=== PATIENT | female | born 1995 | race Hispanic/Latino ===

== ENCOUNTER 2021-05-07 09:10 | Emergency (ER) | payer SELFPAY ==
[2021-05-07 10:12] LABS: Absolute Lymphocytes (CBC) 1.8 K/uL (0.7-4.9); Hematocrit 41.1 % (36.0-45.0); Lymphocytes % 18.3 % (15.3-44.8); MPV 7.9 fL (7.6-11.3); RBC Red Blood Cell Count 4.92 M/uL (3.86-4.86)
[2021-05-07 10:46] LABS: BUN Blood Urea Nitrogen 12 mg/dL (7-18); Bicarbonate 23 mmol/L (21-32); Glucose Level 95 mg/dL (74-106); Sodium Level 136 mmol/L (136-145)
[2021-05-07 10:59] LABS: HCG, Quantitative 74224 mIU/mL (1-3)
[2021-05-07 11:25] LABS: Urine Blood 3+ (Negative); Urine Glucose Negative (Negative); Urine Protein Trace (Negative)
--- NOTE | 2021-05-07 12:42 | RAD REPORT ---
EXAM DESCRIPTION: US - Transvaginal OB - 05/07/2021 11:42 am CLINICAL HISTORY: VAGINAL BLEEDING, COMPARISON: No comparisons FINDINGS: A normal shaped intrauterine gestational sac is identifiable. Yolk sac is seen. A po le is present. Wheeler-rump length measurements correspond to a 7 week 6 day age. Cardiac activity seen at a rate of 160 BPM. No intrauterine hematoma identified. Cervical canal appears to be closed. A 3.2 centimeter right ovarian corpus luteum cyst is identified. No suspicious ovarian or adnexal fin dings. IMPRESSION: Single 7 week 6 day IUP with normal heart rate normally positioned within the endometria l cavity of the uterus. No intrauterine hematoma or mass. Internal os appears to be closed. No suspicious adnexal finding.
--- NOTE | 2021-05-07 13:06 | ER ---
Nurse's Notes [facility] Name: Siri Lyons Age: 25 yrs Sex: Female : 1995 Arrival Date: 05/07/2021 Time: 09:14 Bed 28 Private MD: Diagnosis: Threatened ;UTI/ Urinary tract infection, site not specified Presentation: 05/07 09:21 Chief complaint: Patient states: Vaginal bleeding started today (like a period). ll1 Approximately 7 weeks . G2, P1. Coronavirus screen: Vaccine status: Patient reports being unvaccinated. Client denies travel out of the [place] in the last 14 days. At this time, the client does not indicate any symptoms associated with coronavirus-19. Ebola Screen: Patient denies travel to an Ebola-affected area in the 21 days before illness onset. Initial Sepsis Screen: Does the patient meet any 2 criteria? No. Patient's initial sepsis screen is negative. Does the patient have a suspected source of infection? No. Patient's initial sepsis screen is negative. Risk Assessment: Do you want to hurt yourself or someone else? Patient reports no desire to harm self or others. Onset of symptoms was May 07, 2021. 09:21 Method Of Arrival: Ambulatory ll1 09:21 Acuity: CYNTHIA 3 ll1 Triage Assessment: 09:25 General: Appears in no apparent distress. Behavior is calm, cooperative, appropriate ll1 for age. Pain: Denies pain. Neuro: No deficits noted. Cardiovascular: No deficits noted. Respiratory: No deficits noted. : Reports vaginal bleeding that is with clots, moderate flow. 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 Flu vaccine status is unknown. - Social history:: Smoking status: Patient denies any tobacco usage or history of. Patient/guardian denies using alcohol, street drugs, The patient lives with family. - Family history:: not pertinent. Screenin:27 Abuse screen: Denies threats or abuse. Denies injuries from another. Nutritional jg9 screening: No deficits noted. Tuberculosis screening: No symptoms or risk factors identified. Fall Risk None identified. Assessment: 11:27 Obstetrical Assessment: Patient reports vaginal bleeding. jg9 Vital Signs: 09:21 BP 126 / 84; Pulse 85; Resp 16; Temp 98.6; Pulse Ox 96% ; Weight 83.91 kg (M); Height 5 ll1 ft. 2 in. (157.48 cm); Pain 0/10; 10:30 BP 120 / 64; Pulse 81; Resp 17 S; Pulse Ox 98% ; jg9 11:15 BP 114 / 68; Pulse 85; Resp 18 S; Pulse Ox 100% on R/A; jg9 12:15 BP 113 / 70; Pulse 85; Resp 18 S; Pulse Ox 98% on R/A; jg9 12:45 BP 106 / 68; Pulse 83; Resp 18; Pulse Ox 96% on R/A; jg9 09:21 Body Mass Index 33.84 (83.91 kg, 157.48 cm) ll1 ED Course: 09:14 Patient arrived in ED. kz 09:23 Triage completed. ll1 09:23 Arm band placed on Patient placed in an exam room, on a stretcher. ll1 09:26 Magaly Colby, BREANN is Primary Nurse. jg9 09:29 Steven Orr MD is Attending Physician. ma2 09:45 Inserted saline lock: 20 gauge in left antecubital area, using aseptic technique. Blood jg9 collected. 11:27 Patient has correct armband on for positive identification. Bed in low position. Call jg9 light in reach. 11:28 No apparent distress. Resting quietly. Pt visited by female friend. jg9 11:42 Transvaginal OB In Process Unspecified. EDMS 13:05 Allen Moreland MD is Referral Physician. ma2 13:13 No provider procedures requiring assistance completed. jg9 13:13 IV discontinued. jg9 Administered Medications: No medications were administered Point of Care Testing: Urine : 11:15 hCG Reading: Positive; Control Reading: Positive; jg9 Outcome: 13:06 Discharge ordered by . ma2 13:13 Discharged to home ambulatory. jg9 13:13 Condition: stable 13:13 Discharge instructions given to patient, Instructed on discharge instructions, follow up and referral plans. Demonstrated understanding of instructions, follow-up care, medications, Prescriptions given X 1. 13:14 Patient left the ED. jg9 Signatures: Dispatcher [employer] EDMS Steven Orr MD MD ma2 Jong Mccallum RN RN ll1 Magaly Colby RN RN jg9 Brissa Leblanc Corrections: (The following items were deleted from the chart) 09:25 09:21 BP 126 / 84; Pulse 85bpm; Resp 16bpm; Pulse Ox 96%; Temp 98.6F; Height 5 ft. 2 ll1 in.; Pain 0/10; ll1
--- NOTE | 2021-05-07 13:06 | EDPHYS ---
Physician Documentation [facility] Name: Siri Lyons Age: 25 yrs Sex: Female : 1995 Arrival Date: 05/07/2021 Time: 09:14 Bed 28 Private MD: ED Physician Steven Orr HPI: 05/07 13:03 This 25 yrs old Female presents to ER via Ambulatory with complaints of ma2 Vaginal Bleeding, + Preg <12wks. 13:03 25-year-old G2, P1 +0, patient is 7 weeks presents with vaginal bleeding heavy ma2 started today. She also states she is passing clots and possible tissue. Patient does not have abdominal pain or cramping. No vomiting or diarrhea.. 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 Flu vaccine status is unknown. - Social history:: Smoking status: Patient denies any tobacco usage or history of. Patient/guardian denies using alcohol, street drugs, The patient lives with family. - Family history:: not pertinent. ROS: 13:03 Constitutional: Negative for fever, chills, and weight loss. ma2 13:03 All other systems are negative. Exam: 13:03 Constitutional: This is a well developed, well nourished patient who is awake, alert, ma2 and in no acute distress. Head/Face: Normocephalic, atraumatic. Eyes: Pupils equal round and reactive to light, extra-ocular motions intact. Lids and lashes normal. Conjunctiva and sclera are non-icteric and not injected. Cornea within normal limits. Periorbital areas with no swelling, redness, or edema. ENT: Nares patent. No nasal discharge, no septal abnormalities noted. Tympanic membranes are normal and external auditory canals are clear. Oropharynx with no redness, swelling, or masses, exudates, or evidence of obstruction, uvula midline. Mucous membranes moist. Neck: Trachea midline, no thyromegaly or masses palpated, and no cervical lymphadenopathy. Supple, full range of motion without nuchal rigidity, or vertebral point tenderness. No Meningismus. Chest/axilla: Normal chest wall appearance and motion. Nontender with no deformity. No lesions are appreciated. Cardiovascular: Regular rate and rhythm with a normal S1 and S2. No gallops, murmurs, or rubs. Normal PMI, no JVD. No pulse deficits. Respiratory: Lungs have equal breath sounds bilaterally, clear to auscultation and percussion. No rales, rhonchi or wheezes noted. No increased work of breathing, no retractions or nasal flaring. Abdomen/GI: Soft, non-tender, with normal bowel sounds. No distension or tympany. No guarding or rebound. No evidence of tenderness throughout. Back: No spinal tenderness. No costovertebral tenderness. Full range of motion. Skin: Warm, dry with normal turgor. Normal color with no rashes, no lesions, and no evidence of cellulitis. MS/ Extremity: Pulses equal, no cyanosis. Neurovascular intact. Full, normal range of motion. Neuro: Awake and alert, GCS 15, oriented to person, place, time, and situation. Cranial nerves II-XII grossly intact. Motor strength 5/5 in all extremities. Sensory grossly intact. Cerebellar exam normal. Normal gait. Vital Signs: 09:21 BP 126 / 84; Pulse 85; Resp 16; Temp 98.6; Pulse Ox 96% ; Weight 83.91 kg (M); Height 5 ll1 ft. 2 in. (157.48 cm); Pain 0/10; 10:30 BP 120 / 64; Pulse 81; Resp 17 S; Pulse Ox 98% ; jg9 11:15 BP 114 / 68; Pulse 85; Resp 18 S; Pulse Ox 100% on R/A; jg9 12:15 BP 113 / 70; Pulse 85; Resp 18 S; Pulse Ox 98% on R/A; jg9 12:45 BP 106 / 68; Pulse 83; Resp 18; Pulse Ox 96% on R/A; jg9 09:21 Body Mass Index 33.84 (83.91 kg, 157.48 cm) ll1 MDM: 09:47 Patient medically screened. ma2 13:03 Differential diagnosis: STD, ectopic . Data reviewed: vital signs, nurses ma2 notes. Counseling: I had a detailed discussion with the patient and/or guardian regarding: the historical points, exam findings, and any diagnostic results supporting the discharge/admit diagnosis, the presence of at least one elevated blood pressure reading (>120/80) during this emergency department visit, the need for outpatient follow up. Response to treatment: the patient's symptoms have markedly improved after treatment. 13:03 ED course: Ultrasound shows normal IUP with normal pulse rate. No active bleeding ma2 at this time os is closed. I gave patient return precaution, and discharge instruction for threatening . 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 05/07 09:47 Order name: Abo/rh Typing; Complete Time: 10:56 [facility] 05/07 09:47 Order name: Basic Metabolic Panel; Complete Time: 11:23 [facility] 05/07 09:47 Order name: CBC with Diff; Complete Time: 10:45 [facility] 05/07 09:47 Order name: Quantitative Hcg; Complete Time: 11:23 [facility] 05/07 11:25 Order name: Urine Dipstick-Ancillary; Complete Time: 11:38 EDMS 05/07 11:33 Order name: Urine --Ancillary (enter results); Complete Time: 12:45 eb 05/07 09:47 Order name: IV Saline Lock; Complete Time: 10:06 [facility] 05/07 09:47 Order name: Labs collected and sent; Complete Time: 10:47 [facility] 05/07 09:47 Order name: Urine Dipstick-Ancillary (obtain specimen); Complete Time: 11:26 [facility] 05/07 10:29 Order name: Transvaginal OB; Complete Time: 12:45 EDMS 05/07 12:36 Order name: ABO/RH no charge; Complete Time: 12:45 EDMS Administered Medications: No medications were administered Point of Care Testing: Urine : 11:15 hCG Reading: Positive; Control Reading: Positive; jg9 Disposition Summary: 05/07/21 13:06 Discharge Ordered Location: Home ma2 Condition: Stable ma2 Diagnosis - Threatened ma2 - UTI/ Urinary tract infection, site not specified ma2 Followup: ma2 - With: Allen Moreland MD - When: Tomorrow - Reason: If symptoms return, Continuance of care Discharge Instructions: - Discharge Summary Sheet ma2 - Threatened Miscarriage ma2 - Form - Excuse from Work, School, or Physical Activity jg9 - Urinary Tract Infection, Adult ma2 Forms: - Medication Reconciliation Form ma2 - Thank You Letter ma2 - Antibiotic Education ma2 - Prescription Opioid Use ma2 Prescriptions: - Amoxicillin 875 mg Oral Tablet - take 1 tablet by ORAL route every 12 hours for 10 days; 20 tablet; Refills: 0, ma2 Product Selection Permitted Signatures: Dispatcher [employer] EDMS Steven Orr MD MD ma2 Jong Mccallum RN RN ll1 Corrections: (The following items were deleted from the chart) 10:29 10:24 OB Complete+US.RAD.BRZ ordered. EDMS EDMS
[2021-05-07 13:23] VITALS: TEMP 98.6
[2021-05-07 13:27] VITALS: BP 106/68; O2SAT 96
== END 2021-05-07 13:14 | disposition home or self-care (01) ==
LOC: ER 09:10
DX: O20.0 Threatened abortion (principal); Z3A.01 Less than 8 weeks gestation of pregnancy; O23.41 Unspecified infection of urinary tract in pregnancy, first trimester; N39.0 Urinary tract infection, site not specified
CPT/HCPCS: 36415; 76817; 80048; 81003; 81025; 84702; 85025; 86900; 86901; 99284

== ENCOUNTER 2021-05-27 15:56 | Emergency (ER) | payer OTHER, SELFPAY ==
[2021-05-27] MEDS ORDERED: NA CHLORIDE 0.9% 1,000 ML ONE (16:14)
[2021-05-27 16:28] LABS: Absolute Lymphocytes (CBC) 1.7 K/uL (0.7-4.9); Hematocrit 36.7 % (36.0-45.0); Lymphocytes % 13.7 % (15.3-44.8); MPV 7.9 fL (7.6-11.3); RBC Red Blood Cell Count 4.41 M/uL (3.86-4.86)
[2021-05-27] MEDS ORDERED: ACETAMINOPHEN 500 MG TAB ONE (16:42)
[2021-05-27 16:49] LABS: BUN Blood Urea Nitrogen 9 mg/dL (7-18); Bicarbonate 26 mmol/L (21-32); Glucose Level 96 mg/dL (74-106); Potassium 3.7 mmol/L (3.5-5.1); Sodium Level 139 mmol/L (136-145)
--- NOTE | 2021-05-27 19:12 | RAD REPORT ---
EXAM DESCRIPTION: US - Transvaginal OB - 05/27/2021 5:59 pm CLINICAL HISTORY: VAGINAL BLEEDING COMPARISON: Transvaginal OB dated 05/07/2021 FINDINGS: Internal cervical os does appear to be closed. Placenta is posterior but not low-lying or previa. No abruption or marginal hematoma. There is heterogeneous material in the cervical canal michael eved to be hemorrhagic byproducts. Normal shaped intrauterine gestational sacs identified. Single IUP is identified. Heart rate is 169 B PM. Vevay-rump length corresponds to a 10 week 2 day age. Calculated FLEX is 12/21/2021. Left ovary is not clearly defined. Heterogeneous left adnexa tissue is believed be bowel. Detail on t he left adnexae is limited. Normal right ovary is seen with internal blood flow. Approximately 19 mm right ovarian cyst is presen t. No blood or fluid in the cul de sac. IMPRESSION: Hemorrhagic material is present in the cervical canal. Internal os is closed. No abrupti on, marginal hematoma or placenta previa. Single 10 week 2 day IUP. Heart rate is 169 BPM. FLEX is 12/21/2021.
[2021-05-27 19:30] LABS: HCG, Quantitative 39729 mIU/mL (1-3)
--- NOTE | 2021-05-27 19:36 | EDPHYS ---
Physician Documentation [facility] Name: Siri Lyons Age: 25 yrs Sex: Female : 1995 Arrival Date: 05/27/2021 Time: 15:57 Bed 18 Private MD: ED Physician Garrett Yeboah HPI: 05/27 16:05 This 25 yrs old Female presents to ER via EMS with complaints of Vaginal cp Bleeding, + Preg <12wks. 16:05 The patient presents to the emergency department with vaginal bleeding, that is heavy, cp with clots. The estimated gestational age is 10 weeks. course: care: private OB physician, Dr. Moreland, the patient's last check was May 27, 2021. 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 - Social history:: Smoking status: Patient denies any tobacco usage or history of. ROS: 16:10 Constitutional: Negative for body aches, chills, fever, poor PO intake. cp 16:10 Eyes: Negative for injury, pain, redness, and discharge. cp 16:10 ENT: Negative for ear pain, sore throat, difficulty swallowing, difficulty handling secretions. 16:10 Cardiovascular: Negative for chest pain, palpitations. 16:10 Respiratory: Negative for cough, shortness of breath, wheezing. 16:10 Abdomen/GI: Negative for abdominal pain, nausea, vomiting, and diarrhea. 16:10 : Positive for vaginal bleeding, Negative for urinary symptoms. 16:10 Neuro: Negative for altered mental status, headache, weakness. 16:10 All other systems are negative. Exam: 16:15 Constitutional: The patient appears in no acute distress, alert, awake, non-toxic, well cp developed, well nourished. 16:15 Head/Face: Normocephalic, atraumatic. cp 16:15 Eyes: Periorbital structures: appear normal, Conjunctiva: normal, no exudate, no injection, Lids and lashes: appear normal, bilaterally. 16:15 ENT: External ear(s): are unremarkable, Nose: is normal, Posterior pharynx: Airway: no evidence of obstruction, patent. 16:15 Chest/axilla: Inspection: normal. 16:15 Cardiovascular: Rate: tachycardic, Rhythm: regular. 16:15 Respiratory: the patient does not display signs of respiratory distress, Respirations: normal, no use of accessory muscles, no retractions, labored breathing, is not present, Breath sounds: are clear throughout, no decreased breath sounds. 16:15 Abdomen/GI: Inspection: abdomen appears normal, Palpation: abdomen is soft and non-tender, in all quadrants. 16:15 Back: pain, is absent, ROM is normal. 16:15 : Pelvic Exam: External exam: is normal, Speculum exam: moderate bleeding, blood clots in vaginal vault, os that is closed, no tissue in cervix is seen, no tissue in vagina is seen, the nurse was present for the exam. 16:15 Neuro: Orientation: to person, place \T\ time. Mentation: is normal. Vital Signs: 15:58 BP 122 / 70; Pulse 106; Resp 16; Temp 97.6; Pulse Ox 99% ; bp 18:05 BP 123 / 71; Pulse 84; Resp 16; Pulse Ox 100% ; bp 19:31 BP 109 / 71; Pulse 78; Resp 18; Pulse Ox 100% on R/A; ke1 MDM: 16:00 Differential diagnosis: STD, threatened Ab, ectopic . cp 16:05 Patient medically screened. cp 19:30 Data reviewed: vital signs, nurses notes, lab test result(s), radiologic studies, cp ultrasound. 19:30 Physician consultation: Allen Moreland MD was called at 19:30, was contacted at 19:30, cp regarding patient's condition, recommends discharge to home with pelvic rest instructions and to call clinic in morning at 0900 to update him. 19:30 Response to treatment: the patient's symptoms have markedly improved after treatment, cp and as a result, I will discharge patient. 05/27 15:58 Order name: Abo/rh Typing; Complete Time: 18:29 kdr 05/27 15:58 Order name: Basic Metabolic Panel kdr 05/27 15:58 Order name: CBC with Diff; Complete Time: 18:29 kdr 05/27 18:29 Interpretation: Normal except: WBC 12.5; YING% 77.7; LYM% 13.7; NEUT A 9.7. cp 05/27 15:58 Order name: Quantitative Hcg kdr 05/27 16:27 Order name: US Transvaginal Ob; Complete Time: 19:21 cp 05/27 15:58 Order name: IV Saline Lock; Complete Time: 16:17 kdr 05/27 15:58 Order name: Labs collected and sent; Complete Time: 16:17 kdr 05/27 15:58 Order name: NPO; Complete Time: 16:06 kdr Administered Medications: 16:18 Drug: NS 0.9% 1000 ml Route: IV; Rate: 1 bolus; Site: right antecubital; bp 16:42 Drug: Tylenol 1000 mg Route: PO; bp 19:00 Follow up: Response: No adverse reaction bp Disposition: 19:16 Co-signature as Attending Physician, Garrett Yeboah MD I agree with the assessment and kdr plan of care. Disposition Summary: 05/27/21 19:35 Discharge Ordered Location: Home cp Problem: new cp Symptoms: have improved cp Condition: Stable cp Diagnosis - Threatened cp Followup: cp - With: Allen Moreland MD - When: 1 week - Reason: Recheck today's complaints Discharge Instructions: - Discharge Summary Sheet cp - Care cp - Threatened Miscarriage cp - Vaginal Bleeding During , First Trimester cp - Activity Restriction During cp - Form - Excuse from Work, School, or Physical Activity cp Forms: - Medication Reconciliation Form cp - Thank You Letter cp - Antibiotic Education cp - Prescription Opioid Use cp Prescriptions: - 147-iron gluc-folic 13 mg iron- 1 mg Oral tablet - take 1 tablet by ORAL route 2 times per day; 60 tablet; Refills: 0, Product cp Selection Permitted Signatures: Dispatcher [employer] Garrett Maguire MD MD kdr Eladio Stack PA PA cp Peltier, Brian, RN RN bp
--- NOTE | 2021-05-27 19:36 | ER ---
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 Coronavirus screen: bp At this time, the client does not indicate any symptoms associated with coronavirus-19. Ebola Screen: No symptoms or risks identified at this time. Initial Sepsis Screen: Does the patient meet any 2 criteria? No. Patient's initial sepsis screen is negative. Does the patient have a suspected source of infection? No. Patient's initial sepsis screen is negative. Risk Assessment: Do you want to hurt yourself or someone else? Patient reports no desire to harm self or others. Onset of symptoms was May 27, 2021 at 15:30. 15:58 Method Of Arrival: EMS: [facility] bp 15:58 Acuity: CYNTHIA 3 bp Triage Assessment: 16:01 General: Appears distressed, comfortable, Behavior is cooperative, appropriate for age, bp anxious. Pain: Denies pain. EENT: No deficits noted. Neuro: No deficits noted. Cardiovascular: Rhythm is sinus tachycardia. Respiratory: No deficits noted. GI: No signs and/or symptoms were reported involving the gastrointestinal system. : Reports vaginal bleeding that is with clots, heavy flow. Derm: No deficits noted. Musculoskeletal: No deficits noted. 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 - Social history:: Smoking status: Patient denies any tobacco usage or history of. Screenin:04 Abuse screen: Denies threats or abuse. Denies injuries from another. Nutritional bp screening: No deficits noted. Tuberculosis screening: No symptoms or risk factors identified. Fall Risk None identified. Assessment: 16:04 Obstetrical Assessment: General assessment: awake and alert, anxious, respirations even bp and unlabored. 18:05 Reassessment: U/S COMPLETE. RESULTS PENDING. bp Vital Signs: 15:58 BP 122 / 70; Pulse 106; Resp 16; Temp 97.6; Pulse Ox 99% ; bp 18:05 BP 123 / 71; Pulse 84; Resp 16; Pulse Ox 100% ; bp 19:31 BP 109 / 71; Pulse 78; Resp 18; Pulse Ox 100% on R/A; ke1 ED Course: 15:57 Patient arrived in ED. bp 15:58 Garrett Yeboah MD is Attending Physician. kdr 16:00 Eladio Stack PA is PHCP. cp 16:01 Triage completed. bp 16:01 Arm band placed on. bp 16:04 Patient has correct armband on for positive identification. Bed in low position. Call bp light in reach. Side rails up X2. Adult w/ patient. 16:06 Julio Pickett, RN is Primary Nurse. bp 16:18 Inserted saline lock: 20 gauge in right antecubital area, using aseptic technique. bp Blood collected. 16:32 vaginal exam. Pt tolerated well. Mother in law remained at bedside for duration of exam ss and after per patient request. Large blood clot removed from vaginal vault and placed in exam cup. 18:08 Transvaginal Ob In Process Unspecified. EDMS 19:35 Allen Moreland MD is Referral Physician. cp 19:45 IV discontinued. ke1 Administered Medications: 16:18 Drug: NS 0.9% 1000 ml Route: IV; Rate: 1 bolus; Site: right antecubital; bp 16:42 Drug: Tylenol 1000 mg Route: PO; bp 19:00 Follow up: Response: No adverse reaction bp Outcome: 19:35 Discharge ordered by . cp 19:45 Discharged to home ambulatory. ke1 19:45 Condition: good 19:45 Discharge instructions given to patient. 19:46 Patient left the ED. ke1 Signatures: Dispatcher [employer] EDMS Garrett Yeboah MD MD kdr Radha Cool RN RN ss Eladio Stack PA PA cp Julio Pickett, RN RN bp Oly Olivares RN RN ke1
[2021-05-27 23:20] VITALS: TEMP 97.6
[2021-05-27 23:21] VITALS: O2SAT 100
[2021-05-27 23:22] VITALS: BP 109/71
== END 2021-05-27 19:46 | disposition home or self-care (01) ==
LOC: ER 15:56
DX: O20.0 Threatened abortion (principal); Z3A.10 10 weeks gestation of pregnancy
CPT/HCPCS: 85025; 80048; 36415; 86900; 86901; 84702; 76817; 99284; J7030

== ENCOUNTER 2021-07-09 13:22 | Emergency (ER) | payer OTHER ==
--- NOTE | 2021-07-09 14:03 | RAD REPORT ---
EXAM DESCRIPTION: US - OB Limited - 07/09/2021 1:48 pm CLINICAL HISTORY: ABD CRAMPING, COMPARISON: Transvaginal OB dated 05/27/2021 FINDINGS: Limited OB sonography was performed. Cervical canal is somewhat limited in visualization measuring approximately 2.5 cm in length. The int ernal os does appear to be closed. No placental abruption or marginal hematoma. No previa is present. A single gestation is identified. There are no gross anatomic abnormality seen. Age is approximately [address] related FLEX would be 12/24/2021. Oligohydramnios is evident on visual inspection. Four-quadrant measurements were not obtained. IMPRESSION: Oligohydramnios is evident. On visual inspection fluid is low with the 2.5 cm length cer vical canal showing a closed internal os. Single 16 week gestational with no gross anatomic abnormality. Heart rate is normal. No placental abnormality.
--- NOTE | 2021-07-09 14:38 | ER ---
Nurse's Notes [facility] Name: Siri Lyons Age: 26 yrs Sex: Female : 1995 Arrival Date: 07/09/2021 Time: 13:23 Bed Waiting Private MD: Diagnosis: Threatened Presentation: 07/09 13:47 Chief complaint: Patient states: she started passing blood clots this morning, and is ap3 reported to be 16 weeks . patient states that this has happened previously in her . Patient denies any pain. Coronavirus screen: At this time, the client does not indicate any symptoms associated with coronavirus-19. Ebola Screen: No symptoms or risks identified at this time. Initial Sepsis Screen: Does the patient meet any 2 criteria? No. Patient's initial sepsis screen is negative. Does the patient have a suspected source of infection? No. Patient's initial sepsis screen is negative. Risk Assessment: Do you want to hurt yourself or someone else? Patient reports no desire to harm self or others. Onset of symptoms was July 09, 2021. 13:47 Method Of Arrival: Ambulatory ap3 13:47 Acuity: CYNTHIA 3 ap3 Triage Assessment: 13:49 General: Appears in no apparent distress. Behavior is calm, cooperative. Pain: Denies ap3 pain. Neuro: Level of Consciousness is awake, alert, obeys commands, Oriented to person, place, time, situation, Gait is steady. Cardiovascular: Patient's skin is warm and dry. Respiratory: Airway is patent Respiratory effort is even, unlabored. : Reports vaginal bleeding that is with clots, since this morning. 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 Flu vaccine is not up to date. - Social history:: Smoking status: Patient denies any tobacco usage or history of. Screenin:50 Abuse screen: Denies threats or abuse. Nutritional screening: No deficits noted. ap3 Tuberculosis screening: No symptoms or risk factors identified. Fall Risk None identified. Vital Signs: 13:47 BP 130 / 76; Pulse 107; Resp 17; Temp 97.9; Pulse Ox 100% ; Weight 82.55 kg; Height 5 ap3 ft. 2 in. (157.48 cm); Pain 0/10; 13:47 Body Mass Index 33.29 (82.55 kg, 157.48 cm) ap3 ED Course: 13:23 Patient arrived in ED. mr 13:49 Triage completed. ap3 13:50 OB Limited In Process Unspecified. EDMS 13:50 Arm band placed on right wrist. ap3 13:51 TRANSVAG OB CERVIX ASSESSMENT In Process Unspecified. EDMS 14:21 Domingo Parisi NP is PHCP. pm1 14:21 Steven Orr MD is Attending Physician. pm1 14:36 Allen Moreland MD is Referral Physician. pm1 15:04 Patient has correct armband on for positive identification. ap3 15:04 No provider procedures requiring assistance completed. Patient did not have IV access ap3 during this emergency room visit. Administered Medications: No medications were administered Medication: 13:50 VIS not applicable for this client. ap3 Outcome: 14:37 Discharge ordered by . pm1 15:04 Discharged to home ambulatory. ap3 15:04 Condition: good 15:04 Discharge instructions given to patient, Instructed on discharge instructions, follow up and referral plans. Demonstrated understanding of instructions. 15:05 Patient left the ED. ap3 Signatures: Dispatcher [employer] [facility] Mukesh Ainsley zimmerman Domingo Parisi NP LIFT TEAM TECHNICIAN pm1 Nguyen Correa RN RN ap3
--- NOTE | 2021-07-09 14:38 | EDPHYS ---
Physician Documentation [facility] Name: Siri Lyons Age: 26 yrs Sex: Female : 1995 Arrival Date: 07/09/2021 Time: 13:23 Bed Waiting Private MD: ED Physician Steven Orr HPI: 07/09 14:34 This 26 yrs old Female presents to ER via Ambulatory with complaints of 16 wks pm1 , Vaginal Bleeding. 14:34 The patient presents with vaginal bleeding that is light, with clots. Onset: The pm1 symptoms/episode began/occurred this morning. Modifying factors: The symptoms are alleviated by nothing, the symptoms are aggravated by nothing. Associated signs and symptoms: Pertinent negatives: dysuria, fever, abdominal pain. Severity of symptoms: in the emergency department the symptoms are unchanged. The patient is sexually active. The patient has experienced similar episodes in the past, a few times, for this current . The patient has not recently seen a physician. 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 Flu vaccine is not up to date. - Social history:: Smoking status: Patient denies any tobacco usage or history of. ROS: 14:34 Positive for vaginal bleeding, Negative for urinary symptoms. pm1 14:34 Constitutional: Negative for fever, chills, and weight loss, Cardiovascular: Negative for chest pain, palpitations, and edema, Respiratory: Negative for shortness of breath, cough, wheezing, and pleuritic chest pain, Abdomen/GI: Negative for abdominal pain, nausea, vomiting, diarrhea, and constipation, Back: Negative for injury and pain, MS/Extremity: Negative for injury and deformity, Skin: Negative for injury, rash, and discoloration, Neuro: Negative for headache, weakness, numbness, tingling, and seizure. 14:34 All other systems are negative. Exam: 14:34 Constitutional: This is a well developed, well nourished patient who is awake, alert, pm1 and in no acute distress. Head/Face: Normocephalic, atraumatic. 14:34 Skin: Warm, dry with normal turgor. Normal color with no rashes, no lesions, and no evidence of cellulitis. MS/ Extremity: Pulses equal, no cyanosis. Neurovascular intact. Full, normal range of motion. 14:34 Cardiovascular: Exam negative for acute changes, Rate: normal, Rhythm: regular, Pulses: no pulse deficits are appreciated. 14:34 Respiratory: Exam negative for acute changes, respiratory distress, shortness of breath. 14:34 Abdomen/GI: Inspection: gravid appearance, Palpation: abdomen is soft and non-tender, in all quadrants. 14:34 Back: Exam negative for acute changes, pain, is absent. 14:34 Neuro: Exam negative for acute changes, Orientation: is normal, Mentation: is normal, Motor: is normal, moves all fours. Vital Signs: 13:47 BP 130 / 76; Pulse 107; Resp 17; Temp 97.9; Pulse Ox 100% ; Weight 82.55 kg; Height 5 ap3 ft. 2 in. (157.48 cm); Pain 0/10; 13:47 Body Mass Index 33.29 (82.55 kg, 157.48 cm) ap3 MDM: 14:33 Patient medically screened. pm1 14:34 Data reviewed: vital signs. Data interpreted: Pulse oximetry: on room air is 100 %. pm1 Interpretation: normal. Counseling: I had a detailed discussion with the patient and/or guardian regarding: radiology results. 14:34 Refusal of service: The patient/guardian displays adequate decision making capability pm1 and despite a detailed discussion of alternatives, benefits, risks, and consequences refuses: all lab tests, Patient and would like to go home now since they have the ultrasound report. They don't to wait to get to a room and get any blood or urine tests perform due to the wait time. Will discharge the patient home to follow up with Dr. Moreland. 07/09 13:50 Order name: OB Limited; Complete Time: 14:21 EDNY 07/09 13:29 Order name: IV Saline Lock [facility] 07/09 13:29 Order name: Labs collected and sent [facility] 07/09 13:29 Order name: NPO [facility] 07/09 13:29 Order name: Urine Dipstick-Ancillary (obtain specimen) ma2 07/09 13:51 Order name: TRANSVAG OB CERVIX ASSESSMENT EDMS Administered Medications: No medications were administered Disposition Summary: 07/09/21 14:37 Discharge Ordered Location: Home pm1 Problem: new pm1 Symptoms: are unchanged pm1 Condition: Stable pm1 Diagnosis - Threatened pm1 Followup: pm1 - With: Emergency Department - When: As needed - Reason: Worsening of condition Followup: pm1 - With: Allen Moreland MD - When: 2 - 3 days - Reason: Recheck today's complaints, Continuance of care, Re-evaluation by your physician Discharge Instructions: - Discharge Summary Sheet pm1 - Threatened Miscarriage pm1 - Activity Restriction During pm1 Forms: - Medication Reconciliation Form pm1 - Thank You Letter pm1 - Antibiotic Education pm1 - Prescription Opioid Use pm1 Signatures: Dispatcher [employer] EDMS Domingo Parisi NP FINANCIAL ACCOUNTANT pm1 Steven Orr MD MD ma2 Nguyen Correa RN RN ap3 Corrections: (The following items were deleted from the chart) 13:50 13:30 OB Complete+US.RAD.BRZ ordered. EDMS EDMS
[2021-07-09 15:10] VITALS: BP 130/76; TEMP 97.9; O2SAT 100
--- NOTE | 2021-07-09 15:34 | RAD REPORT ---
EXAM DESCRIPTION: US - TRANSVAG OB CERVIX ASSESSMENT - 07/09/2021 1:50 pm CLINICAL HISTORY: CXpregnancy, bleeding COMPARISON: OB Limited dated 07/09/2021 FINDINGS: Limited sonography was performed to evaluate the cervix. Cervix is approximately 2.5 cm in maximum dimension. Internal os is closed. No hematoma or suspicious finding within the cervical canal.
== END 2021-07-09 15:05 | disposition home or self-care (01) ==
LOC: ER 13:22
DX: O20.0 Threatened abortion (principal); O41.02X0 Oligohydramnios, second trimester, not applicable or unspecified; Z3A.16 16 weeks gestation of pregnancy
CPT/HCPCS: 76815; 76817; 99283

== ENCOUNTER 2022-07-03 18:23 | Emergency (ER) | payer OTHER ==
--- OUTSIDE RECORDS SUMMARY | 2022-07-03 18:26 | XMS REPORT | Continuity of Care Document ---
:1995 Author Organization [facility] t Address [address] [facility] [address] [place] [address] Care Team Providers Name Role Phone PCP, PATIENT DOES NOT HAVE A Primary Care Physician [facility] LISA FLORES Attending Clinician Unavailable Lisa Flores DO Attending Clinician Ryan Gonzalez MD Attending Clinician RYAN GONZALEZ Attending Clinician Unavailable Ryan Gonzalez MD Admitting Clinician RYAN GONZALEZ Admitting Clinician Unavailable Payers Payer Name Policy Type Policy Number Effective Date Expiration Date S ainsley [facility] [id number] 2021 00:00:00 Problems Condition Condition Condition Status Onset Resolution Last Treating Co mments Source Name Details Category Date Date Treatment Clinician Date Miscarriag Miscarriag Disease Active U nivers e e 5-23 ity of 00:00: [address] Complete Complete Disease Active Unive rs miscarriag miscarriag 5-23 it y of e e 00:00: [address] Branch Vaginal Vaginal Disease Active Univers bleeding bleeding 5-23 ity of before 22 [place] 22 [place] 00 Medical gestation gestation Bran ch 17 weeks 17 weeks Disease Active Unive rs gestation gestation 5-23 ity of of of 00:00: [place] 00 [facility] Branch Allergies, Adverse Reactions, Alerts Allergy Allergy Status Severity Reaction(s) Onset Inactive Treating Comm ents Source Name Type Date Date Clinician NO KNOWN Drug Active Univers ALLERGIE Class ity of S [facility] Social History Social Habit Start Date Stop Date Quantity Comments Source ASSERTION 2021-03-27 [facility] 00:00:00 [facility] Exposure to 2021-09-25 2021-10-05 Not sure [facility]-CoV-2 00:00:00 14:26:00 [facility] (event) [place] Alcohol intake 2021-10-05 2021-10-05 Ex-drinker [facility] 00:00:00 00:00:00 (finding) [facility] Tobacco use and 2021-07-12 2021-07-12 Smokeless tobacco Un iversity of exposure 00:00:00 00:00:00 non-user [facility] Sex Ass[birth year] Universit y of 00:00:00 00:00:00 [facility] Smoking Status Start Date Stop Date Source Unknown if ever smoked [facility] Never smoked tobacco [facility] Medications Ordered Filled Start Stop Current Ordering Indication Dosage Frequency Signature Comments Components Source Medication Medication Date Date Medication? Clinician (SIG) Name Name ondansetron 4mg 4 mg, Univ ers (ZOFRAN-ODT 10-05 Oral, ity of ) 20:45: 19:52 ONCE, 1 [place] disintegrat 00 :00 dose, On [facility] ing tablet Tue [place] 4 mg 10/05/21 at 1545, Routine ferrous Yes [id number] 325mg Take 1 Uni vers sulfate 325 5-23 tablet by ity of mg (65 mg 00:00: mouth 2 [place] iron) 00 (two) Medical tablet times Branch daily. ibuprofen Yes [id number] 600mg Take 1 U nivers 600 mg 5-23 tablet by ity of tablet 00:00: mouth [place] 00 every 6 Medical (six) Branch hours as needed (Pain). Take with food or milk. Yes [id number] 1{tbl} Take 1 U nivers vitamin 5-23 tablet by ity of w/FA tablet 00:00: mouth [place] 00 daily. Medical Branch docusate Yes [id number] 200mg Take 2 Un christiana 100 mg 5-23 capsules ity of capsule 00:00: by mouth [place] 00 once daily Medical as needed Branch for Constipati on. ferrous Yes [id number] 325mg Take 1 Uni vers sulfate 325 5-23 tablet by ity of mg (65 mg 00:00: mouth 2 [place] iron) 00 (two) Medical tablet times Branch daily. ibuprofen Yes [id number] 600mg Take 1 U nivers 600 mg 5-23 tablet by ity of tablet 00:00: mouth [place] 00 every 6 Medical (six) Branch hours as needed (Pain). Take with food or milk. Yes [id number] 1{tbl} Take 1 U nivers vitamin 5-23 tablet by ity of w/FA tablet 00:00: mouth [place] 00 daily. Medical Branch docusate Yes [id number] 200mg Take 2 Un christiana 100 mg 5-23 capsules ity of capsule 00:00: by mouth [place] 00 once daily Medical as needed Branch for Constipati on. Vital Signs Vital Name Observation Time Observation Value Comments Source Systolic blood 2021-10-05 19:26:00 127 mm[Hg] [facility] Diastolic blood 2021-10-05 19:26:00 84 mm[Hg] [facility] Heart rate 2021-10-05 19:26:00 76 /min [facility] Body temperature 2021-10-05 19:26:00 37 Avani [facility] Respiratory rate 2021-10-05 19:26:00 14 /min [facility] Body weight 2021-10-05 19:26:00 82.555 kg [facility] Oxygen saturation in 2021-10-05 19:26:00 100 /min [facility] Arterial blood by [facility] Pulse oximetry Branch Body weight 2021-07-12 16:15:00 82.555 kg [facility] Body temperature 2021-07-12 11:15:00 36.56 Avani [facility] Respiratory rate 2021-07-12 11:15:00 20 /min [facility] Procedures Procedure Date / Time Performing Clinician Source Performed NOTICE OF PRIVACY 2021-10-05 19:08:03 Doctor Unassigned, No [facility] PRACTICES Name Medical Branch CONSENT/REFUSAL FOR 2021-10-05 19:07:36 Doctor Unassigned, No [facility] DIAGNOSIS AND TREATMENT Name Medical [place] ABORH CONFIRMATION (LAB 2021-07-12 12:00:00 Adum, [facility] ONLY) Medical Branch CBC WITH DIFF 2021-07-12 11:39:00 Adum, [facility] HB ABO GROUPING 2021-07-12 11:35:00 Adum, [facility] Encounters Start End Encounter Admission Attending Care Care Encounter Source Date/Time Date/Time Type Type Clinicians Facility Department ID 2021-10-05 2021-10-05 Emergency X [facility] ERT [id number] Univers 14:27:00 14:58:00 LISA forrester [facility] 2021-10-05 2021-10-05 Emergency [facility] [id number] Univers 14:27:00 14:58:00 Lisa TAPIA [id number] ity [facility] [id number] [facility] [id number] [address] 2021-07-12 2021-07-12 [facility] [id number] Univers 05:56:00 11:35:00 Encounter Ryan TAPIA [id number] ity [facility] [id number] [facility] [id number] [address] 2021-07-12 2021-07-12 Outpatient P [facility] ROSA [id number] Univers 05:56:00 11:35:00 [facility] Test Description Test Time Test Comments Results Result Comments Source CBC WITH DIFF 2021-07-12 14:32:29 Test Item Value Reference Range Interpretation Comme nts WBC (test code = 6690-2) See_Comment H [A utomated message] The system which ge nerated this result transmit gil reference range: 4.30 - 1 1.10 10*3/?L. The reference r adryan was not used to interpr et this result as normal/abnor mal. RBC (test code = 789-8) See_Comment L [Au tomated message] The system which [employer] nerated this result transmit gil reference range: 3.93 - 5 .25 10*6/?L. The reference r adryan was not used to interpr et this result as normal/abnor mal. HGB (test code = 718-7) 9.3 g/dL 11.6-15.0 L HCT (test code = 4544-3) 29.6 % 35.7-45.2 L MCV (test code = 787-2) 85.1 fL 80.6-95.5 MCH (test code = 785-6) 26.7 pg 25.9-32.8 MCHC (test code = 786-4) 31.4 g/dL 31.6-35.1 L RDW-SD (test code = 56715-7) 39.6 fL 39.0-49.9 RDW-CV (test code = 788-0) 13.1 % 12.0-15.5 PLT (test code = 777-3) See_Comment [Au tomated message] The system which [employer] nerated this result transmit gil reference range: 166 - 35 8 10*3/?L. The reference range was not used to interpret th is result as normal/abnormal . MPV (test code = 94100-6) 9.7 fL 9.5-12.9 NRBC/100 WBC (test code = See_Comment [ Automated message] The [id number]) system which [employer] nerated this result transmit gil reference range: 0.0 - 10 .0 /100 WBCs. The reference r adryan was not used to interpr et this result as normal/abnor mal. NRBC x10^3 (test code = <0.01 See_Comment [Au tomated message] The [id number]) system which [employer] nerated this result transmit gil reference range: 10*3/?L. The reference range was not u sed to interpret this result as normal/abnormal . GRAN MAT (NEUT) % (test code 87.7 % = 770-8) IMM GRAN % (test code = 0.50 % [id number]) LYMPH % (test code = 736-9) 8.2 % MONO % (test code = 5905-5) 3.2 % EOS % (test code = 713-8) 0.2 % BASO % (test code = 706-2) 0.2 % GRAN MAT x10^3(ANC) (test 15.24 10*3/uL 1.88-7.09 H code = 8266516386) IMM GRAN x10^3 (test code = 0.09 10*3/uL 0.00-0.06 H [id number]) LYMPH x10^3 (test code = 1.42 10*3/uL 1.32-3.29 731-0) MONO x10^3 (test code = 0.55 10*3/uL 0.33-0.92 742-7) EOS x10^3 (test code = 0.04 10*3/uL 0.03-0.39 711-2) BASO x10^3 (test code = 0.03 10*3/uL 0.01-0.07 704-7) BASO STIPPLING (test code = Present A 703-9) BANDS (test code = Increased A [id number]) LG GRAN LYMPHS (test code = Rare Rare [id number]) TOXIC CHANGES (test code = Present A 803-7) GIANT PLATELETS (test code = Present See_Comment A [Automated message] The 5908-9) system which ge nerated this result transmit gil reference range: (none). The reference range was not u sed to interpret this result as normal/abnormal . Lab Interpretation (test Abnormal code = 13380-1) [facility] Only[facility]2021-07-12 13:59:07 Test Item Value Reference Range Interpretation Comments ABO & RH (test code B Positive Performe d at [facility] = 20) Laboratory Serv [facility] [address] [place] [id number] Free: [phone] A No. [id number] [facility] and Screen - ONCE [id number] 13:50:09 Test Item Value Reference Range Interpretation Comments ABO & RH (test code B Positive Performe d at [facility] = 20) Laboratory Serv [facility] [address] [place] [phone] Free: [phone] A No. [id number] IAT (test code = Negative Performed a t [facility] 1185) Laboratory Serv [facility] [address] [place] [phone] Free: [phone] A No. [id number] [facility]
--- NOTE | 2022-07-03 19:31 | RAD REPORT ---
EXAM DESCRIPTION: US - Transvaginal OB - 07/03/2022 7:11 pm CLINICAL HISTORY: ABD CRAMPING, COMPARISON: <Comparisons> FINDINGS: A single gestational sac is seen within the uterus. The shape of the sac is within normal limits for gestational age. Within the sac is a single pole with crown-rump length of 9 mm, cor relating to estimated gestational age of 7 weeks 0 days. Estimated date of delivery is 02/01/2023. Heart rate is 142 BPM.. The placenta is not yet developed due to early gestational age. The maternal adnexa are within normal limits. Both ovaries nonvisualized due to bowel gas. IMPRESSION: Single live early intrauterine gestation with estimated gestational age of 7 weeks 0 day s, FLEX 02/01/2023. Both ovaries were nonvisualized due to bowel gas.
[2022-07-03 20:00] LABS: Absolute Lymphocytes (CBC) 2.1 K/uL (0.7-4.9); Hematocrit 37.9 % (36.0-45.0); Lymphocytes % 21.2 % (15.3-44.8); MCV 82.9 fL (80-100); MPV 7.5 fL (7.6-11.3); RBC Red Blood Cell Count 4.57 M/uL (3.86-4.86)
[2022-07-03 20:24] LABS: Potassium 3.6 mEq/L (3.5-5.1)
--- NOTE | 2022-07-03 20:35 | EDPHYS ---
Physician Documentation [facility] Name: Siri Lyons Age: 27 yrs Sex: Female : 1995 Arrival Date: 07/03/2022 Time: 18:23 Bed 5 Private MD: ED Physician Garrett Yeboah HPI: 07/03 18:49 This 27 yrs old Female presents to ER via Ambulatory with complaints of snw Vaginal Bleeding, + Preg <12wks. 18:49 The patient presents with vaginal bleeding that is moderate. Onset: The snw symptoms/episode began/occurred acutely, 1 week(s) ago, and became worse today. Associated signs and symptoms: The patient has no apparent associated signs or symptoms. Severity of symptoms: At their worst the symptoms were moderate. The patient is sexually active. The patient has not experienced similar symptoms in the past. The patient has not recently seen a physician, appt with OB on Monday. 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 - Social history:: Smoking status: Patient denies any tobacco usage or history of. ROS: 18:38 Constitutional: Negative for fever, chills, and weight loss, Eyes: Negative for injury, snw pain, redness, and discharge, ENT: Negative for injury, pain, and discharge, Neck: Negative for injury, pain, and swelling, Cardiovascular: Negative for chest pain, palpitations, and edema, Respiratory: Negative for shortness of breath, cough, wheezing, and pleuritic chest pain, Abdomen/GI: Negative for abdominal pain, nausea, vomiting, diarrhea, and constipation, Back: Negative for injury and pain, MS/Extremity: Negative for injury and deformity, Skin: Negative for injury, rash, and discoloration, Neuro: Negative for headache, weakness, numbness, tingling, and seizure, Psych: Negative for depression, anxiety, suicide ideation, homicidal ideation, and hallucinations. 18:38 : Positive for vaginal bleeding, 7 weeks per report. Pt has 1st OB appointment for this on Monday. Exam: 18:35 Constitutional: This is a well developed, well nourished patient who is awake, alert, snw and in no acute distress. Head/Face: Normocephalic, atraumatic. Eyes: Pupils equal round and reactive to light, extra-ocular motions intact. Lids and lashes normal. Conjunctiva and sclera are non-icteric and not injected. Cornea within normal limits. Periorbital areas with no swelling, redness, or edema. ENT: Nares patent. No nasal discharge, no septal abnormalities noted. Tympanic membranes are normal and external auditory canals are clear. Oropharynx with no redness, swelling, or masses, exudates, or evidence of obstruction, uvula midline. Mucous membranes moist. Neck: Trachea midline, no thyromegaly or masses palpated, and no cervical lymphadenopathy. Supple, full range of motion without nuchal rigidity, or vertebral point tenderness. No Meningismus. Chest/axilla: Normal chest wall appearance and motion. Nontender with no deformity. No lesions are appreciated. Cardiovascular: Regular rate and rhythm with a normal S1 and S2. No gallops, murmurs, or rubs. Normal PMI, no JVD. No pulse deficits. Respiratory: Lungs have equal breath sounds bilaterally, clear to auscultation and percussion. No rales, rhonchi or wheezes noted. No increased work of breathing, no retractions or nasal flaring. Abdomen/GI: Soft, non-tender, with normal bowel sounds. No distension or tympany. No guarding or rebound. No evidence of tenderness throughout. Back: No spinal tenderness. No costovertebral tenderness. Full range of motion. Skin: Warm, dry with normal turgor. Normal color with no rashes, no lesions, and no evidence of cellulitis. MS/ Extremity: Pulses equal, no cyanosis. Neurovascular intact. Full, normal range of motion. Neuro: Awake and alert, GCS 15, oriented to person, place, time, and situation. Cranial nerves II-XII grossly intact. Motor strength 5/5 in all extremities. Sensory grossly intact. Cerebellar exam normal. Normal gait. Psych: Awake, alert, with orientation to person, place and time. Behavior, mood, and affect are within normal limits. Vital Signs: 18:30 BP 121 / 80; Pulse 87; Resp 16; Temp 98; Pulse Ox 100% on R/A; Weight 90.72 kg; Height hb 5 ft. 2 in. ; Pain 0/10; 20:46 BP 115 / 69; Pulse 78; Resp 16; Pulse Ox 99% ; kl 18:30 Body Mass Index 36.58 (90.72 kg, 157.48 cm) hb 18:30 Pain Scale: Adult hb MDM: 18:50 Patient medically screened. snw 20:35 Differential diagnosis: ectopic , urinary tract infection. Data reviewed: snw vital signs, nurses notes, lab test result(s), radiologic studies. Historians other than the Patient: Parent: Mother. Counseling: I had a detailed discussion with the patient and/or guardian regarding: the historical points, exam findings, and any diagnostic results supporting the discharge/admit diagnosis, lab results, radiology results, the need for outpatient follow up, for definitive care, an OB/Gyne specialist. Special discussion: Based on the history and exam findings, there is no indication for further emergent testing or inpatient evaluation. I discussed with the patient/guardian the need to see the primary care provider for further evaluation of the symptoms. 07/03 18:34 Order name: Abo/rh Typing; Complete Time: 20:22 snw 07/03 18:34 Order name: Basic Metabolic Panel; Complete Time: 20:33 snw 07/03 18:34 Order name: CBC with Diff; Complete Time: 20:22 snw 07/03 18:34 Order name: Test, Urine; Complete Time: 20:22 snw 07/03 18:34 Order name: Quantitative Hcg; Complete Time: 20:33 snw 07/03 18:34 Order name: US Transvaginal Ob; Complete Time: 19:36 snw 07/03 18:34 Order name: IV Saline Lock; Complete Time: 19:56 snw 07/03 18:34 Order name: Labs collected and sent; Complete Time: 19:56 snw 07/03 18:34 Order name: NPO; Complete Time: 19:39 snw Administered Medications: No medications were administered Disposition Summary: 07/03/22 20:35 Discharge Ordered Location: Home snw Condition: Stable snw Diagnosis - Threatened snw Followup: snw - With: Emergency Department - When: As needed - Reason: Worsening of condition Followup: snw - With: Private Physician - When: 1 - 2 days - Reason: Recheck today's complaints, Continuance of care, Re-evaluation by your physician Discharge Instructions: - Discharge Summary Sheet snw - Care snw - Threatened Miscarriage snw - Vaginal Bleeding During , First Trimester snw - First Trimester of snw Forms: - Work release form kl - Medication Reconciliation Form snw - Thank You Letter snw - Antibiotic Education snw - Prescription Opioid Use snw Signatures: Dispatcher [employer] EDMS Marlene Busch, CARDIOTHORACIC SURGEON-C CARDIOTHORACIC SURGEON-Csnw Erinn Morales, RN RN hb
--- NOTE | 2022-07-03 20:35 | ER ---
Nurse's Notes [facility] Name: Siri Lyons Age: 27 yrs Sex: Female : 1995 Arrival Date: 07/03/2022 Time: 18:23 Bed 5 Private MD: Diagnosis: Threatened Presentation: 07/03 18:30 Chief complaint: Spotty vaginal bleeding x 1 week, became heavy with small clots just hb prior to arrival. Denies pain. Pt reports she is approx 7 weeks , has not yet seen OB, . Coronavirus screen: At this time, the client does not indicate any symptoms associated with coronavirus-19. Ebola Screen: No symptoms or risks identified at this time. Initial Sepsis Screen: Does the patient meet any 2 criteria? No. Patient's initial sepsis screen is negative. Does the patient have a suspected source of infection? No. Patient's initial sepsis screen is negative. Risk Assessment: Do you want to hurt yourself or someone else? Patient reports no desire to harm self or others. Onset of symptoms was June 27, 2022. 18:30 Method Of Arrival: Ambulatory hb 18:30 Acuity: CYNTHIA 3 hb Triage Assessment: 18:32 General: Appears in no apparent distress. Behavior is calm, cooperative. Pain: Denies hb pain. Neuro: Level of Consciousness is awake, alert, obeys commands, Oriented to person, place, time, situation. Cardiovascular: Patient's skin is warm and dry. Respiratory: Respiratory effort is even, unlabored, Respiratory pattern is regular, symmetrical. : Reports vaginal bleeding that is. 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 - Social history:: Smoking status: Patient denies any tobacco usage or history of. Screenin:[address] [facility] ED Fall Risk Assessment (Adult) History of falling in the last 3 months, pf1 including since admission No falls in past 3 months (0 pts) Confusion or Disorientation No (0 pts) Intoxicated or Sedated No (0 pts) Impaired Gait No (0 pts) Mobility Assist Device Used No (0 pt) Altered Elimination No (0 pt) Score/Fall Risk Level 0 - 2 = Low Risk Oriented to surroundings, Maintained a safe environment, Educated pt \T\ family on fall prevention, incl call for assistance when getting out of bed, Assessed \T\ reinforced patient's understanding of fall precautions, Provided non-skid footwear, Hourly rounding (assess needs \T\ fall precautionary measures) done, Used ambulatory aids as needed (educated on \T\ assisted with), Used gait belt as appropriate. Abuse screen: Denies threats or abuse. Nutritional screening: No deficits noted. Tuberculosis screening: No symptoms or risk factors identified. Assessment: 20:46 Reassessment: No changes from previously documented assessment. Patient states symptoms kl have not improved. Vital Signs: 18:30 BP 121 / 80; Pulse 87; Resp 16; Temp 98; Pulse Ox 100% on R/A; Weight 90.72 kg; Height hb 5 ft. 2 in. ; Pain 0/10; 20:46 BP 115 / 69; Pulse 78; Resp 16; Pulse Ox 99% ; kl 18:30 Body Mass Index 36.58 (90.72 kg, 157.48 cm) hb 18:30 Pain Scale: Adult hb Vitals: 20:46 Heart Tones 148 per ultrasound. ED Course: 18:26 Patient arrived in ED. am2 18:32 Triage completed. hb 18:32 Arm band placed on. hb 18:33 Marlene Busch FNP-C is PHCP. snw 18:33 Garrett Yeboah MD is Attending Physician. snw 19:12 US Transvaginal Ob In Process Unspecified. EDMS 19:45 No provider procedures requiring assistance completed. Inserted saline lock: 22 gauge pf1 in right antecubital area, using aseptic technique. Blood collected. 19:56 Abo/rh Typing Sent. pf1 19:56 Basic Metabolic Panel Sent. pf1 19:56 CBC with Diff Sent. pf1 19:56 Test, Urine Sent. pf1 19:56 Quantitative Hcg Sent. pf1 20:46 IV discontinued, intact, bleeding controlled, No redness/swelling at site. Pressure kl dressing applied. Administered Medications: No medications were administered Medication: 20:46 VIS not applicable for this client. kl Outcome: 20:35 Discharge ordered by . andrew 20:46 Discharged to home ambulatory. 20:46 Condition: stable 20:46 Discharge instructions given to patient, Instructed on discharge instructions, follow up and referral plans. Demonstrated understanding of instructions, follow-up care. 20:47 Patient left the ED. Signatures: Dispatcher [employer] EDMS Klaudia Mccallum RN RN kl Waters, Shelly, RETAIL AND RESTAURANT ASSOCIATE-C RETAIL AND RESTAURANT ASSOCIATE-Csnw Erinn Morales RN RN Nguyen Kelly [facility] Carly Joseph RN RN pf1
[2022-07-03 21:32] VITALS: TEMP 98
[2022-07-03 21:33] VITALS: BP 115/69; O2SAT 99
== END 2022-07-03 20:47 | disposition home or self-care (01) ==
LOC: ER 18:23
DX: O20.0 Threatened abortion (principal); Z3A.01 Less than 8 weeks gestation of pregnancy
CPT/HCPCS: 36415; 76817; 80048; 81025; 84702; 85025; 86900; 86901; 99284

== ENCOUNTER 2023-05-25 07:44 | Emergency (ER) | payer OTHER ==
--- OUTSIDE RECORDS SUMMARY | 2023-05-25 07:48 | XMS REPORT | Continuity of Care Document ---
Author Name Unknown Address [address] [place] [address] [facility] thconnect Address [address] [place] [address] Care Team Providers Care Script Editor Name Role Phone PCP, PATIENT DOES NOT HAVE A Primary Care Physic keli Unavailable RASHMI GONZALEZ Attending Clinician Unavailable Rashmi Gonzalez MD Attending Clinician [phone] JERRY PISANO Attending Clinician Unav ailable Ultrasound, Ang[facility] Attending Clinician UnavailJerry Garner MD Attending Clinician + NIK PIMENTEL Attending Clinician Unavailable NIK PIMENTEL Attending Clinician Unavailable Kristal Alvarado MD Attending Clinician [phone] MANUEL DIANE Attending Clinician Unavailable MANUEL DIANE Attending Clinician Unavailable Manuel Diane MD Attending Clinician [phone] ELADIO GAINES Attending Clinician Unavailable ELADIO GAINES Attending Clinician Unavailable Doctor Unassigned, [place] Attending Clinician U Marissa Woods MD Attending Clinician [phone], [facility] Attending Clinician Unavailable Fellow, Gal [facility] Attending Clinician Un available Jayesh MURPHY, Shayne Mcguire Attending Clinician [phone] Pob, [facility] Main Attending Clinician MARISSA Mendoza Attending Clinician Agusto Ga DO Attending Clinician Sabrina Kerr RN Attending Clinician UnavailLISA Anne Attending Clinician UnavailLisa Lux DO Attending Clinician [phone] NIK PIMENTEL Admitting Clinician Unavailable ADRASHMI FLORES Admitting Clinician Unavailable Rashmi Gonzalez MD Admitting Clinician [phone] Payers Payer Name Policy Type Policy Number Effective Date Expirati on Date Source [facility] [id number] 2022 00:00:00 [facility] [id number] 2023 00:00:00 2023 00:00:00 Problems Condition Name Condition Details Condition Category Status Onset Date Resolution Date Last Treatment Date Treating Clinician Comments Source Short cervical length during , second trimester Short cervical length during , second trimester Disease Active 3-04 00:00: 00 [facility] Chorioamni onitis, delivered, current hospitaliz ation Chorioamni onitis, delivered, current hospitaliz ation Disease Active 09-16 00:00: 00 [facility] Positive blood culture Positive blood culture Disease Active 09-16 00:00: 00 [facility] Septicemia due to [place] a coli (E. coli)(038. 42) Septicemia due to [place] a coli (E. coli)(038. 42) Disease Active 09-16 00:00: 00 [facility] Retained complete placenta Retained complete placenta Disease Active 09-15 00:00: 00 [facility] Vaginal bleeding before 22 weeks gestation Vaginal bleeding before 22 weeks gestation Disease Active 09-14 00:00: 00 [facility] 17 weeks gestation of 17 weeks gestation of Disease Active 09-14 00:00: 00 [facility] Chorioamni onitis in first trimester Chorioamni onitis in first trimester Disease Active 0 726 00:00: 00 [facility] premature rupture of membranes with onset of labor more than 24 hours following rupture in first trimester premature rupture of membranes with onset of labor more than 24 hours following rupture in first trimester Disease Active 726 00:00: 00 [facility] Chlamydia trachomati s infection in mother during first trimester of Chlamydia trachomati s infection in mother during first trimester of Disease Active 0 5-18 00:00: 00 [facility] Obesity (BMI 30-39.9) Obesity (BMI 30-39.9) Disease Active 5-16 00:00: 00 [facility] Miscarriag e Miscarriag e Disease Active 523 00:00: 00 [facility] Complete miscarriag e Complete miscarriag e Disease Active 0 523 00:00: 00 [facility] Vaginal bleeding before 22 weeks gestation Vaginal bleeding before 22 weeks gestation Disease Active 523 00:00: 00 [facility] 17 weeks gestation of 17 weeks gestation of Disease Active 0 5-23 00:00: 00 [facility] Allergies, Adverse Reactions, Alerts Allergy Name Allergy Type Status Severity Reaction(s) Onset Date Inactive Date Treating Clinician Comments Source NO KNOWN ALLERGIE S Drug Class Active [facility] Social History Social Habit Start Date Stop Date Quantity Comments Source ASSERTION 2023-01-01 00:00:00 [facility] Gender identity [facility] of Social function 2023-05-10 00:00:00 2023-05-10 00:00:00 [facility] Alcohol intake 2023-05-10 00:00:00 2023-05-10 00:00:00 Ex-drinker (finding) [facility] Tobacco use and exposure 2022-09-16 00:00:00 2022-09-16 00:00:00 Smokeless tobacco non-user [facility] Exposure to SARS-CoV-2 (event) 2022-07-03 00:00:00 2022-07-13 14:40:00 Not sure [facility] Sex Assigned At 1995 00:00:00 1995 00:00:00 [facility] Smoking Status Start Date Stop Date Source Unknown if ever smoked [facility] Never smoked tobacco [facility] Medications Ordered Medication Name Filled Medication Name Start Date Stop Date Current Medication? Ordering Clinician Indication Dosage Frequency Signature (SIG) Comments Components Source vitamin w/FA tablet 04-25 00:00: 00 Yes [id number] 1{tbl} Take 1 tablet by mouth in the morning. [facility] ondansetron (ZOFRAN (PF)) injection 4 mg 04-24 19:00: 00 04-24 19:35 :00 No 4mg 4 mg, Slow IV Push, ONCE, 1 dose, On Mon04/25/23 at 1300, Routine [facility] diphenhydrA MINE (BENADRYL) tablet 25 mg 04-24 18:50: 41 04-25 01:34 :42 No 25mg 25 mg, Oral, Q4HPRN, Starting on Mon04/25/23 at 1250, Until Mon04/25/23 at 1934, Routine, Itching [facility] ketorolac (TORADOL) injection 30 mg 04-24 18:50: 37 04-25 01:34 :42 No 30mg 30 mg, Slow IV Push, PRN, 1 dose, Starting on Mon04/25/23 at 1250, Until Mon04/25/23 at 1934, Routine, Pain (scale 7-10) [facility] naloxone (NARCAN) injection 0.4 mg 04-24 18:50: 30 04-25 01:34 :42 No .4mg 0.4 mg, Slow IV Push, PRN - SEE INSTRUCTIO NS, Starting on Mon04/25/23 at 1250, Until Mon04/25/23 at 1934, Routine, Sedation/R espiratory Depression , Analagesia Recovery [facility] azithromyci n (ZITHROMAX) 500 mg in NaCl 0.9% (NS) 250 mL VIAL-MATE IV piggyback 04-24 18:30: 00 04-24 18:48 :00 No 500mg 500 mg, IV Piggyback, ONCE, 1 dose, On Mon04/25/23 at 1230, Administer over 60 Minutes, 250 mL
Reas on for Anti-Infec tive: Empiric Therapy for Suspected Infection< br>Empiric Therapy Site: Pelvic
Duration of therapy: Once (ED) [facility] cefOXitin (MEFOXIN) 2 g in NaCl 0.9% (NS) 100 mL MINI-BAG 04-24 18:30: 00 04-24 22:39 :00 No 2g 2 g, IV Piggyback, ONCE, 1 dose, On Mon04/25/23 at 1230, Administer over 30 Minutes, 100 mL
Reas on for Anti-Infec tive: Surgical Prophylaxi s
Surgi shaun Prophylaxi s: TAR WORKER
Duration of therapy: within 24 hours of surgery [facility] indomethaci n (INDOCIN) capsule 25 mg 04-24 18:00: 00 04-25 01:34 :42 No 25mg 25 mg, Oral, Q6H, 4 doses, First dose on Mon04/25/23 at 1200, Last dose on Mon04/26/23 at 0600, Routine [facility] sodium citrate-cit suellen acid (BICITRA) 500-334 mg/5 mL solution 30 mL 04-24 16:08: 50 04-25 01:34 :42 No 30mL 30 mL, Oral, SEE-INSTRU CTIONS, Starting on Mon04/25/23 at 1008, Until Mon04/25/23 at 1934, Routine [facility] D5W-LR IV infusion 1,000 mL 04-24 16:00: 00 04-25 01:34 :42 No 1000mL at 125 mL/hr, IV Infusion, CONTINUOUS , Starting on Mon04/25/23 at 1000, Until Mon04/25/23 at 1933, Routine [facility] metroNIDAZO LE in NaCl (iso-os) (FLAGYL I.V.) RTU IV infusion 500 mg 04-24 14:59: 01 04-24 22:18 :00 No 500mg 500 mg, IV Piggyback, O.R. HOLDING ONCE, 1 dose, Starting on Mon04/25/23 at 0859, Until Discontinu ed, Administer over 60 Minutes, 100 mL
Reas on for Anti-Infec tive: Surgical Prophylaxi s
Dsouza rgical Prophylaxi s: TAR WORKER
Duration of therapy: within 24 hours of surgery [facility] alum-mag hydroxide-s imeth (MAG-AL PLUS) 200-200-20 mg/5 mL suspension 30 mL 04-24 02:46: 12 04-25 01:34 :42 No 30mL 30 mL, Oral, Q6HPRN, Starting on Mon04/24/23 at 2045, Until Mon04/25/23 at 1933, Routine, Indigestio n [facility] docusate (COLACE) capsule 200 mg 04-24 02:46: 12 04-25 01:34 :42 No 200mg 200 mg, Oral, QHSPRN, Starting on Mon04/24/23 at 2045, Until Mon04/25/23 at 1933, Routine, Constipati on [facility] magnesium hydroxide (MILK OF MAGNESIA) 400 mg/5 mL suspension 30 mL 04-24 02:46: 12 04-25 01:34 :42 No 30mL 30 mL, Oral, QDAILYPRN, Starting on Mon04/24/23 at 2045, Until Mon04/25/23 at 1933, Routine, Constipati on [facility] indomethaci n 25 mg capsule 04-24 00:00: 00 04-26 05:59 :00 Yes [id number] 25mg Take 1 capsule by mouth every 6 (six) hours for 4 doses. [facility] azithromyci n 500 mg tablet 04-07 00:00: 00 04-24 00:00 :00 No [id number] 1000mg Take 2 tablets by mouth in the morning. [facility] Nitrofurant oin&Nit. Macrocryst 100 mg capsule 04-05 00:00: 00 04-24 00:00 :00 No [id number] 100mg Take 1 capsule by mouth in the morning and 1 capsule in the evening. [facility] amoxicillin -pot clavulanate 500 mg (AUGMENTIN) 500-125 mg tablet 03-14 00:00: 00 03-22 05:59 :00 Yes 500mg Take 1 tablet by mouth in the morning and 1 tablet in the evening. Do all this for 7 days. [facility] azithromyci n 500 mg tablet 03-10 00:00: 00 04-05 00:00 :00 No 1000mg Take 2 tablets by mouth in the morning. [facility] azithromyci n 500 mg tablet 2022-02 00:00: 00 03-10 00:00 :00 No [id number] 1000mg Take 2 tablets by mouth in the morning. [facility] PNV 67-iron ps-folate no.1-dha (VITAFOL ULTRA) 29 mg iron- 1 mg-200 mg Cap 2022-02 00:00: 00 04-24 00:00 :00 No [id number] 1{tbl} Take 1 tablet by mouth in the morning. If insurance does not cover can substituen t with any other mediation that contains components . [facility] azithromyci n 500 mg tablet 09-20 00:00: 00 02-07 00:00 :00 No [id number] 1000mg Take 2 tablets by mouth in the morning. [facility] amoxicillin -clavulanat e (AUGMENTIN) 875-125 mg per tablet 09-20 00:00: 00 10-01 04:59 :00 No [id number] 1{tbl} Take 1 tablet by mouth in the morning and 1 tablet in the evening. Do all this for 10 days. [facility] clindamycin in 5 % dextrose (CLEOCIN) 900 mg/50 mL IV piggyback RTU 900 mg 09-15 16:00: 00 09-16 16:54 :13 No 900mg 900 mg, IV Piggyback, Q8H ABX, 6 doses, First dose (after last modificati on) on Buffy 09/15/22 at 1100, Last dose on Mon09/17/22 at 0300, Administer over 30 Minutes, 50 mL
Reas on for Anti-Infec tive: Empiric Therapy for Suspected Infection< br>Empiric Therapy Site: Pelvic
Duration of therapy: 72 hours
R estricted use approved by: [employer]
meat team member approving Restricted medication : MARISSA DALY [facility] ibuprofen (IBU) tablet 600 mg 09-15 16:00: 00 09-16 16:54 :13 No 600mg 600 mg, Oral, Q6HPRN, Starting on Mon09/15/22 at 1100, Until Mon09/16/22 at 1154, Routine, Pain (scale 1-3) [facility] lactated ringers IV infusion 1,000 mL 09-15 10:45: 00 09-16 16:54 :13 No 1000mL at 42 mL/hr, 1,000 mL, IV Infusion, CONTINUOUS , Starting on Buffy 09/15/22 at 0545, Until Mon09/16/22 at 1154, Routine [facility] ketorolac (TORADOL) injection 30 mg 09-15 10:00: 00 09-15 09:54 :00 No 30mg 30 mg, Slow IV Push, ONCE, 1 dose, On Buffy 09/15/22 at 0500, Routine [facility] HYDROcodone -acetaminop hen (NORCO 5) 5-325 mg tablet 1 tablet 09-15 09:44: 20 09-16 16:54 :13 No 1{tbl} 1 tablet, Oral, Q6HPRN, Starting on Mon09/15/22 at 0444, Until Mon09/16/22 at 1154, Routine, Pain (scale 4-6) [facility] HYDROcodone -acetaminop hen (NORCO 5) 5-325 mg tablet 2 tablet 09-15 09:41: 47 09-16 16:54 :13 No 2{tbl} 2 tablet, Oral, Q6HPRN, Starting on Mon09/15/22 at 0441, Until Mon09/16/22 at 1154, Routine, Pain (scale 7-10) [facility] miSOPROStoL (CYTOTEC) tablet 1,000 mcg 09-15 09:30: 00 09-15 09:18 :00 No 1000ug 1,000 mcg, Vaginal, ONCE, 1 dose, On Mon09/15/22 at 0430, Routine [facility] clindamycin in 5 % dextrose (CLEOCIN) 900 mg/50 mL IV piggyback RTU 900 mg 09-15 08:13: 00 09-15 09:49 :56 No 900mg 900 mg, IV Piggyback, Q8H ABX, 3 doses, First dose on Mon09/15/22 at 0315, Last dose on Mon09/15/22 at 1915, Administer over 30 Minutes, 50 mL
Reas on for Anti-Infec tive: Surgical Prophylaxi s
Dsouza rgical Prophylaxi s: TAR WORKER
Duration of therapy: within 24 hours of surgery
Restricte d use approved by: [employer]
meat team member approving Restricted medication : RASHMI GONZALEZ [facility] oxytocin (PITOCIN) 30 units in NS 500 mL IV infusion 09-15 02:58: 30 09-15 09:49 :56 No 2mU/min at 2-40 mL/hr, IV Infusion, TITRATE, Starting on Mon09/14/22 at 2158, Until Mon09/15/22 at 0449, OLIVIER [facility] proMETHazin e (PHENERGAN) 25 mg in NaCl 0.9% (NS) 50 mL IV piggyback 09-15 02:57: 39 09-15 09:49 :56 No 25mg 25 mg, IV Piggyback, Q4HPRN, Starting on Mon09/14/22 at 2156, Until Mon09/15/22 at 0449, Routine, Nausea and Vomiting (N/V) [facility] FENTanyl PF (SUBLIMAZE (PF)) injection 100 mcg 09-15 02:57: 27 09-15 09:49 :56 No 100ug 100 mcg, Slow IV Push, Q1HPRN, Starting on Mon09/14/22 at 2156, Until Mon09/15/22 at 0449, Routine, pain [facility] acetaminoph en (TYLENOL) tablet 1,000 mg 09-15 01:16: 03 09-15 09:49 :56 No 1000mg 1,000 mg, Oral, Q8HPRN, Starting on Mon09/14/22 at 2016, Until Mon09/15/22 at 044, Routine, Temp > 38 C [facility] proMETHazin e (PHENERGAN) 25 mg in NaCl 0.9% (NS) 50 mL IV piggyback 09-14 23:30: 00 09-14 23:33 :00 No 25mg 25 mg, IV Piggyback, ONCE NOW, 1 dose, On Mon09/14/22 at 1830, Routine [facility] FENTanyl PF (SUBLIMAZE (PF)) injection 100 mcg 09-14 23:30: 00 09-14 23:32 :00 No 100ug 100 mcg, Slow IV Push, ONCE, 1 dose, On Mon09/14/22 at 1830, Routine [facility] gentamicin 340 mg in NaCl 0.9% (NS) 250 mL IV infusion 09-14 20:45: 00 09-16 16:54 :13 No 5mg/kg 340 mg (rounded from 333.5 mg = 5 mg/kg ?66.7 kg Adjusted weight), IV Infusion, Q24H, First dose on Mon09/14/22 at 1545, Until Discontinu ed, Administer over 60 Minutes, 250 mL
Reas on for Anti-Infec tive: Empiric Therapy for Suspected Infection< br>Empiric Therapy Site: Other
O ther site: Utreus
Duration of therapy: 72 hours [facility] D5W-LR IV infusion 125 mL 09-14 20:30: 00 09-15 09:49 :56 No 125mL at 125 mL/hr, IV Infusion, CONTINUOUS , Starting on Mon09/14/22 at 1530, Until Mon09/15/22 at 0449, Routine [facility] ampicillin (POLYCILLIN -N) 2,000 mg in NaCl 0.9% (NS) 100 mL MINI-BAG 09-14 19:33: 00 09-16 16:54 :13 No 2g 2,000 mg (2 g), IV Piggyback, Q6H ABX, First dose (after last modificati on) on Mon09/14/22 at 1445, Until Discontinu ed, Administer over 30 Minutes, 100 mL
Reas on for Anti-Infec tive: Empiric Therapy for Suspected Infection< br>Empiric Therapy Site: Other
O ther site: Uterus
Duration of therapy: 72 hours [facility] lactated ringers IV infusion 1,000 mL 09-14 18:30: 00 09-15 09:49 :56 No 1000mL at 125 mL/hr, 1,000 mL, IV Infusion, CONTINUOUS , Starting on Mon09/14/22 at 1330, Until Mon09/15/22 at 0449, Routine [facility] azithromyci n 500 mg tablet 07-07 00:00: 00 09-14 00:00 :00 No [id number] 1000mg Take 2 tablets by mouth in the morning. [facility] proMETHazin e 25 mg tablet 07-06 00:00: 00 02-07 00:00 :00 No [id number] 25mg Take 1 tablet by mouth every 4 (four) hours as needed for Nausea and Vomiting (N/V). [facility] progesteron e 200 mg capsule 07-06 00:00: 00 08-03 00:00 :00 No [id number] 200mg Take 1 capsule by mouth in the morning. [facility] progesteron e 200 mg capsule 07-05 00:00: 00 07-06 00:00 :00 No [id number] 200mg Take 1 capsule by mouth in the morning. [facility] proMETHazin e 25 mg tablet 07-05 00:00: 00 07-06 00:00 :00 No [id number] 25mg Take 1 tablet by mouth every 4 (four) hours as needed for Nausea and Vomiting (N/V). [facility] ondansetron (ZOFRAN-ODT ) disintegrat ing tablet 4 mg 10-05 20:45: 00 10-05 19:52 :00 No 4mg 4 mg, Oral, ONCE, 1 dose, On Mon10/05/21 at 1545, Routine [facility] vitamin w/FA tablet 07-12 00:00: 00 Yes [id number] 1{tbl} Take 1 tablet by mouth daily. [facility] vitamin w/FA tablet 07-12 00:00: 00 02-07 00:00 :00 No [id number] 1{tbl} Take 1 tablet by mouth daily. [facility] ferrous sulfate 325 mg (65 mg iron) tablet 07-12 00:00: 00 07-05 00:00 :00 No [id number] 325mg Take 1 tablet by mouth 2 (two) times daily. [facility] ibuprofen 600 mg tablet 07-12 00:00: 00 07-05 00:00 :00 No [id number] 600mg Take 1 tablet by mouth every 6 (six) hours as needed (Pain). Take with food or milk. [facility] docusate 100 mg capsule 07-12 00:00: 00 07-05 00:00 :00 No [id number] 200mg Take 2 capsules by mouth once daily as needed for Constipati on. [facility] Vital Signs Vital Name Observation Time Observation Value Comments S ainsley Systolic blood pressure 2023-05-10 20:45:00 125 mm[Hg] [facility] Diastolic blood pressure 2023-05-10 20:45:00 81 mm[Hg] [facility] Heart rate 2023-05-10 20:45:00 67 /min [facility] Body temperature 2023-05-10 20:45:00 36.72 Avani [facility] Respiratory rate 2023-05-10 20:45:00 16 /min [facility] Body height 2023-05-10 20:45:00 157.5 cm [facility] Body weight 2023-05-10 20:45:00 97.07 kg [facility] BMI 2023-05-10 20:45:00 39.14 kg/m2 [facility] Systolic blood pressure 2023-04-25 20:30:00 107 mm[Hg] [facility] Diastolic blood pressure 2023-04-25 20:30:00 61 mm[Hg] [facility] Heart rate 2023-04-25 20:30:00 78 /min [facility] Respiratory rate 2023-04-25 20:30:00 19 /min [facility] Oxygen saturation in Arterial blood by Pulse oximetry 2023-04-25 20:30:00 100 /min [facility] Body temperature 2023-04-25 19:30:00 36.83 Avani [facility] Body height 2023-04-25 01:24:00 157.5 cm [facility] Body weight 2023-04-25 01:24:00 96.662 kg [facility] BMI 2023-04-25 01:24:00 38.98 kg/m2 [facility] Systolic blood pressure 2023-04-25 17:33:00 117 mm[Hg] [facility] Diastolic blood pressure 2023-04-25 17:33:00 73 mm[Hg] [facility] Heart rate 2023-04-25 17:33:00 82 /min [facility] Respiratory rate 2023-04-25 17:33:00 15 /min [facility] Oxygen saturation in Arterial blood by Pulse oximetry 2023-04-25 17:33:00 100 /min [facility] Body temperature 2023-04-25 13:35:00 37 Avani [facility] Body height 2023-04-25 01:24:00 157.5 cm [facility] Body weight 2023-04-25 01:24:00 96.662 kg [facility] BMI 2023-04-25 01:24:00 38.98 kg/m2 [facility] Systolic blood pressure 2023-04-05 19:12:00 115 mm[Hg] [facility] Diastolic blood pressure 2023-04-05 19:12:00 77 mm[Hg] [facility] Heart rate 2023-04-05 19:12:00 85 /min [facility] Respiratory rate 2023-04-05 19:12:00 18 /min [facility] Body height 2023-04-05 19:12:00 157.5 cm [facility] Body weight 2023-04-05 19:12:00 92.987 kg [facility] BMI 2023-04-05 19:12:00 37.49 kg/m2 [facility] Systolic blood pressure 2023-03-08 21:53:00 127 mm[Hg] [facility] Diastolic blood pressure 2023-03-08 21:53:00 82 mm[Hg] [facility] Heart rate 2023-03-08 21:53:00 85 /min [facility] Body temperature 2023-03-08 21:53:00 36.44 Avani [facility] Respiratory rate 2023-03-08 21:53:00 16 /min [facility] Body height 2023-03-08 21:53:00 157.5 cm [facility] Body weight 2023-03-08 21:53:00 93.895 kg [facility] BMI 2023-03-08 21:53:00 37.86 kg/m2 [facility] Oxygen saturation in Arterial blood by Pulse oximetry 2023-03-08 21:53:00 100 /min [facility] Systolic blood pressure 2023-02-07 20:13:00 120 mm[Hg] [facility] Diastolic blood pressure 2023-02-07 20:13:00 74 mm[Hg] [facility] Heart rate 2023-02-07 20:13:00 82 /min [facility] Body temperature 2023-02-07 20:13:00 36.94 Avani [facility] Respiratory rate 2023-02-07 20:13:00 18 /min [facility] Body height 2023-02-07 20:13:00 157.5 cm [facility] Body weight 2023-02-07 20:13:00 94.802 kg [facility] BMI 2023-02-07 20:13:00 38.23 kg/m2 [facility] Systolic blood pressure 2022-09-16 10:15:00 124 mm[Hg] [facility] Diastolic blood pressure 2022-09-16 10:15:00 53 mm[Hg] [facility] Heart rate 2022-09-16 10:15:00 84 /min [facility] Body temperature 2022-09-16 10:15:00 37.72 Avani [facility] Respiratory rate 2022-09-16 10:15:00 17 /min [facility] Oxygen saturation in Arterial blood by Pulse oximetry 2022-09-16 10:15:00 99 /min [facility] Body height 2022-09-14 16:00:00 157.5 cm [facility] Body weight 2022-09-14 16:00:00 91.627 kg [facility] BMI 2022-09-14 16:00:00 36.95 kg/m2 [facility] Heart rate 2022-09-15 10:30:00 106 /min [facility] Oxygen saturation in Arterial blood by Pulse oximetry 2022-09-15 10:30:00 95 /min [facility] Body temperature 2022-09-15 10:11:00 38.44 Avani [facility] Respiratory rate 2022-09-15 10:11:00 19 /min [facility] Systolic blood pressure 2022-09-15 10:00:00 118 mm[Hg] [facility] Diastolic blood pressure 2022-09-15 10:00:00 68 mm[Hg] [facility] Body height 2022-09-14 16:00:00 157.5 cm [facility] Body weight 2022-09-14 16:00:00 91.627 kg [facility] BMI 2022-09-14 16:00:00 36.95 kg/m2 [facility] Systolic blood pressure 2022-08-03 20:13:00 119 mm[Hg] [facility] Diastolic blood pressure 2022-08-03 20:13:00 78 mm[Hg] [facility] Heart rate 2022-08-03 20:13:00 106 /min [facility] Body temperature 2022-08-03 20:13:00 36.78 Avani [facility] Respiratory rate 2022-08-03 20:13:00 18 /min [facility] Body height 2022-08-03 20:13:00 157.5 cm [facility] Body weight 2022-08-03 20:13:00 93.123 kg [facility] BMI 2022-08-03 20:13:00 37.55 kg/m2 [facility] Systolic blood pressure 2022-07-05 19:22:00 120 mm[Hg] [facility] Diastolic blood pressure 2022-07-05 19:22:00 78 mm[Hg] [facility] Heart rate 2022-07-05 19:22:00 72 /min [facility] Body temperature 2022-07-05 19:22:00 36.78 Avani [facility] Respiratory rate 2022-07-05 19:22:00 18 /min [facility] Body height 2022-07-05 19:22:00 157.5 cm [facility] Body weight 2022-07-05 19:22:00 92.987 kg [facility] BMI 2022-07-05 19:22:00 37.49 kg/m2 [facility] Systolic blood pressure 2021-10-05 19:26:00 127 mm[Hg] [facility] Diastolic blood pressure 2021-10-05 19:26:00 84 mm[Hg] [facility] Heart rate 2021-10-05 19:26:00 76 /min [facility] Body temperature 2021-10-05 19:26:00 37 Avani [facility] Respiratory rate 2021-10-05 19:26:00 14 /min [facility] Body weight 2021-10-05 19:26:00 82.555 kg [facility] Oxygen saturation in Arterial blood by Pulse oximetry 2021-10-05 19:26:00 100 /min [facility] Body weight 2021-07-12 16:15:00 82.555 kg [facility] Body temperature 2021-07-12 11:15:00 36.56 Avani [facility] Respiratory rate 2021-07-12 11:15:00 20 /min [facility] Systolic blood pressure 2022-09-16 10:15:00 124 mm[Hg] [facility] Diastolic blood pressure 2022-09-16 10:15:00 53 mm[Hg] [facility] Heart rate 2022-09-16 10:15:00 84 /min [facility] Body temperature 2022-09-16 10:15:00 37.72 Avani [facility] Respiratory rate 2022-09-16 10:15:00 17 /min [facility] Oxygen saturation in Arterial blood by Pulse oximetry 2022-09-16 10:15:00 99 /min [facility] Body height 2022-09-14 16:00:00 157.5 cm [facility] Body weight 2022-09-14 16:00:00 91.627 kg [facility] BMI 2022-09-14 16:00:00 36.95 kg/m2 [facility] Procedures Procedure Date / Time Performed Performing Clinician Source POCT URINALYSIS W/O SPECIFIC GRAVITY 2023-05-10 00:00:00 Adum, Rashmi Soto [facility] SECOND AND THIRD TRIMESTER ULTRASOUND 2023-05-01 20:37:00 Adum, Rashmi Soto [facility] CERCLAGE PLACEMENT 2023-04-25 18:16:00 [facility] WITHOUT [facility]FF 2023-04-25 05:10:00 Sorathkirstie [facility] HB ABO GROUPING 2023-04-25 05:10:00 Sorathia [facility] CBC WITHOUT DIFF 2023-04-25 05:10:00 Sorathia [facility] HB ABO GROUPING 2023-04-25 05:10:00 Sorathia [facility] SECOND AND THIRD TRIMESTER ULTRASOUND 2023-04-24 21:53:00 Adum, Rashmi Soto [facility] SECOND AND THIRD TRIMESTER ULTRASOUND 2023-04-17 15:28:00 Adum, Rashmi Soto [facility] POCT URINALYSIS W/O SPECIFIC GRAVITY 2023-04-05 00:00:00 Adum, Rashmi Soto [facility] GLUCOSE 1 HOUR POST PRANDIAL 2023-03-10 15:34:00 Adum, Rashmi Soto [facility] SCANNED LAB RESULTS 2023-03-10 06:01:00 Doctor Mauricio clark, [place] [facility] POCT URINALYSIS W/O SPECIFIC GRAVITY 2023-03-08 00:00:00 Adum, Rashmi Soto [facility] US OB TRANSVAGINAL 2023-02-08 03:02:44 Adum, Rashmi Soto [facility] URINE DRUG (IMMUNOASSAY) - COMPREHENSIVE DRUG SCREEN 2023-02-07 21:14:00 Adum, Rashmi Soto [facility] GC & CHLAMYDIA AMPLIFIED ASSAY 2023-02-07 21:14:00 Adum, Rashmi Soto [facility] TRICHOMONAS AMPLIFIED ASSAY 2023-02-07 21:14:00 Adum, Rashmi Soto [facility] TAR WORKER CLINIC ULTRASOUND 2023-02-07 06:01:00 Doc tor Unassigned, [place] [facility] POCT TEST 2023-02-07 00:00:00 Adum, Rashmi Soto [facility] POCT URINALYSIS W/O SPECIFIC GRAVITY 2023-02-07 00:00:00 Adum, Rashmi Soto [facility] CBC WITH DIFF 2022-09-16 11:31:00 Irena [facility] CBC WITH DIFF 2022-09-16 11:31:00 Irena [facility] CBC WITH DIFF 2022-09-16 11:31:00 Irena [facility] CBC WITH DIFF 2022-09-15 11:11:00 Adum, Rashmi Soto [facility] CBC WITH DIFF 2022-09-15 11:11:00 Adum, Rashmi Soto [facility] CBC WITH DIFF 2022-09-15 11:11:00 Adum, Rashmi [facility] INTUBATION 2022-09-15 08:56:00 [facility]IL[facility] AND EVACUATION OF UTERINE CONTENTS 2022-09-15 08:28:00 Adum, Rashmi Soto [facility] DILATION AND EVACUATION OF UTERINE CONTENTS 2022-09-15 08:28:00 Adum, Rashmi Soto [facility] DILATION AND EVACUATION OF UTERINE CONTENTS 2022-09-15 08:28:00 Adum, Rashmi Soto [facility] BLOOD CULTURE SCREEN 2022-09-15 02:26:00 Adum, Rahsmi Soto [facility] BLOOD CULTURE WORKUP 2022-09-15 02:26:00 Adum, Rashmi Soto [facility] GRAM NEGATIVE BLOOD PATHOGENS DNA PROBE-ANAEROBIC 2022-09-15 02:26:00 Adum, Rashmi Soto [facility] BLOOD CULTURE SCREEN 2022-09-15 02:26:00 Adum, Rashmi Soto [facility] BLOOD CULTURE WORKUP 2022-09-15 02:26:00 Adum, Rashmi Soto [facility] GRAM NEGATIVE BLOOD PATHOGENS DNA PROBE-ANAEROBIC 2022-09-15 02:26:00 Adum, Rashmi Soto [facility] BLOOD CULTURE SCREEN 2022-09-15 02:26:00 Adum, Rashmi Soto [facility] BLOOD CULTURE WORKUP 2022-09-15 02:26:00 Adum, Rashmi Soto [facility] GRAM NEGATIVE BLOOD PATHOGENS DNA PROBE-ANAEROBIC 2022-09-15 02:26:00 Adum, Rashmi Soto [facility] PELVIS > 14 WEEKS WITH TRANSVAGINAL 2022-09-14 18:52:11 Adum, Rashmi [facility]oto [facility] PELVIS > 14 WEEKS WITH TRANSVAGINAL 2022-09-14 18:52:11 Adum, Rashmi Soto [facility] PELVIS > 14 WEEKS WITH TRANSVAGINAL 2022-09-14 18:52:11 Adum, Rashmi Soto [facility] CBC WITH DIFF 2022-09-14 17:37:00 Adum, Rashmi [facility] HB ABO GROUPING 2022-09-14 17:37:00 Adum, Rashmi Soto [facility] EXTRA TUBE SST 2022-09-14 17:37:00 Adum, Rashmi Soto [facility] EXTRA TUBE LT. GREEN 2022-09-14 17:37:00 Adum, Rashmi Soto [facility] EXTRA TUBE RED 2022-09-14 17:37:00 Adum, Rashmi Soto [facility] URINE DRUG (IMMUNOASSAY) - COMPREHENSIVE DRUG SCREEN W/O REFLEX 2022-09-14 17:37:00 Adum, Rashmi Charles [facility] CBC WITH DIFF 2022-09-14 17:37:00 Adum, Rashmi [facility] URINE DRUG (IMMUNOASSAY) - COMPREHENSIVE DRUG SCREEN W/O REFLEX 2022-09-14 17:37:00 Adum, Rashmi Soto [facility] HB ABO GROUPING 2022-09-14 17:37:00 Adum, [facility] EXTRA TUBE RED 2022-09-14 17:37:00 Adum, Rashmi Cuba [facility] EXTRA TUBE SST 2022-09-14 17:37:00 Adum, Rashmi Soto [facility] EXTRA TUBE LT. GREEN 2022-09-14 17:37:00 Adum, Rashmi Soto [facility] CBC WITH DIFF 2022-09-14 17:37:00 Adum, Rashmi Pearce [facility] HB ABO GROUPING 2022-09-14 17:37:00 Adum, Rashmi Bland [facility] EXTRA TUBE SST 2022-09-14 17:37:00 Adum, Rashmi Soto [facility] EXTRA TUBE LT. GREEN 2022-09-14 17:37:00 Adum, Rashmi Soto [facility] EXTRA TUBE RED 2022-09-14 17:37:00 Adum, Rashmi Soto [facility] URINE DRUG (IMMUNOASSAY) - COMPREHENSIVE DRUG SCREEN W/O REFLEX 2022-09-14 17:37:00 Adum, Rashmi Soto [facility] CLC OR LCC ONLY - WET PREP 2022-09-14 16:58:00 Adum, Rashmi Soto [facility] URINE CULTURE 2022-09-14 16:58:00 Adum, Rashmi Pearce [facility] GC & CHLAMYDIA AMPLIFIED ASSAY 2022-09-14 16:58:00 Adum, Rashmi Soto [facility] URINE CULTURE 2022-09-14 16:58:00 Adum, Rashmi Pearce [facility] CLC OR LCC ONLY - WET PREP 2022-09-14 16:58:00 Adum, Rashmi Soto [facility] GC & CHLAMYDIA AMPLIFIED ASSAY 2022-09-14 16:58:00 Adum, Rashmi Soto [facility] CLC OR LCC ONLY - WET PREP 2022-09-14 16:58:00 Adum, Rashmi Soto [facility] URINE CULTURE 2022-09-14 16:58:00 Adum, Rashmi Pearce [facility] GC & CHLAMYDIA AMPLIFIED ASSAY 2022-09-14 16:58:00 Adum, Rashmi Soto [facility] GLUCOSE 1 HOUR POST PRANDIAL 2022-08-25 17:33:00 Adum, Rashmi Soto [facility] SCANNED LAB RESULTS 2022-08-25 05:01:00 Doctor Mauricio clark, [place] [facility] POCT URINALYSIS W/O SPECIFIC GRAVITY 2022-08-03 00:00:00 Adum, Rashmi Soto [facility] POCT URINALYSIS W/O SPECIFIC GRAVITY 2022-08-03 00:00:00 Adum, Rashmi Soto [facility] URINE CULTURE 2022-07-13 19:06:00 Adum, Rashmi [facility] ADC OR WENDY ONLY - RPR 2022-07-13 18:54:00 Adum, Ana Soto [facility] CBC WITH DIFF 2022-07-13 18:54:00 Adum, Rashmi [facility] HCV ANTIBODY 2022-07-13 18:54:00 Adum, Rashmi Bailey [facility] HEPATITIS B SURFACE ANTIGEN 2022-07-13 18:54:00 Adum, Rashmi Soto [facility] HIV 1/2 AG-AB WITH REFLEX 2022-07-13 18:54:00 Adum, Ana Soto [facility] HB ABO GROUPING 2022-07-13 18:54:00 Adum, Rashmi Bland [facility] RUBELLA SCREEN IGG 2022-07-13 18:54:00 Adum, Rashmi Soto [facility] VZV ANTIBODY SCREEN 2022-07-13 18:54:00 Adum, Rashmi Soto [facility] PROGESTERONE, LEVEL 2022-07-13 18:54:00 Adum, Rashmi Soto [facility] US OB TRANSVAGINAL 2022-07-05 20:42:36 Adum, Rashmi Soto [facility] OB TRANSVAGINAL 2022-07-05 20:42:36 Adum, Rashmi Soto [facility] URINE DRUG (IMMUNOASSAY) - COMPREHENSIVE DRUG SCREEN 2022-07-05 20:22:00 Adum, Rashmi Soto [facility] GC & CHLAMYDIA AMPLIFIED ASSAY 2022-07-05 20:22:00 Adum, Rashmi Charles [facility] TRICHOMONAS AMPLIFIED ASSAY 2022-07-05 20:22:00 Adum, Rashmi Charles [facility] PAP SMEAR-LIQUID BASED-CP 2022-07-05 20:22:00 Adum, Ana whitmanvijay Soto [facility] URINE DRUG (IMMUNOASSAY) - COMPREHENSIVE DRUG SCREEN 2022-07-05 20:22:00 Adum, Rashmi L [facility] PAP SMEAR-LIQUID BASED-CP 2022-07-05 20:22:00 Adum, Ana whitmanvijay Soto [facility] TRICHOMONAS AMPLIFIED ASSAY 2022-07-05 20:22:00 Adum, Rashmi L [facility] GC & CHLAMYDIA AMPLIFIED ASSAY 2022-07-05 20:22:00 Adum, Rashmi L [facility] LAB ONLY PAP SMEAR-LIQUID BASED 2022-07-05 20:22:00 Adum, Rashmi L [facility] NO SHOW OR MISSED APPOINTMENT POLICY ACKNOWLEDGEMENT 2022-07-05 19:21:04 Doctor Unassigned, [place] [facility] PATIENT FINANCIAL POLICY 2022-07-05 19:18:12 Doctor Unassigned, [place] [facility] CONSENT TO CONTACT FOR VOLUNTARY RESEARCH 2022-07-05 19:17:38 Doctor Unassigned, [place] [facility] CONSENT/REFUSAL FOR DIAGNOSIS AND TREATMENT 2022-07-05 19:17:06 Doctor Unassigned, [place] [facility] ASSIGNMENT OF BENEFITS 2022-07-05 19:16:39 Docto r Unassigned, [place] [facility] ASSIGNMENT OF BENEFITS 2022-07-05 19:16:39 Docto r Unassigned, [place] [facility] ULTRASOUND 2022-07-05 05:01:00 Doc tor Unassigned, [place] [facility] POCT TEST 2022-07-05 00:00:00 Adum, Rashmi Soto [facility] POCT URINALYSIS W/O SPECIFIC GRAVITY 2022-07-05 00:00:00 Adum, Rashmi Soto [facility] POCT URINALYSIS W/O SPECIFIC GRAVITY 2022-07-05 00:00:00 Admark, Rashmi Soto [facility] POCT TEST 2022-07-05 00:00:00 Admark, Rashmi Soto [facility] NOTICE OF PRIVACY PRACTICES 2021-10-05 19:08:03 Doctor Unassigned, [place] [facility] CONSENT/REFUSAL FOR DIAGNOSIS AND TREATMENT 2021-10-05 19:07:36 Doctor Unassigned, [place] [facility] ABORH CONFIRMATION (LAB ONLY) 2021-07-12 12:00:00 Adum, Rashmi Soto [facility] CBC WITH DIFF 2021-07-12 11:39:00 [facility] 2021-07-12 11:35:00 AdRashmi flores [facility] Encounters Start Date/Time End Date/Time Encounter Type Admission Type Attending [facility] Care Facility Care Department Encounter ID Source 2023-04-25 17:34:51 Outpatient P [facility] [id number] [facility] 2023-06-14 15:30:00 2023-06-14 15:30:00 Outpatient R ADMARK [facility] [id number] [facility] 2023-06-07 15:00:00 2023-06-07 15:00:00 Outpatient R ADMARK [facility] [id number] [facility] 2023-05-10 15:45:00 2023-05-10 16:16:29 Outpatient R ADMARK [facility] [id number] [facility] 2023-05-10 15:45:00 2023-05-10 16:16:29 Routine Visit aRshmi Gonzalez [facility] ..840.114 350.1.13.10 4.2.7.2.686 [id number] 134 [id number] [facility] 2023-05-02 00:00:00 2023-05-02 00:00:00 Case Management AdRashmi flores [facility] 1.2.840.114 350.1.13.10 4.2.7.2.686 [id number] 134 [id number] [facility] 2023-05-01 14:00:00 2023-05-01 15:00:39 Outpatient P JERRY PISANO [facility] [id number] [facility] 2023-05-01 14:00:00 2023-05-01 15:00:[address] Visit Ultrasound, Khalida NunesJerry burns Tessa [facility] TAR WORKER [facility] MATER[facility] & [facility] 1.2.840.114 350.1.13.10 4.2.7.2.686 [id number] [facility] 2023-05-01 14:00:00 2023-05-01 14:00:00 Outpatient P JERRY PISANO [facility] [id number] [facility] 2023-05-01 00:00:00 2023-05-01 00:00:00 Telephone Rashmi Gonzalez [facility] 1.2.840.114 350.1.13.10 4.2.7.2.686 [id number] 134 [id number] [facility] 2023-04-24 19:06:00 2023-04-25 17:34:00 [facility] [id number] [facility] 2023-04-24 19:06:00 2023-04-25 17:34:00 Hospital Encounter Nik Pimentel [facility] 1.2.840.114 350.1.13.10 4.2.7.2.686 [id number] [facility] 2023-04-25 12:00:00 2023-04-25 13:27:00 Surgery Kristal Alvarado [facility] 1.2.840.114 350.1.13.10 4.2.7.2.686 [id number] [facility] 2023-04-24 15:30:00 2023-04-24 16:30:19 Outpatient P MANUEL DIANE SANGEETA [facility] [id number] [facility] 2023-04-24 15:30:00 2023-04-24 16:30:[address] Visit Ultrasound, [facility] 1.2.840.114 350.1.13.10 4.2.7.2.686 [id number] [facility] 2023-04-24 00:00:00 2023-04-24 00:00:00 Telephone AdRashmi flores [facility] 1.2.840.114 350.1.13.10 4.2.7.2.686 [id number] 134 [id number] [facility] 2023-04-23 00:00:00 2023-04-23 00:00:00 Case Management AdumRashmi [facility] 1.2.840.114 350.1.13.10 4.2.7.2.686 [id number] [facility] 2023-04-17 09:00:00 2023-04-17 09:56:07 Outpatient P ELADIO GAINES COREY [facility] [id number] [facility] 2023-04-17 09:00:00 2023-04-17 09:56:[address] Visit Ultrasound, Eladio Martinez [facility] TAR WORKER [facility] 1.2.840.114 350.1.13.10 4.2.7.2.686 [id number] [facility] 2023-04-10 15:15:00 2023-04-10 15:15:00 Outpatient P [facility] [id number] [facility] 2023-04-10 00:00:00 2023-04-10 00:00:00 Patient Secure Msg Doctor Unassigned, [place] [facility] 1.2.840.114 350.1.13.10 4.2.7.2.686 [id number] 134 [id number] [facility] 2023-04-07 13:00:00 2023-04-07 13:00:00 Outpatient R [facility] [id number] [facility] 2023-04-07 00:00:00 2023-04-07 00:00:00 Case Management Admark Rashmi [facility] 1.2.840.114 350.1.13.10 4.2.7.2.686 [id number] [facility] 2023-04-05 16:00:00 2023-04-05 16:00:00 [facility] 1.2840.114 350.1.13.10 4.2.7.2.686 [id number] 134 [id number] [facility] 2023-04-05 16:00:00 2023-04-05 13:56:28 [id number] 2023-03-16 00:00:00 2023-03-16 00:00:00 Telephone Admark Rashmi [facility] 1.2840.114 350.1.13.10 4.2.7.2.686 [id number] 134 [id number] [facility] 2023-03-16 00:00:00 2023-03-16 00:00:00 Telephone Admark Rashmi [facility] 1.2.840.114 350.1.13.10 4.2.7.2.686 [id number] 134 [id number] [facility] 2023-03-14 00:00:00 2023-03-14 00:00:00 Case Management Urszula Sungsol [facility] 1.2.840.114 350.1.13.10 4.2.7.2.686 [id number] [facility] 2023-03-10 08:45:00 2023-03-10 09:56:[address] Visit 2, Adc Lab Adum, Rashmi Soto [facility] 1.2.840.114 350.1.13.10 4.2.7.2.686 [id number] [facility] 2023-03-10 08:45:00 2023-03-10 08:45:00 Outpatient R LISA [facility] [id number] [facility] 2023-03-10 00:00:00 2023-03-10 00:00:00 Case [facility] 1.2.840.114 350.1.13.10 4.2.7.2.686 [id number] [facility] 2023-03-10 00:00:00 2023-03-10 00:00:00 Orders Only Doctor Unassigned, [place] [facility] 1.2.840.114 350.1.13.10 4.2.7.2.686 [id number] [facility] 2023-03-08 16:00:00 2023-03-08 16:28:26 Outpatient R ADRASHMI FLORES [facility] [id number] [facility] 2023-03-08 16:00:00 2023-03-08 16:28:26 Routine Visit AdRashmi flores [facility] 1.2.840.114 350.1.13.10 4.2.7.2.686 [id number] [facility] 2023-02-17 10:00:00 2023-02-17 11:33:54 Outpatient R JAYESH, MANUEL DIANE, MANUEL [facility] [id number] [facility] 2023-02-17 10:00:00 2023-02-17 10:30:00 Telemedici ne Visit [facility] Diane, Shayne Diane, Manuel [facility] 1.840.114 350.1.13.10 4.2.7.2.686 [id number] [facility] 2023-02-10 00:00:00 2023-02-10 00:00:00 Patient Secure Msg Doctor Unassigned, [place] [facility] 1..840.114 350.1.13.10 4.2.7.2.686 [id number] 134 [id number] [facility] 2023-02-09 09:15:00 2023-02-09 09:15:00 Outpatient R [facility] [id number] [facility] 2023-02-08 00:00:00 2023-02-08 00:00:00 Case Management Lisa Rashmi Soto [facility] 1..840.114 350.1.13.10 4.2.7.2.686 [id number] 134 [id number] [facility] 2023-02-07 15:45:00 2023-02-07 16:00:[address] Visit Pob, Adc Lab Main Admark Rashmi [facility] 1..840.114 350.1.13.10 4.2.7.2.686 [id number] [facility] 2023-02-07 14:30:00 2023-02-07 15:21:52 Outpatient R RASHMI GONZALEZ [facility] [id number] [facility] 2023-02-07 14:30:00 2023-02-07 15:21:52 Initial Visit AdRashmi flores [facility] 1.2.840.114 350.1.13.10 4.2.7.2.686 [id number] [facility] 2023-02-07 00:00:00 2023-02-07 00:00:00 Orders Only Doctor Unassigned, [place] [facility] 1.2.840.114 350.1.13.10 4.2.7.2.686 [id number] [facility] 2023-01-31 14:30:00 2023-01-31 14:30:00 Outpatient R LISA [facility] [id number] [facility] 2022-10-05 13:15:00 2022-10-05 13:15:00 Outpatient R ABIGAILMARK [facility] [id number] [facility] 2022-09-21 11:15:00 2022-09-21 11:15:00 Outpatient R ADMARK, [facility] [id number] [facility] 2022-09-20 00:00:00 2022-09-20 00:00:00 Case Management Admark, Rashmi Soto [facility] 1.2.840.114 350.1.13.10 4.2.7.2.686 [id number] 134 [id number] [facility] 2022-09-14 10:45:00 2022-09-16 08:40:00 Inpatient X DUMONT-TIMO S, MARISSA DUMONT-TIMO S, MARISSA [facility] [id number] [facility] 2022-09-14 10:45:00 2022-09-16 08:40:00 Hospital Encounter AdRashmi flores Dumont-Timo s, Marissa 1.2.840.1 [id number] 3.104.2.7 [id number] [facility] 2022-09-15 04:00:00 2022-09-15 05:34:00 Surgery Abigailmark Rashmi Soto [facility] 1.2.840.114 350.1.13.10 4.2.7.2.686 [id number] [facility] 2022-09-15 03:49:00 2022-09-15 04:47:00 Anesthesia Event Agusto Olsen 1.2.840.1 [id number] 3.104.2.7 [id number] [facility] 2022-09-14 00:00:00 2022-09-14 00:00:00 Travel 1.2.840.1 27767.1.1 3.104.2.7 .3.482566 .8 1.2.840.114 350.1.13.10 4.2.7.3.698 084.8 [id number] [facility] 2022-09-02 00:00:00 2022-09-02 00:00:00 Telephone Sabrina Kerr 1.2.840.1 59654.1.1 3.104.2.7 .3.480872 .8 [id number] [facility] 2022-08-31 11:00:00 2022-08-31 11:00:00 Outpatient R RASHMI GONZALEZ [facility] [id number] [facility] 2022-08-31 00:00:00 2022-08-31 00:00:00 Telephone Sabrina Kerr 1.2.840.1 64443.1.1 3.104.2.7 .3.895690 .8 [id number] [facility] 2022-08-28 00:00:00 2022-08-28 00:00:00 Case Management AbigailAshley floreskeli Soto 1.2.840.1 91964.1.1 3.104.2.7 .3.196657 .8 [id number] [facility] 2022-08-25 11:15:00 2022-08-25 13:10:[address] Visit AdRashmi flores 2, [facility] 1.2.840.1 49519.1.1 3.104.2.7 .3.914158 .8 [id number] [facility] 2022-08-25 11:15:00 2022-08-25 11:15:00 Outpatient RASHMI ESCOBAR [facility] [id number] [facility] 2022-08-25 00:00:00 2022-08-25 00:00:00 Orders Only Doctor Unassigned, [place] 1.2.840.1 77669.1.1 3.104.2.7 .3.905987 .8 [id number] [facility] 2022-08-25 00:00:00 2022-08-25 00:00:00 Travel 1.2.840.1 33268.1.1 3.104.2.7 .3.477168 .8 1.2.840.114 350.1.13.10 4.2.7.3.698 084.8 [id number] [facility] 2022-08-10 09:15:00 2022-08-10 09:15:00 Outpatient R RAHSMI GONZALEZ [facility] [id number] [facility] 2022-08-10 00:00:00 2022-08-10 00:00:00 Travel 1.2.840.1 98211.1.1 3.104.2.7 .3.898478 .8 1.2.840.114 350.1.13.10 4.2.7.3.698 084.8 [id number] [facility] 2022-08-04 00:00:00 2022-08-04 00:00:00 Telephone AdRashmi flores 1.2.840.1 27616.1.1 3.104.2.7 .3.238336 .8 [id number] [facility] 2022-08-03 14:30:00 2022-08-03 15:51:53 Outpatient R RASHMI GONZALZE [facility] [id number] [facility] 2022-08-03 14:30:00 2022-08-03 15:51:53 Routine Visit AbigailRashmi flores 1.2.840.1 86087.1.1 3.104.2.7 .3.185559 .8 [id number] [facility] 2022-08-03 13:00:00 2022-08-03 13:00:00 Outpatient R RASHMI GONZALEZ [facility] [id number] [facility] 2022-08-03 00:00:00 2022-08-03 00:00:00 Travel 1.2.840.1 35024.1.1 3.104.2.7 .3.523726 .8 1.2.840.114 350.1.13.10 4.2.7.3.698 084.8 [id number] [facility] 2022-07-13 10:00:00 2022-07-13 14:40:[address] Visit AdRashmi flores 2, [facility] 1.2.840.1 79404.1.1 3.104.2.7 .3.226154 .8 [id number] [facility] 2022-07-13 10:00:00 2022-07-13 10:00:00 Outpatient R RASHMI GONZALEZ [facility] [id number] [facility] 2022-07-13 00:00:00 2022-07-13 00:00:00 Telephone AdmarkRashmi Charles 1.2.840.1 72096.1.1 3.104.2.7 .3.148803 .8 [id number] [facility] 2022-07-13 00:00:00 2022-07-13 00:00:00 Travel 1.2.840.1 39635.1.1 3.104.2.7 .3.074829 .8 1.2.840.114 350.1.13.10 4.2.7.3.698 084.8 [id number] [facility] 2022-07-07 00:00:00 2022-07-07 00:00:00 Case Management AdumRashmi 1.2.840.1 60786.1.1 3.104.2.7 .3.299184 .8 [id number] [facility] 2022-07-06 00:00:00 2022-07-06 00:00:00 Telephone Adum, Rashmi Charles 1.2.840.1 01442.1.1 3.104.2.7 .3.817365 .8 [id number] [facility] 2022-07-06 00:00:00 2022-07-06 00:00:00 Telephone AdmarkAshleyRashmi L 1.2.840.1 44355.1.1 3.104.2.7 .3.931850 .8 [id number] [facility] 2022-07-05 15:45:00 2022-07-05 16:45:00 Ancillary Procedure Admark, Rashmi L 1.2.840.1 38901.1.1 3.104.2.7 .3.883352 .8 [id number] [facility] 2022-07-05 14:30:00 2022-07-05 15:35:33 Initial Visit Rashmi Gonzalez 1.2.840.1 90669.1.1 3.104.2.7 .3.212718 .8 [id number] [facility] 2022-07-05 14:30:00 2022-07-05 15:35:33 Outpatient R RASHMI GONZALEZ [facility] [id number] [facility] 2022-07-05 00:00:00 2022-07-05 00:00:00 Travel 1.2.840.1 58548.1.1 3.104.2.7 .3.696875 .8 1.2.840.114 350.1.13.10 4.2.7.3.698 084.8 [id number] [facility] 2022-07-05 00:00:00 2022-07-05 00:00:00 Orders Only Doctor Unassigned, [place] 1.2.840.1 78608.1.1 3.104.2.7 .3.720695 .8 [id number] [facility] 2021-10-05 14:27:00 2021-10-05 14:58:00 Emergency X LISA FLORES [facility] ERT [id number] [facility] 2021-10-05 14:27:00 2021-10-05 14:58:00 Emergency Lisa Flores [facility] 1.2.840.114 350.1.13.10 4.2.7.2.686 [id number] [facility] 2021-07-12 05:56:00 2021-07-12 11:35:00 Hospital Encounter Rashmi Gonzalez [facility] 1.2.840.114 350.1.13.10 4.2.7.2.686 [id number] [facility] 2021-07-12 05:56:00 2021-07-12 11:35:00 Outpatient P RASHMI GONZALEZ [facility] ROSA [id number] [facility] Results Test Description Test Time Test Comments Results Result Co mments Source [facility]o Specific [id number] 20:47:00* Test Item Value Reference Range Interpretation Comme nts POCT PH U (test code = 3254) n/a 5-8 POCT U LEUK EST (test code = 3263) n/a Negative - Negative POCT U NIT (test code = 3262) n/a Negative - Negati ve POCT U PROT (test code = 3259) negative Negative - Negat primitivo POCT U GLU (test code = 3256) negative Negative - Negati ve POCT U KETONE (test code = 3258) n/a Negative - Neg ative POCT U BLD (test code = 3257) n/a Negative - Negati ve [facility] Urinalysis w/o Specific [id number] 19:24:00* Test Item Value Reference Range Interpretation Comme nts POCT PH U (test code = 3254) 6 mg/dl 5-8 POCT U LEUK EST (test code = 3263) 2+ Negative - Negative POCT U NIT (test code = 3262) Positive Negative - Negati ve POCT U PROT (test code = 3259) Trace Negative - Negat primitivo POCT U GLU (test code = 3256) Negative Negative - Negati ve POCT U KETONE (test code = 3258) Large Negative - Neg ative POCT U BLD (test code = 3257) Trace Negative - Negati ve [facility] Urinalysis w/o Specific [id number] 21:58:00* Test Item Value Reference Range Interpretation Comme nts POCT PH U (test code = 3254) n/a 5-8 POCT U LEUK EST (test code = 3263) n/a Negative - Negative POCT U NIT (test code = 3262) n/a Negative - Negati ve POCT U PROT (test code = 3259) trace Negative - Negat primitivo POCT U GLU (test code = 3256) negative Negative - Negati ve POCT U KETONE (test code = 3258) n/a Negative - Neg ative POCT U BLD (test code = 3257) n/a Negative - Negati ve [facility] Urinalysis w/o Specific [id number] 20:23:00* Test Item Value Reference Range Interpretation Comme nts POCT PH U (test code = 3254) n/a 5-8 POCT U LEUK EST (test code = 3263) n/a Negative - N egative POCT U NIT (test code = 3262) n/a Negative - Negati ve POCT U PROT (test code = 3259) neg Negative - Negat primitivo POCT U GLU (test code = 3256) neg Negative - Negati ve POCT U KETONE (test code = 3258) n/a Negative - Neg ative POCT U BLD (test code = 3257) n/a Negative - Negati ve [facility] [id number] 20:23:00* Test Item Value Reference Range Interpretation Comme nts POCT PREG (test code = 1605) Positive On board controls acceptable with C Line (test code = 3574) No POCT PREG LOT # (test code = 3575) POCT PREG TEST DATE ( test code = 3576) [facility] [id number] 17:50:19* Test Item Value Reference Range Interpretation Comme nts WBC (test code = 6690-2) 17.15 See_Comment H [Automated message] The system which generated this result transmitted reference range: 4.30 - 11.10 10*3/?L. The reference range was not used to interpret this result as normal/abnormal. RBC (test code = 789-8) 3.67 See_Comment L [Automated message] The system which generated this result transmitted reference range: 3.93 - 5.25 10*6/?L. The reference range was not used to interpret this result as normal/abnormal. HGB (test code = 718-7) 10.4 g/dL 11.6-15.0 L HCT (test code = 4544-3) 31.3 % 35.7-45.2 L MCV (test code = 787-2) 85.3 fL 80.6-95.5 MCH (test code = 785-6) 28.3 pg 25.9-32.8 MCHC (test code = 786-4) 33.2 g/dL 31.6-35.1 RDW-SD (test code = 20198-0) 41.8 fL 39.0-49.9 RDW-CV (test code = 788-0) 13.4 % 12.0-15.5 PLT (test code = 777-3) 264 See_Comment [Automated message] The system which generated this result transmitted reference range: 166 - 358 10*3/?L. The reference range was not used to interpret this result as normal/abnormal. MPV (test code = 25939-2) 9.7 fL 9.5-12.9 NRBC/100 WBC (test code = 7472549409) 0.0 See_Comment [Automated message] The system which generated this result transmitted reference range: 0.0 - 10.0 /100 WBCs. The reference range was not used to interpret this result as normal/abnormal. NRBC x10^3 (test code = 4057814271) See_Comment [Automated message] The system which generated this result transmitted reference range: 10*3/?L. The reference range was not used to interpret this result as normal/abnormal. GRAN MAT (NEUT) % (test code = 770-8) 83.0 % IMM GRAN % (test code = 8135779305) 0.60 % LYMPH % (test code = 736-9) 8.5 % MONO % (test code = 5905-5) 7.5 % EOS % (test code = 713-8) 0.1 % BASO % (test code = 706-2) 0.3 % GRAN MAT x10^3(ANC) (test code = 5825791957) 14.25 10*3/uL 1.88-7.09 H IMM GRAN x10^3 (test code = 9359767724) 0.10 10*3/uL 0.00-0.06 H LYMPH x10^3 (test code = 731-0) 1.45 10*3/uL 1.32-3.29 MONO x10^3 (test code = 742-7) 1.28 10*3/uL 0.33-0.92 H EOS x10^3 (test code = 711-2) 0.03-0.39 L BASO x10^3 (test code = 704-7) 0.05 10*3/uL 0.01-0.07 Lab Interpretation (test code = 68412-1) Abnormal [facility] WITH [id number] 17:50:19* Test Item Value Reference Range Interpretation Comme nts WBC (test code = 6690-2) 17.15 See_Comment H [Automated message] The system which generated this result transmitted reference range: 4.30 - 11.10 10*3/?L. The reference range was not used to interpret this result as normal/abnormal. RBC (test code = 789-8) 3.67 See_Comment L [Automated message] The system which generated this result transmitted reference range: 3.93 - 5.25 10*6/?L. The reference range was not used to interpret this result as normal/abnormal. HGB (test code = 718-7) 10.4 g/dL 11.6-15.0 L HCT (test code = 4544-3) 31.3 % 35.7-45.2 L MCV (test code = 787-2) 85.3 fL 80.6-95.5 MCH (test code = 785-6) 28.3 pg 25.9-32.8 MCHC (test code = 786-4) 33.2 g/dL 31.6-35.1 RDW-SD (test code = 84403-5) 41.8 fL 39.0-49.9 RDW-CV (test code = 788-0) 13.4 % 12.0-15.5 PLT (test code = 777-3) 264 See_Comment [Automated message] The system which generated this result transmitted reference range: 166 - 358 10*3/?L. The reference range was not used to interpret this result as normal/abnormal. MPV (test code = 43051-2) 9.7 fL 9.5-12.9 NRBC/100 WBC (test code = 7539139484) 0.0 See_Comment [Automated message] The system which generated this result transmitted reference range: 0.0 - 10.0 /100 WBCs. The reference range was not used to interpret this result as normal/abnormal. NRBC x10^3 (test code = 4963245882) See_Comment [Automated message] The system which generated this result transmitted reference range: 10*3/?L. The reference range was not used to interpret this result as normal/abnormal. GRAN MAT (NEUT) % (test code = 770-8) 83.0 % IMM GRAN % (test code = 0539142275) 0.60 % LYMPH % (test code = 736-9) 8.5 % MONO % (test code = 5905-5) 7.5 % EOS % (test code = 713-8) 0.1 % BASO % (test code = 706-2) 0.3 % GRAN MAT x10^3(ANC) (test code = 0633331736) 14.25 10*3/uL 1.88-7.09 H IMM GRAN x10^3 (test code = 5759127385) 0.10 10*3/uL 0.00-0.06 H LYMPH x10^3 (test code = 731-0) 1.45 10*3/uL 1.32-3.29 MONO x10^3 (test code = 742-7) 1.28 10*3/uL 0.33-0.92 H EOS x10^3 (test code = 711-2) 0.03-0.39 L BASO x10^3 (test code = 704-7) 0.05 10*3/uL 0.01-0.07 Lab Interpretation (test code = 40054-9) Abnormal [facility] and Screen - STAT [id number] 17:44:00* Test Item Value Reference Range Interpretation Comme nts ABO & RH (test code = 20) B Positive IAT (test code = 1185) Negative [facility] and Screen - STAT [id number] 17:44:00* Test Item Value Reference Range Interpretation Comme nts ABO & RH (test code = 20) B Positive IAT (test code = 1185) Negative [facility] and Screen - STAT [id number] 17:44:00* Test Item Value Reference Range Interpretation Comme nts ABO & RH (test code = 20) B Positive IAT (test code = 1185) Negative [facility] URINALYSIS W/O SPECIFIC [id number] 20:19:00* Test Item Value Reference Range Interpretation Comme nts POCT PH U (test code = 3254) n/a 5-8 POCT U LEUK EST (test code = 3263) n/a Negative - Negative POCT U NIT (test code = 3262) n/a Negative - Negati ve POCT U PROT (test code = 3259) Negative Negative - Negat primitivo POCT U GLU (test code = 3256) Normal Negative - Negati ve POCT U KETONE (test code = 3258) negative Negative - Neg ative POCT U BLD (test code = 3257) Negative Negative - Negati ve [facility] URINALYSIS W/O SPECIFIC [id number] 20:19:00* Test Item Value Reference Range Interpretation Comme nts POCT PH U (test code = 3254) n/a 5-8 POCT U LEUK EST (test code = 3263) n/a Negative - Negative POCT U NIT (test code = 3262) n/a Negative - Negati ve POCT U PROT (test code = 3259) Negative Negative - Negat primitivo POCT U GLU (test code = 3256) Normal Negative - Negati ve POCT U KETONE (test code = 3258) negative Negative - Neg ative POCT U BLD (test code = 3257) Negative Negative - Negati ve [facility] URINALYSIS W/O SPECIFIC [id number] 20:22:00* Test Item Value Reference Range Interpretation Comme nts POCT PH U (test code = 3254) n/a 5-8 POCT U LEUK EST (test code = 3263) n/a Negative - N egative POCT U NIT (test code = 3262) n/a Negative - Negati ve POCT U PROT (test code = 3259) neg Negative - Negat primitivo POCT U GLU (test code = 3256) neg Negative - Negati ve POCT U KETONE (test code = 3258) n/a Negative - Neg ative POCT U BLD (test code = 3257) n/a Negative - Negati ve [facility] URINALYSIS W/O SPECIFIC [id number] 20:22:00* Test Item Value Reference Range Interpretation Comme nts POCT PH U (test code = 3254) n/a 5-8 POCT U LEUK EST (test code = 3263) n/a Negative - N egative POCT U NIT (test code = 3262) n/a Negative - Negati ve POCT U PROT (test code = 3259) neg Negative - Negat primitivo POCT U GLU (test code = 3256) neg Negative - Negati ve POCT U KETONE (test code = 3258) n/a Negative - Neg ative POCT U BLD (test code = 3257) n/a Negative - Negati ve [facility] [id number] 20:21:00* Test Item Value Reference Range Interpretation Comme nts POCT PREG (test code = 1605) Positive On board controls acceptable with C Line (test code = 3574) Yes POCT PREG LOT # (test code = 3575) POCT PREG TEST DATE ( test code = 3576) [facility] [id number] 20:21:00* Test Item Value Reference Range Interpretation Comme nts POCT PREG (test code = 1605) Positive On board controls acceptable with C Line (test code = 3574) Yes POCT PREG LOT # (test code = 3575) POCT PREG TEST DATE ( test code = 3576) [facility] [id number] 20:21:00* Test Item Value Reference Range Interpretation Comme nts POCT PREG (test code = 1605) Positive On board controls acceptable with C Line (test code = 3574) Yes POCT PREG LOT # (test code = 3575) POCT PREG TEST DATE ( test code = 3576) [facility] FOR VOLUNTARY RESEARCH 2022-07-05 19:17:38* Test Item Value Reference Range Interpretation Comme nts Consent To Contact For [employer] (test code = 4947) Yes [facility] WITH [id number] 14:32:29* Test Item Value Reference Range Interpretation Comme nts WBC (test code = 6690-2) See_Comment H [Automated message] The system which generated this result transmitted reference range: 4.30 - 11.10 10*3/?L. The reference range was not used to interpret this result as normal/abnormal. RBC (test code = 789-8) See_Comment L [Automated message] The system which generated this result transmitted reference range: 3.93 - 5.25 10*6/?L. The reference range was not used to interpret this result as normal/abnormal. HGB (test code = 718-7) 9.3 g/dL 11.6-15.0 L HCT (test code = 4544-3) 29.6 % 35.7-45.2 L MCV (test code = 787-2) 85.1 fL 80.6-95.5 MCH (test code = 785-6) 26.7 pg 25.9-32.8 MCHC (test code = 786-4) 31.4 g/dL 31.6-35.1 L RDW-SD (test code = 45500-7) 39.6 fL 39.0-49.9 RDW-CV (test code = 788-0) 13.1 % 12.0-15.5 PLT (test code = 777-3) See_Comment [Automated message] The system which generated this result transmitted reference range: 166 - 358 10*3/?L. The reference range was not used to interpret this result as normal/abnormal. MPV (test code = 01138-2) 9.7 fL 9.5-12.9 NRBC/100 WBC (test code = 9442443278) See_Comment [Automated message] The system which generated this result transmitted reference range: 0.0 - 10.0 /100 WBCs. The reference range was not used to interpret this result as normal/abnormal. NRBC x10^3 (test code = 1508672901) <0.01 See_Comment [Automated message] The system which generated this result transmitted reference range: 10*3/?L. The reference range was not used to interpret this result as normal/abnormal. GRAN MAT (NEUT) % (test code = 770-8) 87.7 % IMM GRAN % (test code = 8524888223) 0.50 % LYMPH % (test code = 736-9) 8.2 % MONO % (test code = 5905-5) 3.2 % EOS % (test code = 713-8) 0.2 % BASO % (test code = 706-2) 0.2 % GRAN MAT x10^3(ANC) (test code = 6528525267) 15.24 10*3/uL 1.88-7.09 H IMM GRAN x10^3 (test code = 3011313856) 0.09 10*3/uL 0.00-0.06 H LYMPH x10^3 (test code = 731-0) 1.42 10*3/uL 1.32-3.29 MONO x10^3 (test code = 742-7) 0.55 10*3/uL 0.33-0.92 EOS x10^3 (test code = 711-2) 0.04 10*3/uL 0.03-0.39 BASO x10^3 (test code = 704-7) 0.03 10*3/uL 0.01-0.07 BASO STIPPLING (test code = 703-9) Present A BANDS (test code = 5356879522) Increased A LG GRAN LYMPHS (test code = 5749610956) Rare Rare TOXIC CHANGES (test code = 803-7) Present A GIANT PLATELETS (test code = 5908-9) Present See_Comment A [Automated message] The system which generated this result transmitted reference range: (none). The reference range was not used to interpret this result as normal/abnormal. Lab Interpretation (test code = 46948-5) Abnormal [facility] Confirm[facility] (Lab Only)2021-07-12 13:59:07* Test Item Value Reference Range Interpretation Comme nts ABO & RH (test code = 20) B Positive Performed at [facility] Laboratory Services [facility] Blood [address] Free: [phone] No. [id number] [facility] and Screen - ONCE Hacmhpo1770-71-62 13:50:09* Test Item Value Reference Range Interpretation Comme nts ABO & RH (test code = 20) B Positive Performed at [facility] Laboratory [facility] Blood [address] Free: [phone] No. [id number] IAT (test code = 1185) Negative Performed at [facility] Laboratory [facility] Blood [address] Free: [phone] No. [id number] [facility] Consult Notes Date/Time Note Provider Source 2022-09-15 16:47:43 Nf11JDQxzGKkeAmjkZmq Z7qUIf9NNT8Fd CAvGNsWAIDqVLj94tiSiGORJESvbWoC80 11-09-26T16:47:43Associated Order(s): CONSULT PEDI CARE MANAGER CM provided with the patient with bereavement resources and counseling services. Patient grateful and stated she wants to rest. Also updated patient to reach out to CM if any other needs arise.Chidi Patiño RN, [facility] Care ManagerO [phone] [id number] kavgJZ0240-65-56L24:50:54Consult noteTXT1.2.840.068994.1.13.104.2. 7.2.709955|[id number] for patient [id number] Gomez [facility] - [address] [id number] 705XIYSGMRFDBCOYKSJNRXCOJ0402-05- 27T16:50:541.2.840.279338.1.72.3. 15|1.2.840.695881.1.13.104.2.7.2. [id number] Chidi Patiño RN [facility] - Health History and Physical Notes Date/Time Note Provider Source 2022-09-14 18:09:47 /3pv+smXlnZ+NBUqy3ZJ y3jZ1yZAtl1ZJGAM6Yn3am MLF63NsfOJ/o4iMOdAOy6R5058-76-95G48:09:47F ormatting of this note is different from the original.rexcZ\\-TRIAGE HISTORY & PHYSICALIDENTIFYING DATACarly French is 27 year old, /White, 17w4d, female with FLEX 02/18/2023, by Last Menstrual Period. : 1995MRN: [id number] Care Physician: PATIENT DOES NOT HAVE A PCPCHIEF COMPLAINTVaginal bleedingHISTORY OF PRESENT ILLNESSCarly French is a 27 year old female, at 17w4d presents with unprovoked vaginal bleeding which started today. Reports it mainly as spotting with no associated abdominal pain or cramps.She is also c/o lower back pain with increased frequency of urination which started last week. She reports that she has been unable to hold her urine since last weekDenies dysuriaDenies abnormal vaginal dischargePRENATAL CARE:OB: Dr Mo OB summary for details of PNCPAST OBSTETRIC HISTORYOB History Para Term AB Living 4 1 1 2 1 SAB IAB Ectopic Multiple Live Births 2 # Outcome Date GA Lbr Saturnino/2nd Weight Sex Delivery Anes PTL Lv 4 Current 3 SAB 11/2021 6w0d 2 SAB 06/2021 17w0d 1 Term 11/28/12 37w0d 2977 g F Vag-Spont PAST MEDICAL HISTORYProblem list: Patient Active Problem List Diagnosis Date Noted Vaginal bleeding before 22 weeks gestation 09/14/2022 17 weeks gestation of 09/14/2022 Chorioamnionitis in first trimester 09/14/2022 Chlamydia trachomatis infection in mother during first trimester of 07/07/2022 Obesity (BMI 30-39.9) 07/05/2022 Operations: No past surgical history on file.No past medical history on file. CURRENT HEALTH STATUSMedications: Current Facility-Administered Medications Medication Dose Route Frequency Last Rate Last Admin acetaminophen (TYLENOL) tablet 1,000 mg 1,000 mg Oral Q8HPRN 1,000 mg at 09/14/222019 ampicillin (POLYCILLIN-N) 2,000 mg in NaCl 0.9% (NS) 100 mL MINI-BAG 2 g IV Piggyback Q6H ABX Stopped at 09/14/22 1527 D5W-LR IV infusion 125 mL 125 mL IV Infusion CONTINUOUS 125 mL/hr at 09/14/22 1815 125 mL at 09/14/22 1815 gentamicin 340 mg in NaCl 0.9% (NS) 250 mL IV infusion 5 mg/kg (Adjusted) IV Infusion Q24H Stopped at 09/14/22 1652 lactated ringers IV infusion 1,000 mL 1,000 mL IV Infusion CONTINUOUS 125 mL/hr at 09/14/22 1235 1,000 mL at 09/14/22 1235 Allergies and drug reactions: Patient has no known allergies.HOME MEDICATIONSMedications Prior to Admission Medication Sig Dispense Refill Last Dose [DISCONTINUED] azithromycin 500 mg tablet Take 2 tablets by mouth in the morning. 2 tablet 0 proMETHazine 25 mg tablet Take 1 tablet by mouth every 4 (four) hours as needed for Nausea and Vomiting (N/V). 30 tablet 1 vitamin w/FA tablet Take 1 tablet by mouth daily. 100 tablet 3 Taking SOCIAL HISTORYTobacco History: Social History Tobacco Use Smoking Status Never Smokeless Tobacco Never Drug History: Social History Substance and Sexual Activity Drug Use Never Alcohol History: Social History Substance and Sexual Activity Alcohol Use Not Currently FAMILY HISTORYNo family history on file.REVIEW OF SYSTEMSGeneral: negativeConstitutional: negativeEyes: negativeENT/Mouth: negativeCardiovascular: negativeRespiratory: negativeGastrointestinal:negativeGenitouri nary: As aboveMusculoskeletal: negativeSkin/breast: negativeNeurological: negativePsychiatric: negativeEndocrine: negativeHemat/Lymph: negativeAllergic/Immuno:noneVITAL SIGNSBP: (105-148)/(53-80) Temp: [36.3 ?C (97.3 ?F)-39 ?C (102.2 ?F)] Temp source: Oral (09/14 2009)Pulse: [96-124] Resp: [17-20] SpO2: [97 %-99 %] Height: [157.5 cm (5' 2")] Weight: [91.6 kg (202 lb)-93 kg (205 lb)] BMI (calculated): [0-36.95] PHYSICAL EXAMINATIONSGen: alert and oriented, well appearing, no distressCV: RRRResp: normal work of breathing,Abd: gravid, soft, NTTPExt: no calf tenderness or edemaSpeculum: foot protruding in the vagina through the cervix Dark brown/creamy foul smelly discharge. Small clot removedVE: 4cm dilated/thick. parts palpable. FHR: 160's REVIEW OF LABORATORY, PATHOLOGY, AND RADIOLOGY DATALab results:Type & Screen HIV Hep B Syphilis Chlamydia ABO & RH Date Value Ref Range Status 09/14/2022 B Positive Final No results found for: "HIVMULTIPLEX" No components found for: "HBSHBSAG" No results found for: "SYPIGG" C. trachomatis Nucleic Acid Date Value Ref Range Status 07/05/2022 Positive (A) Negative Final IAT Date Value Ref Range Status 09/14/2022 Negative Final Varicella Rubella Glucose Group B Strep CBC VZV IgG antibody Date Value Ref Range Status 07/13/2022 Negative Negative Final Rubella screen IgG Date Value Ref Range Status 07/13/2022 Negative Negative Final GLUC 1 HR Date Value Ref Range Status 08/25/2022 120 120 - 170 mg/dL Final No results found for: "CGBS" HGB Date Value Ref Range Status 09/14/2022 10.4 (L) 11.6 - 15.0 g/dL Final HCT Date Value Ref Range Status 09/14/2022 31.3 (L) 35.7 - 45.2 % Final PLT Date Value Ref Range Status 09/14/2022 264 166 - 358 10*3/?L Final Placenta Accreta ScreeningPrior ? : NoPrior Uterine Surgery?: NoPlacenta low lying/previa in current ? : N/AScreening outcome:A positive screening outcome indicates a history of prior delivery or prior uterine surgery, AND the presence of either a placenta low lying/previa or ultrasound suspicion of PASD in the current . Active Hospital Problems Diagnosis Date Noted 17 weeks gestation of 09/14/2022 Vaginal bleeding before 22 weeks gestation 09/14/2022 Chorioamnionitis in first trimester 09/14/2022 Resolved Hospital Problems No resolved problems to display. Present on Admission: 17 weeks gestation of Vaginal bleeding before 22 weeks gestation Chorioamnionitis in first trimesterASSESSMENT AND PLANKassaanahyra French is a 27 year old at 17w4d who presents with inevitable in a setting of suspected chorioamnionitis- with WBC elevated at 17 and foul smelling discharge: will start antibiotics empirically for chorioamnionitis- reviewed findings with patient and family, explained unfortunately, nothing can be done at this stage as miscarriage is inevitable and fetus previable- Verbal Ultrasound repot : viable SIUP but no amniotic fluid seen.Given the patient's story, I suspect that her membrane most likely ruptured last week - Will proceed with expectant management for now given + [place] [address]-4Xmbmwqc and physical qatqDY8078-76-15E46:12:46History and physical noteTXT1.2.840.287809.1.13.104.2.7.2.84052 9|[id number] for patient [address] SomrRayyhvozzSllkeipxmNLJK5649199828GPTQAF LSXCJODUEKQTKQQB2886-82-93L52:12:461.2.840 .614768.1.72.3.15|1.2.840.979637.1.13.104. 2.7.2.727879_[id number] [facility] Procedure Notes Date/Time Note Provider Source 2022-09-15 04:50:29 nErWzpqBW5rn7w2qA8QP Dbv241jpo5grYWkF0UzWZo PIrd46reR6jXEa6U0yxPWx8296-72-39G04:50:29P rocedure(s): D&C AFTER DELIVERYPre-Procedure Diagnose(s): Retained complete placentaPost-Procedure Diagnose(s): Retained complete placenta Pre-operative Diagnosis: Retained placentaPost- operative Diagnosis: SameProcedure: Dilation and CurettageSurgeon: Rashmi Gonzalez MDAnesthesia: General, ETEstimated Blood Loss: 300 mls Specimens: PlacentaComplications: None Condition: StableIndication: Carly French is a 27 year old female, admitted at 17w4d with Previable PPROM, inevitable with chorioamnionitisDelivery complicated by retained placentaOperation in DetailThe patient was taken to the OR where induction of general anesthesia was performed without difficulty. She was placed on the operating table in the dorsal low lithotomy position. She was prepped and draped in the usual sterile fashion. Appropriate time out was held [place] in placed Small clot was removed from the vagina. Cervix 4 cm dilated. Cervix was further dilated manually and placenta was manually removed. [place] speculum placed, anterior lip of the cervix grasped and the uterus was then sharply curetted to ensure complete evacuation. IM methergine was given and 1000mcg of cytotec placed rectallyUterus was well contractedPoint of care US performed- no POC visualized Sponge, lap and needle counts correct. The patient tolerated the procedure well and went to recovery room in stable condition.Rashmi Gonzalez M.D. 03333-9Vyrfjggdu odedVQ7767-31-86F24:15:18Procedure noteTXT1.2.840.984212.1.13.104.2.7.2.05479 9|[id number] for patient [address] BpzmMnoboafjeWftteatepCURJ8009276606FVQGBH PHZZUSKDHQJLXFPN2708-69-08N15:15:181.2.840 .704069.1.72.3.15|1.2.840.051938.1.13.104. 2.7.2.727879_[id number] [facility] Progress Notes Date/Time Note Provider Source 2022-09-16 08:25:59 9yJEJ+vHK1VqXsZMBVUL CoUl4Tu9XA3aa 8X3tAnv0LDy1fL1dC2zgA17TGlUjjqx72 12-09-27T08:25:59 Antimicrobial Stewardship Program NoteBased on review of [facility] chart, the antimicrobial stewardship program recommends the following:- Recommend discontinuing current antibiotic regimen and start piperacillin/tazobactam 3.375 g IV q8h as it provides significantly better empiric coverage for E. coliPlease call with questions or concerns. Mery Ash PharmD, BCIDPClinical Coater Hand - Infectious DiseasesAntimicrobial StewardPager: [phone]: [phone] 08:26 80345-9Txihvhiv gzezBJ4543-34-92Z79:28:58Progress noteTXT1.2.840.125709.1.13.104.2. 7.2.858346|[id number] for patient [id number] S Ferren [facility] - [address] UnwrEcfqkffpbIrwuwvjnmOEIX8273876 441FRWIXYZHNHLISSZGQYLAFZ1102-77- 28T08:28:581.2.840.500251.1.72.3. 15|1.2.840.178072.1.13.104.2.7.2. 727879_[id number] Edu Ash [facility] Notes Date/Time Note Provider Source 2023-05-10 15:45:00 jFik5NuIUi2/C5q8iDUK/zRT5hg7SwLfL 9aRNm5xbdA0/HuKDQVbfNl497H5DiWd04 14-05-19T15:45:00 Age: 27 year oldGA: 20w3d1. Supervision of high-risk with history of in second trimester2. Prior poor obstetrical history, antepartum, second trimester3. 20 weeks gestation of - POCT Urinalysis w/o Specific Lima- Gc & Chlamydia Amplified Assay; Future- Trichomonas Amplified Assay; Future- Gc & Chlamydia Amplified Assay- Trichomonas Amplified Assay4. Other obesity affecting in second trimester- Advised on appropriate weight gain5. Cervical cerclage suture present in second trimester- cerclage placed on 04/24- Doing well and has no concerns today- Reviewed removal of stitch after 37wks.No indication for further CL with cerclage in place- Notify me if any concerns6. Chlamydia trachomatis infection in in second trimester- Recurrent chlamydia-LEONID swab collected today- Gc & Chlamydia Amplified Assay; Future- Trichomonas Amplified Assay; Future- Gc & Chlamydia Amplified Assay- Trichomonas Amplified AssayROB in 4 [place] [address]-6Iikshufu lydeZL2705-06-61K47:17:47Progress noteTXT1.2.840.336649.1.13.104.2. 7.2.855724|[id number] for patient uocj21518-7IbykBONTBTHBKYCMbbento ed C-CDA narrative textUT[address] HnzuLplfyepcvHjrjpbppoDRZT4263813 063WHGAXVSZASKOGLPHDGAJZU1721-05- 20T17:17:471.2.840.212109.1.72.3. 15|1.2.840.508785.1.13.104.2.7.2. 727879_[id number] [facility] 2023-05-01 11:23:59 pOYO5J52L8ivYQRdHWUyp5zDl+IIksPSJ lhEg5/GqtFMDgjVLTw26fxnzmtLDgsZ31 13-05-101:23:59 Spoke with patient, name and verified. Patient states she was informed in [place] that since she had the cerclage placed, she will no longer need the cervical length ultrasounds anymore. Patient wanted to know if she should cancel today's ultrasound appointment. Informed patient the US scheduled for today is her anatomy scan along with the cervical length. Patient should keep US appointment and I will clarify with the operations systems specialist physician about the cervical length portion. Confirmed with Dr. Osborn, the cervical length does not need to be performed anymore. Called [facility] Ul[facility]ound and a note was made. Reiterated to patient to keep ultrasound appointment for today. Patient verbalized understanding. 31669-1Aymqypils encounter QhetQH0644-26-66J73:31:27Telephon e encounter NoteTXT1.2.840.571053.1.13.104.2. 7.2.454939|[id number] for patient ynas48791-1ShnaVYSNPHFTZJURbqotey ed C-CDA narrative wquk180449805Kbmqcyd L Lara [address] 102QVNVTZQFESFAMZLBHKGNDT1073-28- 11T11:31:271.2.840.694005.1.72.3. 15|1.2.840.587470.1.13.104.2.7.2. 727879_[id number] Landy Hinds [facility] 2023-05-01 09:46:21 SlWgN6To5DAxE2k38NjBr19cldNV9Or3L 29m3IEqwkNDHMlsgkuuhHdGEq0uAhGx96 13-05-10T09:46:21 Patient has question about usg. 41911-6Jvoywqeax encounter YbzvFC7879-41-86X20:47:35Telephon e encounter NoteTXT1.2.840.284176.1.13.104.2. 7.2.603316|[id number] for patient sewe12194-9WnywPITCAJDOHAYHytmxht ed C-CDA narrative [id number] [address] 621LLHQUKLYJUVYEDOBAULGSR3996-61- 11T09:47:351.2.840.218772.1.72.3. 15|1.2.840.589646.1.13.104.2.7.2. 727879_[id number] Racquel Dougherty [facility] 2023-04-25 12:59:00 tQgBzW5xVGgOOtP9LYhjsL7ZuRmnpLmGT a3esMD8NOn9f6w3aPrsr/PfV0mfo1Ej88 13-05-04T12:59:00 CERCLAGE PLACEMENT04/25/2023 1:26 PMSurgeon: Danny Payan MDAssistant Surgeon: Helen Mensah MDFaculty: Kristal Alvarado MDIndication: Cervical dilation/short cervix on ultrasound/history of 2nd trimester lossesProcedure: Rescue Soni Cerclage placementAfter informed consent was obtained, patient was taken to the OR for cerclage placement. Patient was placed in Lithotomy position and prepped and draped in sterile fashion. Cervix was visualized with retractors and two ring forceps placed on cervical lips (anterior/posterior). Cervix was cleaned with betadine. No membranes noted but cervix was visually dilated. In a purse-string fashion, visualizing and avoiding the vesicocervical junctions, Merseline tape was run circumferentially in counter clockwise direction around the cervix starting a 12 o'clock. Knot was tied at 12 o'clock. After cinching of suture, dilation was fingertip. Hemostasis ensured. All instruments removed. Instrument counts were correct. Procedure was considered terminate at this time. FHT were confirmed at end of procedure; 167.EBL: 5ccUOP: 20cc at start of caseComplications: Bella Payan MD #[id number] Fellow41:26 PM ssociated attestation - Kristal Alvarado MD - 04/25/2023 1:44 PM CST I was present for and supervised the entire procedure(s).Uncomplicated Soni cerclage.Carly [facility] was informed that a single tape was placed, with the knot at 12:00.Counseled to avoid anything per vagina while cerclage in placePlan to discharge home this afternoon if meets day surgery criteria, with Indocin 25mg q6h x 24h.Kristal Alvarado MD [facility]25[facility]23 [facility] Pdftooh87373-1Lzaybfb Surgical operation uqixVJ1159758KtpJosein1.2.840.540397.1.13.104.2.7. 2.330176PirFeappDX6402-80-75D60:4 4:03Surgery Surgical operation noteTXT1.2.840.506613.1.13.104.2. 7.2.109970|[id number] for patient khrb95137-2QyirCAWVZHMNYLYCacuwsj ed C-CDA narrative textOG-OBSTETRICS & GYNECOLOGY STAFFOG-OBSTETRICS & GYNECOLOGY STAFF[address] StreetTXTX[address] 303GEUBRVCBTATEIRSVNPMESX4452-65- 05T13:44:031.2.840.705919.1.72.3. 15|1.2.840.531882.1.13.104.2.7.2. 727879_[id number] OG-OBSTETRICS & GYNECOLOGY STAFF [facility] 2023-04-25 04:20:21 3qkAZ/abRmYYc5eq7H3e5wM1caDh1qUk/ 0Ljb8eA2i2OyvuE8J57V6oX1jDDjcsQ63 13-05-0404:20:21 Problem: Discharge Planning - AntepartumGoal: Absence of seizure activityOutcome: Progressing as expectedGoal: Adequate for dischargeOutcome: Progressing as expectedGoal: Blood pressure within specified parametersOutcome: Progressing as expected 40604-9Ujms of care kqpfPP1246-40-19K88:20:24Plan of care noteTXT1.2.840.513015.1.13.104.2. 7.2.497427|[id number] for patient gquh99095-6YopbMNPZLHQDFFOIwbnyki ed C-CDA narrative vmoj075947865XshebpzfMaday Centeno RN[address] StreetTXTX[address] 795IMGRNGIYEYWKSFWTLRVDRA9125-34- 05T04:20:241.2.840.118962.1.72.3. 15|1.2.840.468473.1.13.104.2.7.2. 727879_[id number] Maday Centeno BREANN [facility] 2023-04-24 16:21:16 NE8hoA+/DageV96yAwLlwlSYRTq06xNvN V8xpzI6QunegxY7DdaSUwK9gDIg+0zb20 14-05-03T16:21:16 Name and verified. Pt advised to go to [facility] L&D [place] as cervix is opened to have Cerclage done. Pelvic rest. Per US report:A transvaginal (50444) ultrasound was performed. The cervical length reduced from 0.3cm to 0. The internal os opened to 0.6cm. Sludge noted at internal os.Pt verbalized understanding.KAREN VELA RN 04/24/2023 4:22 PM 86870-2Omzxwaowe encounter MabpSM3169-11-32R42:29:42Telephon e encounter NoteTXT1.2.840.393968.1.13.104.2. 7.2.783352|[id number] for patient kfrs82073-8LuppKEUXTGOVJEHVqlxsjc ed C-CDA narrative srmk746740019KgjiycfqoKaren Vela RN[address] KrzbPvpcgodpnTtarwlvlhVSZQ4951205 934YLTRJVAPGBVKAJKHPLWQFY5307-26- 04T16:29:421.2.840.430167.1.72.3. 15|1.2.840.483875.1.13.104.2.7.2. 727879_[id number] Karen Vela RN [facility] 2023-04-24 16:11:09 ueUoarJpS8Rf7Mg9XXoXpwqNWWzNT4Gwf cZ3lYXo4uiSY7FoN3IQHU2gNXXKk+xk20 14-05-03T16:11:[address] Pinzno- call pt. Cervix was opened at US appt today. Needs to go to [facility] Gal L&D to be assessed for a Cerclage. Pelvic rest and ER precaution. ATC pt. LM on for pt to return call.KAREN VELA RN 04/24/2023 4:12 PM 09942-7Yjyvvdooo encounter AweeHI4641-21-61F85:12:28Telephon e encounter NoteTXT1.2.840.312180.1.13.104.2. 7.2.893841|[id number] for patient jnfu81477-8RamaXHAMWKFABFLVmtszhg ed C-CDA narrative wqyb060895796CgllkfhxyKaren Vela RN[address] StreetTXTX[address] 392BPMAQPTHLDWXCZVCORQCRT4444-95- 04T16:12:281.2.840.861431.1.72.3. 15|1.2.840.732478.1.13.104.2.7.2. 727879_[id number] Karen Vela RN [facility] 2023-04-05 16:00:00 By46If8xzMDNj1J9Uco+PVxNixAtnnSvW NCqho39TTq3+WSjDInx3J/IrsZPlH5G70 15-04-13T16:00:00 Age: 27 year oldGA: 15w3d1. Supervision of high-risk with history of in second trimester2. 15 weeks gestation of pregnancy3. Prior poor obstetrical history, antepartum, second trimester- Has serial CL already scheduled- Urine Culture; Future- POCT Urinalysis w/o Specific Lima- Urine Culture- Alpha Fetoprotein-Maternal Ser; Future4. Chlamydia infection affecting in first trimester- LEONID today. Reports that her partner took his medications too- Gc & Chlamydia Amplified Assay- Trichomonas Amplified Assay5. Obesity affecting in first trimester, unspecified obesity type- Weight gain stable6. Urinary tract infection in mother during second trimester of - Treated for UTI in Feb but patient didn't complete the therapy( she misread the instructions)- She continues to have symptoms of urgency and pain/pelvic pain with a full bladder- UA positive for nitrites- Abx sent in. Instructions reviewed with her- Urine culture also sent- Nitrofurantoin&Nit. Macrocryst 100 mg capsule; Take 1 capsule by mouth in the morning and 1 capsule in the evening. Dispense: 14 capsule; Refill: 0ROB in 4 [place] [address]-0Hmdaqigb ymvvLO2125-61-42G98:59:47Progress noteTXT1.2.840.314523.1.13.104.2. 7.2.175205|[id number] for patient axmc09044-9SczhQDIHQKLXUHEAgzhlex ed C-CDA narrative textUT[address] UbroQnxwxvxwlVvxgjldpzEDJP5081274 766TIQJWCYUWBYBDCRXZQGIVN8285-92- 14T13:59:471.2.840.531101.1.72.3. 15|1.2.840.306092.1.13.104.2.7.2. 727879_[id number] [facility] 2023-03-17 13:31:43 +cppe9g9EfND6TFf1rbaRn/jUgATXO8fS Q2aw/Bw4/eEBmb9Z6WE/zxRmzrnBb9+20 15-03-25T13:31:43 Pt's name and both verified, pt informed of results per provider's message/orders below. Pt verbalized understanding. 93506-4Hoxompfkb encounter OrsiQT7219-30-69K83:31:50Telephon e encounter NoteTXT1.2.840.651349.1.13.104.2. 7.2.619546|[id number] for patient wgfh27264-8GqqnXVMSCEIVCPDMqcddrx ed C-CDA narrative cdhs673894531Pfbahbl E Burch [address]TXTX[address] 539BDRJCJNLWCRGCNYLGCDGFA5034-33- 26T13:31:501.2.840.449604.1.72.3. 15|1.2.840.686466.1.13.104.2.7.2. 727879_[id number] Nicolasa Degroot [facility] 2023-03-17 11:40:17 ThL7NCklrB8hcy7wHXrxcL96IAPdCKqb1 px7s5bPUzq+SPqOtt9ijpCTZROSSAC348 15-03-25T11:40:17 Pt calling nurse back about results 03587-8Reppojdgg encounter QhgmCT0898-06-16H63:40:33Telephon e encounter NoteTXT1.2.840.988364.1.13.104.2. 7.2.529507|[id number] for patient ikni54921-2AntuFXZTPXCUFUARkpgzve ed C-CDA narrative kbzo574931904Kqhov [address]TX[address] 288HKHMVDABJWIXCVRVTXEQRJ3040-79- 26T11:40:331.2.840.708072.1.72.3. 15|1.2.840.336629.1.13.104.2.7.2. 727879_[id number] Racquel Dougherty [facility] 2023-03-16 16:52:26 IRpO+jvMRbqumf7TQGiUlJVpeRgX97d9X V06zNW8L06EnHZhcLnTsRCwqIoU539239 15-03-24T16:52:26 Carly French is a 27 year old female that is returning [employer]'s call.Please advise. 87911-3Nbitzawuf encounter XyctAV1503-84-44O73:53:21Telephon e encounter NoteTXT1.2.840.550491.1.13.104.2. 7.2.269371|[id number] for patient kxjc25104-3SjygJUESKQZOKSEAtenueb ed C-CDA narrative ojqy565138238Tdwp Jrab[address] BpygIrccybbjmTuqybevskRHGK1460988 804TXAKLXPIQEYNFVJHWXTQQR8211-46- 25T16:53:211.2.840.425999.1.72.3. 15|1.2.840.204396.1.13.104.2.7.2. 727879_[id number] Adrianna Orozco [facility] 2023-03-16 16:37:22 G9tCX6RLOdxHsB5RlaWtFJK+TrMN5KTMt XmPJ5hFiZ9stDe8tXycB9ZVfRk5hcVs10 15-03-24T16:37:22 Images from the original note were not included.Shonda results received via fax.Voicemail left for patient to return call or she can view the results online.Will discuss results at next visit.Results signed, will scan and upload a copy to [facility]. 68679-5Qqtztloct encounter QkxuHV7528-18-19D19:39:24Telephon e encounter NoteTXT1.2.840.787675.1.13.104.2. 7.2.349131|[id number] for patient lqxa62308-3RsteEPTONVVCIQOLzrapeq ed C-CDA narrative gvaa972906918Sgxiwnx L Lara [address] 730MZRHZVEHVRCGLYHZTWAYNO1775-87- 25T16:39:241.2.840.396224.1.72.3. 15|1.2.840.202401.1.13.104.2.7.2. 727879_[id number] Landy Hinds [facility] 2023-03-10 08:45:00 r0cmRLHcfFzPw+lbcbzrtUA9/f1DBR/lZ TLWEXKnS4ddTDEkHzKLegX68sZhNeSx12 15-03-18T08:45:00 Images from the original note were not included.Venipuncture collection performed by clean technique on the left anticubitus. Total of 1 attempts were made. Slight pressure and a bandage/dressing were applied to the site(s). The patient experienced no complications. The following specimens were processed according to instructions and sent to [facility] laboratories per lab order on 03/10/2023:LT BLUESST 1REDLAVPPTDK GREEN (LiHep)DK GREEN (SodH)GRAYDK BLUE (K2)DK BLUE (S)ACDBlood CultureNIPT/NTDNATERA COLLECTED 65230-8Oxmsc ZvwcWI6029-05-55N31:35:02Nurse NoteTXT1.2.840.388756.1.13.104.2. 7.2.478030|[id number] for patient tsqp16993-7Ybggr NoteLNNARRATIVEFormatted C-CDA narrative text[address]TXTX[address] 373RCNPUVUNYPEVPWSGMJUPYY6109-31- 19T09:35:021.2.840.032198.1.72.3. 15|1.2.840.757646.1.13.104.2.7.2. 727879_[id number] [facility] 2023-03-10 08:45:00 Auw52DaOvAVecCoeVo5lfJKSyoaxnTnWU Bwb9DkGyYwCqHXq0pKhtNbT/wjkot+D20 15-03-18T08:45:00 Normal diabetes screen. 19024-2Svdejaib vcbyWN8336-85-29Y71:58:10Progress noteTXT1.2.840.330981.1.13.104.2. 7.2.703041|[id number] for patient zvlo11569-2GpnzYAELMSTIFUXGtqofgw ed C-CDA narrative textOG-OBSTETRICS & GYNECOLOGY STAFFOG-OBSTETRICS & GYNECOLOGY STAFF[address] ToxbLuppsodrvHmhhvfijqGIUZ9573017 258TDTMLMXSUCWFFTLUBWHPBZ9628-86- 19T12:58:101.2.840.961264.1.72.3. 15|1.2.840.652258.1.13.104.2.7.2. 727879_[id number] OG-OBSTETRICS & GYNECOLOGY STAFF [facility] 2023-03-08 16:00:00 K1utLvx1L1ywJRDINlgWW99HAWCbxt9Xq ItCk+SrrpoKkFttec+t0LWuj2scNN4311 15-03-16T16:00:00 Age: 27 year oldGA: 11w3d1. Supervision of high-risk with history of in first trimester- No concerns- CONSULT MATERNAL MEDICINE ULTRASOUND2. Chlamydia infection affecting in first trimester- Gc & Chlamydia Amplified Assay- Trichomonas Amplified Assay3. 11 weeks gestation of - POCT Urinalysis w/o Specific Lima- Urine Culture; Future- Urine Culture4. Prior poor obstetrical history, antepartum, first trimester- s/p MFM consult: no history indicated cerclage at this recommended. See consult note from 02/14 but agree with serial CL from 16 -24weeks- CONSULT MATERNAL MEDICINE ULTRASOUND5. Obesity affecting in first trimester, unspecified obesity typeWeight gain stableROB in 4 [place] [address]-9Nnizdwco usheNC0049-40-22K66:53:47Progress noteTXT1.2.840.202037.1.13.104.2. 7.2.980610|[id number] for patient afak16883-0EferRMJAKXMWJWTBehsyiq ed C-CDA narrative textUT[address] TlrrLqtpbpohcAhxuhsrajWEOV6851322 736IKDKYYYRXLNXKNQIYAZDTC4438-96- 17T16:53:471.2.840.923391.1.72.3. 15|1.2.840.074667.1.13.104.2.7.2. 727879_[id number] [facility] 2023-02-07 14:30:00 5in2Bf6oReoGjRFPLxj+Yc4342xZ4QPOY 7SQ0kVLtHpvDEDMmB0w90BcVlLL8+1W20 11-02-19T14:30:00 Age: 27 year oldGA: 2a6lMdv OB VisitCarly French is a 27 year old at 7w2d by LMP presents for Initial OB visit today.Reports regular cyclesDenies vaginal bleeding, pelvic pain or cramps. Denies nausea or vomitingShe is in as stable relationship and denies domestic violence/immediate partner violence.Sonogram confirmed an IUP at 1p7oWeqebfemma/PlanSupervision of high-risk with history of in first trimester (primary encounter diagnosis)Less than 8 weeks gestation of pregnancyMissed mensesDiscussed do's and don'ts of , safe foods, safe medications. NOB folder givenWe discussed course, labs, aneuploidy and genetic carrier screening and ultrasounds.Expectations for weight gain this include 20 pounds. Exercise in discussed and encouraged. aneuploidy options were reviewed including NIPT: cFDNA test and 2nd trimester QUAD screen. The benefits and short falls of these screening tests were reviewed. Also discussed diagnostic tests: CVS vs amniocentesis.Opted for NIPT testingReviewed Zika virus precautions .Discussed about COVID-19/flu precautions. Social distancing, frequent hand washings, signs/symptoms for testing and to follow CDC recommendations discussed.If you have not already received the COVID vaccine, it is recommended in to protect against severe disease/illness that is seen in women, including adverse outcome such as . Large scale studies in women, have not shown an increase in miscarriage rate or defects with the COVID vaccine. The vaccine also provides passive immunity for the unborn child.I discussed the call schedule and that I deliver here at [facility]. I discussed that I have two partners, Dr. Pinzon and Dr. Osborn and that they may deliver her or take care of her during her . I discussed that at [facility] we do not have a NICU, and that high risk pregnancies or deliveries less than 36 weeks will be transferred to [place].All questions were answered.NOB labs todayPregnancy precautions reviewedEncouraged to call if have any additional questions or concerns.Plan: POCT Urinalysis w/o Specific Lima, POCTPregnancy Test, Gc & Chlamydia Amplified Assay,Trichomonas Amplified Assay, [facility], Cbc with Diff, Hcv Antibody,Hepatitis B Surface Antigen, HIV 1/2 Ag-Ab withReflex, Workup, Blood Bank, RubellaScreen IgG, VZV Antibody Screen, Urine Culture,Glucose 1 Hour Post Prandial, Urine Drug(Immunoassay) - Comprehensive Drug Screen,Urine Drug (Immunoassay) - Comprehensive DrugScreen, PNV 67-iron ps-folate no.1-dha (VITAFOLULTRA) 29 mg iron- 1 mg-200 mg CapPrior poor obstetrical history, antepartum, first trimester- Hx of miscarriage at 17 wks in June 2021- fetus was delivered encaul here at [facility] reports that she bleed through out that ( she was seeing Dr Moreland)Pathology showed 40% retroplacental bleeding and grossly normal female- She had prolonged PPROM (fetus still had a FH with parts in the vagina) with chorioamnionitis/sepsis at 17 wks in September 2022 following an emergency was performed. Pathology showed a female fetus with no abnormalities of developments- She also had a miscarriage at 6 wks in Nov 2021- reports that she also started bleeding early until she miscarriage-Explained that etiology of these losses may be due to cervical insufficiency so will recommend serial CL from 16 week and also get MFM consult for possible history indicated prophylactic cerclagePlan: CONSULT/REFERRAL MATERNAL MEDICINEFACULTY/FELLOW [place] 30-39[place]Obesity affecting in first trimester, unspecified obesity typeReviewed the risks associated obesity in - GDM, GTHN, Macrosomia, IUGR, labor dsytocia which could lead to with increased risk of wound breakdown. Discussed appropriate weight gain for her BMI (15-20lbs), healthy eating with regular moderate intensity exerciseEncounter to determine viability of , single or unspecified fetusPlan: OB Ultrasound TransvaginalReturn to clinic in 4 weeks or PRNReviewed patient instructions and provided printed copy.Rashmi Gonzalez MD 02/09/2023 9:51 PM [id number] [id number] for patient [id number] ed C-CDA narrative textUTMBUTMB - [address] Fp[id number] 981FYCKKCDWQWHBYKDSEFLRQV4523-60- 21T22:37:391.2.840.230050.1.72.3. 15|1.2.840.047364.1.13.104.2.7.2. [id number] [facility] 2022-09-15 17:25:02 t27cu3crAF/RiH5kMnuFRktTaNXtUM3JS U+0SeK1Fasgw2+nyRn/v0BNFS6QWNpM85 11-09-26T17:25:02 Problem: Falls, Risk ofGoal: Absence of fallsOutcome: Progressing as expected Problem: Complications of hemorrhage (risk or actual)Goal: Absence of active bleedingOutcome: Progressing as expectedGoal: Absence of complicationsOutcome: Progressing as expected Problem: PainGoal: Control of pain at or below patient's documented comfort goalOutcome: Progressing as expectedGoal: Reduction in pain sensationOutcome: Progressing as expected Problem: Discharge Planning - PostpartumGoal: Adequate for dischargeOutcome: Progressing as expectedGoal: Mood stableOutcome: Progressing as expected Problem: GrievingGoal: Able to express feelings of griefOutcome: Progressing as expected 46600-9Uluu of care grkmVE1515-29-90H56:25:12Plan of care noteTXT1.2.840.437240.1.13.104.2. 7.2.349713|[id number] for patient [id number] L Soell RN[address] Sv[id number] 060MELMBUCDFRHHVZMQTWZFQH0758-04- 27T17:25:121.2.840.263717.1.72.3. 15|1.2.840.446752.1.13.104.2.7.2. [id number] Pratik Bradford RN [facility] 2022-09-15 06:01:02 X86Le01w1M/F3jmi9dzIA/VHMyVPu20/n DNE1Kpp7EMx1hfYeTbxJ4PkUtfEs9il57 11-09-26T06:01:02 Problem: Falls, Risk ofGoal: Absence of fallsOutcome: Progressing as expected Problem: Complications of hemorrhage (risk or actual)Goal: Absence of active bleedingOutcome: Progressing as expectedGoal: Absence of complicationsOutcome: Progressing as expected Problem: PainGoal: Control of pain at or below patient's documented comfort goalOutcome: Progressing as expected Problem: Discharge Planning - PostpartumGoal: Adequate for dischargeOutcome: Progressing as expected Problem: GrievingGoal: Able to express feelings of griefOutcome: Progressing as expected 78544-6Xtzx of care qbqeXU6646-99-01P91:01:09Plan of care noteTXT1.2.840.618214.1.13.104.2. 7.2.989120|[id number] for patient [id number] E Tyler RNUT[address] Okbo[id number] 337DADNFWCRHTIGLWPPRNGWVF4507-41- 27T06:01:091.2.840.159216.1.72.3. 15|1.2.840.707723.1.13.104.2.7.2. [id number] Paulina Chau RN [facility] 2022-09-15 00:30:00 gXJstmRQSBVx8VNW0Z4oVD5BQeYOsqzBH FVoLSrmWQu1TO5dcf+AbnYjGndi3Ojf63 11-09-26T00:30:00 DELIVERY BY SPONTANEOUS VAGINAL DELIVERYDelivery Summary The patient was admitted to the Labor & Delivery unit with previable PPROM, inevitable and chorioamnionitis at 17w4d.Delivery Physician: FAVIAN Coulter Faculty: Rashmi Gonzalez MDIntrapartum Anesthesia/Analgesia: IV Fentanyl anlagesiaVaginal delivery of a female with no signs of life at 12.12am in a hat in the toiletPatient brought back into bedCord clamped and cut by me and baby passed off the fieldPlacenta still attached. Cervix 2cm dilated .No bleedingWill continue pitocin whilst waiting for spontaneous [place] [address]-6Ozwyt and delivery summary ubiyML9893-97-06M08:42:38Labor and delivery summary noteTXT1.2.840.338658.1.13.104.2. 7.2.719864|[id number] for patient care[address][id number] 287WJQPNCCMBRYDQLZRDBXHMH2822-66- 27T03:42:381.2.840.835309.1.72.3. 15|1.2.840.666878.1.13.104.2.7.2. [id number] [facility] 2022-09-14 18:50:02 QuncEFkKAFJkM5qduyBfU8sHI3hjWtqWp cEPKfldcblAoj1z1sFTFhf5aNNb906738 11-09-25T18:50:02 Problem: Falls, Risk ofGoal: Absence of falls09/14/20221848 by Karen Esteban RNOutcome: Progressing as expected09/14/20221847 by Karen Esteban RNOutcome: Progressing as expected09/14/20221846 by Karen Esteban RNOutcome: Progressing as expected Problem: GrievingGoal: Able to express feelings of grief09/14/20221848 by Karen Esteban RNOutcome: Progressing as expected09/14/20221847 by Karen Esteban RNOutcome: Progressing as expected Problem: PainGoal: Control of pain at or below patient's documented comfort goal09/14/2022 184 by Karen Esteban RNOutcome: Progressing as expected09/14/2022 184 by Karen Esteban RNOutcome: Progressing as expected09/14/20221846 by Karen Esteban RNOutcome: Progressing as expectedGoal: Reduction in pain sensation09/14/2022 184 by Karen Esteban RNOutcome: Progressing as expected09/14/2022 184 by Karen Esteban RNOutcome: Progressing as expected09/14/2022 184 by Karen Esteban RNOutcome: Progressing as expected 11441-4Yhcu of care cfceCO3366-90-73K53:50:27Plan of care noteTXT1.2.840.798949.1.13.104.2. 7.2.873652|[id number] for patient [id number] Sylvester RN[address] HoigEefinxvpgRemdsrtsfTWGP4683401 747PVSYGTDAYVCJHITDLITJGZ5039-94- 26T18:50:271.2.840.843922.1.72.3. 15|1.2.840.001957.1.13.104.2.7.2. [id number] Karen Esteban [facility] 2022-09-14 10:45:42 sQrGBbbL1MBHXU5aTCqPlbDG2kW1a1eBS Y1IPtcDYyag2Q2t0O0LYedp5R5ByqEN62 11-09-25T10:45:42 Patient to ED for lower abdominal cramping with pink spotting. Dr. Gonzalez is her doctor OB. Patient reports she is 17 weeks . . Arrived with [place] [employer]. No apparent distress. Charge nurse called reports. saw patient on stretcher. Taken up to L&D. 79868-9Lrppludmc department Triage sohxEC2357-10-76M92:47:15Emergen y department Triage noteTXT1.2.840.603834.1.13.104.2. 7.2.882827|[id number] for patient [id number] Balderas RN[address] YasnBatrftsadWyndpzhiuDISU6684265 468DXWQJXANXURDSSEJDSQCWW7094-37- 26T10:47:151.2.840.566475.1.72.3. 15|1.2.840.858943.1.13.104.2.7.2. [id number] Colby Balderas RN [facility]
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
--- NOTE | 2023-05-25 08:06 | ER ---
Nurse's Notes [facility] Name: Siri Lyons Age: 27 yrs Sex: Female : 1995 Arrival Date: 05/25/2023 Time: 07:44 Bed 20 Private MD: Diagnosis: Burn of second degree of left forearm Presentation: 05/24 07:51 Chief complaint: Patient states: "I burned my arm with hot oil last night while aa5 cooking". Pt is 22 weeks . 07:51 Acuity: CYNTHIA 5 aa5 07:51 Method Of Arrival: Ambulatory aa5 07:51 Coronavirus screen: At this time, the client does not indicate any symptoms associated aa5 with coronavirus-19. 07:51 Ebola Screen: Patient denies travel to an Ebola-affected area in the 21 days before aa5 illness onset. 07:51 Initial Sepsis Screen: Does the patient meet any 2 criteria? HR > 90 bpm. Does the aa5 patient have a suspected source of infection? No. Patient's initial sepsis screen is negative. Risk Assessment: Do you want to hurt yourself or someone else? Patient reports no desire to harm self or others. Onset of symptoms was May 2023. Triage Assessment: 09:19 General: Behavior is calm, cooperative. mg7 09:20 Injury Description: Patient sustained first-degree burn(s) to left arm. mg7 TRANSPORTATION MODELER: 09:20 unknown mg7 Historical: - Allergies: 08:47 No Known Allergies; mg7 - Immunization history:: Adult Immunizations up to date. - Infectious Disease History:: Denies. - Social history:: Smoking status: Patient denies any tobacco usage or history of. - Family history:: not pertinent. - Hospitalizations: : No recent hospitalization is reported. Screenin:47 [facility] ED Fall Risk Assessment (Adult) History of falling in the last 3 months, mg7 including since admission No falls in past 3 months (0 pts). Abuse screen: Denies threats or abuse. Denies injuries from another. Nutritional screening: No deficits noted. Tuberculosis screening: No symptoms or risk factors identified. Assessment: 08:44 General: Appears in no apparent distress. Reports she burned her left lower arm with mg7 hot oil while cooking, the incident occurred the night prior to arrival. Pain: Complains of pain in left arm Pain currently is 2 out of 10 on a pain scale. Neuro: No deficits noted. Cardiovascular: No deficits noted. Respiratory: No deficits noted. GI: No deficits noted. : No deficits noted. EENT: No deficits noted. Derm: Wound noted Wound is Circular burn to left lower inner arm. Vital Signs: 07:51 BP 119 / 76; Pulse 96; Resp 18 S; Temp 97.7(TE); Pulse Ox 100% on R/A; Weight 96.62 kg aa5 (R); Height 5 ft. 2 in. (R); 08:47 BP 115 / 66; Pulse 72; Resp 16; Temp 98.6; Pulse Ox 100% on R/A; jl7 07:51 Body Mass Index 38.96 (96.62 kg, 157.48 cm) aa5 Milagro Coma Score: 08:47 Eye Response: spontaneous(4). Motor Response: obeys commands(6). Verbal Response: mg7 oriented(5). Total: 15. ED Course: 07:48 Patient arrived in ED. mg5 07:51 Arm band placed on. aa5 07:52 Travon Barnett MD is Attending Physician. rn 08:15 Triage completed. aa5 08:40 Josette Trujillo, BREANN is Primary Nurse. mg7 08:47 Patient has correct armband on for positive identification. mg7 09:19 No provider procedures requiring assistance completed. mg7 09:20 Provided Education on: discharge instruction . mg7 09:20 Patient did not have IV access during this emergency room visit. mg7 Administered Medications: No medications were administered Medication: 09:21 VIS not applicable for this client. mg7 Outcome: 08:06 Discharge ordered by . rn 08:47 Discharged to home ambulatory, mg7 08:47 Condition: good 08:47 Discharge instructions given to patient, Instructed on discharge instructions, follow up and referral plans. Demonstrated understanding of 08:52 Patient left the ED. mg7 Signatures: Travon Barnett MD MD rn Calderon, Audri, RN RN aa5 Renetta Stock RN RN jl7 [place], [place] mg5 Josette Trujillo, RN RN mg7 Corrections: (The following items were deleted from the chart) 04 08:40 04 08:47 BP 5 / 66; Pulse 72bpm; Resp 16bpm; Pulse Ox 100% RA; Temp 98.6F; mg7 jl7 05/25 08:40 05/24 08:50 BP 115 / 66; mg7 jl7
[2023-05-25 08:58] VITALS: O2SAT 100
[2023-05-25 08:59] VITALS: TEMP 98.6
[2023-05-25 09:34] VITALS: BP 115/66
== END 2023-05-25 08:52 | disposition home or self-care (01) ==
LOC: ER 07:44
DX: T22.212A Burn of second degree of left forearm, initial encounter (principal); T31.0 Burns involving less than 10% of body surface
CPT/HCPCS: 99283

== ENCOUNTER 2024-04-11 18:11 | Emergency (ER) | payer OTHER ==
--- OUTSIDE RECORDS SUMMARY | 2024-04-11 18:18 | XMS REPORT | Continuity of Care Document ---
Author Name Unknown Address [address] [facility] [address] [place] [address] [facility] thconnect Address [address] [facility] [address] [place] [address] Care Team Providers Care Animal Nursery Worker Name Role Phone PCP, PATIENT DOES NOT HAVE A Primary Care Physic keli Unavailable RASHMI GONZALEZ Attending Clinician Unavailable RASHMI GONZALEZ Attending Clinician Unavailable Doctor Unassigned, Yarnell Attending Clinician U Rashmi Ocasio MD Attending Clinician [phone] MANUEL MCCONNELL Attending Clinician Unavailable MANUEL MCCONNELL Attending Clinician Unavailable MANUEL MCCONNELL Attending Clinician Unavailable Manuel Mcconnell MD Attending Clinician [phone] Domingo Garcia MD Attending Clinician [phone] Meche Craft MD Attending Clinician [phone] [facility] Attending Clinician Unavailable ELADIO GAINES Attending Clinician Unavailable ELADIO GAINES Attending Clinician Unavailable 3, [facility] Attending Clinician Unavaila ble Eladio Gaines DO Attending Clinician 2, [facility] Attending Clinician Unavailable Fellow, [facility] Attending Clinician Mago Hill MD Attending Clinician [phone] MAGO CONTRERAS Attending Clinician Unavailable MAGO CONTRERAS Attending Clinician Unavailable Wendy Rangel MD Attending Clinician WENDY RANGEL Attending Clinician Un available Doctor Unassigned, Yarnell Attending Clinician U navailable SHADI JO Attending Clinician Unavailable SHADI JO Attending Clinician Unavailable Jeromy MURPHY, Mesfin Hurley Attending Clinician [phone] Tammy MURPHY, Domingo Padilla Attending Clinician [phone] Venancio MURPHY, Meche Attending Clinician [phone] Jane Ashford DNP Attending Clinician [phone] Joseph Fermin Attending Clinician [phone] 2, [facility] Attending Clinician Unavailable Ultrasound, [facility] Attending Clinician Unavaila SHARI Castrejon Attending Clinician Unavailable Shari Byrd MD Attending Clinician [phone] JERRY PISANO Attending Clinician Unav wes Pisano MD, Jerry Zarate Attending Clinician + NIK PIMENTEL Attending Clinician Unavailable NIK PIMENTEL Attending Clinician Unavailable Kristal Alvarado MD Attending Clinician [phone] Marissa Osborn MD Attending Clinician + [phone] Fellow, [facility] Attending Clinician Un available Shayne Mcconnell MD Attending Clinician [phone] Pob, [facility] Main Attending Clinician UnavailMARSISA Jean-Baptiste Attending Clinician Agusto Ga DO Attending Clinician [phone] Mago Kerr RN Attending Clinician UnavailLISA Anne Attending Clinician Unavailab Lisa Boogie DO Attending Clinician [phone] MANUEL MCCONNELL Admitting Clinician Unavailable RASHMI GONZALEZ Admitting Clinician Unavailable NIK PIMENTEL Admitting Clinician Unavailable Manuel Mcconnell MD Admitting Clinician Rashmi Gonzalez MD Admitting Clinician Payers Payer Name Policy Type Policy Number Effective Date Expirati on Date Source [facility] [id number] 2022 00:00:00 [facility] [id number] 2023 00:00:00 2023 00:00:00 Problems Condition Name Condition Details Condition Category Status Onset Date Resolution Date Last Treatment Date Treating Clinician Comments Source 13 weeks gestation of 13 weeks gestation of Disease Active -24 00:00: 00 [facility] Adnexal mass Adnexal mass Disease Active -24 00:00: 00 [facility] Abnormal Pap smear of cervix Abnormal Pap smear of cervix Disease Active -24 00:00: 00 [facility] Atypical squamous cells of undetermin ed significan ce on cytologic smear of cervix (ASC-US) Atypical squamous cells of undetermin ed significan ce on cytologic smear of cervix (ASC-US) Disease Active 0 1-24 00:00: 00 [facility] Single live Single live Disease Active 0 24 00:00: 00 [facility] Morbid obesity with body mass index of 40.0-49.9 Morbid obesity with body mass index of 40.0-49.9 Disease Active 5-30 00:00: 00 [facility] 30 weeks gestation of 30 weeks gestation of Disease Active 0 7-26 00:00: 00 [facility] 17 weeks gestation of 17 weeks gestation of Disease Active 0 7-26 00:00: 00 [facility] Miscarriag e Miscarriag e Disease Active 0 -23 00:00: 00 [facility] Vaginal bleeding before 22 weeks gestation Vaginal bleeding before 22 weeks gestation Disease Active 0 5-23 00:00: 00 [facility] 17 weeks gestation of 17 weeks gestation of Disease Active 2022-0 5-23 00:00: 00 [facility] Prior poor obstetrica l history, antepartum , first trimester Prior poor obstetrica l history, antepartum , first trimester Disease Resolve d 2023-0 4-17 00:00: 00 2024-03-15 00:00:00 2024-03-15 11:24:57 [facility] (normal spontaneou s vaginal delivery) (normal spontaneou s vaginal delivery) Disease Resolve d 2023-0 6-24 00:00: 00 2024-01-31 00:00:00 2024-01-31 18:12:50 [facility] Obstetrica l laceration Obstetrica l laceration Disease Resolve d 2023-0 6-24 00:00: 00 2024-01-31 00:00:00 2024-01-31 18:12:30 [facility] Anemia, Anemia, Disease Resolve d 2023-0 6-24 00:00: 00 2024-01-31 00:00:00 2024-01-31 18:12:38 [facility] Rubella non-immune status, delivered, current hospitaliz ation Rubella non-immune status, delivered, current hospitaliz ation Disease Resolve d 2023-0 6-24 00:00: 00 2024-01-31 00:00:00 2024-01-31 18:13:07 [facility] Maternal varicella, non-immune Maternal varicella, non-immune Disease Resolve d 2023-0 6-24 00:00: 00 2024-01-31 00:00:00 2024-01-31 18:13:01 [facility] High-risk in third trimester High-risk in third trimester Disease Resolve d 2023-0 6-20 00:00: 00 2024-01-31 00:00:00 2024-01-31 18:12:46 [facility] UTI in , antepartum , third trimester UTI in , antepartum , third trimester Disease Resolve d 2023-0 5-31 00:00: 00 2024-01-31 00:00:00 2024-01-31 18:12:35 [facility] Gestationa l diabetes mellitus (GDM) in third trimester Gestationa l diabetes mellitus (GDM) in third trimester Disease Resolve d 2023-0 5-30 00:00: 00 2024-01-31 00:00:00 2024-01-31 18:12:45 [facility] Back pain affecting in third trimester Back pain affecting in third trimester Disease Resolve d 2023-0 5-30 00:00: 00 2024-01-31 00:00:00 2024-01-31 18:12:40 [facility] Recurrent UTI (urinary tract infection) complicati ng , third trimester Recurrent UTI (urinary tract infection) complicati ng , third trimester Disease Resolve d 2023-0 5-30 00:00: 00 2024-01-31 00:00:00 2024-01-31 18:12:31 [facility] Anemia of mother in , antepartum , third trimester Anemia of mother in , antepartum , third trimester Disease Resolve d 2023-0 5-30 00:00: 00 2024-01-31 00:00:00 2024-01-31 18:12:37 [facility] Supervisio n of high-risk with history of in second trimester Supervisio n of high-risk with history of in second trimester Disease Resolve d 2023-0 4-17 00:00: 00 2024-01-31 00:00:00 2024-01-31 18:13:06 [facility] Obesity complicati ng in third trimester Obesity complicati ng in third trimester Disease Resolve d 2023-0 4-17 00:00: 00 2024-01-31 00:00:00 2024-01-31 18:12:49 [facility] Cervical cerclage suture present in third trimester Cervical cerclage suture present in third trimester Disease Resolve d 2023-0 4-17 00:00: 00 2024-01-31 00:00:00 2024-01-31 18:12:29 [facility] Chlamydia infection affecting in first trimester Chlamydia infection affecting in first trimester Disease Resolve d 2023-0 4-17 00:00: 00 2024-01-31 00:00:00 2024-01-31 18:12:42 [facility] Short cervical length during , second trimester Short cervical length during , second trimester Disease Resolve d 2023-0 3-04 00:00: 00 2024-01-31 00:00:00 2024-01-31 18:12:32 [facility] 33 weeks gestation of 33 weeks gestation of Disease Resolve d 2022-0 7-26 00:00: 00 2024-01-31 00:00:00 2024-01-31 18:12:36 [facility] Obesity (BMI 30-39.9) Obesity (BMI 30-39.9) Disease Resolve d 2022-0 5-16 00:00: 00 2024-01-31 00:00:00 2024-01-31 18:12:50 [facility] Chorioamni onitis, delivered, current hospitaliz ation Chorioamni onitis, delivered, current hospitaliz ation Disease Resolve d 2022-0 7-28 00:00: 00 2023-02-07 00:00:00 2023-02-07 21:04:04 [facility] Positive blood culture Positive blood culture Disease Resolve d 2022-0 7-28 00:00: 00 2023-02-07 00:00:00 2023-02-07 21:04:10 [facility] Septicemia due to [place] a coli (E. coli)(038. 42) Septicemia due to [place] a coli (E. coli)(038. 42) Disease Resolve d 2022-0 7-28 00:00: 00 2023-02-07 00:00:00 2023-02-07 21:04:29 [facility] Retained complete placenta Retained complete placenta Disease Resolve d 2022-0 7-27 00:00: 00 2023-02-07 00:00:00 2023-02-07 21:04:28 [facility] Vaginal bleeding before 22 weeks gestation Vaginal bleeding before 22 weeks gestation Disease Resolve d 2022-0 7-26 00:00: 00 2023-02-07 00:00:00 2023-02-07 21:04:30 [facility] Chorioamni onitis in first trimester Chorioamni onitis in first trimester Disease Resolve d 2022-0 7-26 00:00: 00 2023-02-07 00:00:00 2023-02-07 21:04:05 [facility] premature rupture of membranes with onset of labor more than 24 hours following rupture in first trimester premature rupture of membranes with onset of labor more than 24 hours following rupture in first trimester Disease Resolve d 0 7-26 00:00: 00 2023-02-07 00:00:00 2023-02-07 21:04:26 [facility] Chlamydia trachomati s infection in mother during first trimester of Chlamydia trachomati s infection in mother during first trimester of Disease Resolve d 0 5-18 00:00: 00 2023-02-07 00:00:00 2023-02-07 21:06:53 [facility] Complete miscarriag e Complete miscarriag e Disease Resolve d 0 5-23 00:00: 00 2022-07-05 00:00:00 2022-07-05 15:30:48 [facility] Allergies, Adverse Reactions, Alerts Allergy Name Allergy Type Status Severity Reaction(s) Onset Date Inactive Date Treating Clinician Comments Source NO KNOWN ALLERGIE S Drug Class Active [facility] Social History Social Habit Start Date Stop Date Quantity Comments Source ASSERTION 2023-12-23 00:00:00 [facility] Gender identity [facility] Alcoholic beverage intake 2024-03-16 00:00:00 2024-03-16 00:00:00 Ex-drinker (finding) [facility] History of Social function 2023-06-07 00:00:00 2023-06-07 00:00:00 [facility] Alcohol intake 2023-06-07 00:00:00 2023-06-07 00:00:00 Ex-drinker (finding) [facility] Tobacco use and exposure 2022-09-16 00:00:00 2022-09-16 00:00:00 Smokeless tobacco non-user [facility] Exposure to SARS-CoV-2 (event) 2022-07-03 00:00:00 2022-07-13 14:40:00 Not sure [facility] Sex assigned at 1995 00:00:00 1995 00:00:00 [facility] Smoking Status Start Date Stop Date Source Unknown if ever smoked [facility] Never smoked tobacco [facility] Medications Ordered Medication Name Filled Medication Name Start Date Stop Date Current Medication? Ordering Clinician Indication Dosage Frequency Signature (SIG) Comments Components Source ondansetron (ZOFRAN (PF)) injection 4 mg 03-15 21:41: 59 03-16 03:56 :30 No 4mg 4 mg, Slow IV Push, [id number], Starting on Mon03/15/24 at 1541, Until Mon03/15/24 at 215, Administer over 2-5 Minutes, 2 mL [facility] diphenhydrA MINE (BENADRYL) injection 25 mg 03-15 21:41: 53 03-16 03:56 :30 No 25mg 25 mg, Slow IV Push, Q4HPRN, Starting on Mon03/15/24 at 1541, Until Mon03/15/24 at 215, Routine, Itching [facility] naloxone (NARCAN) injection 0.4 mg 03-15 21:41: 10 03-16 03:56 :30 No .4mg 0.4 mg, Slow IV Push, PRN - SEE INSTRUCTIO NS, Starting on Mon03/15/24 at 1541, Until Mon03/15/24 at 215, Routine, Sedation/R espiratory Depression , Analgesia recovery [facility] phenylephri ne (VAZCULEP) injection 03-15 21:31: 00 03-15 22:16 :27 No Intravenou s, CONTINUOUS PRN, Starting on Mon03/15/24 at 1531, Until Mon03/15/24 at 1616, Routine, Intra-op [facility] bupivacaine (preserv free) (MARCAINE (PF)) 0.75 % (7.5 mg/mL) injection 03-15 21:31: 00 03-15 22:16 :27 No Intratheca l, ONCE INTRA PROCEDURE, Starting on Mon03/15/24 at 1531, Until Mon03/15/24 at 1616, Routine, Intra-op [facility] lactated ringers IV infusion 03-15 21:19: 00 03-15 22:16 :27 No Intravenou s, CONTINUOUS PRN, Starting on Mon03/15/24 at 1519, Until Mon03/15/24 at 1616, Routine, Intra-op [facility] sodium citrate-cit suellen acid (BICITRA) 500-334 mg/5 mL solution 30 mL 03-15 18:30: 00 03-15 21:06 :00 No 30mL 30 mL, Oral, Once, 1 dose, On Mon03/15/24 at 1230, Routine [facility] indomethaci n (INDOCIN) capsule 50 mg 03-15 18:00: 00 03-15 18:27 :00 No 50mg 50 mg, Oral, ONCE, 1 dose, On Mon03/15/24 at 1200, Routine [facility] ondansetron (ZOFRAN (PF)) injection 4 mg 03-15 17:30: 00 03-15 16:46 :00 No 4mg 4 mg, Slow IV Push, ONCE, On Mon03/15/24 at 1130, For 1 dose, Please give medication over 2-5 minutes. [facility] indomethaci n 25 mg capsule 03-15 00:00: 00 03-15 00:00 :00 Yes [id number] 25mg Take 1 capsule by mouth every 6 (six) hours. [facility] vit,calc76/ iron/folic (PNV 29-1 ORAL) 03-05 11:41: 27 Yes Take by mouth. [facility] proMETHazin e 25 mg tablet 03-05 00:00: 00 Yes [id number] 25mg Take 1 tablet by mouth every 4 (four) hours as needed for Nausea and Vomiting (N/V). [facility] cefTRIAXone (ROCEPHIN) 1,000 mg in NaCl 0.9% (NS) 100 mL MINI-BAG 08-21 04:00: 00 08-21 04:34 :00 No 1000mg 1,000 mg, IV Piggyback, ONCE, 1 dose, On Mon08/21/23 at 2300, Administer over 30 Minutes, 100 mL, Reason for Anti-Infec tive: Documented Infection, Documented Infection Site: Urine, Duration of Therapy: Once (ED) [facility] NaCl 0.9% (NS) bolus infusion 1,000 mL 08-21 03:30: 00 08-21 03:37 :01 No 1000mL at 999 mL/hr, 1,000 mL, IV Infusion, ONCE, 1 dose, On Mon08/21/23 at 2230, General acute hospital ondansetron (ZOFRAN (PF)) injection 4 mg 08-21 03:15: 00 08-21 03:37 :00 No 4mg 4 mg, Slow IV Push, ONCE, 1 dose, On Mon08/21/23 at 2215, [facility] acute hospital acetaminoph en (TYLENOL) tablet 1,000 mg 08-21 03:10: 00 08-21 03:37 :00 No 1000mg 1,000 mg, Oral, ONCE, 1 dose, On Mon08/21/23 at 2215, [facility] acute [facility] ibuprofen 600 mg tablet 08-20 00:00: 00 01-30 00:00 :00 No [id number] 600mg Take 1 tablet by mouth every 6 (six) hours as needed for Pain (scale 4-6) for up to 30 doses. [facility] cefdinir 300 mg capsule 08-20 00:00: 00 08-31 04:59 :00 No [id number] 300mg Take 1 capsule by mouth every 12 (twelve) hours for 10 days. [facility] cyclobenzap rine (FLEXERIL) tablet 10 mg 08-13 17:30: 00 08-13 18:42 :00 No 10mg 10 mg, Oral, ONCE, 1 dose, On 08/14/23 at 1230, Routine [facility] rho(D) immune globulin (HYPERRHO/R HOGAM) syringe 300 mcg 08-13 01:47: 30 Yes 300ug [facility] ibuprofen (IBU) tablet 600 mg 08-13 01:47: 25 Yes 600mg 600 mg, Oral, Q6HPRN, Starting on Mon08/13/23 at 2046, Until Discontinu ed, Routine, Pain (scale 4-6) [facility] acetaminoph en (TYLENOL) tablet 650 mg 08-13 01:47: 25 Yes 650mg 650 mg, Oral, Q6HPRN, Starting on Mon08/13/23 at 2046, Until Discontinu ed, Routine, Pain (scale 1-3) [facility] diphenhydrA MINE (BENADRYL) tablet 25 mg 08-13 01:47: 25 Yes 25mg [facility] ondansetron (ZOFRAN (PF)) injection 4 mg 08-13 01:47: 25 Yes 4mg [facility] simethicone (GAS RELIEF (SIMETHICON E)) chewable tablet 160 mg 08-13 01:47: 25 Yes 160mg [facility] docusate (COLACE) capsule 200 mg 08-13 01:47: 25 Yes 200mg 200 mg, Oral, QDAILYPRN, Starting on Mon08/13/23 at 2046, Until Discontinu ed, Routine, Constipati on [facility] magnesium hydroxide (MILK OF MAGNESIA) 400 mg/5 mL suspension 30 mL 08-13 01:47: 25 Yes 30mL [facility] benzocaine- menthol (DERMOPLAST ) 20-0.5 % topical spray 08-13 01:47: 25 Yes Topical, PRN, Starting on Mon08/13/23 at 2046, Until Discontinu ed, Routine, Perineum discomfort [facility] [id number] fum-folic () 27 mg iron- 1 mg folic tablet 08-13 00:00: 00 01-30 00:00 :00 No [id number] 1{tbl} Take 1 tablet by mouth in the morning. [facility] docusate 100 mg capsule 08-13 00:00: 00 01-30 00:00 :00 No [id number] 200mg Take 2 capsules by mouth once daily as needed for Constipati on. [facility] ferrous sulfate 325 mg (65 mg iron) tablet 08-13 00:00: 00 01-30 00:00 :00 No [id number] 325mg Take 1 tablet by mouth in the morning. [facility] ibuprofen 800 mg tablet 08-13 00:00: 00 08-20 00:00 :00 No [id number] 800mg Take 1 tablet by mouth every 8 (eight) hours as needed (pain). Take with food or milk. [facility] ropivacaine 0.2 % (NAROPIN (PF)) epidural infusion 08-12 21:13: 00 08-13 01:53 :03 No Epidural, CONTINUOUS PRN, Starting on 08/13/23 at 1613, Until 08/13/23 at 2052, Routine, Intra-op [facility] lidocaine-e pinephrine (XYLOCAINE W/EPINEPHRI NE) 1.5 %-1:200,000 injection 08-12 21:10: 00 08-13 01:53 :03 No Epidural, ONCE INTRA PROCEDURE, Starting on 08/13/23 at 1610, Until Mon08/13/23 at 2052, Routine, Intra-op [facility] lidocaine 1% (XYLOCAINE) 100 mg/10 mL (1 %) injection 08-12 21:01: 00 08-13 01:53 :03 No Slow IV Push, ONCE INTRA PROCEDURE, Starting on 08/13/23 at 1601, Until Mon08/13/23 at 2053, Routine, Intra-op [facility] lactated ringers IV infusion 500 mL 08-12 20:45: 00 08-12 20:34 :54 No 500mL at 999 mL/hr, 500 mL, IV Infusion, ONCE, 1 dose, On Mon08/13/23 at 1545, Routine [facility] lactated ringers IV infusion 500 mL 08-12 19:53: 13 08-13 00:11 :02 No 500mL at 999 mL/hr, 500 mL, IV Infusion, PRN - SEE INSTRUCTIO NS, 1 dose, Starting on Mon08/13/23 at 1453, Until Mon08/13/23 at 1911, Routine [facility] sodium citrate-cit suellen acid (BICITRA) 500-334 mg/5 mL solution 30 mL 08-12 19:53: 13 08-12 21:00 :00 No 30mL 30 mL, Oral, PRE-PROCED URE ONCE, 1 dose, Starting on Mon08/13/23 at 1453, Until Mon08/13/23 at 1600, Routine, Surgery/Pr ocedure [facility] [id number] IV infusion 1,000 mL 08-12 19:45: 00 08-13 01:47 :29 No 1000mL at 75 mL/hr, IV Infusion, CONTINUOUS , Starting on Mon08/13/23 at 1445, Until Mon08/13/23 at 2046, Routine [facility] oxytocin (PITOCIN) 30 units in NS 500 mL IV infusion 08-12 14:29: 09 08-13 01:47 :29 No 2mU/min at 2-40 mL/hr, IV Infusion, TITRATE, Starting on Mon08/13/23 at 0929, Until Mon08/13/23 at 2046, OLIVIER [facility] ferrous sulfate tablet 325 mg 08-11 14:00: 00 08-12 18:40 :49 No 325mg 325 mg, Oral, DAILY, First dose on 08/12/23 at 0900, Until Discontinu ed, Routine [facility] amoxicillin (AMOXIL) capsule 500 mg 08-11 13:00: 00 08-12 13:26 :49 No 500mg 500 mg, Oral, TID, 15 doses, First dose on Mon08/12/23 at 0800, Last dose on Mon08/16/23 at 2000, OLIVIER, Reason for Anti-Infec tive: Empiric Therapy for Suspected Infection, Empiric Therapy Site: Pelvic, Duration of therapy: 5 days [facility] [id number] fum-folic () tablet 1 tablet 08-10 14:00: 00 08-12 18:40 :49 No 1{tbl} 1 tablet, Oral, DAILY, First dose (after last modificati on) on Mon08/11/23 at 0900, Until Discontinu ed, Routine [facility] betamethaso ne acet,sod phos (CELESTONE SOLUSPAN) 6 mg/mL injection 12 mg 08-10 06:30: 00 08-10 07:15 :00 No 12mg 12 mg, Intramuscu lar, ONCE, 1 dose, On Mon08/11/23 at 0130, Routine [facility] ampicillin (POLYCILLIN -N) 2,000 mg in NaCl 0.9% (NS) 100 mL MINI-BAG 08-09 20:00: 00 08-11 06:16 :00 No 2000mg 2,000 mg, IV Piggyback, Q6H ABX, 6 doses, First dose (after last modificati on) on Mon08/10/23 at 1500, Last dose on Mon08/11/23 at 2100, Administer over 30 Minutes, 100 mL, Reason for Anti-Infec tive: Empiric Therapy for Suspected Infection, Empiric Therapy Site: Pelvic, Duration of therapy: 72 hours [facility] Nitrofurant oin&Nit. Macrocryst (MACROBID) 100 mg capsule 100 mg 08-09 14:00: 00 08-10 13:55 :00 No 100mg 100 mg, Oral, DAILY, 2 doses, First dose on Mon08/10/23 at 0900, Last dose on Mon08/11/23 at 0900, Routine, Reason for Anti-Infec tive: Empiric Non-Surgic al Prophylaxi s, Duration of therapy: 5 days, Specific indication : Ppx for recurrent UTI [facility] ampicillin (POLYCILLIN -N) 2,000 mg in NaCl 0.9% (NS) 100 mL VIAL-MATE 08-09 12:30: 00 08-09 13:05 :00 No 2000mg 2,000 mg, IV Piggyback, ONCE, 1 dose, On Mon08/10/23 at 0730, Administer over 30 Minutes, 100 mL, Reason for Anti-Infec tive: Empiric Non-Surgic al Prophylaxi s, Duration of therapy: Once (ED), Specific indication : [facility] acetaminoph en (TYLENOL) tablet 1,000 mg 08-09 10:45: 00 08-09 10:50 :00 No 1000mg 1,000 mg, Oral, ONCE, 1 dose, On Mon08/10/23 at 0545, Routine [facility] ampicillin (POLYCILLIN -N) 2,000 mg in NaCl 0.9% (NS) 100 mL MINI-BAG 08-09 07:30: 00 08-09 07:18 :00 No 2g 2,000 mg (2 g), IV Piggyback, ONCE, 1 dose, On Mon08/10/23 at 0230, Administer over 30 Minutes, 100 mL, Reason for Anti-Infec tive: Empiric Non-Surgic al Prophylaxi s, Duration of therapy: Once (ED), Specific indication : [facility] azithromyci n (ZITHROMAX) tablet 1,000 mg 08-09 07:30: 00 08-09 06:44 :00 No 1000mg 1,000 mg, Oral, ONCE, 1 dose, On Mon08/10/23 at 0230, OLIVIER, Reason for Anti-Infec tive: Empiric Non-Surgic al Prophylaxi s, Duration of therapy: Once (ED), Specific indication : [facility] betamethaso ne acet,sod phos (CELESTONE SOLUSPAN) 6 mg/mL injection 12 mg 08-09 07:15: 00 08-09 06:34 :00 No 12mg 12 mg, Intramuscu lar, ONCE, 1 dose, On Buffy 08/10/23 at 0215, Routine [facility] acetaminoph en (TYLENOL) tablet 1,000 mg 08-08 22:45: 00 08-08 23:01 :00 No 1000mg 1,000 mg, Oral, ONCE NOW, 1 dose, On Mon08/09/23 at 1800, Routine [facility] metroNIDAZO LE (FLAGYL) tablet 500 mg 08-08 21:45: 00 08-13 01:47 :29 No 500mg 500 mg, Oral, Q12H ABX, 14 doses, First dose on Mon08/09/23 at 1645, Last dose on Mon08/16/23 at 0445, Routine, Reason for Anti-Infec tive: Empiric Therapy for Suspected Infection, Empiric Therapy Site: Other, Other site: BV, Duration of therapy: 5 days [facility] lactated ringers IV infusion 500 mL 08-08 21:00: 00 08-09 10:50 :00 No 500mL at 999 mL/hr, 500 mL, IV Infusion, ONCE, 1 dose, On Mon08/09/23 at 1600, STAT [facility] Nitrofurant oin&Nit. Macrocryst 100 mg capsule 08-01 00:00: 00 08-13 00:00 :00 No [id number] 100mg Take 1 capsule by mouth in the morning. [facility] amoxicillin -pot clavulanate 500 mg (AUGMENTIN) 500-125 mg tablet 07-22 00:00: 00 08-13 00:00 :00 No [id number] 500mg Take 1 tablet by mouth in the morning and 1 tablet at noon and 1 tablet in the evening. [facility] cefTRIAXone (ROCEPHIN) 1,000 mg in NaCl 0.9% (NS) 100 mL MINI-BAG 07-20 20:30: 00 07-23 20:29 :00 No 1000mg 1,000 mg, IV Piggyback, Q24H ABX, 3 doses, First dose on Mon07/21/23 at 1530, Last dose on Mon07/23/23 at 1530, Administer over 30 Minutes, 100 mL, Reason for Anti-Infec tive: Empiric Therapy for Suspected Infection, Empiric Therapy Site: Urine, Duration of therapy: 72 hours [facility] lactated ringers IV infusion 1,000 mL 07-20 01:30: 00 Yes 1000mL at 125 mL/hr, 1,000 mL, IV Infusion, CONTINUOUS , Starting on Mon07/20/23 at 2030, Until Discontinu ed, Routine [facility] acetaminoph en (TYLENOL) tablet 650 mg 07-20 00:56: 56 Yes 650mg 650 mg, Oral, Q6HPRN, Starting on Mon07/20/23 at 1956, Until Discontinu ed, Routine, Pain (scale 4-6) [facility] cephALEXin 500 mg capsule 07-20 00:00: 00 07-22 00:00 :00 No [id number] 500mg Take 1 capsule by mouth 4 (four) times daily for 8 days. [facility] ferrous sulfate tablet 325 mg 07-19 22:00: 00 Yes 325mg 325 mg, Oral, TID MEALS, First dose on Mon07/20/23 at 1700, Until Discontinu ed, Routine [facility] acetaminoph en (TYLENOL) tablet 650 mg 07-19 21:15: 00 07-19 20:44 :00 No 650mg 650 mg, Oral, ONCE, 1 dose, On Mon07/20/23 at 1615, Routine [facility] lactated ringers IV infusion 125 mL 07-19 20:45: 00 07-20 01:25 :04 No 125mL at 125 mL/hr, 125 mL, IV Infusion, CONTINUOUS , Starting on Mon07/20/23 at 1545, Until Mon07/20/23 at 2025, Routine [facility] cefTRIAXone (ROCEPHIN) 2,000 mg in NaCl 0.9% (NS) 100 mL MINI-BAG 07-19 20:30: 00 07-19 21:22 :00 No 2000mg 2,000 mg, IV Piggyback, ONCE, 1 dose, On Buffy 07/20/23 at 1530, Administer over 30 Minutes, 100 mL, Reason for Anti-Infec tive: Empiric Therapy for Suspected Infection, Empiric Therapy Site: Urine, Duration of therapy: Once (ED) [facility] lactated ringers IV infusion 500 mL 07-19 20:30: 00 07-19 21:21 :00 No 500mL at 999 mL/hr, 500 mL, IV Infusion, ONCE, 1 dose, On Buffy 07/20/23 at 1530, Routine [facility] proMETHazin e (PHENERGAN) 25 mg in NS 50 mL IV piggyback (CNR) 07-19 19:42: 54 Yes 25mg 25 mg, IV Piggyback, at 200 mL/hr Administer over 15 Minutes, Q6HPRN, Starting on Buffy 07/20/23 at 1442, Until Discontinu ed, Routine, Nausea and Vomiting (N/V) [facility] Alcohol Swabs PadM 07-13 00:00: 00 08-13 00:00 :00 No Apply to area 4 times a day to check blood sugar as directed. [facility] Blood-Gluco se Meter (BLOOD GLUCOSE MONITORING) Kit 07-13 00:00: 00 08-13 00:00 :00 No Check blood sugar 4 times daily as directed. Brand per Insurance. [facility] blood sugar diagnostic strip 07-13 00:00: 00 08-13 00:00 :00 No Use as directed. BRAND PER INSURANCE. [facility] Lancets Misc 07-13 00:00: 00 08-13 00:00 :00 No Check blood sugars 4 times a day as directed. [facility] ONETOUCH DELICA PLUS LANCET 33 gauge Misc 07-13 00:00: 00 08-13 00:00 :00 No [facility] cephALEXin 250 mg capsule 07-01 00:00: 00 07-22 00:00 :00 No [id number] 250mg Take 1 capsule by mouth in the morning. Start medication once you complete the treatment of 4 times daily for 7 days [facility] cephALEXin 500 mg capsule 07-01 00:00: 00 07-19 00:00 :00 No [id number] 500mg Take 1 capsule by mouth 4 (four) times daily. [facility] ferrous sulfate 325 mg (65 mg iron) tablet 06-29 00:00: 00 08-13 00:00 :00 No [id number] 325mg Take 1 tablet by mouth in the morning and 1 tablet in the evening. [facility] proMETHazin e 25 mg tablet 06-15 00:00: 00 08-13 00:00 :00 No 25mg Take 1 tablet by mouth every 4 (four) hours as needed for Nausea and Vomiting (N/V). [facility] vitamin w/FA tablet 04-25 00:00: 00 08-13 00:00 :00 No [id number] 1{tbl} Take 1 tablet by mouth in the morning. [facility] ondansetron (ZOFRAN (PF)) injection 4 mg 04-24 19:00: 00 04-24 19:35 :00 No 4mg 4 mg, Slow IV Push, ONCE, 1 dose, On Mon04/25/23 at 1300, Routine [facility] diphenhydrA MINE (BENADRYL) tablet 25 mg 04-24 18:50: 41 04-26 00:13 :54 No 25mg 25 mg, Oral, Q4HPRN, Starting on Mon04/25/23 at 1250, Until Mon04/26/23 at 1813, Routine, Itching [facility] ketorolac (TORADOL) injection 30 mg 04-24 18:50: 37 04-27 05:59 :00 No 30mg 30 mg, Slow IV Push, PRN, 1 dose, Starting on Mon04/25/23 at 1250, Until Buffy 04/27/23 at 2359, Routine, Pain (scale 7-10) [facility] naloxone (NARCAN) injection 0.4 mg 04-24 18:50: 30 04-26 18:49 :30 No .4mg 0.4 mg, Slow IV Push, PRN - SEE INSTRUCTIO NS, Starting on Mon04/25/23 at 1250, Until Mon04/27/23 at 1249, Routine, Sedation/R espiratory Depression , Analages[facility] Recovery [facility] azithromyci n (ZITHROMAX) 500 mg in NaCl 0.9% (NS) 250 mL VIAL-MATE IV piggyback 04-24 18:30: 00 04-24 18:48 :00 No 500mg 500 mg, IV Piggyback, ONCE, 1 dose, On Mon04/25/23 at 1230, Administer over 60 Minutes, 250 mL
Reas on for Anti-Infec tive: Empiric Therapy for Suspected Infection< br>Empiric Therapy Site: Pelvic
Duration of therapy: Once (ED) [facility] cefOXitin (MEFOXIN) 2 g in NaCl 0.9% (NS) 100 mL MINI-BAG 04-24 18:30: 00 04-24 22:39 :00 No 2g 2 g, IV Piggyback, ONCE, 1 dose, On Mon04/25/23 at 1230, Administer over 30 Minutes, 100 mL
Reas on for Anti-Infec tive: Surgical Prophylaxi s
Surgi shaun Prophylaxi s: [employer]
Duration of therapy: within 24 hours of surgery [facility] indomethaci n (INDOCIN) capsule 25 mg 04-24 18:00: 00 04-25 17:59 :00 No 25mg 25 mg, Oral, Q6H, 4 doses, First dose on Mon04/25/23 at 1200, Last dose on Mon04/26/23 at 0600, Routine [facility] sodium citrate-cit suellen acid (BICITRA) 500-334 mg/5 mL solution 30 mL 04-24 16:08: 50 Yes 30mL 30 mL, Oral, SEE-INSTRU CTIONS, Starting on Mon04/25/23 at 1008, Until Discontinu ed, Routine [facility] D5W-LR IV infusion 1,000 mL 04-24 16:00: 00 Yes 1000mL at 125 mL/hr, IV Infusion, CONTINUOUS , Starting on Mon04/25/23 at 1000, Until Discontinu ed, Routine [facility] metroNIDAZO LE in NaCl (iso-os) (FLAGYL I.V.) RTU IV infusion 500 mg 04-24 14:59: 01 04-24 22:18 :00 No 500mg 500 mg, IV Piggyback, O.R. HOLDING ONCE, 1 dose, Starting on Mon04/25/23 at 0859, Until Discontinu ed, Administer over 60 Minutes, 100 mL
Reas on for Anti-Infec tive: Surgical Prophylaxi s
Dsouza rgical Prophylaxi s: [employer]
Duration of therapy: within 24 hours of surgery [facility] alum-mag hydroxide-s imeth (MAG-AL PLUS) 200-200-20 mg/5 mL suspension 30 mL 04-24 02:46: 12 Yes 30mL 30 mL, Oral, Q6HPRN, Starting on Mon04/24/23 at 2045, Until Discontinu ed, Routine, Indigestio n [facility] docusate (COLACE) capsule 200 mg 04-24 02:46: 12 Yes 200mg 200 mg, Oral, QHSPRN, Starting on Mon04/24/23 at 2045, Until Discontinu ed, Routine, Constipati on [facility] magnesium hydroxide (MILK OF MAGNESIA) 400 mg/5 mL suspension 30 mL 04-24 02:46: 12 Yes 30mL 30 mL, Oral, QDAILYPRN, Starting on Mon04/24/23 at 2046, Until Discontinu ed, Routine, Constipati on [facility] indomethaci n 25 mg capsule 3- 00:00: 00 04-26 05:59 :00 No [id number] 25mg Take 1 capsule by mouth every 6 (six) hours for 4 doses. [facility] azithromyci n 500 mg tablet -16 00:00: 04-24 00:00 :00 No [id number] 01 1000mg Take 2 tablets by mouth in the morning. [facility] Nitrofurant oin&Nit. Macrocryst 100 mg capsule 04-05 00:00: 00 04-24 00:00 :00 No [id number] 100mg Take 1 capsule by mouth in the morning and 1 capsule in the evening. [facility] amoxicillin -pot clavulanate 500 mg (AUGMENTIN) 500-125 mg tablet 03-14 00:00: 00 03-22 05:59 :00 No 500mg Take 1 tablet by mouth in the morning and 1 tablet in the evening. Do all this for 7 days. [facility] azithromyci n 500 mg tablet 03-10 00:00: 00 04-05 00:00 :00 No 1000mg Take 2 tablets by mouth in the morning. [facility] azithromyci n 500 mg tablet 2022-02 00:00: 00 03-10 00:00 :00 No [id number] 1000mg Take 2 tablets by mouth in the morning. [facility] PNV 67-iron ps-folate no.1-dha (VITAFOL ULTRA) 29 mg iron- 1 mg-200 mg Cap 2022-02 00:00: 00 04-24 00:00 :00 No [id number] 1{tbl} Take 1 tablet by mouth in the morning. If insurance does not cover can substituen t with any other mediation that contains components . [facility] azithromyci n 500 mg tablet 09-20 00:00: 00 02-07 00:00 :00 No [id number] 1000mg Take 2 tablets by mouth in the morning. [facility] amoxicillin -clavulanat e (AUGMENTIN) 875-125 mg per tablet 09-20 00:00: 00 10-01 04:59 :00 No [id number] 00734 1{tbl} Take 1 tablet by mouth in the morning and 1 tablet in the evening. Do all this for 10 days. [facility] ibuprofen (IBU) tablet 600 mg 09-15 16:00: 00 Yes 600mg 600 mg, Oral, Q6HPRN, Starting on Buffy 09/15/22 at 1100, Until Discontinu ed, Routine, Pain (scale 1-3) [facility] clindamycin in 5 % dextrose (CLEOCIN) 900 mg/50 mL IV piggyback RTU 900 mg 09-15 16:00: 00 09-17 15:59 :00 No 900mg 900 mg, IV Piggyback, Q8H ABX, 6 doses, First dose (after last modificati on) on Buffy 09/15/22 at 1100, Last dose on 09/17/22 at 0300, Administer over 30 Minutes, 50 mL
Reas on for Anti-Infec tive: Empiric Therapy for Suspected Infection< br>Empiric Therapy Site: Pelvic
Duration of therapy: 72 hours
R estricted use approved by: [employer]
swat team member approving Restricted medication : MARISSA DALY [facility] lactated ringers IV infusion 1,000 mL 09-15 10:45: 00 Yes 1000mL at 42 mL/hr, 1,000 mL, IV Infusion, CONTINUOUS , Starting on Buffy 09/15/22 at 0545, Until Discontinu ed, Routine [facility] ketorolac (TORADOL) injection 30 mg 09-15 10:00: 00 09-15 09:54 :00 No 30mg 30 mg, Slow IV Push, ONCE, 1 dose, On Buffy 09/15/22 at 0500, Routine [facility] HYDROcodone -acetaminop hen (NORCO 5) 5-325 mg tablet 1 tablet 09-15 09:44: 20 Yes 1{tbl} 1 tablet, Oral, Q6HPRN, Starting on Mon09/15/22 at 0444, Until Discontinu ed, Routine, Pain (scale 4-6) [facility] HYDROcodone -acetaminop hen (NORCO 5) 5-325 mg tablet 2 tablet 09-15 09:41: 47 Yes 2{tbl} 2 tablet, Oral, Q6HPRN, Starting on Mon09/15/22 at 0441, Until Discontinu ed, Routine, Pain (scale 7-10) [facility] miSOPROStoL (CYTOTEC) tablet 1,000 mcg 09-15 09:30: 00 09-15 09:18 :00 No 1000ug 1,000 mcg, Vaginal, ONCE, 1 dose, On Mon09/15/22 at 0430, Routine [facility] clindamycin in 5 % dextrose (CLEOCIN) 900 mg/50 mL IV piggyback RTU 900 mg 09-15 08:13: 00 09-15 09:49 :56 No 900mg 900 mg, IV Piggyback, Q8H ABX, 3 doses, First dose on Mon09/15/22 at 0315, Last dose on Mon09/15/22 at 1915, Administer over 30 Minutes, 50 mL
Reas on for Anti-Infec tive: Surgical Prophylaxi s
Dsouza rgical Prophylaxi s: [employer]
Duration of therapy: within 24 hours of surgery
Restricte d use approved by: [employer]
swat team member approving Restricted medication : RASHMI GONZALEZ [facility] oxytocin (PITOCIN) 30 units in NS 500 mL IV infusion 09-15 02:58: 30 09-15 09:49 :56 No 2mU/min at 2-40 mL/hr, IV Infusion, TITRATE, Starting on Mon09/14/22 at 2158, Until Mon09/15/22 at 0449, OLIVIER [facility] proMETHazin e (PHENERGAN) 25 mg in NaCl 0.9% (NS) 50 mL IV piggyback 09-15 02:57: 39 09-15 09:49 :56 No 25mg 25 mg, IV Piggyback, Q4HPRN, Starting on Mon09/14/22 at 2156, Until Mon09/15/22 at 0449, Routine, Nausea and Vomiting (N/V) [facility] FENTanyl PF (SUBLIMAZE (PF)) injection 100 mcg 09-15 02:57: 27 09-15 09:49 :56 No 100ug 100 mcg, Slow IV Push, Q1HPRN, Starting on Mon09/14/22 at 2156, Until Mon09/15/22 at 044, Routine, pain [facility] acetaminoph en (TYLENOL) tablet 1,000 mg 09-15 01:16: 03 09-15 09:49 :56 No 1000mg 1,000 mg, Oral, Q8HPRN, Starting on Mon09/14/22 at 2016, Until Mon09/15/22 at 044, Routine, Temp > 38 C [facility] proMETHazin e (PHENERGAN) 25 mg in NaCl 0.9% (NS) 50 mL IV piggyback 09-14 23:30: 00 09-14 23:33 :00 No 25mg 25 mg, IV Piggyback, ONCE NOW, 1 dose, On Mon09/14/22 at 1830, Routine [facility] FENTanyl PF (SUBLIMAZE (PF)) injection 100 mcg 09-14 23:30: 00 09-14 23:32 :00 No 100ug 100 mcg, Slow IV Push, ONCE, 1 dose, On Mon09/14/22 at 1830, Routine [facility] gentamicin 340 mg in NaCl 0.9% (NS) 250 mL IV infusion 09-14 20:45: 00 Yes 5mg/kg 340 mg (rounded from 333.5 mg = 5 mg/kg ?66.7 kg Adjusted weight), IV Infusion, Q24H, First dose on Mon09/14/22 at 1545, Until Discontinu ed, Administer over 60 Minutes, 250 mL
Reas on for Anti-Infec tive: Empiric Therapy for Suspected Infection< br>Empiric Therapy Site: Other
O ther site: Utreus
Duration of therapy: 72 hours [facility] D5W-LR IV infusion 125 mL 09-14 20:30: 00 09-15 09:49 :56 No 125mL at 125 mL/hr, IV Infusion, CONTINUOUS , Starting on Mon09/14/22 at 1530, Until Buffy 09/15/22 at 0449, Routine [facility] ampicillin (POLYCILLIN -N) 2,000 mg in NaCl 0.9% (NS) 100 mL MINI-BAG 09-14 19:33: 00 Yes 2g 2,000 mg (2 g), IV Piggyback, Q6H ABX, First dose (after last modificati on) on Mon09/14/22 at 1445, Until Discontinu ed, Administer over 30 Minutes, 100 mL
Reas on for Anti-Infec tive: Empiric Therapy for Suspected Infection< br>Empiric Therapy Site: Other
O ther site: Uterus
Duration of therapy: 72 hours [facility] lactated ringers IV infusion 1,000 mL 09-14 18:30: 00 09-15 09:49 :56 No 1000mL at 125 mL/hr, 1,000 mL, IV Infusion, CONTINUOUS , Starting on Mon09/14/22 at 1330, Until Mon09/15/22 at 0449, Routine [facility] azithromyci n 500 mg tablet 18 00:00: 00 09-14 00:00 :00 No [id number] 1000mg Take 2 tablets by mouth in the morning. [facility] proMETHazin e 25 mg tablet -17 00:00: 00 02-07 00:00 :00 No [id number] 25mg Take 1 tablet by mouth every 4 (four) hours as needed for Nausea and Vomiting (N/V). [facility] progesteron e 200 mg capsule 07-06 00:00: 00 08-03 00:00 :00 No [id number] 200mg Take 1 capsule by mouth in the morning. [facility] progesteron e 200 mg capsule 07-05 00:00: 00 07-06 00:00 :00 No [id number] 200mg Take 1 capsule by mouth in the morning. [facility] proMETHazin e 25 mg tablet 07-05 00:00: 00 07-06 00:00 :00 No [id number] 25mg Take 1 tablet by mouth every 4 (four) hours as needed for Nausea and Vomiting (N/V). [facility] ondansetron (ZOFRAN-ODT ) disintegrat ing tablet 4 mg 10-05 20:45: 00 10-05 19:52 :00 No 4mg 4 mg, Oral, ONCE, 1 dose, On Mon10/05/21 at 1545, Routine [facility] vitamin w/FA tablet 07-12 00:00: 00 Yes [id number] 1{tbl} Take 1 tablet by mouth daily. [facility] vitamin w/FA tablet 07-12 00:00: 00 02-07 00:00 :00 No [id number] 1{tbl} Take 1 tablet by mouth daily. [facility] ferrous sulfate 325 mg (65 mg iron) tablet 07-12 00:00: 00 07-05 00:00 :00 No [id number] 325mg Take 1 tablet by mouth 2 (two) times daily. [facility] ibuprofen 600 mg tablet 07-12 00:00: 00 07-05 00:00 :00 No [id number] 600mg Take 1 tablet by mouth every 6 (six) hours as needed (Pain). Take with food or milk. [facility] docusate 100 mg capsule 07-12 00:00: 00 07-05 00:00 :00 No [id number] 200mg Take 2 capsules by mouth once daily as needed for Constipati on. [facility] Vital Signs Vital Name Observation Time Observation Value Comments Samuel schmitz Systolic blood pressure 2024-03-16 01:00:00 115 mm[Hg] [facility] Diastolic blood pressure 2024-03-16 01:00:00 85 mm[Hg] [facility] Heart rate 2024-03-16 01:00:00 89 /min [facility] Body temperature 2024-03-16 01:00:00 36.67 Avani [facility] Respiratory rate 2024-03-16 01:00:00 18 /min [facility] Oxygen saturation in Arterial blood by Pulse oximetry 2024-03-16 01:00:00 94 /min [facility] Body height 2024-03-15 15:32:00 157.5 cm [facility] Body weight 2024-03-15 15:32:00 100.381 kg [facility] BMI 2024-03-15 15:32:00 40.48 kg/m2 [facility] Heart rate 2024-03-15 17:45:00 89 /min [facility] Oxygen saturation in Arterial blood by Pulse oximetry 2024-03-15 17:45:00 98 /min [facility] Systolic blood pressure 2024-03-15 16:15:00 111 mm[Hg] [facility] Diastolic blood pressure 2024-03-15 16:15:00 64 mm[Hg] [facility] Body temperature 2024-03-15 15:32:00 36.89 Avani [facility] Respiratory rate 2024-03-15 15:32:00 19 /min [facility] Body height 2024-03-15 15:32:00 157.5 cm [facility] Body weight 2024-03-15 15:32:00 100.381 kg [facility] BMI 2024-03-15 15:32:00 40.48 kg/m2 [facility] Systolic blood pressure 2024-03-05 17:17:00 126 mm[Hg] [facility] Diastolic blood pressure 2024-03-05 17:17:00 81 mm[Hg] [facility] Heart rate 2024-03-05 17:17:00 78 /min [facility] Body temperature 2024-03-05 17:17:00 36.94 Avani [facility] Respiratory rate 2024-03-05 17:17:00 18 /min [facility] Body height 2024-03-05 17:17:00 157.5 cm [facility] Body weight 2024-03-05 17:17:00 97.977 kg [facility] BMI 2024-03-05 17:17:00 39.51 kg/m2 [facility] Systolic blood pressure 2024-01-31 20:47:00 134 mm[Hg] [facility] Diastolic blood pressure 2024-01-31 20:47:00 79 mm[Hg] [facility] Heart rate 2024-01-31 20:47:00 91 /min [facility] Body temperature 2024-01-31 20:47:00 36.67 Avani [facility] Respiratory rate 2024-01-31 20:47:00 18 /min [facility] Body height 2024-01-31 20:47:00 157.5 cm [facility] Body weight 2024-01-31 20:47:00 99.202 kg [facility] BMI 2024-01-31 20:47:00 40.00 kg/m2 [facility] Systolic blood pressure 2023-08-22 04:00:00 119 mm[Hg] [facility] Diastolic blood pressure 2023-08-22 04:00:00 66 mm[Hg] [facility] Heart rate 2023-08-22 04:00:00 115 /min [facility] Body temperature 2023-08-22 04:00:00 37.17 Avani [facility] Respiratory rate 2023-08-22 04:00:00 36 /min [facility] Oxygen saturation in Arterial blood by Pulse oximetry 2023-08-22 04:00:00 97 /min [facility] Body height 2023-08-22 02:31:00 157.5 cm [facility] Body weight 2023-08-22 02:31:00 93.94 kg [facility] BMI 2023-08-22 02:31:00 37.88 kg/m2 [facility] Systolic blood pressure 2023-08-14 20:42:00 137 mm[Hg] [facility] Diastolic blood pressure 2023-08-14 20:42:00 68 mm[Hg] [facility] Heart rate 2023-08-14 20:42:00 80 /min [facility] Body temperature 2023-08-14 20:42:00 36.56 Avani [facility] Respiratory rate 2023-08-14 20:42:00 18 /min [facility] Oxygen saturation in Arterial blood by Pulse oximetry 2023-08-14 20:42:00 99 /min [facility] Body height 2023-08-10 10:55:00 157.5 cm [facility] Body weight 2023-08-10 10:55:00 99.338 kg [facility] BMI 2023-08-10 10:55:00 40.05 kg/m2 [facility] Systolic blood pressure 2023-08-02 17:51:00 116 mm[Hg] [facility] Diastolic blood pressure 2023-08-02 17:51:00 64 mm[Hg] [facility] Heart rate 2023-08-02 17:51:00 107 /min [facility] Body temperature 2023-08-02 17:51:00 36.89 Avani [facility] Respiratory rate 2023-08-02 17:51:00 16 /min [facility] Body height 2023-08-02 17:51:00 157.5 cm [facility] Body weight 2023-08-02 17:51:00 99.292 kg [facility] BMI 2023-08-02 17:51:00 40.04 kg/m2 [facility] Oxygen saturation in Arterial blood by Pulse oximetry 2023-08-02 17:51:00 98 /min [facility] Systolic blood pressure 2023-07-24 20:04:00 124 mm[Hg] [facility] Diastolic blood pressure 2023-07-24 20:04:00 75 mm[Hg] [facility] Heart rate 2023-07-24 20:04:00 90 /min [facility] Body temperature 2023-07-24 20:04:00 36.72 Avani [facility] Respiratory rate 2023-07-24 20:04:00 16 /min [facility] Body height 2023-07-24 20:04:00 157.5 cm [facility] Body weight 2023-07-24 20:04:00 100.925 kg [facility] BMI 2023-07-24 20:04:00 40.70 kg/m2 [facility] Oxygen saturation in Arterial blood by Pulse oximetry 2023-07-24 20:04:00 98 /min [facility] Heart rate 2023-07-21 20:15:00 84 /min [facility] Oxygen saturation in Arterial blood by Pulse oximetry 2023-07-21 20:15:00 100 /min [facility] Systolic blood pressure 2023-07-21 20:00:00 115 mm[Hg] [facility] Diastolic blood pressure 2023-07-21 20:00:00 62 mm[Hg] [facility] Body temperature 2023-07-21 20:00:00 36.83 Avani [facility] Respiratory rate 2023-07-21 20:00:00 18 /min [facility] Body height 2023-07-20 18:40:00 157.5 cm [facility] Body weight 2023-07-20 18:40:00 103.42 kg [facility] BMI 2023-07-20 18:40:00 41.70 kg/m2 [facility] Systolic blood pressure 2023-07-05 19:01:00 124 mm[Hg] [facility] Diastolic blood pressure 2023-07-05 19:01:00 77 mm[Hg] [facility] Heart rate 2023-07-05 19:01:00 109 /min [facility] Respiratory rate 2023-07-05 19:01:00 18 /min [facility] Body height 2023-07-05 19:01:00 157.5 cm [facility] Body weight 2023-07-05 19:01:00 100.699 kg [facility] BMI 2023-07-05 19:01:00 40.60 kg/m2 [facility] Systolic blood pressure 2023-06-07 19:54:00 127 mm[Hg] [facility] Diastolic blood pressure 2023-06-07 19:54:00 75 mm[Hg] [facility] Heart rate 2023-06-07 19:54:00 94 /min [facility] Body temperature 2023-06-07 19:54:00 36.5 Avani [facility] Respiratory rate 2023-06-07 19:54:00 16 /min [facility] Body height 2023-06-07 19:54:00 157.5 cm [facility] Body weight 2023-06-07 19:54:00 99.338 kg [facility] BMI 2023-06-07 19:54:00 40.06 kg/m2 [facility] Oxygen saturation in Arterial blood by Pulse oximetry 2023-06-07 19:54:00 98 /min [facility] Systolic blood pressure 2023-05-10 20:45:00 125 mm[Hg] [facility] Diastolic blood pressure 2023-05-10 20:45:00 81 mm[Hg] [facility] Heart rate 2023-05-10 20:45:00 67 /min [facility] Body temperature 2023-05-10 20:45:00 36.72 Avani [facility] Respiratory rate 2023-05-10 20:45:00 16 /min [facility] Body height 2023-05-10 20:45:00 157.5 cm [facility] Body weight 2023-05-10 20:45:00 97.07 kg [facility] BMI 2023-05-10 20:45:00 39.14 kg/m2 [facility] Systolic blood pressure 2023-04-25 20:30:00 107 mm[Hg] [facility] Diastolic blood pressure 2023-04-25 20:30:00 61 mm[Hg] [facility] Heart rate 2023-04-25 20:30:00 78 /min [facility] Respiratory rate 2023-04-25 20:30:00 19 /min [facility] Oxygen saturation in Arterial blood by Pulse oximetry 2023-04-25 20:30:00 100 /min [facility] Body temperature 2023-04-25 19:30:00 36.83 Avani [facility] Body height 2023-04-25 01:24:00 157.5 cm [facility] Body weight 2023-04-25 01:24:00 96.662 kg [facility] BMI 2023-04-25 01:24:00 38.98 kg/m2 [facility] Systolic blood pressure 2023-04-25 17:33:00 117 mm[Hg] [facility] Diastolic blood pressure 2023-04-25 17:33:00 73 mm[Hg] [facility] Heart rate 2023-04-25 17:33:00 82 /min [facility] Respiratory rate 2023-04-25 17:33:00 15 /min [facility] Oxygen saturation in Arterial blood by Pulse oximetry 2023-04-25 17:33:00 100 /min [facility] Body temperature 2023-04-25 13:35:00 37 Avani [facility] Body height 2023-04-25 01:24:00 157.5 cm [facility] Body weight 2023-04-25 01:24:00 96.662 [facility] BMI 2023-04-25 01:24:00 38.98 kg/m2 [facility] Systolic blood pressure 2023-04-05 19:12:00 115 mm[Hg] [facility] Diastolic blood pressure 2023-04-05 19:12:00 77 mm[Hg] [facility] Heart rate 2023-04-05 19:12:00 85 /min [facility] Respiratory rate 2023-04-05 19:12:00 18 /min [facility] Body height 2023-04-05 19:12:00 157.5 cm [facility] Body weight 2023-04-05 19:12:00 92.987 kg [facility] BMI 2023-04-05 19:12:00 37.49 kg/m2 [facility] Systolic blood pressure 2023-03-08 21:53:00 127 mm[Hg] [facility] Diastolic blood pressure 2023-03-08 21:53:00 82 mm[Hg] [facility] Heart rate 2023-03-08 21:53:00 85 /min [facility] Body temperature 2023-03-08 21:53:00 36.44 Avani [facility] Respiratory rate 2023-03-08 21:53:00 16 /min [facility] Body height 2023-03-08 21:53:00 157.5 cm [facility] Body weight 2023-03-08 21:53:00 93.895 kg [facility] BMI 2023-03-08 21:53:00 37.86 kg/m2 [facility] Oxygen saturation in Arterial blood by Pulse oximetry 2023-03-08 21:53:00 100 /min [facility] Systolic blood pressure 2023-02-07 20:13:00 120 mm[Hg] [facility] Diastolic blood pressure 2023-02-07 20:13:00 74 mm[Hg] [facility] Heart rate 2023-02-07 20:13:00 82 /min [facility] Body temperature 2023-02-07 20:13:00 36.94 Avani [facility] Respiratory rate 2023-02-07 20:13:00 18 /min [facility] Body height 2023-02-07 20:13:00 157.5 cm [facility] Body weight 2023-02-07 20:13:00 94.802 kg [facility] BMI 2023-02-07 20:13:00 38.23 kg/m2 [facility] Systolic blood pressure 2022-09-16 10:15:00 124 mm[Hg] [facility] Diastolic blood pressure 2022-09-16 10:15:00 53 mm[Hg] [facility] Heart rate 2022-09-16 10:15:00 84 /min [facility] Body temperature 2022-09-16 10:15:00 37.72 Avani [facility] Respiratory rate 2022-09-16 10:15:00 17 /min [facility] Oxygen saturation in Arterial blood by Pulse oximetry 2022-09-16 10:15:00 99 /min [facility] Body height 2022-09-14 16:00:00 157.5 cm [facility] Body weight 2022-09-14 16:00:00 91.627 kg [facility] BMI 2022-09-14 16:00:00 36.95 kg/m2 [facility] Heart rate 2022-09-15 10:30:00 106 /min [facility] Oxygen saturation in Arterial blood by Pulse oximetry 2022-09-15 10:30:00 95 /min [facility] Body temperature 2022-09-15 10:11:00 38.44 Avani [facility] Respiratory rate 2022-09-15 10:11:00 19 /min [facility] Systolic blood pressure 2022-09-15 10:00:00 118 mm[Hg] [facility] Diastolic blood pressure 2022-09-15 10:00:00 68 mm[Hg] [facility] Body height 2022-09-14 16:00:00 157.5 cm [facility] Body weight 2022-09-14 16:00:00 91.627 kg [facility] BMI 2022-09-14 16:00:00 36.95 kg/m2 [facility] Systolic blood pressure 2022-08-03 20:13:00 119 mm[Hg] [facility] Diastolic blood pressure 2022-08-03 20:13:00 78 mm[Hg] [facility] Heart rate 2022-08-03 20:13:00 106 /min [facility] Body temperature 2022-08-03 20:13:00 36.78 Avani [facility] Respiratory rate 2022-08-03 20:13:00 18 /min [facility] Body height 2022-08-03 20:13:00 157.5 cm [facility] Body weight 2022-08-03 20:13:00 93.123 kg [facility] BMI 2022-08-03 20:13:00 37.55 kg/m2 [facility] Systolic blood pressure 2022-07-05 19:22:00 120 mm[Hg] [facility] Diastolic blood pressure 2022-07-05 19:22:00 78 mm[Hg] [facility] Heart rate 2022-07-05 19:22:00 72 /min [facility] Body temperature 2022-07-05 19:22:00 36.78 Avani [facility] Respiratory rate 2022-07-05 19:22:00 18 /min [facility] Body height 2022-07-05 19:22:00 157.5 cm [facility] Body weight 2022-07-05 19:22:00 92.987 kg [facility] BMI 2022-07-05 19:22:00 37.49 kg/m2 [facility] Systolic blood pressure 2021-10-05 19:26:00 127 mm[Hg] [facility] Diastolic blood pressure 2021-10-05 19:26:00 84 mm[Hg] [facility] Heart rate 2021-10-05 19:26:00 76 /min [facility] Body temperature 2021-10-05 19:26:00 37 Avani [facility] Respiratory rate 2021-10-05 19:26:00 14 /min [facility] Body weight 2021-10-05 19:26:00 82.555 kg [facility] Oxygen saturation in Arterial blood by Pulse oximetry 2021-10-05 19:26:00 100 /min [facility] Body weight 2021-07-12 16:15:00 82.555 kg [facility] Body temperature 2021-07-12 11:15:00 36.56 Avani [facility] Respiratory rate 2021-07-12 11:15:00 20 /min [facility] Systolic blood pressure 2022-09-16 10:15:00 124 mm[Hg] [facility] Diastolic blood pressure 2022-09-16 10:15:00 53 mm[Hg] [facility] Heart rate 2022-09-16 10:15:00 84 /min [facility] Body temperature 2022-09-16 10:15:00 37.72 Avani [facility] Respiratory rate 2022-09-16 10:15:00 17 /min [facility] Oxygen saturation in Arterial blood by Pulse oximetry 2022-09-16 10:15:00 99 /min [facility] Body height 2022-09-14 16:00:00 157.5 cm [facility] Body weight 2022-09-14 16:00:00 91.627 kg [facility] BMI 2022-09-14 16:00:00 36.95 kg/m2 [facility] Procedures Procedure Date / Time Performed Performing Clinician Source SCANNED LAB RESULTS 2024-04-08 16:55:31 Doctor Mauricio clrak, Yarnell [facility] SCANNED LAB RESULTS 2024-04-02 15:03:31 Doctor Mauricio clark, Yarnell [facility] CENTRAL NEURAXIAL BLOCK 2024-03-15 21:33:00 Isaiah Garcia [facility] [id number] - [place] CERCLAGE CERVIX VAGINAL 2024-03-15 20:59:00 Manuel Mcconnell [facility] GROUP B STREPTOCOCCUS BY PCR 2024-03-15 16:49:00 Lisbet Smith [facility] CBC WITH DIFF 2024-03-15 16:38:00 Seehar, [facility] HB ABO GROUPING 2024-03-15 16:[facility]24-03-15 [facility] 2024-03-15 16:38[facility] SECOND AND THIRD TRIMESTER ULTRASOUND 2024-03-15 14:28:00 Adum, Rashmi Soto [facility] POCT URINALYSIS W/O SPECIFIC GRAVITY 2024-03-05 00:00:00 Adum, Rashmi Soto [facility] US OB TRANSVAGINAL 2024-02-01 00:04:13 Adum, Rashmi Soto [facility] PAP SMEAR-LIQUID BASED-CP 2024-01-31 21:18:00 Adum, Ana Soto [facility] POCT TEST 2024-01-31 00:00:00 Adum, Rashmi Soto [facility] POCT URINALYSIS W/O SPECIFIC GRAVITY 2024-01-31 00:00:00 Adum, Rashmi Soto [facility] COMP. METABOLIC PANEL (41901) 2023-08-22 02:54:00 Shadi Jo [facility] CBC WITH DIFF 2023-08-22 02:54:00 Shadi Jo [facility] URINALYSIS 2023-08-22 02:54:00 Shadi Jo [facility] INFLUENZA A/B RSV COVID NAAT 2023-08-22 02:54:00 Shadi Jo [facility] LACTIC ACID WHOLE BLOOD 2023-08-22 02:54:00 Vinayak Jo [facility] CBC WITH DIFF 2023-08-14 10:45:00 Colin Oneil [facility] VENOUS CORD GAS 2023-08-14 00:30:00 Dennis Henderson [facility] POCT GLUCOSE (AUTOMATED) 2023-08-13 21:58:00 Rod Mcconnell [facility] CENTRAL NEURAXIAL BLOCK 2023-08-13 21:28:00 Domingo Montiel [facility] POCT GLUCOSE (AUTOMATED) 2023-08-13 17:12:00 [facility] POCT GLUCOSE (AUTOMATED) 2023-08-13 13:43:00 Jayesh [facility] POCT GLUCOSE (AUTOMATED) 2023-08-13 00:42:00 Jayesh [facility] POCT GLUCOSE (AUTOMATED) 2023-08-12 20:19:00 Jayesh [facility] POCT GLUCOSE (AUTOMATED) 2023-08-12 17:24:00 Jayesh [facility] POCT GLUCOSE (AUTOMATED) 2023-08-12 12:58:00 Jayesh [facility] POCT GLUCOSE (AUTOMATED) 2023-08-10 13:31:00 Jayesh [facility] HB ABO GROUPING 2023-08-10 09:56:00 Fariha, Chr [facility]uris [facility] RHO (D) IMMUNE GLOBULIN 2023-08-10 09:56:00 Bruna Perez [facility] POCT GLUCOSE (AUTOMATED) 2023-08-10 09:52:00 Jay[facility] ADC ONLY - FERN TEST 2023-08-10 05:37:00 [facility] POCT GLUCOSE (AUTOMATED) 2023-08-10 01:02:00 Jeromy [facility] GROUP B STREPTOCOCCUS BY PCR 2023-08-09 22:06:00 Jeromy [facility] US PELVIS > 14 WEEKS 2023-08-09 21:56:55 Jeromy [facility] ADC ONLY - FERN TEST 2023-08-09 20:45:00 Jeromy [facility] FERRITIN SERUM 2023-08-09 20:19:00 Katy López Mai [facility] IRON PANEL 2023-08-09 20:19:00 Katy López Mai [facility] CBC WITH DIFF 2023-08-09 20:19:00 Mesfin Elizalde [facility] URINALYSIS 2023-08-09 20:19:00 Mesfin Elizalde [facility] RUBELLA SCREEN IGG 2023-08-09 20:19:00 Mesfin Elizaled U [facility] HEPATITIS B SURFACE ANTIGEN 2023-08-09 20:19:00 Mesfin Elizalde [facility] HB ABO GROUPING 2023-08-09 20:19:00 Mesfin Elizalde [facility] URINE CULTURE 2023-08-09 20:19:00 Mesfin Elizalde [facility] GC & CHLAMYDIA AMPLIFIED ASSAY 2023-08-09 20:19:00 Mesfin Elizalde [facility] ADC OR MARGARITA ONLY - RPR 2023-08-09 20:19:00 Martín Elizalde [facility] ADC CLC OR LCC ONLY - WET PREP 2023-08-09 19:49:00 Mesfin Elizalde [facility] POCT GLUCOSE (AUTOMATED) 2023-08-09 18:41:00 Mesfin Elizalde [facility] POCT URINALYSIS W/O SPECIFIC GRAVITY 2023-08-02 00:00:00 Adum, Rashmi Soto [facility] POCT URINALYSIS W/O SPECIFIC GRAVITY 2023-07-24 00:00:00 Jane Ashford [facility] POCT GLUCOSE (AUTOMATED) 2023-07-21 20:00:00 Adum, Kamilla Soto [facility] POCT GLUCOSE (AUTOMATED) 2023-07-21 16:32:00 Adum, Kamilla Soto [facility] POCT GLUCOSE (AUTOMATED) 2023-07-21 10:53:00 Adum, Kamilla Soto [facility] POCT GLUCOSE (AUTOMATED) 2023-07-21 03:29:00 Adum, Kamilla Soto [facility] POCT GLUCOSE (AUTOMATED) 2023-07-21 00:28:00 Adum, Kamilla Soto [facility] US RETROPERITONEAL COMPLETE 2023-07-20 23:35:54 Adum, Rashmi Soto [facility] BASIC METABOLIC PANEL (NA, K, CL, CO2, GLUCOSE, BUN, CREATININE, CA) 2023-07-20 20:08:00 Adum, Rashmi Soto [facility] CBC WITH DIFF 2023-07-20 20:08:00 Adum, Rashmi Pearce [facility] URINALYSIS 2023-07-20 20:08:00 [facility] - WET PREP 2023-07-20 20:08:00 Adum, Rashmi Soto [facility] GC & CHLAMYDIA AMPLIFIED ASSAY 2023-07-20 20:08:00 Adum, Rashmi Soto [facility] POCT GLUCOSE (AUTOMATED) 2023-07-20 19:54:00 Adum, Kamilla Soto [facility] 3 HR GLUCOSE TOLERANCE TEST 2023-07-13 16:39:00 Adum, Rashmi Soto [facility] 2 HR GLUCOSE TOLERANCE TEST 2023-07-13 15:41:00 Adum, Rashmi Soto [facility] 1 HR GLUCOSE TOLERANCE TEST 2023-07-13 14:41:00 Adum, Rashmi Soto [facility] 3 HR GLUCOSE TOLERANCE PANEL 2023-07-13 13:41:00 Adum, Rashmi Soto [facility] GLUCOSE FASTING 2023-07-13 13:41:00 Adum, Rashmi Soto [facility] GLUCOSE 1 HOUR POST PRANDIAL 2023-06-29 14:39:00 Adum, Rashmi Soto [facility] CBC WITH DIFF 2023-06-29 14:39:00 Adum, Rashmi Pearce [facility] GLYCOSYLATED HEMOGLOBIN (A1C) 2023-06-29 14:39:00 Adum, Rashmi Soto [facility] HB ABO GROUPING 2023-06-29 14:39:00 Adum, Rashmi Bland [facility] ADC OR MARGARITA ONLY - RPR 2023-06-29 14:39:00 Adum, Ana Soto [facility] HIV 1/2 AG-AB WITH REFLEX 2023-06-29 14:39:00 Adum, Ana Soto [facility] URINE CULTURE 2023-06-29 13:54:00 Adum, Rashmi Charles [facility] SECOND AND THIRD TRIMESTER ULTRASOUND 2023-06-23 13:56:24 Adum, Rashmi Charles [facility] POCT URINALYSIS W/O SPECIFIC GRAVITY 2023-06-07 00:00:00 Adum, Rashmi Charles [facility] SECOND AND THIRD TRIMESTER ULTRASOUND 2023-05-29 18:56:47 Adum, Rashmi Soto [facility] POCT URINALYSIS W/O SPECIFIC GRAVITY 2023-05-10 00:00:00 Adum, Rashmi Charles [facility] SECOND AND THIRD TRIMESTER ULTRASOUND 2023-05-01 20:37:00 Adum, Rashmi Soto [facility] CERCLAGE PLACEMENT 2023-04-25 18:16:00 Kristal Alvarado [facility] CBC WITHOUT DIFF 2023-04-25 05:10:00 Sorathia, [facility] HB ABO GROUPING 2023-04-25 05:10:00 Sorathia, [facility] CBC WITHOUT DIFF 2023-04-25 05:10:00 Sorathia, [facility] HB ABO GROUPING 2023-04-25 05:10:00 Sorathia, [facility] SECOND AND THIRD TRIMESTER ULTRASOUND 2023-04-24 21:53:00 Adum, Rashmi Charles [facility] SECOND AND THIRD TRIMESTER ULTRASOUND 2023-04-17 15:28:00 Adum, Rashmi Soto [facility] POCT URINALYSIS W/O SPECIFIC GRAVITY 2023-04-05 00:00:00 Adum, Rashmi Soto [facility] GLUCOSE 1 HOUR POST PRANDIAL 2023-03-10 15:34:00 Adum, Rashmi Soto [facility] SCANNED LAB RESULTS 2023-03-10 06:01:00 Doctor Mauricio clark, Yarnell [facility] POCT URINALYSIS W/O SPECIFIC GRAVITY 2023-03-08 00:00:00 Adum, Rashmi Soto [facility] US OB TRANSVAGINAL 2023-02-08 03:02:44 Adum, Rashmi Soto [facility] URINE DRUG (IMMUNOASSAY) - COMPREHENSIVE DRUG SCREEN 2023-02-07 21:14:00 Adum, Rashmi Soto [facility] GC & CHLAMYDIA AMPLIFIED ASSAY 2023-02-07 21:14:00 Adum, Rashmi Soto [facility] TRICHOMONAS AMPLIFIED ASSAY 2023-02-07 21:14:00 Adum, Rashmi Soto [facility] ULTRASOUND 2023-02-07 06:01:00 Doc tor Unassigned, Yarnell [facility] POCT TEST 2023-02-07 00:00:00 Adum, Rashmi Soto [facility] POCT URINALYSIS W/O SPECIFIC GRAVITY 2023-02-07 00:00:00 Adum, Rashmi Soto [facility] CBC WITH DIFF 2022-09-16 11:31:00 Irena [facility] CBC WITH DIFF 2022-09-16 11:31:00 Irena [facility] CBC WITH DIFF 2022-09-16 11:31:00 Irena [facility] CBC WITH DIFF 2022-09-15 11:11:00 Adum, Rashmi Soto [facility] CBC WITH DIFF 2022-09-15 11:11:00 Adum, [facility] CBC WITH DIFF 2022-09-15 11:11:00 Adum, [facility] INTUBATION 2022-09-15 08:56:00 [facility]ILATION AND EVACUATION OF UTERINE CONTENTS 2022-09-15 08:28:00 Adum, Rashmi Soto [facility] DILATION AND EVACUATION OF UTERINE CONTENTS 2022-09-15 08:28:00 Adum, Rashmi Soto [facility] DILATION AND EVACUATION OF UTERINE CONTENTS 2022-09-15 08:28:00 Adum, Rashmi Soto [facility] BLOOD CULTURE SCREEN 2022-09-15 02:26:00 Adum, Rashmi Soto [facility] BLOOD CULTURE WORKUP 2022-09-15 02:26:00 Adum, Rashmi Soto [facility] GRAM NEGATIVE BLOOD PATHOGENS DNA PROBE-ANAEROBIC 2022-09-15 02:26:00 Adum, Rashmi Soto [facility] BLOOD CULTURE SCREEN 2022-09-15 02:26:00 Adum, Rashmi Soto [facility] BLOOD CULTURE WORKUP 2022-09-15 02:26:00 Adum, Rashmi Soto [facility] GRAM NEGATIVE BLOOD PATHOGENS DNA PROBE-ANAEROBIC 2022-09-15 02:26:00 Adum, Rashmi Soto [facility] BLOOD CULTURE SCREEN 2022-09-15 02:26:00 Adum, Rashmi Soto [facility] BLOOD CULTURE WORKUP 2022-09-15 02:26:00 Adum, Rashmi Soto [facility] GRAM NEGATIVE BLOOD PATHOGENS DNA PROBE-ANAEROBIC 2022-09-15 02:26:00 Adum, Rashmi Soto [facility] US PELVIS > 14 WEEKS WITH TRANSVAGINAL 2022-09-14 18:52:11 Adum, Rashmi Soto [facility] PELVIS > 14 WEEKS WITH TRANSVAGINAL 2022-09-14 18:52:11 Adum, Rashmi Charles [facility] PELVIS > 14 WEEKS WITH TRANSVAGINAL 2022-09-14 18:52:11 Adum, Rashmi Soto [facility] CBC WITH DIFF 2022-09-14 17:37:00 Adum, Rashmi Soto [facility] HB ABO GROUPING 2022-09-14 17:37:00 Adum, Rashmi Soto [facility] EXTRA TUBE SST 2022-09-14 17:37:00 Adum, Rashmi Soto [facility] EXTRA TUBE LT. GREEN 2022-09-14 17:37:00 Adum, Rashmi Soto [facility] EXTRA TUBE RED 2022-09-14 17:37:00 Adum, Rashmi Soto [facility] URINE DRUG (IMMUNOASSAY) - COMPREHENSIVE DRUG SCREEN W/O REFLEX 2022-09-14 17:37:00 Adum, Rashmi Soto [facility] CBC WITH DIFF 2022-09-14 17:37:00 Adum, Rashmi Soto [facility] URINE DRUG (IMMUNOASSAY) - COMPREHENSIVE DRUG SCREEN W/O REFLEX 2022-09-14 17:37:00 Adum, Rashmi Soto [facility] HB ABO GROUPING 2022-09-14 17:37:00 Adum, [facility] EXTRA TUBE RED 2022-09-14 17:37:00 Adum, Rashmi Cuba [facility] EXTRA TUBE SST 2022-09-14 17:37:00 Adum, Rashmi Soto [facility] EXTRA TUBE LT. GREEN 2022-09-14 17:37:00 Adum, Rashmi Soto [facility] CBC WITH DIFF 2022-09-14 17:37:00 Adum, Rashmi Pearce [facility] HB ABO GROUPING 2022-09-14 17:37:00 Adum, Rashmi Soto [facility] EXTRA TUBE SST 2022-09-14 17:37:00 Adum, Rashmi Soto [facility] EXTRA TUBE LT. GREEN 2022-09-14 17:37:00 Adum, Rashmi Soto [facility] EXTRA TUBE RED 2022-09-14 17:37:00 Adum, Rashmi Soto [facility] URINE DRUG (IMMUNOASSAY) - COMPREHENSIVE DRUG SCREEN W/O REFLEX 2022-09-14 17:37:00 Adum, Rashmi Soto [facility] CLC OR LCC ONLY - WET PREP 2022-09-14 16:58:00 Adum, Rashmi Soto [facility] URINE CULTURE 2022-09-14 16:58:00 Adum, Rashmi Pearce [facility] GC & CHLAMYDIA AMPLIFIED ASSAY 2022-09-14 16:58:00 Adum, Rashmi Soto [facility] URINE CULTURE 2022-09-14 16:58:00 Adum, Rashmi Pearce [facility] CLC OR LCC ONLY - WET PREP 2022-09-14 16:58:00 Adum, Rashmi Soto [facility] GC & CHLAMYDIA AMPLIFIED ASSAY 2022-09-14 16:58:00 Adum, Rashmi Soto [facility] ADC CLC OR LCC ONLY - WET PREP 2022-09-14 16:58:00 Adum, Rashmi Soto [facility] URINE CULTURE 2022-09-14 16:58:00 Adum, Rashmi Pearce [facility] GC & CHLAMYDIA AMPLIFIED ASSAY 2022-09-14 16:58:00 Adum, Rashmi Soto [facility] GLUCOSE 1 HOUR POST PRANDIAL 2022-08-25 17:33:00 Adum, Rashmi Soto [facility] SCANNED LAB RESULTS 2022-08-25 05:01:00 Doctor Mauricio clark, Yarnell [facility] POCT URINALYSIS W/O SPECIFIC GRAVITY 2022-08-03 00:00:00 Adum, Rashmi Soto [facility] POCT URINALYSIS W/O SPECIFIC GRAVITY 2022-08-03 00:00:00 Adum, Rashmi Soto [facility] URINE CULTURE 2022-07-13 19:06:00 Adum, Rashmi Pearce [facility] ADC OR MARGARITA ONLY - RPR 2022-07-13 18:54:00 Adum, Ana Soto [facility] CBC WITH DIFF 2022-07-13 18:54:00 Adum, Rashmi Pearce [facility] HCV ANTIBODY 2022-07-13 18:54:00 [facility]um, [facility] ANTIGEN 2022-07-13 18:54:00 Adum, Rashmi Stoo [facility] HIV 1/2 AG-AB WITH REFLEX 2022-07-13 18:54:00 Adum, Ana Soto [facility] HB ABO GROUPING 2022-07-13 18:54:00 Adum, Rashmi Bland [facility] RUBELLA SCREEN IGG 2022-07-13 18:54:00 Adum, Rashmi Soto [facility] VZV ANTIBODY SCREEN 2022-07-13 18:54:00 Adum, Rashmi Soto [facility] PROGESTERONE, LEVEL 2022-07-13 18:54:00 Adum, Rashmi Soto [facility] US OB TRANSVAGINAL 2022-07-05 20:42:36 Adum, Rashmi Soto [facility] OB TRANSVAGINAL 2022-07-05 20:42:36 Adum, Rashmi Soto [facility] URINE DRUG (IMMUNOASSAY) - COMPREHENSIVE DRUG SCREEN 2022-07-05 20:22:00 Adum, Rashmi Soto [facility] GC & CHLAMYDIA AMPLIFIED ASSAY 2022-07-05 20:22:00 Adum, Rashmi Soto [facility] TRICHOMONAS AMPLIFIED ASSAY 2022-07-05 20:22:00 Adum, Rashmi Soto [facility] PAP SMEAR-LIQUID BASED-CP 2022-07-05 20:22:00 Adum, Ana Soto [facility] URINE DRUG (IMMUNOASSAY) - COMPREHENSIVE DRUG SCREEN 2022-07-05 20:22:00 Adum, Rashmi Soto [facility] PAP SMEAR-LIQUID BASED-CP 2022-07-05 20:22:00 Adum, Ana Soto [facility] TRICHOMONAS AMPLIFIED ASSAY 2022-07-05 20:22:00 Adum, Rashmi Soto [facility] GC & CHLAMYDIA AMPLIFIED ASSAY 2022-07-05 20:22:00 Adum, Rashmi Soto [facility] LAB ONLY PAP SMEAR-LIQUID BASED 2022-07-05 20:22:00 Adum, Rashmi Soto [facility] NO SHOW OR MISSED APPOINTMENT POLICY ACKNOWLEDGEMENT 2022-07-05 19:21:04 Doctor Unassigned, Yarnell [facility] PATIENT FINANCIAL POLICY 2022-07-05 19:18:12 Doctor Unassigned, Yarnell [facility] CONSENT TO CONTACT FOR VOLUNTARY RESEARCH 2022-07-05 19:17:38 Doctor Unassigned, Yarnell [facility] CONSENT/REFUSAL FOR DIAGNOSIS AND TREATMENT 2022-07-05 19:17:06 Doctor Unassigned, Yarnell [facility] ASSIGNMENT OF BENEFITS 2022-07-05 19:16:39 Docto r Unassigned, Yarnell [facility] ASSIGNMENT OF BENEFITS 2022-07-05 19:16:39 Docto r Unassigned, Yarnell [facility] ULTRASOUND 2022-07-05 05:01:00 Doc tor Unassigned, Yarnell [facility] POCT TEST 2022-07-05 00:00:00 Adum, Rashmi Soto [facility] POCT URINALYSIS W/O SPECIFIC GRAVITY 2022-07-05 00:00:00 Adum, Rashmi Soto [facility] POCT URINALYSIS W/O SPECIFIC GRAVITY 2022-07-05 00:00:00 Adum, Rashmi Soto [facility] POCT TEST 2022-07-05 00:00:00 Adum, Rashmi Soto [facility] NOTICE OF PRIVACY PRACTICES 2021-10-05 19:08:03 Doctor Unassigned, Yarnell [facility] CONSENT/REFUSAL FOR DIAGNOSIS AND TREATMENT 2021-10-05 19:07:36 Doctor Unassigned, Yarnell [facility] ABORH CONFIRMATION (LAB ONLY) 2021-07-12 12:00:00 Adum, Rashmi Soto [facility] CBC WITH DIFF 2021-07-12 11:39:00 Adum, Rashmi Cubae [facility] HB ABO GROUPING 2021-07-12 11:35:00 Adum, Rashmi Bland [facility] Encounters Start Date/Time End Date/Time Encounter Type Admission Type Attending [facility] Facility Care Department Encounter ID Source 2024-03-15 19:56:32 Outpatient P [facility] [id number] [facility] 2023-07-21 17:29:56 Outpatient P [facility] [id number] [facility] 2023-04-25 17:34:51 Outpatient P [facility] [id number] [facility] 2024-04-19 08:00:00 2024-04-19 08:00:00 Outpatient R RASHMI GONZALEZ [facility] [id number] [facility] 2024-04-12 13:45:00 2024-04-12 13:45:00 Outpatient R RASHMI GONZALEZ [facility] [id number] [facility] 2024-04-12 08:15:00 2024-04-12 08:15:00 Outpatient R RASHMI GONZALEZ [facility] [id number] [facility] 2024-04-08 00:00:2024-04-10 02:04:30 Orders Only Doctor Unassigned, Yarnell Doctor Unassigned, Yarnell [facility] 1.2840.114 350.1.13.10 4.2.7.2.686 [id number] [facility] 2024-04-09 16:00:00 2024-04-09 16:00:00 Outpatient R RASHMI GONZALEZ [facility] [id number] [facility] 2024-04-02 00:00:00 2024-04-06 06:07:24 Orders Only Doctor Unassigned, Yarnell Doctor Unassigned, Yarnell [facility] ([facility]) 1.2.840.114 350.1.13.10 4.2.7.2.686 [id number] [facility] 2024-04-02 11:00:00 2024-04-02 11:00:00 Outpatient R RASHMI GONZALEZ [facility] [id number] [facility] 2024-03-27 00:00:00 2024-03-27 10:53:02 Telephone Admark [facility] 1.2.840.114 350.1.13.10 4.2.7.2.686 [id number] 134 [id number] [facility] 2024-03-25 00:00:00 2024-03-25 11:01:31 Telephone Admark [facility] 1.2.840.114 350.1.13.10 4.2.7.2.686 [id number] 134 [id number] [facility] 2024-03-15 07:30:00 2024-03-15 19:56:00 Outpatient MANUEL EUGENE, MANUEL PROCTOR [facility] [id number] [facility] 2024-03-15 07:30:00 2024-03-15 19:56:00 Hospital Encounter Manuel Mcconnell [facility] ([facility]) 1.2.840.114 350.1.13.10 4.2.7.2.686 [id number] [facility] 2024-03-15 15:19:00 2024-03-15 16:12:00 Anesthesia Event Domingo Garcia Sarah [facility] ([facility]) 1.2.840.114 350.1.13.10 4.2.7.2.686 [id number] [facility] 2024-03-15 10:35:00 2024-03-15 11:59:00 Surgery Manuel Mcconnell [facility] ([facility]) 1.2.840.114 350.1.13.10 4.2.7.2.686 [id number] [facility] 2024-03-15 09:15:00 2024-03-15 09:30:00 Finance Executive [facility] ([facility]) 1.2.840.114 350.1.13.10 4.2.7.2.686 [id number] [facility] 2024-03-15 08:00:00 2024-03-15 09:18:11 Outpatient P ELADIO GAINES [facility] [id number] [facility] 2024-03-15 08:00:00 2024-03-15 09:18:11 Finance Executive Visit 3, [facility] Us Room Eladio Gaines 3, [facility] Room [facility] ([facility]) 1.2.840.114 350.1.13.10 4.2.7.2.686 [id number] [facility] 2024-03-14 00:00:00 2024-03-14 16:14:20 Patient Secure Msg Adum, Rashmi L [facility] 1.2.840.114 350.1.13.10 4.2.7.2.686 [id number] 134 [id number] [facility] 2024-03-14 00:00:00 2024-03-14 15:47:15 Telephone Rashmi Gonzalez [facility] PRIMARY [facility] SPECIALTY CARE 1.2.840.114 350.1.13.10 4.2.7.2.686 [id number] 134 [id number] [facility] 2024-02-05 00:00:00 2024-03-09 18:20:12 Patient Secure Msg Lisa [facility] 1.2.840.114 350.1.13.10 4.2.7.2.686 [id number] 134 [id number] [facility] 2024-03-05 11:15:00 2024-03-05 11:48:10 Outpatient R RASHMI GONZALEZ [facility] [id number] [facility] 2024-03-05 11:15:00 2024-03-05 11:48:10 Routine Visit Lisa [facility] 1.2.840.114 350.1.13.10 4.2.7.2.686 [id number] 134 [id number] [facility] 2024-03-01 08:15:00 2024-03-01 08:15:00 Outpatient P [facility] [id number] [facility] 2024-02-29 11:15:00 2024-02-29 11:15:00 Outpatient R RASHMI GONZALEZ [facility] [id number] [facility] 2024-02-28 15:30:00 2024-02-28 15:30:00 Outpatient R RASHMI GONZALEZ [facility] [id number] [facility] 2024-02-22 00:00:00 2024-02-27 08:46:46 Patient Secure Msg Doctor Unassigned, Yarnell Doctor Unassigned, Yarnell [facility] ([facility]) 1..114 350.1.13.10 4.2.7.2.686 [id number] [facility] 2024-02-26 08:45:00 2024-02-26 09:00:00 Finance Executive Visit 2, [facility] Lab Rashmi Gonzalez 2, Adc Lab [facility] 1..114 350.1.13.10 4.2.7.2.686 [id number] [facility] 2024-02-26 08:45:00 2024-02-26 08:45:00 Outpatient RASHMI ESCOBAR [facility] [id number] [facility] 2024-02-22 00:00:00 2024-02-22 11:08:15 Patient Secure Msg Doctor Unassigned, Yarnell Doctor Unassigned, Yarnell [facility] ([facility]) 1..114 350.1.13.10 4.2.7.2.686 [id number] [facility] 2024-02-22 09:30:00 2024-02-22 10:00:00 Telemedici ne Visit Fellow, Mago Lyles [facility], [facility] MATERNAL & CHILD [facility] 1..114 350.1.13.10 4.2.7.2.686 [id number] [facility] 2024-02-22 09:30:00 2024-02-22 09:30:00 Outpatient MAGO CHUN SHANNON [facility] [id number] [facility] 2024-02-12 00:00:00 2024-02-15 12:11:10 Patient Secure g Rashmi Gonzalez [facility] PRIMARY [facility] SPECIALTY CARE 1.840.114 350.1.13.10 4.2.7.2.686 [id number] 134 [id number] [facility] 2024-02-10 08:30:00 2024-02-10 08:30:00 Outpatient R RASHMI GONZALEZ [facility] [id number] [facility] 2024-02-08 14:00:00 2024-02-08 14:30:00 Telemedici ne Visit Fellow, [facility] Wendy Dai Fellow, [facility] MATERNAL & [facility] 1.840.114 350.1.13.10 4.2.7.2.686 [id number] [facility] 2024-02-08 14:00:00 2024-02-08 14:00:00 Outpatient P WENDY DAI [facility] [id number] [facility] 2024-01-31 14:30:00 2024-01-31 15:17:44 Outpatient R RASHMI GONZALEZ [facility] [id number] [facility] 2024-01-31 14:30:00 2024-01-31 15:17:44 Initial Visit Rashmi Gonzalez [facility] PR[facility] SPECIALTY [facility]ARE 1.840.114 350.1.13.10 4.2.7.2.686 [id number] 134 [id number] [facility] 2024-01-24 14:30:00 2024-01-24 14:30:00 Outpatient R RASHMI GONZALEZ [facility] [id number] [facility] 2023-11-10 13:30:00 2023-11-10 13:30:00 Outpatient R RASHMI GONZAELZ RASHMI [facility] [id number] [facility] 2023-10-31 08:30:00 2023-10-31 08:30:00 Outpatient R ADUM, RASHMI ADUM, [facility] [id number] [facility] 2023-10-11 10:45:00 2023-10-11 10:45:00 Outpatient R RASHMI GONZALEZ [facility] [id number] [facility] 2023-10-04 11:00:00 2023-10-04 11:00:00 Outpatient R RASHMI GONZALEZ [facility] [id number] [facility] 2023-08-22 00:00:00 2023-09-23 18:21:35 Patient Secure Msg Doctor Unassigned, Yarnell [facility] 1.2.840.114 350.1.13.10 4.2.7.2.686 [id number] 134 [id number] [facility] 2023-08-08 00:00:00 2023-09-09 18:18:03 Patient Secure Msg Doctor Unassigned, Yarnell [facility] 1.2.840.114 350.1.13.10 4.2.7.2.686 [id number] [facility] 2023-08-21 21:33:00 2023-08-21 23:49:00 Emergency SHADI FAITH TIMOTHY [facility] ERT [id number] [facility] 2023-08-21 21:33:00 2023-08-21 23:49:00 Emergency Shadi Jo [facility] 1.2.840.114 350.1.13.10 4.2.7.2.686 [id number] [facility] 2023-08-16 15:30:00 2023-08-16 15:30:00 Outpatient R RASHMI GONZALEZ [facility] [id number] [facility] 2023-08-09 13:07:00 2023-08-14 19:30:00 Inpatient Gisela MCCONNELL, MANUEL MCCONNELL, MANUEL MCCONNELL, [facility] [id number] [facility] 2023-08-09 13:07:00 2023-08-14 19:30:00 Hospital Encounter Mesfin Elizalde Xavi Mcconnell, [facility] 1.2.840.114 350.1.13.10 4.2.7.2.686 [id number] [facility] 2023-08-13 16:00:00 2023-08-13 19:15:00 Anesthesia Event Domingo Munoz, [facility] 1.2.840.114 350.1.13.10 4.2.7.2.686 [id number] [facility] 2023-08-08 00:00:00 2023-08-09 09:22:17 [facility] 1.2840.114 350.1.13.10 4.2.7.2.686 [id number] 134 [id number] [facility] 2023-08-02 13:00:00 2023-08-02 13:27:18 Outpatient R RASHMI GONZALEZ [facility] [id number] [facility] 2023-08-02 13:00:00 2023-08-02 13:27:18 Routine Visit Rashmi Gonzalez [facility] PRIMARY [facility] SPECIALTY CARE 1.2.840.114 350.1.13.10 4.2.7.2.686 [id number] 134 [id number] [facility] 2023-07-24 15:00:00 2023-07-24 15:15:00 Routine Visit Jane Ashford [facility] 1.2.840.114 350.1.13.10 4.2.7.2.686 [id number] 134 [id number] [facility] 2023-07-24 15:00:00 2023-07-24 15:00:00 Outpatient R JANE ASHFORD [facility] [id number] [facility] 2023-07-23 00:00:00 2023-07-23 13:23:38 Case Management Adum, Rashmi Soto [facility] BUILDING 1.2.840.114 350.1.13.10 4.2.7.2.686 [id number] 134 [id number] [facility] 2023-07-20 13:45:00 2023-07-21 17:29:00 Outpatient P ADMARK RASHMI [facility] [id number] [facility] 2023-07-20 13:45:00 2023-07-21 17:29:00 Hospital Encounter Joseph Valentino [employer], Rashmi [facility] 1.2.840.114 350.1.13.10 4.2.7.2.686 [id number] [facility] 2023-07-20 00:00:00 2023-07-20 13:46:53 Telephone Adum Rashmi Soto [facility] 1.2.840.114 350.1.13.10 4.2.7.2.686 [id number] 134 [id number] [facility] 2023-07-14 00:00:00 2023-07-14 16:49:36 Telephone Admark Rashmi Soto [facility] 1.2.840.114 350.1.13.10 4.2.7.2.686 [id number] 134 [id number] [facility] 2023-07-14 00:00:00 2023-07-14 09:44:13 Telephone Admark Rashmi Charles [facility] SPECIALTY C[facility] 1.2.840.114 350.1.13.10 4.2.7.2.686 [id number] 134 [id number] [facility] 2023-07-13 00:00:00 2023-07-13 15:46:45 Telephone Adum, Rashmi Soto [facility] BUILDING 1.2.840.114 350.1.13.10 4.2.7.2.686 [id number] 134 [id number] [facility] 2023-07-13 08:30:00 2023-07-13 11:55:57 Finance Executive Visit 2, Adc Lab [facility] 1.2.840.114 350.1.13.10 4.2.7.2.686 [id number] [facility] 2023-07-13 08:30:00 2023-07-13 08:30:00 [facility] [id number] [facility] 2023-07-07 08:15:00 2023-07-07 08:15:00 Outpatient R [facility] [id number] [facility] 2023-07-05 14:00:00 2023-07-05 14:17:57 Outpatient R ADMARK [facility] [id number] [facility] 2023-07-05 14:00:00 2023-07-05 14:17:57 Routine Visit Admark, [facility] SPECIAL[facility] CARE 1.2.840.114 350.1.13.10 4.2.7.2.686 [id number] 134 [id number] [facility] 2023-07-02 00:00:00 2023-07-02 01:21:07 Case Management Ad, [facility] 1.2.840.114 350.1.13.10 4.2.7.2.686 [id number] 134 [id number] [facility] 2023-06-30 00:00:00 2023-06-30 14:30:15 Case Management Adum, [facility] BUILDING 1.2.840.114 350.1.13.10 4.2.7.2.686 [id number] 134 [id number] [facility] 2023-06-30 00:00:00 2023-06-30 08:13:05 Case Management Adum, Rashmi [facility] BUILDING 1.2.840.114 350.1.13.10 4.2.7.2.686 [id number] 134 [id number] [facility] 2023-06-29 08:30:00 2023-06-29 11:37:11 Finance Executive Visit 2, Adc Lab Adum, [facility] BUILDING 1.2840.114 350.1.13.10 4.2.7.2.686 [id number] [facility] 2023-06-29 08:30:00 2023-06-29 08:30:00 Outpatient R LISA [facility] [id number] [facility] 2023-06-23 08:15:00 2023-06-23 08:39:50 Outpatient P ELADIO GAINES [facility] [id number] [facility] 2023-06-23 08:15:00 2023-06-23 08:39:50 Finance Executive Visit Ultrasound, [facility]Eladio Shipley [facility]3] 1..840.114 350.1.13.10 4.2.7.2.686 [id number] [facility] 2023-06-15 00:00:00 2023-06-15 00:00:00 Telephone Adum Rashmi [facility] PRIMARY AND SPECIALTY CARE 1.2.840.114 350.1.13.10 4.2.7.2.686 [id number] 134 [id number] [facility] 2023-06-14 15:30:00 2023-06-14 15:30:00 Outpatient R LISA [facility] [id number] [facility] 2023-06-07 15:00:00 2023-06-07 15:08:11 Outpatient R ADMARK [facility] [id number] [facility] 2023-06-07 15:00:00 2023-06-07 15:08:11 Routine Visit Ad [facility] PRIMARY [facility] CARE 1.0.114 350.1.13.10 4.2.7.2.686 [id number] 134 [id number] [facility] 2023-05-30 00:00:00 2023-05-30 00:00:00 Case Management Admark [facility] 1.2.114 350.1.13.10 4.2.7.2.686 [id number] 134 [id number] [facility] 2023-05-29 13:00:00 2023-05-29 13:36:20 [facility] [id number] [facility] 2023-05-29 13:00:00 2023-05-29 13:36:20 Finance Executive Visit Ultrasound, Khalida [facility]NAL [facility]3] 1..114 350.1.13.10 4.2.7.2.686 [id number] [facility] 2023-05-10 15:45:00 2023-05-10 16:16:29 Outpatient R ADUM [facility] [id number] [facility] 2023-05-10 15:45:00 2023-05-10 16:16:29 Routine Visit Admark [facility] 1..114 350.1.13.10 4.2.7.2.686 [id number] 134 [id number] [facility] 2023-05-02 00:00:00 2023-05-02 00:00:00 Case Management Adum Rashmi Soto [facility] 1..114 350.1.13.10 4.2.7.2.686 [id number] 134 [id number] [facility] 2023-05-01 14:00:00 2023-05-01 15:00:39 Outpatient P JERRY PISANO [facility] [id number] [facility] 2023-05-01 14:00:00 2023-05-01 15:00:39 Finance Executive Visit Ultrasound, Jerry Duncan [facility]ERNAL [facility]3] 1..114 350.1.13.10 4.2.7.2.686 [id number] [facility] 2023-05-01 14:00:00 2023-05-01 14:00:00 Outpatient P ALIYA JYOTIMitchell [facility] [id number] [facility] 2023-05-01 00:00:00 2023-05-01 00:00:00 Telephone Adum, Rashmi Soto [facility] PRIMARY AND SPECIALTY CARE 1..114 350.1.13.10 4.2.7.2.686 [id number] 134 [id number] [facility] 2023-04-24 19:06:00 2023-04-25 17:34:00 [facility] [id number] [facility] 2023-04-24 19:06:00 2023-04-25 17:34:[address] [facility] 1..114 350.1.13.10 4.2.7.2.686 [id number] 140 [id number] [facility] 2023-04-25 12:00:00 2023-04-25 13:27:[address] [facility] 1.0.114 350.1.13.10 4.2.7.2.686 [id number] [facility] 2023-04-24 15:30:00 2023-04-24 16:30:19 Outpatient P [facility] [id number] [facility] 2023-04-24 15:30:00 2023-04-24 16:30:19 Finance Executive [facility] MATERNAL & CHILD [facility] 1.2.840.114 350.1.13.10 4.2.7.2.686 [id number] [facility] 2023-04-24 00:00:00 2023-04-24 00:00:00 [facility] 1..840.114 350.1.13.10 4.2.7.2.686 [id number] 134 [id number] [facility] 2023-04-23 00:00:00 2023-04-23 00:00:00 Case Management Adum, Rashmi [facility] 1.2.840.114 350.1.13.10 4.2.7.2.686 [id number] 134 [id number] [facility] 2023-04-17 09:00:00 2023-04-17 09:56:07 Outpatient P ELADIO GAINES [facility] [id number] [facility] 2023-04-17 09:00:00 2023-04-17 09:56:07 Finance Executive Visit Ultrasound, Eladio Martinez [facility] & CHILD [facility] 1.2.840.114 350.1.13.10 4.2.7.2.686 [id number] [facility] 2023-04-10 15:15:00 2023-04-10 15:15:00 Outpatient P [facility] [id number] [facility] 2023-04-10 00:00:00 2023-04-10 00:00:00 Patient Secure Msg Doctor Unassigned, Yarnell [facility] BUILD[facility] 1.2840.114 350.1.13.10 4.2.7.2.686 [id number] 134 [id number] [facility] 2023-04-07 13:00:00 2023-04-07 13:00:00 Outpatient R [facility] [id number] [facility] 2023-04-07 00:00:00 2023-04-07 00:00:00 Case Management Adum, Rashmi [facility] 1.2840.114 350.1.13.10 4.2.7.2.686 [id number] 134 [id number] [facility] 2023-04-05 16:00:00 2023-04-05 16:00:00 [facility] 1.20.114 350.1.13.10 4.2.7.2.686 [id number] 134 [id number] [facility] 2023-04-05 16:00:00 2023-04-05 13:56:28 [id number] 2023-03-16 00:00:00 2023-03-16 00:00:00 Telephone [facility] 1.20.114 350.1.13.10 4.2.7.2.686 [id number] 134 [id number] [facility] 2023-03-16 00:00:00 2023-03-16 00:00:00 Telephone [facility] 1.2840.114 350.1.13.10 4.2.7.2.686 [id number] 134 [id number] [facility] 2023-03-14 00:00:00 2023-03-14 00:00:00 Case Management Marissa Sung [facility] 1.2.840.114 350.1.13.10 4.2.7.2.686 [id number] 134 [id number] [facility] 2023-03-10 08:45:00 2023-03-10 09:56:21 Finance Executive Visit 2, Adc Lab Adum, Rashmi Soto [facility] 1.2.840.114 350.1.13.10 4.2.7.2.686 [id number] 353 [id number] [facility] 2023-03-10 08:45:00 2023-03-10 08:45:00 Outpatient R LISA [facility] [id number] [facility] 2023-03-10 00:00:00 2023-03-10 00:00:00 Case Management Marissa Sung [facility] 1.2840.114 350.1.13.10 4.2.7.2.686 [id number] 134 [id number] [facility] 2023-03-10 00:00:00 2023-03-10 00:00:00 Orders Only Doctor Unassigned, Yarnell [facility] 1.2840.114 350.1.13.10 4.2.7.2.686 [id number] [facility] 2023-03-08 16:00:00 2023-03-08 16:28:26 Outpatient R LISA RASHMI [facility] [id number] [facility] 2023-03-08 16:00:00 2023-03-08 16:28:26 Routine Visit Rashmi Gonzalez [facility] 1.2.840.114 350.1.13.10 4.2.7.2.686 [id number] 134 [id number] [facility] 2023-02-17 10:00:00 2023-02-17 11:33:54 Outpatient R [facility] [id number] [facility] 2023-02-17 10:00:00 2023-02-17 10:30:00 Telemedici ne Visit Fellow, [facility] & [facility] .84.114 350.1.13.10 4.2.7.2.686 [id number] [facility] 2023-02-10 00:00:00 2023-02-10 00:00:00 Patient Secure Msg Doctor Unassigned, Yarnell [facility] 1.840.114 350.1.13.10 4.2.7.2.686 [id number] [facility] 2023-02-09 09:15:00 2023-02-09 09:15:00 Outpatient R [facility] [id number] [facility] 2023-02-08 00:00:00 2023-02-08 00:00:00 Case Management Admark Rashmi [facility] 1..840.114 350.1.13.10 4.2.7.2.686 [id number] 134 [id number] [facility] 2023-02-07 15:45:00 2023-02-07 16:00:00 Finance Executive Visit Pob, Adc Lab Main Lisa Rashmi Soto [facility] .840.114 350.1.13.10 4.2.7.2.686 [id number] [facility] 2023-02-07 14:30:00 2023-02-07 15:21:52 Outpatient R RASHMI GONZALEZ [facility] [id number] [facility] 2023-02-07 14:30:00 2023-02-07 15:21:52 Initial Visit AdumRashmi [facility] 1.840.114 350.1.13.10 4.2.7.2.686 [id number] 134 [id number] [facility] 2023-02-07 00:00:00 2023-02-07 00:00:00 Orders Only Doctor Unassigned, Yarnell [facility] 1.84.114 350.1.13.10 4.2.7.2.686 [id number] [facility] 2023-01-31 14:30:00 2023-01-31 14:30:00 Outpatient R ADMARK [facility] [id number] [facility] 2022-10-05 13:15:00 2022-10-05 13:15:00 Outpatient R ADUM [facility] [id number] [facility] 2022-09-21 11:15:00 2022-09-21 11:15:00 Outpatient R ADMARK [facility] [id number] [facility] 2022-09-20 00:00:00 2022-09-20 00:00:00 Case Management Adum, Rashmi Soto [facility] 1..840.114 350.1.13.10 4.2.7.2.686 [id number] 134 [id number] [facility] 2022-09-14 10:45:00 2022-09-16 08:40:00 Inpatient X HUITRON-TIMO S, MARISSA HUITRON-TIMO S MARISSA [facility] [id number] [facility] 2022-09-14 10:45:00 2022-09-16 08:40:00 Hospital Encounter Adum, Rashmi Soto Tim-Timo sUrszulaMarissa 1..840.1 53887.1.1 3.104.2.7 .3.223452 .8 [id number] [facility] 2022-09-15 04:00:00 2022-09-15 05:34:00 Surgery Rashmi Gonzalez [facility] 1.2.840.114 350.1.13.10 4.2.7.2.686 [id number] [id number] [facility] 2022-09-15 03:49:00 2022-09-15 04:47:00 Anesthesia Event Agusto Olsen 1.2.840.1 84763.1.1 3.104.2.7 .3.697919 .8 [id number] [facility] 2022-09-14 00:00:00 2022-09-14 00:00:00 Travel 1.2.840.1 70918.1.1 3.104.2.7 .3.478657 .8 1.2.840.114 350.1.13.10 4.2.7.3.698 084.8 [id number] [facility] 2022-09-02 00:00:00 2022-09-02 00:00:00 Telephone Mago Kerr 1.2.840.1 18088.1.1 3.104.2.7 .3.973526 .8 [id number] [facility] 2022-08-31 11:00:00 2022-08-31 11:00:00 Outpatient R RASHMI GONZALEZ [facility] [id number] [facility] 2022-08-31 00:00:00 2022-08-31 00:00:00 Telephone Mago Kerr 1.2.840.1 79531.1.1 3.104.2.7 .3.783749 .8 [id number] [facility] 2022-08-28 00:00:00 2022-08-28 00:00:00 Case Management Rashmi Gonzalez 1.2.840.1 06101.1.1 3.104.2.7 .3.079447 .8 [id number] [facility] 2022-08-25 11:15:00 2022-08-25 13:10:54 Finance Executive Visit Rashmi Gonzalez 2, Adc Lab 1.2.840.1 77220.1.1 3.104.2.7 .3.721032 .8 [id number] [facility] 2022-08-25 11:15:00 2022-08-25 11:15:00 Outpatient R RASHMI GONZALEZ [facility] [id number] [facility] 2022-08-25 00:00:00 2022-08-25 00:00:00 Orders Only Doctor Unassigned, Yarnell 1.2.840.1 19342.1.1 3.104.2.7 .3.951216 .8 [id number] [facility] 2022-08-25 00:00:00 2022-08-25 00:00:00 Travel 1.2.840.1 42803.1.1 3.104.2.7 .3.214961 .8 1.2.840.114 350.1.13.10 4.2.7.3.698 084.8 [id number] [facility] 2022-08-10 09:15:00 2022-08-10 09:15:00 Outpatient RASHMI ESCOBAR [facility] [id number] [facility] 2022-08-10 00:00:00 2022-08-10 00:00:00 Travel 1.2.840.1 33491.1.1 3.104.2.7 .3.910495 .8 1.2.840.114 350.1.13.10 4.2.7.3.698 084.8 [id number] [facility] 2022-08-04 00:00:00 2022-08-04 00:00:00 Telephone Rashmi Gonzalez 1.2.840.1 55936.1.1 3.104.2.7 .3.342424 .8 [id number] [facility] 2022-08-03 14:30:00 2022-08-03 15:51:53 Outpatient R RASHMI GONZALEZ [facility] [id number] [facility] 2022-08-03 14:30:00 2022-08-03 15:51:53 Routine Visit PhilipRashmi flores 1.2.840.1 25552.1.1 3.104.2.7 .3.820961 .8 [id number] [facility] 2022-08-03 13:00:00 2022-08-03 13:00:00 Outpatient R RASHMI GONZALEZ [facility] [id number] [facility] 2022-08-03 00:00:00 2022-08-03 00:00:00 Travel 1.2.840.1 68793.1.1 3.104.2.7 .3.325637 .8 1.2.840.114 350.1.13.10 4.2.7.3.698 084.8 [id number] [facility] 2022-07-13 10:00:00 2022-07-13 14:40:37 Finance Executive Visit PhilipRashmi flores 2, Adc Lab 1.2.840.1 01834.1.1 3.104.2.7 .3.660866 .8 [id number] [facility] 2022-07-13 10:00:00 2022-07-13 10:00:00 Outpatient R RASHMI GONZALEZ [facility] [id number] [facility] 2022-07-13 00:00:00 2022-07-13 00:00:00 Telephone AdRashmi flores 1.2.840.1 91192.1.1 3.104.2.7 .3.864057 .8 [id number] [facility] 2022-07-13 00:00:00 2022-07-13 00:00:00 Travel 1.2.840.1 77265.1.1 3.104.2.7 .3.945416 .8 1.2.840.114 350.1.13.10 4.2.7.3.698 084.8 [id number] [facility] 2022-07-07 00:00:00 2022-07-07 00:00:00 Case Management AdumRashmi Charles 1.2.840.1 82312.1.1 3.104.2.7 .3.420598 .8 [id number] [facility] 2022-07-06 00:00:00 2022-07-06 00:00:00 Telephone AdmarkRashmi Charles 1.2.840.1 41762.1.1 3.104.2.7 .3.979999 .8 [id number] [facility] 2022-07-06 00:00:00 2022-07-06 00:00:00 Telephone AdmarkRashmi Charles 1.2.840.1 63453.1.1 3.104.2.7 .3.695734 .8 [id number] [facility] 2022-07-05 15:45:00 2022-07-05 16:45:00 Ancillary Procedure AdmarkRashmi Charles 1.2.840.1 73469.1.1 3.104.2.7 .3.654178 .8 [id number] [facility] 2022-07-05 14:30:00 2022-07-05 15:35:33 Initial Visit Rashmi Gonzalez 1.2.840.1 44677.1.1 3.104.2.7 .3.051379 .8 [id number] [facility] 2022-07-05 14:30:00 2022-07-05 15:35:33 Outpatient R RASHMI GONZALEZ [facility] [id number] [facility] 2022-07-05 00:00:00 2022-07-05 00:00:00 Travel 1.2.840.1 82650.1.1 3.104.2.7 .3.926147 .8 1.2.840.114 350.1.13.10 4.2.7.3.698 084.8 [id number] [facility] 2022-07-05 00:00:00 2022-07-05 00:00:00 Orders Only Doctor Unassigned, Yarnell 1.2.840.1 34346.1.1 3.104.2.7 .3.440874 .8 [id number] [facility] 2021-10-05 14:27:00 2021-10-05 14:58:00 Emergency X LISA FLORES [facility] ERT [id number] [facility] 2021-10-05 14:27:00 2021-10-05 14:58:00 Emergency Lisa Flores [facility] 1.2.840.114 350.1.13.10 4.2.7.2.686 [id number] [id number] [facility] 2021-07-12 05:56:00 2021-07-12 11:35:00 Hospital Encounter Rashmi Gonzalez [facility] 1.2.840.114 350.1.13.10 4.2.7.2.686 [id number] [facility] 2021-07-12 05:56:00 2021-07-12 11:35:00 Outpatient P RASHMI GONZALEZ [facility] [id number] [facility] Results Test Description Test Time Test Comments Results Resul t Comments Source SCANNED LAB RESULTS 2024-03-23 7 16:55:31 Ordered by an unspecified provider. [facility] SCANNED LAB RESULTS 2024-03-23 1 15:03:31 Ordered by an unspecified provider. [facility] Central Neuraxial Block 2024-02-22 4 21:33:00 Domingo Garcia MD ? ? 03/15/2024 ?3:34 PM Central Neuraxial Block Date/Time: 03/15/2024 3:33 PM Performed by: Domingo Garcia MDAuthorized by: Meche Craft MD ?Patient Location: OREnd Time: 03/15/2024 3:33 PMReason for Block: OB request, Patient request and Surgical anesthesiaStaff: ?Anesthesiologist: Meche Craft MD ?Resident/BAG GRADER: Domingo Garcia MD ?Performed by: resident/CRNAPrean esthetic Checklist: patient identified, risks and benefits explained, monitors and equipment checked, timeout performed, pre-op evaluation, anesthesia consent, IV checked, surgical consent and site markedProcedure: ?Type of Neuraxial: Single Shot and Spinal ? Sterility Prep cap, gloves, gown, hand hygiene and mask ?Patient Position: sitting ?Prep: Betadine and patient draped ? ?Monitoring: heart rate, cardiac exercise physiologist / EKG, continuous pulse ox, heart rate / toco and NIBP ?Location: lumbar (1-5) ?Lumbar: L4-L5 ?Approach: midline ? ?Technique: single shot ?Guidance with: landmark technique}Epidural /Spinal Goshen and/or Catheter: ?Epidural/Spinal Kit: BBraun ?Needle Type: Karen ?Needle Gauge: 25 G ?Number of Attempts: 1Assessment: ?Sensory Level: above T10 ?Thoracic: T4 ?Block Outcome: patient comfortable, patient satisfied, patient tolerated procedure well and successful block ? ?Events: cerebrospinal fluid ?Procedure Assessment: patient tolerated procedure well with no complications [facility] with [id number] 16:55:18* Test Item Value Reference Range Interpretation Comme nts WBC (test code = 6690-2) 11.36 4.30-11.10 H RBC (test code = 789-8) 4.59 3.93-5.25 HGB (test code = 718-7) 12.5 g/dL 11.6-15.0 HCT (test code = 4544-3) 37.8 % 35.7-45.2 MCV (test code = 787-2) 82.4 fL 80.6-95.5 MCH (test code = 785-6) 27.2 pg 25.9-32.8 MCHC (test code = 786-4) 33.1 g/dL 31.6-35.1 RDW-SD (test code = 80805-3) 41.9 fL 39.0-49.9 RDW-CV (test code = 788-0) 14.1 % 12.0-15.5 PLT (test code = 777-3) 308 166-358 MPV (test code = 52876-5) 9.5 fL 9.5-12.9 NRBC/100 WBC (test code = 0062177884) 0.0 0.0-10.0 NRBC x10^3 (test code = 1704279398) See_Comment [Automated messa ge] The system which generated this result transmitted reference range: 10*3/?L. The reference range was not used to interpret this result as normal/abnormal. GRAN MAT (NEUT) % (test code = 770-8) 74.1 % IMM GRAN % (test code = 3514717491) 0.40 % LYMPH % (test code = 736-9) 17.8 % MONO % (test code = 5905-5) 5.4 % EOS % (test code = 713-8) 1.9 % BASO % (test code = 706-2) 0.4 % GRAN MAT x10^3(ANC) (test code = 1116893496) 8.42 10*3/uL 1.88-7.09 H IMM GRAN x10^3 (test code = 0697427225) 0.04 10*3/uL 0.00-0.06 LYMPH x10^3 (test code = 731-0) 2.02 10*3/uL 1.32-3.29 MONO x10^3 (test code = 742-7) 0.61 10*3/uL 0.33-0.92 EOS x10^3 (test code = 711-2) 0.22 10*3/uL 0.03-0.39 BASO x10^3 (test code = 704-7) 0.05 10*3/uL 0.01-0.07 Lab Interpretation (test code = 79947-7) [facility] [id number] 16:45:00* Test Item Value Reference Range Interpretation Comme nts ABO & RH (test code = 20) B POSITIVE IAT (test code = 1185) Negative [facility] STAT [id number] 16:45:00* Test Item Value Reference Range Interpretation Comme nts ABO & RH (test code = 20) B POSITIVE IAT (test code = 1185) Negative [facility] Urinalysis w/o Specific [id number] 17:26:00* Test Item Value Reference Range Interpretation Comme [...] = 3257) n/a Negative - Negati ve [facility] CenterPOFL [id number] 21:14:00* Test Item Value Reference Range Interpretation Comme nts POCT PREG (test code = 1605) Positive On board controls acceptable with C Line (test code = 3574) Yes POCT PREG LOT # (test code = 3575) POCT PREG TEST DATE ( test code = 3576) [facility] Urinalysis w/o Specific [id number] 21:13:00* Test Item Value Reference Range Interpretation Comme nts POCT PH U (test code = 3254) n/a 5-8 POCT U LEUK EST (test code = 3263) n/a Negative - N egative POCT U NIT (test code = 3262) n/a Negative - Negati ve POCT U PROT (test code = 3259) trace Negative - Negat primitivo POCT U GLU (test code = 3256) normal Negative - Negati ve POCT U KETONE (test code = 3258) n/a Negative - Neg ative POCT U BLD (test code = 3257) n/a Negative - Negati ve [facility] WITH [id number] 04:01:05* Test Item Value Reference Range Interpretation Comme nts WBC (test code = 6690-2) 25.45 4.30-11.10 H RBC (test code = 789-8) 4.62 3.93-5.25 HGB (test code = 718-7) 11.4 g/dL 11.6-15.0 L HCT (test code = 4544-3) 36.4 % 35.7-45.2 MCV (test code = 787-2) 78.8 fL 80.6-95.5 L MCH (test code = 785-6) 24.7 pg 25.9-32.8 L MCHC (test code = 786-4) 31.3 g/dL 31.6-35.1 L RDW-SD (test code = 30615-6) 63.9 fL 39.0-49.9 H RDW-CV (test code = 788-0) 23.4 % 12.0-15.5 H PLT (test code = 777-3) 381 166-358 H MPV (test code = 22226-7) 9.4 fL 9.5-12.9 L NRBC/100 WBC (test code = 2181621739) 0.0 0.0-10.0 NRBC x10^3 (test code = 7830093446) See_Comment [Automated message] The system which generated this result transmitted reference range: 10*3/?L. The reference range was not used to interpret this result as normal/abnormal. GRAN MAT (NEUT) % (test code = 770-8) 88.0 % IMM GRAN % (test code = 7678441257) 1.20 % LYMPH % (test code = 736-9) 3.1 % MONO % (test code = 5905-5) 7.5 % EOS % (test code = 713-8) 0.0 % BASO % (test code = 706-2) 0.2 % GRAN MAT x10^3(ANC) (test code = 0998035284) 22.39 10*3/uL 1.88-7.09 H IMM GRAN x10^3 (test code = 2020276752) 0.31 10*3/uL 0.00-0.06 H LYMPH x10^3 (test code = 731-0) 0.79 10*3/uL 1.32-3.29 L MONO x10^3 (test code = 742-7) 1.90 10*3/uL 0.33-0.92 H EOS x10^3 (test code = 711-2) 0.03-0.39 L BASO x10^3 (test code = 704-7) 0.05 10*3/uL 0.01-0.07 Lab Interpretation (test code = 42524-7) Abnormal [facility] CenterCOMP[facility]ABOLIC PANEL (20741)2023-08-22 03:34:21* Test Item Value Reference Range Interpretation Comme nts NA (test code = 4846545027) 135 mmol/L 135-145 K (test code = 7477985115) 3.4 mmol/L 3.5-5.0 L CL (test code = 8658993506) 102 mmol/L 98-108 CO2 TOTAL (test code = 9916382207) 20 mmol/L 23-31 L AGAP (test code = 1895364175) 13 2-16 BUN (test code = 4529984973) 18 mg/dL 7-23 GLUCOSE (test code = 2813997203) 134 mg/dL 70-110 H CREATININE (test code = 2160-0) 0.80 mg/dL 0.50-1.04 TOTAL BILI (test code = 8001814266) 0.7 mg/dL 0.1-1.1 CALCIUM (test code = 6452618984) 9.0 mg/dL 8.6-10.6 T PROTEIN (test code = 1039207031) 7.7 g/dL 6.3-8.2 ALBUMIN (test code = 8643874476) 4.0 g/dL 3.5-5.0 ALK PHOS (test code = 4803749059) 113 U/L 34-122 ALTv (test code = 1742-6) 48 U/L 5-35 H AST(SGOT) (test code = 7766737265) 26 U/L 13-40 eGFR (test code = 86508-5) 103.1 mL/min/1.73m2 CKD-EPI eGFR (2020). Assuming creatinine has been stable day-to-day for at least three months, the eGFR indicates Category G1 (>= 90 mL/min/1.73 m2) Lab Interpretation (test code = 22676-3) Abnormal [facility] CenterRHO (D) IMMUNE [id number] 01:58:12* Test Item Value Reference Range Interpretation Comme nts RHIG CANDIDATE? (test code = 5188) No- see comment Patient is not a candidate for RhIg- Patient is Rh Positive.Performed at [facility] Laboratory Services - [facility] Blood [address] [place] [address] 23504Xkvp Free: [phone] No. [id number] [facility] CenterArterial Cord Eaf7137-76-97 00:49:43* Test Item Value Reference Range Interpretation Comme [facility] BASE EXCESS, CORD (test code = 5390168822) -0.2 mEq/L QUES AC PH, CORD (BEAKER) (test c ode = 6110328612) 7.27 7.18-7.38 PC02, CORD (test code = 0913439414) 63 32-66 PO2, CORD (test code = 5556350984) 12 10-30 BICARBONATE, CORD (test code = 7990574761) 28 17-27 H Lab Interpretation (test cod e = 81078-7) Abnormal [facility] CenterVenous Cord [id number] 00:47:07* Test Item Value Reference Range Interpretation Comme [facility] VENOUS BASE EXCESS, CORD (te st code = 2655610344) 1.3 mEq/L VENOUS PH, CORD (test code = 4986612753) 7.43 7.25-7.45 VENOUS PC02, CORD (test code = 4954021742) 40 27-49 VENOUS PO2, CORD (test code = 8297725593) 44 17-41 H VENOUS BICARBONATE, CORD (te st code = 6844423376) 26 12-29 Lab Interpretation (test cod e = 84917-4) Abnormal [facility] CenterPO[facility] GLU[facility]SE (AUTOMATED)2023-08-13 21:59:06* Test Item Value Reference Range Interpretation Comme [facility] POCT GLU (test code = 2381991679) 81 mg/dL 70-110 Lab Interpretation (test cod e = 82933-7) Normal [facility] [id number] 21:28:00 Domingo Munoz MD ? ? 08/13/2023 ?4:30 PM Central Neuraxial Block Date/Time: 08/13/2023 4:28PM Performed by: Domingo Munoz [facility] SYSTEMuthorized by: Meche Craft MD ?Patient Location: OBReason for Block: OB request, Patient request, Labor analgesia, Surgical anesthesia and Post-op pain managementStaff: ?Anesthesiologist: Meche Craft MD ?Resident/BAG GRADER: Domingo Munoz MD ?Performed by: resident/CRNAPreanesthetic Checklist: patient identified, IV checked, risks and benefits explained, monitors and equipment checked, timeout performed, pre-op evaluation, site marked and anesthesia consentProcedure: ?Type of Neuraxial: Epidural ?Epidural Description: 1st attempt ? Sterility Prep cap, drape, gloves, hand hygiene and mask ? ?Sedation Level no sedation ?Patient Position: sitting ?Prep: Betadine and patient draped ? ?Monitoring: heart rate, continuous pulse ox, heartrate / toco and NIBP ?Location: lumbar (1-5) ?Lumbar: L3-L4 ?Approach: midline ? ?Technique: catheter and SHI saline ?Guidance with: landmark technique}Epidural/Spinal Gos[place] and/or Catheter: ?Needle Type: Tuohy ?Needle Gauge: 17 G ?Needle Length: 3.5 in (8.89 cm) ?Needle Insertion Depth: 6 ?Catheter Type: multiport ? ?Catheter Size: 19 G ? ?Catheter at Skin Depth: 12 ?Number of Attempts: 1 ?Test Dose: lidocaine 1.5% with epinephrine 1-to-200,000 ? ?Dose: 3 cc ? ?Catheter Securement Method: surgical tape, Tegaderm and liquid medical adhesiveAssessment: ?Block Outcome: a full evaluation is pending and patient tolerated procedure well ? ?Procedure Assessment: patient tolerated procedure wellwith no complicationsNotes: ? Smooth and atraumatic, (+) Local, (+) [facility]2023-08-13 17:13:55* Test Item Value Reference Range Interpretation Comme nts POCT GLU (test code = 8175102633) 91 mg/dL 70-110 Lab Interpretation (test cod e = 55281-9) Normal [facility] GLUCOSE (AUTOMATED)2023-08-13 13:44:37* Test Item Value Reference Range Interpretation Comme nts POCT GLU (test code = 3617907238) 99 mg/dL 70-110 Lab Interpretation (test cod e = 71829-3) Normal [facility] GLUCOSE (AUTOMATED)2023-08-13 00:47:54* Test Item Value Reference Range Interpretation Comme nts POCT GLU (test code = 6138568839) 164 mg/dL 70-110 H Lab Interpretation (test cod e = 26387-9) Abnormal [facility] GLUCOSE (AUTOMATED)2023-08-12 20:19:50* Test Item Value Reference Range Interpretation Comme nts POCT GLU (test code = 5294180818) 96 mg/dL 70-110 Lab Interpretation (test cod e = 37850-7) Normal [facility] GLUCOSE (AUTOMATED)2023-08-12 17:25:57* Test Item Value Reference Range Interpretation Comme nts POCT GLU (test code = 1252417693) 111 mg/dL 70-110 H Lab Interpretation (test cod e = 71690-5) Abnormal [facility] GLUCOSE (AUTOMATED)2023-08-12 12:59:51* Test Item Value Reference Range Interpretation Comme nts POCT GLU (test code = 9565200951) 125 mg/dL 70-110 H Lab Interpretation (test cod e = 51869-0) Abnormal [facility] CenterIron [id number] 01:54:45* Test Item Value Reference Range Interpretation Comme nts IRON (test code = 5151813358) 37 ug/dL 50-160 L TIBC (test code = 6767939375) 546 ug/dL 250-410 H % FE SAT (test code = 0428829461) 7 % 20-50 L Lab Interpretation (test cod e = 59132-0) Abnormal [facility] CenterFerritin [id number] 23:24:30* Test Item Value Reference Range Interpretation Comme nts FERRITIN (test code = 9208338536) 13.9 ng/mL 6.0-137.0 KANE (test code = KANE) Biotin has been reported to cause a negative bias, interpret results relative to patient's use of biotin. Lab Interpretation (test code = 46340-7) Normal [facility] CenterRubella Screen (ALEC) [id number] 15:00:41 * Test Item Value Reference Range Interpretation Comme nts Rubella screen IgG (test code = 4130120643) Negative Negative KANE (test code = KANE) Positive - Indicat es the patient was exposed to Rubella through infection or vaccination.Negative - Indicates the patient could be susceptible to Rubella infection.Equivocal - A second specimen should be sent. [facility] GLUCOSE (AUTOMATED)2023-08-10 13:31:59* Test Item Value Reference Range Interpretation Comme nts POCT GLU (test code = 2044870878) 112 mg/dL 70-110 H Lab Interpretation (test cod e = 37456-2) Abnormal [facility] CenterType and Screen - ONCE [id number] 10:03:00* Test Item Value Reference Range Interpretation Comme nts ABO & RH (test code = 20) B POSITIVE IAT (test code = 1185) Negative [facility] GLUCOSE (AUTOMATED)2023-08-10 09:53:36* Test Item Value Reference Range Interpretation Comme nts POCT GLU (test code = 0478330976) 102 mg/dL 70-110 Lab Interpretation (test cod e = 95515-4) [facility] - [id number] 06:13:08* Test Item Value Reference Range Interpretation Comme nts RPR (Qualitative) (test code = 16185-3) Nonreactive Nonreactive Lab Interpretation (test cod e = 38752-7) [facility] [id number] 02:29:40 * Test Item Value Reference Range Interpretation Comme nts HBsAg Semi-Quantitative (chinedu t code = 5195-3) 0.07 Negative [facility] GLUCOSE (AUTOMATED)2023-08-10 01:03:21* Test Item Value Reference Range Interpretation Comme nts POCT GLU (test code = 0789128315) 107 mg/dL 70-110 Lab Interpretation (test cod e = 71410-8) [facility] 14 [id number] 22:13:01History: MICHELLE and growth and presentation . Exam: US PELVIS > 14 WEEKS Date: 08/09/2023 3:45 PM Ordering provider: MESFIN ELIZALDE Technique: OB ultrasound is performed via the transabdominalapproach.Images are permanently saved in the patient's medical records. Technical quality: Evaluation is limited by body habitus. Comparison: Pelvic ultrasound from 09/14/2022. Findings: There is a single viable IUP in cephalic position. Heart rate isshown at 140 and 144 bpm. The placenta is fundal.The MICHELLE measures 12.1 cm.The area of the cervix is not well visualized. The following measurements are made: BPD: 8.6 cm, 34 weeks 6 daysHC: 29.0 cm, 32 weeks 0 daysAC: 30.5 cm, 34 weeks 3 daysFL: 6.2 cm, 32 weeks 1 day EGA: 33 weeks 3 daysEFW: 2217 g (4 lbs. 14 oz.)FLEX: [facility] [id number] 21:21:10* Test Item Value Reference Range Interpretation Comme nts WBC (test code = 6690-2) 9.15 4.30-11.10 RBC (test code = 789-8) 3.29 3.93-5.25 L HGB (test code = 718-7) 8.2 g/dL 11.6-15.0 L HCT (test code = 4544-3) 26.3 % 35.7-45.2 L MCV (test code = 787-2) 79.9 fL 80.6-95.5 L MCH (test code = 785-6) 24.9 pg 25.9-32.8 L MCHC (test code = 786-4) 31.2 g/dL 31.6-35.1 L RDW-SD (test code = 54706-5) 66.1 fL 39.0-49.9 H RDW-CV (test code = 788-0) 23.6 % 12.0-15.5 H PLT (test code = 777-3) 238 166-358 MPV (test code = 69278-7) 10.2 fL 9.5-12.9 NRBC/100 WBC (test code = 9044511707) 0.0 0.0-10.0 NRBC x10^3 (test code = 1732223507) See_Comment [Automated messa ge] The system which generated this result transmitted reference range: 10*3/?L. The reference range was not used to interpret this result as normal/abnormal. GRAN MAT (NEUT) % (test code = 770-8) 75.1 % IMM GRAN % (test code = 9249241373) 0.90 % LYMPH % (test code = 736-9) 12.6 % MONO % (test code = 5905-5) 10.2 % EOS % (test code = 713-8) 1.0 % BASO % (test code = 706-2) 0.2 % GRAN MAT x10^3(ANC) (test code = 4802665127) 6.88 10*3/uL 1.88-7.09 IMM GRAN x10^3 (test code = 5514455994) 0.08 10*3/uL 0.00-0.06 H LYMPH x10^3 (test code = 731-0) 1.15 10*3/uL 1.32-3.29 L MONO x10^3 (test code = 742-7) 0.93 10*3/uL 0.33-0.92 H EOS x10^3 (test code = 711-2) 0.09 10*3/uL 0.03-0.39 BASO x10^3 (test code = 704-7) 0.01-0.07 Lab Interpretation (test code = 72490-5) [facility] [id number] 21:13:00 * Test Item Value Reference Range Interpretation Comme nts ABO & RH (test code = 20) B POSITIVE IAT (test code = 1185) Negative [facility] GLUCOSE (AUTOMATED)2023-08-09 18:42:09* Test Item Value Reference Range Interpretation Comme nts POCT GLU (test code = 9797852614) 105 mg/dL 70-110 Lab Interpretation (test cod e = 16567-7) Normal [facility] Urinalysis w/o Specific [id number] 18:04:00* Test Item Value Reference Range Interpretation Comme nts POCT PH U (test code = 3254) N/A 5-8 POCT U LEUK EST (test code = 3263) N/A Negative - Negative POCT U NIT (test code = 3262) N/A Negative - Negati ve POCT U PROT (test code = 3259) TRACE Negative - Negat primitivo POCT U GLU (test code = 3256) POSITIVE Negative - Negati ve POCT U KETONE (test code = 3258) N/A Negative - Neg ative POCT U BLD (test code = 3257) N/A Negative - Negati ve [facility] Urinalysis w/o Specific [id number] 20:07:00* Test Item Value Reference Range Interpretation Comme nts POCT PH U (test code = 3254) n/a 5-8 POCT U LEUK EST (test code = 3263) n/a Negative - Negative POCT U NIT (test code = 3262) n/a Negative - Negati ve POCT U PROT (test code = 3259) positive Negative - Negat primitivo POCT U GLU (test code = 3256) positive Negative - Negati ve POCT U KETONE (test code = 3258) n/a Negative - Neg ative POCT U BLD (test code = 3257) n/a Negative - Negati ve [facility] GLUCOSE (AUTOMATED)2023-07-21 20:02:01* Test Item Value Reference Range Interpretation Comme nts POCT GLU (test code = 7909450449) 115 mg/dL 70-110 H Lab Interpretation (test cod e = 03857-5) Abnormal [facility] RETROPERITONEAL [id number] 17:10:22 EXAM: US RETROPERITONEAL COMPLETE HISTORY: Right side CVA pain r/o renal stone. Hx of recurrent UT,Patient iscurrently being treated for suspected pyelonephritis COMPARISON: None FINDINGS: The rightkidney measures 12.6 x 7.4 x 6.8 cm. The left kidney fwvsrobr57.9 x 6.6 x 5.7 cm. There is mild right hydronephrosis. No mass or calculus is seen. The renalparenchymal echogenicity is normal. Partially visualized intrauterine gestation. The bladder is grosslyunremarkable.[facility] GLUCOSE (AUTOMATED) 2023-07-21 16:33:24* Test Item Value Reference Range Interpretation Comme nts POCT GLU (test code = 7506603416) 142 mg/dL 70-110 H Lab Interpretation (test cod e = 29244-9) Abnormal [facility] GLUCOSE (AUTOMATED)2023-07-21 10:54:43* Test Item Value Reference Range Interpretation Comme nts POCT GLU (test code = 7171404738) 92 mg/dL 70-110 Lab Interpretation (test cod e = 15456-6) Normal [facility] GLUCOSE (AUTOMATED)2023-07-21 03:30:06* Test Item Value Reference Range Interpretation Comme nts POCT GLU (test code = 9006876292) 96 mg/dL 70-110 Lab Interpretation (test cod e = 33041-6) Normal [facility] GLUCOSE (AUTOMATED)2023-07-21 00:30:26* Test Item Value Reference Range Interpretation Comme nts POCT GLU (test code = 4587700931) 107 mg/dL 70-110 Lab Interpretation (test cod e = 95545-6) Normal [facility] METABOLIC PANEL (NA, K, CL, CO2, GLUCOSE, BUN, CREATININE, CA)2023-07-20 21:31:40* Test Item Value Reference Range Interpretation Comme nts NA (test code = 3904461420) 136 mmol/L 135-145 K (test code = 1892101801) 3.8 mmol/L 3.5-5.0 CL (test code = 1516692759) 108 mmol/L 98-108 CO2 TOTAL (test code = 5838280281) 24 mmol/L 23-31 AGAP (test code = 4032127263) 4 2-16 BUN (test code = 6225100336) 7 mg/dL 7-23 GLUCOSE (test code = 9617647900) 77 mg/dL 70-110 CREATININE (test code = 2160-0) 0.43 mg/dL 0.50-1.04 L CALCIUM (test code = 4245573921) 9.5 mg/dL 8.6-10.6 eGFR (test code = 47341-2) 136.1 mL/min/1.73m2 CKD-EPI eGFR (2020). Assuming creatinine has been stable day-to-day for at least three months, the eGFR indicates Category G1 (>= 90 mL/min/1.73 m2) Lab Interpretation (test code = 48103-2) Abnormal [facility] WITH [id number] 20:48:15* Test Item Value Reference Range Interpretation Comme nts WBC (test code = 6690-2) 10.69 4.30-11.10 RBC (test code = 789-8) 4.23 3.93-5.25 HGB (test code = 718-7) 9.9 g/dL 11.6-15.0 L HCT (test code = 4544-3) 32.4 % 35.7-45.2 L MCV (test code = 787-2) 76.6 fL 80.6-95.5 L MCH (test code = 785-6) 23.4 pg 25.9-32.8 L MCHC (test code = 786-4) 30.6 g/dL 31.6-35.1 L RDW-SD (test code = 13873-6) 61.5 fL 39.0-49.9 H RDW-CV (test code = 788-0) 23.5 % 12.0-15.5 H PLT (test code = 777-3) 358 166-358 MPV (test code = 74807-2) 9.4 fL 9.5-12.9 L NRBC/100 WBC (test code = 4637518220) 0.0 0.0-10.0 NRBC x10^3 (test code = 8583624824) See_Comment [Automated messa ge] The system which generated this result transmitted reference range: 10*3/?L. The reference range was not used to interpret this result as normal/abnormal. GRAN MAT (NEUT) % (test code = 770-8) 78.3 % IMM GRAN % (test code = 6497300293) 1.10 % LYMPH % (test code = 736-9) 11.4 % MONO % (test code = 5905-5) 7.3 % EOS % (test code = 713-8) 1.5 % BASO % (test code = 706-2) 0.4 % GRAN MAT x10^3(ANC) (test code = 5114158077) 8.37 10*3/uL 1.88-7.09 H IMM GRAN x10^3 (test code = 2457201584) 0.12 10*3/uL 0.00-0.06 H LYMPH x10^3 (test code = 731-0) 1.22 10*3/uL 1.32-3.29 L MONO x10^3 (test code = 742-7) 0.78 10*3/uL 0.33-0.92 EOS x10^3 (test code = 711-2) 0.16 10*3/uL 0.03-0.39 BASO x10^3 (test code = 704-7) 0.04 10*3/uL 0.01-0.07 Lab Interpretation (test code = 71308-9) [facility]-20 19:58:57* Test Item Value Reference Range Interpretation Comme [facility] POCT GLU (test code = 7896443964) 88 mg/dL 70-110 Lab Interpretation (test cod e = 56746-4) Normal [facility] CenterGlycosylated Hemoglobin (A1C)2023-06-30 16:07:41* Test Item Value Reference Range Interpretation Comme nts HGB A1C (test code = 4548-4) 5.8 % 4.0-5.7 H KANE (test code = KANE) Reference RangesNormal: <5.7%Prediabetes: 5.7 - 6.4%Diabetes: > 6.5% Lab Interpretation (test code = 07173-2) Abnormal [facility] CenterAD or Margarita Only - [id number] 06:33:39* Test Item Value Reference Range Interpretation Comme nts RPR (Qualitative) (test code = 21169-6) Nonreactive Nonreactive Lab Interpretation (test cod e = 78431-7) Normal [facility] CenterHIV 1/2 Ag-Ab with [id number] 18:08:40* Test Item Value Reference Range Interpretation Comme nts HIV Semi-quantitative (test code = 00084-8) 0.10 Negative KANE (test code = KANE) Non-reactive for HIV-1 antigen and HIV-1/HIV-2 antibodies. ?No laboratory evidence of HIV infection. ?Repeat in 2-4 weeks if acute HIV infection is suspected. [facility] CenterGlucose 1 Hour Post [id number] 17:02:48* Test Item Value Reference Range Interpretation Comme nts GLUC 1 HR (test code = 5738408642) 141 mg/dL 120-170 Lab Interpretation (test cod e = 64294-1) Normal [facility] with Evcn4283-04-12 16:47:29* Test Item Value Reference Range Interpretation Comme nts WBC (test code = 6690-2) 9.74 4.30-11.10 RBC (test code = 789-8) 4.14 3.93-5.25 HGB (test code = 718-7) 9.1 g/dL 11.6-15.0 L HCT (test code = 4544-3) 30.6 % 35.7-45.2 L MCV (test code = 787-2) 73.9 fL 80.6-95.5 L MCH (test code = 785-6) 22.0 pg 25.9-32.8 L MCHC (test code = 786-4) 29.7 g/dL 31.6-35.1 L RDW-SD (test code = 57286-3) 43.0 fL 39.0-49.9 RDW-CV (test code = 788-0) 16.4 % 12.0-15.5 H PLT (test code = 777-3) 383 166-358 H MPV (test code = 24289-1) 9.5 fL 9.5-12.9 NRBC/100 WBC (test code = 7338629147) 0.0 0.0-10.0 NRBC x10^3 (test code = 0135281933) See_Comment [Automated messa ge] The system which generated this result transmitted reference range: 10*3/?L. The reference range was not used to interpret this result as normal/abnormal. GRAN MAT (NEUT) % (test code = 770-8) 79.1 % IMM GRAN % (test code = 2885507420) 1.30 % LYMPH % (test code = 736-9) 13.8 % MONO % (test code = 5905-5) 3.8 % EOS % (test code = 713-8) 1.6 % BASO % (test code = 706-2) 0.4 % GRAN MAT x10^3(ANC) (test code = 5843974658) 7.70 10*3/uL 1.88-7.09 H IMM GRAN x10^3 (test code = 9243189925) 0.13 10*3/uL 0.00-0.06 H LYMPH x10^3 (test code = 731-0) 1.34 10*3/uL 1.32-3.29 MONO x10^3 (test code = 742-7) 0.37 10*3/uL 0.33-0.92 EOS x10^3 (test code = 711-2) 0.16 10*3/uL 0.03-0.39 BASO x10^3 (test code = 704-7) 0.04 10*3/uL 0.01-0.07 Lab Interpretation (test code = 06266-1) Abnormal [facility] CenterP[facility] Workup, Blood Yqbt6316-46-41 16:05:00 * Test Item Value Reference Range Interpretation Comme nts ABO & RH (test code = 20) B POSITIVE IAT (test code = 1185) Negative [facility] CenterPO[facility] Urinalysis w/o Specific Zbafmwf3924-62-37 19:56:00* Test Item Value Reference Range Interpretation Comme nts POCT PH U (test code = 3254) n/a 5-8 POCT U LEUK EST (test code = 3263) n/a Negative - Negative POCT U NIT (test code = 3262) n/a Negative - Negati ve POCT U PROT (test code = 3259) negative Negative - Negat primitivo POCT U GLU (test code = 3256) positive Negative - Negati ve POCT U KETONE (test code = 3258) n/a Negative - Neg ative POCT U BLD (test code = 3257) n/a Negative - Negati ve [facility] Urinalysis w/o Specific Eangtfe0791-68-45 20:47:00* Test Item Value Reference Range Interpretation [...] = 3257) n/a Negative - Negati ve [facility] Urinalysis w/o Specific Wgsjxre7373-26-25 20:47:00* Test Item Value Reference Range Interpretation [...] = 3257) n/a Negative - Negati ve [facility] Urinalysis w/o Specific Fgofhzl9239-03-24 19:24:00* Test Item Value Reference Range Interpretation [...] = 3257) Trace Negative - Negati ve [facility] Urinalysis w/o Specific Aydprum9234-66-30 21:58:00* Test Item Value Reference Range Interpretation [...] = 3257) n/a Negative - Negati ve [facility] Urinalysis w/o Specific [id number] 20:23:00* Test Item Value Reference Range Interpretation [...] = 3257) n/a Negative - Negati ve [facility] Pbra7521-10-80 20:23:00* Test Item Value Reference Range Interpretation Comme nts POCT PREG (test code = 1605) Positive On board controls acceptable with C Line (test code = 3574) No POCT PREG LOT # (test code = 3575) POCT PREG TEST DATE ( test code = 3576) [facility] WITH [id number] 17:50:19* Test Item Value Reference Range Interpretation [...] 33.2 g/dL 31.6-35.1 RDW-SD (test code = 68412-6) 41.8 fL 39.0-49.9 RDW-CV (test code = 788-0) 13.4 % 12.0-15.5 PLT (test code = 777-3) 264 See_Comment [Automated message] The system which generated this result transmitted reference range: 166 - 358 10*3/?L. The reference range was not used to interpret this result as normal/abnormal. MPV (test code = 21583-8) 9.7 fL 9.5-12.9 NRBC/100 WBC (test code = 9030966263) 0.0 See_Comment [Automated message] The system which generated this result transmitted reference range: 0.0 - 10.0 /100 WBCs. The reference range was not used to interpret this result as normal/abnormal. NRBC x10^3 (test code = 6924464055) See_Comment [Automated message] The system which generated this result transmitted reference range: 10*3/?L. The reference range was not used to interpret this result as normal/abnormal. GRAN MAT (NEUT) % (test code = 770-8) 83.0 % IMM GRAN % (test code = 5850264962) 0.60 % LYMPH % (test code = 736-9) 8.5 % MONO % (test code = 5905-5) 7.5 % EOS % (test code = 713-8) 0.1 % BASO % (test code = 706-2) 0.3 % GRAN MAT x10^3(ANC) (test code = 7517277010) 14.25 10*3/uL 1.88-7.09 H IMM GRAN x10^3 (test code = 2258616831) 0.10 10*3/uL 0.00-0.06 H LYMPH x10^3 (test code = 731-0) 1.45 10*3/uL 1.32-3.29 MONO x10^3 (test code = 742-7) 1.28 10*3/uL 0.33-0.92 H EOS x10^3 (test code = 711-2) 0.03-0.39 L BASO x10^3 (test code = 704-7) 0.05 10*3/uL 0.01-0.07 Lab Interpretation (test code = 94088-7) Abnormal [facility] WITH [id number] 17:50:19* Test Item Value Reference Range Interpretation [...] 33.2 g/dL 31.6-35.1 RDW-SD (test code = 28016-0) 41.8 fL 39.0-49.9 RDW-CV (test code = 788-0) 13.4 % 12.0-15.5 PLT (test code = 777-3) 264 See_Comment [Automated message] The system which generated this result transmitted reference range: 166 - 358 10*3/?L. The reference range was not used to interpret this result as normal/abnormal. MPV (test code = 80841-6) 9.7 fL 9.5-12.9 NRBC/100 WBC (test code = 4934845165) 0.0 See_Comment [Automated message] The system which generated this result transmitted reference range: 0.0 - 10.0 /100 WBCs. The reference range was not used to interpret this result as normal/abnormal. NRBC x10^3 (test code = 0100029188) See_Comment [Automated message] The system which generated this result transmitted reference range: 10*3/?L. The reference range was not used to interpret this result as normal/abnormal. GRAN MAT (NEUT) % (test code = 770-8) 83.0 % IMM GRAN % (test code = 4245377064) 0.60 % LYMPH % (test code = 736-9) 8.5 % MONO % (test code = 5905-5) 7.5 % EOS % (test code = 713-8) 0.1 % BASO % (test code = 706-2) 0.3 % GRAN MAT x10^3(ANC) (test code = 9051040749) 14.25 10*3/uL 1.88-7.09 H IMM GRAN x10^3 (test code = 6084941050) 0.10 10*3/uL 0.00-0.06 H LYMPH x10^3 (test code = 731-0) 1.45 10*3/uL 1.32-3.29 MONO x10^3 (test code = 742-7) 1.28 10*3/uL 0.33-0.92 H EOS x10^3 (test code = 711-2) 0.03-0.39 L BASO x10^3 (test code = 704-7) 0.05 10*3/uL 0.01-0.07 Lab Interpretation (test code = 32176-6) [facility]normal [facility] STAT [id number] 17:44:00* Test Item Value Reference Range Interpretation Comme nts ABO & RH (test code = 20) B Positive IAT (test code = 1185) Negative [facility] and Screen - STAT [id number] 17:44:00* Test Item Value Reference Range Interpretation Comme nts ABO & RH (test code = 20) B Positive IAT (test code = 1185) Negative [facility] and Screen - STAT [id number] 17:44:00* Test Item Value Reference Range Interpretation Comme nts ABO & RH (test code = 20) B Positive IAT (test code = 1185) Negative [facility] URINALYSIS W/O SPECIFIC [id number] 20:19:00* Test Item Value Reference Range Interpretation [...] = 3257) Negative Negative - Negati ve [facility] URINALYSIS W/O SPECIFIC [id number] 20:19:00* Test Item Value Reference Range Interpretation [...] = 3257) Negative Negative - Negati ve [facility] URINALYSIS W/O SPECIFIC [id number] 20:22:00* Test Item Value Reference Range Interpretation [...] = 3257) n/a Negative - Negati ve [facility]IN[facility] W/O SPECIFIC [id number] 20:22:00* Test Item Value Reference Range Interpretation [...] = 3257) n/a Negative - Negati ve [facility] CenterPOFL [id number] 20:21:00* Test Item Value Reference Range Interpretation Comme nts POCT PREG (test code = 1605) Positive On board controls acceptable with C Line (test code = 3574) Yes POCT PREG LOT # (test code = 3575) POCT PREG TEST DATE ( test code = 3576) [facility] [id number] 20:21:00* Test Item Value Reference Range Interpretation Comme nts POCT PREG (test code = 1605) Positive On board controls acceptable with C Line (test code = 3574) Yes POCT PREG LOT # (test code = 3575) POCT PREG TEST DATE ( test code = 3576) [facility] CenterPO[facility] [id number] 20:21:00* Test Item Value Reference Range Interpretation Comme nts POCT PREG (test code = 1605) Positive On board controls acceptable with C Line (test code = 3574) Yes POCT PREG LOT # (test code = 3575) POCT PREG TEST DATE ( test code = 3576) [facility] Center[facility] FOR VOLUNTARY RESEARCH 2022-07-05 19:17:38* Test Item Value Reference Range Interpretation Comme nts Consent To Contact For [employer] (test code = 4947) Yes [facility] WITH [id number] 14:32:29* Test Item Value Reference Range Interpretation [...] g/dL 31.6-35.1 L RDW-SD (test code = 53865-7) 39.6 fL 39.0-49.9 RDW-CV (test code = 788-0) 13.1 % 12.0-15.5 PLT (test code = 777-3) See_Comment [Automated message] The system which generated this result transmitted reference range: 166 - 358 10*3/?L. The reference range was not used to interpret this result as normal/abnormal. MPV (test code = 33901-0) 9.7 fL 9.5-12.9 NRBC/100 WBC (test code = 2770053006) See_Comment [Automated message] The system which generated this result transmitted reference range: 0.0 - 10.0 /100 WBCs. The reference range was not used to interpret this result as normal/abnormal. NRBC x10^3 (test code = 1284342048) <0.01 See_Comment [Automated message] The system which generated this result transmitted reference range: 10*3/?L. The reference range was not used to interpret this result as normal/abnormal. GRAN MAT (NEUT) % (test code = 770-8) 87.7 % IMM GRAN % (test code = 5715510272) 0.50 % LYMPH % (test code = 736-9) 8.2 % MONO % (test code = 5905-5) 3.2 % EOS % (test code = 713-8) 0.2 % BASO % (test code = 706-2) 0.2 % GRAN MAT x10^3(ANC) (test code = 7782172033) 15.24 10*3/uL 1.88-7.09 H IMM GRAN x10^3 (test code = 0420446169) 0.09 10*3/uL 0.00-0.06 H LYMPH x10^3 (test code = 731-0) 1.42 10*3/uL 1.32-3.29 MONO x10^3 (test code = 742-7) 0.55 10*3/uL 0.33-0.92 EOS x10^3 (test code = 711-2) 0.04 10*3/uL 0.03-0.39 BASO x10^3 (test code = 704-7) 0.03 10*3/uL 0.01-0.07 BASO STIPPLING (test code = 703-9) Present A BANDS (test code = 4912191423) Increased A LG GRAN LYMPHS (test code = 4260737577) Rare Rare TOXIC CHANGES (test code = 803-7) Present A GIANT PLATELETS (test code = 5908-9) Present See_Comment A [Automated message] The system which generated this result transmitted reference range: (none). The reference range was not used to interpret this result as normal/abnormal. Lab Interpretation (test code = 29990-1) Abnormal [facility] CenterABORH Confirmation (Lab Only)2021-07-12 13:59:07* Test Item Value Reference Range Interpretation Comme nts ABO & RH (test code = 20) B Positive Performed at [facility] Laboratory Services - [facility] Blood [address] [place] [address]Cnys Free: [phone] No. [id number] [facility] CenterType and Screen - ONCE [id number] 13:50:09* Test Item Value Reference Range Interpretation Comme nts ABO & RH (test code = 20) B Positive Performed at [facility] Laboratory Services - [facility] Blood [address] [place] [address]Dpxy Free: [phone] No. [id number] IAT (test code = 1185) Negative Performed at [facility] B Laboratory Services - [facility] Blood [address] [place] [address]Dfmc Free: [phone] No. [id number] [facility] Consult Notes Date/Time Note Provider Source 2023-08-11 16:51:32 Associated Order(s): CONSULT PEDI NEONATOLOGY NEONATOLOGY CONSULT NOTE Date of Service: 08/11/2023 Present: Mother and father [employer]: no Indication for Consult: PPROM Maternal Information: Carly Lyons is a 28 year old Gestational Age: 33 weeks EFW: 2708g Maternal Serologies: negative Maternal GBS: Positive Complications: cerclage, now PPROM 2 days, recurrent MDRO E. Coli UTI, chlamydia s/p negative LEONID Steroids Received: yes - benefit 08/11 199 Discussed with the mother the risks associated with delivery at 33-34 weeks: IVH/ PVL Vision and hearing deficits Respiratory distress and the use of surfactant, oxygen, CMV/HFOV, NCPAP BPD Apnea of prematurity Need for IV nutrition/tube feedings/NEC PDA Anemia of prematurity with possible need for blood transfusion Sepsis and IV antibiotics Hyperbilirubinemia Provided a copy if the "risks of prematurity" handout. Discussed that infants born extremely premature can be expected to be in the NICU until their expected due date, however this is affected by the baby's clinical course and is only a rough estimate. After reviewing risks and outcomes, mother requests: full intervention after delivery including intubation, mechanical ventilation, CPR, medications, prolonged stay in the NICU All questions were answered and parent(s) state understanding. Thank you for the consult. We will follow until delivery. Ricardo Delgado DO - Medicine Fellow PGY-5 Associated attestation - Gregory Caldwell MD - 08/12/2023 2:33 PM CDT I discussed consult with Dr Delgado and agree with his note. David Caldwell MD - Medicine PED-PEDIATRICS STAFF [facility] 2022-09-15 16:47:43 Associated Order(s): CONSULT PEDI CASE MANAGEMENT MANAGER CM provided with the patient with bereavement resources and counseling services. Patient grateful and stated she wants to rest. Also updated patient to reach out to CM if any other needs arise. Chidi Patiño RN, BSN [facility] [employer] Architect Developer O [phone] Chidi Patiño RN [facility] History and Physical Notes Date/Time Note Provider Source 2024-03-15 10:11:15 TRIAGE/L&D HISTORY & PHYSICAL IDENTIFYING DATA Carly Lyons is 28 year old, /White, 13w6d, female with FLEX 09/14/2024, by Last Menstrual Period. : 1995 Primary Care Physician: PATIENT DOES NOT HAVE A PCP CHIEF COMPLAINT Cerclage placement HISTORY OF PRESENT ILLNESS Carly Lyons is a 28 year old at 13w6d who presents for cerclage placement. Patient has no complaints on admission. Patient denies vaginal bleeding, denies leakage of fluid, denies contractions. Patient denies headache, denies nausea/vomiting, denies RUQ pain, denies visual abnormalities. Endorses normal movement. PAST OBSTETRIC HISTORY OB History Para Term AB Living 6 2 1 1 3 2 SAB IAB Ectopic Multiple Live Births 2 0 2 # Outcome Date GA Lbr Saturnino/2nd Weight Sex Type Anes PTL Lv 6 Current 5 08/13/23 34w0d 2620 g M NORMAL SPONT EPI WILDER 4 AB 09/14/22 17w4d F FD Complications: Intraamniotic Infection, Retained placenta 3 SAB 11/2021 6w0d 2 SAB 06/2021 17w0d FD 1 Term 11/28/12 37w0d 2977 g F Vag-Spont WILDER PAST MEDICAL HISTORY Problem list: Patient Active Problem List Diagnosis Date Noted 13 weeks gestation of 03/15/2024 Adnexal mass 03/15/2024 Abnormal Pap smear of cervix 03/15/2024 Atypical squamous cells of undetermined significance on cytologic smear of cervix (ASC-US) 03/15/2024 Single live 08/14/2023 Morbid obesity with body mass index of 40.0-49.9 07/20/2023 Prior loss in second trimester, antepartum 06/07/2023 Operations: Past Surgical History: Procedure Laterality Date CERCLAGE PLACEMENT N/A 04/25/2023 Surgeon: Kristal Alvarado MD; Location: LABOR AND DELIVERY OR LOCATION-[facility] DILATION AND EVACUATION OF UTERINE CONTENTS N/A 09/15/2022 Surgeon: Rashmi Gonzalez MD; Location: [facility] LABOR AND DELIVERY OR LOCATION Past Medical History: Diagnosis Date Chlamydia STD (sexually transmitted disease) CURRENT HEALTH STATUS Medications: Current Facility-Administered Medications Medication Dose Route Frequency Last Rate Last Admin indomethacin (INDOCIN) capsule 50 mg 50 mg Oral ONCE Allergies and drug reactions: Patient has no known allergies. HOME MEDICATIONS Medications Prior to Admission Medication Sig Dispense Refill Last Dose BABY ASPIRIN ORAL Take by mouth. vit,calc76/iron/folic (PNV 29-1 ORAL) Take by mouth. Taking proMETHazine 25 mg tablet Take 1 tablet by mouth every 4 (four) hours as needed for Nausea and Vomiting (N/V). 30 tablet 1 SOCIAL HISTORY Tobacco History: Social History Tobacco Use Smoking Status Never Passive exposure: Never Smokeless Tobacco Never Drug History: Social History Substance and Sexual Activity Drug Use Never Alcohol History: Social History Substance and Sexual Activity Alcohol Use Not Currently FAMILY HISTORY No family history on file. REVIEW OF SYSTEMS General: negative Skin: negative HEENT: negative Neck: negative HEME: negative Resp: negative Cardio: negative GI: negative : negative Endo: negative Neuro: negative Back: negative DONNELL: negative Psych: negative VITAL SIGNS BP: (111-126)/(61-74) Temp: [36.9 ?C (98.4 ?F)] Temp source: Oral (03/15 0932) Pulse: [78-87] Resp: [19] SpO2: [97 %-99 %] Height: [157.5 cm (5' 2")] Weight: [100.4 kg (221 lb 4.8 oz)] BMI (calculated): [40.48] PHYSICAL EXAMINATIONS General: patient alert and in no acute distress HEENT: symmetric, negative for masses Lungs: unlabored breathing Breast: deferred Cardiology: peripheral pulses intact and regular Abdomen: soft, non-tender, non-distended, no liver, spleen or abnormal masses palpated and Gravid Extremities: no clubbing, cyanosis, or edema Neuro: patient moving all extremities, no facial droop : speculum exam revealed normal cervix, visually closed, normal physiologic discharge. REVIEW OF LABORATORY, PATHOLOGY, AND RADIOLOGY DATA Lab results: Type & Screen Lab Results Component Value Date/Time IABORH B POSITIVE 03/15/2024 10:38 AM IAT Negative 03/15/2024 10:38 AM Serologies Lab Results Component Value Date/Time VZVIGG Negative 02/26/2024 09:24 AM RUBG Negative 02/26/2024 09:24 AM HBSAG Negative 02/26/2024 09:24 AM HBSAG 0.08 02/26/2024 09:24 AM Chlamydia Lab Results Component Value Date/Time VCAA Negative 01/31/2024 03:18 PM Group B Strep Lab Results Component Value Date/Time CGB Positive (A) 08/09/2023 05:06 PM GTT Lab Results Component Value Date/Time GLUF 93 07/13/2023 08:41 AM [id number] 127 02/26/2024 09:24 AM GLU3H 125 (H) 07/13/2023 11:39 AM CBC Lab Results Component Value Date/Time HGB 12.5 03/15/2024 10:38 AM HCT 37.8 03/15/2024 10:38 AM PLT 308 03/15/2024 10:38 AM Active Hospital Problems Diagnosis Date Noted 13 weeks gestation of 03/15/2024 Adnexal mass 03/15/2024 Abnormal Pap smear of cervix 03/15/2024 Atypical squamous cells of undetermined significance on cytologic smear of cervix (ASC-US) 03/15/2024 Single live 08/14/2023 Morbid obesity with body mass index of 40.0-49.9 07/20/2023 Prior loss in second trimester, antepartum 06/07/2023 History: - two prior 17w losses - ultrasound-indicated cerclage placed at 18w in G5 - patient qualifies for history-indicated cerclage in this Counseling: - Discussed with patient that one of the strongest risk factors for is a prior . Maternal history of is associated with a 1.5-2 fold increased risk in subsequent . - The Prediction Study, a large prospective study conducted by the [employer] [place] [employer] ([employer]) Maternal- Medicine Units (MFMU) Network, observed that women with a history of PPROM leading to had a threefold higher frequency of PPROM in a subsequent compared with women with no such history (13.5 versus 4.1 percent, relative risk [RR] 3.3, 95% CI 2.1-5.2) - Discussed with patient recommendation to start 17-OHP starting at 16-24 weeks gestation to reduce the risk of recurrent spontaneous by approximately 34% - Also reviewed with the patient that short cervical length measured by transvaginal ultrasonography has also been associated with an increased risk of , especially in the setting of a prior delivery. Discussed with the patient that with a history of and short cervical length, cervical cerclage placement was associated with significant reductions in deliveries. Therefore, cervical length screening can be offered and if a short cervix is identified cerclage placement will be recommended. Recommendation - history-indicated cerclage to be placed after ultrasound - Will try to coordinate ultrasound next week with cerclage on monday per patient preference Resolved Hospital Problems No resolved problems to display. Present on Admission: Single live Prior loss in second trimester, antepartum Morbid obesity with body mass index of 40.0-49.9 13 weeks gestation of Adnexal mass Abnormal Pap smear of cervix Atypical squamous cells of undetermined significance on cytologic smear of cervix (ASC-US) Placenta Accreta Screening Not yet completed ASSESSMENT AND PLAN Carly Lyons is a 28 year old at 13w6d by d/u(7) who presents for cerclage placement. History indicated cerclage - History of 2x 17 wk losses in 2021 and 2022 due to PPROM vs painless cervical dilation - delivery in 2023 at 34 wks due to PPROM, rescue Soni cerclage placed at 18 wks - Denies vaginal bleeding, leakage of fluid, abdominal pain/contractions - Vitals WNL - Wet mount: negative Plan: Proceed to OR for cerclage placement. Will given 50 mg Indomethacin loading dose followed by 25 mg q6h x 24 hours Complex Left Adnexal Mass - 8.2 x 4.9 x 7.5 cm left mass Abnormal Pap Smear - ASCUS/HRHPV (-) on 01/31/2024 MPDPS - Needs consents signed at next clinic visit Antepartum course reviewed - Early 1 hr 127, sero negative, Rnot immune, VZVnot immune, HPV not immune, B positive/IAT negative, GBS unknown, Pap ASCUS/HRHPV (-) on 01/31/2024 - H/H, plt: 13.5 / 41.4, 312 on 02/26/2024 - PP control plan: BTL - [facility] Clinic: [place] Fetus - Presentation on admission: variable - Placenta anterior fundal right - EFW: 98 g, 75%tile by MFM US 03/15/24 - DVP: 4.17 cm - FHT 154 bpm - Anatomy scan not yet performed D/w Dr. Jayesh Smith MD CISE SCIENCE INSTRUCTOR Associated attestation - Manuel Mcconnell MD - 03/15/2024 3:19 PM EXERCISE SCIENCE INSTRUCTOR I personally examined the patient on 03/15/[address] Smith's resident note as written. I actively participated in the decision-making process. Please see the resident's note for additional details. [facility] 2023-08-10 04:16:37 TRIAGE/L&D HISTORY & PHYSICAL IDENTIFYING DATA Carly Lyons is 28 year old, /White, 33w4d, female with FLEX 09/24/2023, by Last Menstrual Period. : 1995 Primary Care Physician: PATIENT DOES NOT HAVE A PCP CHIEF COMPLAINT PPROM HISTORY OF PRESENT ILLNESS Carly Lyons is a 28 year old at 33w4d who presents PPROM. Pt presented to [facility] for LOF onset Monday described as steady gush that steadily worsened until yesterday. . Pt reportely had intercourse last and denies any intercourse on Monday. Initially was neg ROMx4 w normal MICHELLE and found to be BV+. She was started on flagyl and kept for overnight obvs. Today at ~1AM pt reports intermittent LOF. Pt was re-examined and found to be pos ROMx4. [place] w irritability and rare contractions. Pt was started on BMZ#1 @130AM and latency abx and transferred to [facility] for higher level of care. Upon eval pt reports 10/10 pain due to contractions and is unable to speak through contractions. Patient denies vaginal bleeding, admits leakage of fluid, admits contractions. Patient denies headache, denies nausea/vomiting, denies RUQ pain, denies visual abnormalities. Endorses normal movement. PAST OBSTETRIC HISTORY OB History Para Term AB Living 5 1 1 3 1 SAB IAB Ectopic Multiple Live Births 2 1 # Outcome Date GA Lbr Saturnino/2nd Weight Sex Delivery Anes PTL Lv 5 Current 4 AB 09/14/22 17w4d F FD Complications: Intraamniotic Infection, Retained placenta 3 SAB 11/2021 6w0d 2 SAB 06/2021 17w0d FD 1 Term 11/28/12 37w0d 2977 g F Vag-Spont WILDER PAST MEDICAL HISTORY Problem list: Patient Active Problem List Diagnosis Date Noted High-risk in third trimester 08/10/2023 UTI in , antepartum, third trimester 07/21/2023 Morbid obesity with body mass index of 40.0-49.9 07/20/2023 Gestational diabetes mellitus (GDM) in third trimester 07/20/2023 Back pain affecting in third trimester 07/20/2023 Recurrent UTI (urinary tract infection) complicating , third trimester 07/20/2023 Anemia of mother in , antepartum, third trimester 07/20/2023 Supervision of high-risk with history of in second trimester 06/07/2023 Prior poor obstetrical history, antepartum, second trimester 06/07/2023 Obesity complicating in third trimester 06/07/2023 Cervical cerclage suture present in third trimester 06/07/2023 Chlamydia infection affecting in first trimester 06/07/2023 Short cervical length during , second trimester 04/24/2023 33 weeks gestation of 09/14/2022 Obesity (BMI 30-39.9) 07/05/2022 Operations: Past Surgical History: Procedure Laterality Date CERCLAGE PLACEMENT N/A 04/25/2023 Surgeon: Kristal Alvarado MD; Location: LABOR AND DELIVERY OR LOCATION-[facility] DILATION AND EVACUATION OF UTERINE CONTENTS N/A 09/15/2022 Surgeon: Rashmi Gonzalez MD; Location: [facility] DELIVERY OR LOCATION Past Medical History: Diagnosis Date Chlamydia STD (sexually transmitted disease) CURRENT HEALTH STATUS Medications: Current Facility-Administered Medications Medication Dose Route Frequency Last Rate Last Admin alum-mag hydroxide-simeth (MAG-AL PLUS) 200-200-20 mg/5 mL suspension 30 mL 30 mL Oral Q6HPRN ampicillin (POLYCILLIN-N) 2,000 mg in NaCl 0.9% (NS) 100 mL VIAL-MATE 2,000 mg IV Piggyback ONCE [START ON 08/11/2023] betamethasone acet,sod phos (CELESTONE SOLUSPAN) 6 mg/mL injection 12 mg 12 mg Intramuscular ONCE docusate (COLACE) capsule 200 mg 200 mg Oral QHSPRN magnesium hydroxide (MILK OF MAGNESIA) 400 mg/5 mL suspension 30 mL 30 mL Oral QDAILYPRN Nitrofurantoin&Nit. Macrocryst (MACROBID) 100 mg capsule 100 mg 100 mg Oral DAILY vitamin w/FA tablet 1 tablet 1 tablet Oral DAILY lactated ringers IV infusion 1,000 mL 1,000 mL IV Infusion CONTINUOUS 125 mL/hr at 08/10/23 0622 1,000 mL at 08/10/23 0622 lactated ringers IV infusion 500 mL 500 mL IV Infusion PRN - SEE INSTRUCTIONS lidocaine 1% (PF) (XYLOCAINE) injection 0.3 mL 0.3 mL Infiltration PRN - SEE INSTRUCTIONS metroNIDAZOLE (FLAGYL) tablet 500 mg 500 mg Oral Q12H ABX 500 mg at 08/10/23 0550 oxytocin (PITOCIN) 30 units in NS 500 mL IV infusion 600 mL/hr IV Infusion PRN sodium citrate-citric acid (BICITRA) 500-334 mg/5 mL solution 30 mL 30 mL Oral PRE-PROCEDURE ONCE tranexamic acid (CYKLOKAPRON) 1,000 mg in NaCl 0.9% (NS) 250 mL piggyback 1,000 mg IV Piggyback PRN Allergies and drug reactions: Patient has no known allergies. HOME MEDICATIONS Medications Prior to Admission Medication Sig Dispense Refill Last Dose Nitrofurantoin&Nit. Macrocryst 100 mg capsule Take 1 capsule by mouth in the morning. 30 capsule 1 ONETOUCH DELICA PLUS LANCET 33 gauge Misc Taking amoxicillin-pot clavulanate 500 mg (AUGMENTIN) 500-125 mg tablet Take 1 tablet by mouth in the morning and 1 tablet at noon and 1 tablet in the evening. 21 tablet 0 Not Taking Alcohol Swabs PadM Apply to area 4 times a day to check blood sugar as directed. 1 Kit 5 Taking blood sugar diagnostic strip Use as directed. BRAND PER INSURANCE. 100 Strip 5 Taking Blood-Glucose Meter (BLOOD GLUCOSE MONITORING) Kit Check blood sugar 4 times daily as directed. Brand per Insurance. 1 Kit 0 Taking Lancets Misc Check blood sugars 4 times a day as directed. 100 Each 5 Taking ferrous sulfate 325 mg (65 mg iron) tablet Take 1 tablet by mouth in the morning and 1 tablet in the evening. 60 tablet 3 Taking proMETHazine 25 mg tablet Take 1 tablet by mouth every 4 (four) hours as needed for Nausea and Vomiting (N/V). 30 tablet 0 Not Taking vitamin w/FA tablet Take 1 tablet by mouth in the morning. 90 tablet 3 Taking SOCIAL HISTORY Tobacco History: Social History Tobacco Use Smoking Status Never Passive exposure: Never Smokeless Tobacco Never Drug History: Social History Substance and Sexual Activity Drug Use Never Alcohol History: Social History Substance and Sexual Activity Alcohol Use Not Currently FAMILY HISTORY No family history on file. REVIEW OF SYSTEMS General: negative Skin: negative HEENT: negative Neck: negative HEME: negative Resp: negative Cardio: negative GI: negative : negative Endo: negative Neuro: negative Back: negative DONNELL: negative Psych: negative VITAL SIGNS BP: (106-142)/(49-79) Temp: [36 ?C (96.8 ?F)-36.9 ?C (98.4 ?F)] Temp source: Axillary (08/09 0600) Pulse: [78-118] Resp: [16-18] SpO2: [99 %-100 %] Height: [157.5 cm (5' 2")-157.5 cm (5' 2.01")] Weight: [99.3 kg (219 lb)-99.6 kg (219 lb 8 oz)] BMI (calculated): [40.05-40.15] PHYSICAL EXAMINATIONS General: patient alert and in no acute distress HEENT: symmetric, negative for masses Lungs: unlabored breathing Cardiology: peripheral pulses intact and regular Abdomen: soft, non-tender, non-distended, no liver, spleen or abnormal masses palpated and Gravid Extremities: no clubbing, cyanosis, or edema Neuro: patient moving all extremities, no facial droop : SVE: Closed / 0 % / REVIEW OF LABORATORY, PATHOLOGY, AND RADIOLOGY DATA Lab results: Type & Screen Lab Results Component Value Date/Time IABORH B POSITIVE 08/10/2023 04:56 AM IAT Negative 08/10/2023 04:56 AM Serologies Lab Results Component Value Date/Time VZVIGG Negative 02/07/2023 04:03 PM RUBG Negative 02/07/2023 04:03 PM HBSAG Negative 08/09/2023 03:19 PM HBSAG 0.07 08/09/2023 03:19 PM Chlamydia Lab Results Component Value Date/Time VCAA Negative 07/20/2023 03:08 PM Group B Strep No results found for: "CGB" GTT Lab Results Component Value Date/Time GLUF 93 07/13/2023 08:41 AM [id number] 186 (H) 07/13/2023 09:41 AM GLU3H 125 (H) 07/13/2023 11:39 AM CBC Lab Results Component Value Date/Time HGB 8.2 (L) 08/09/2023 03:19 PM HCT 26.3 (L) 08/09/2023 03:19 PM PLT 238 08/09/2023 03:19 PM Active Hospital Problems Diagnosis Date Noted High-risk in third trimester 08/10/2023 Gestational diabetes mellitus (GDM) in third trimester 07/20/2023 Morbid obesity with body mass index of 40.0-49.9 07/20/2023 Cervical cerclage suture present in third trimester 06/07/2023 33 weeks gestation of 09/14/2022 Resolved Hospital Problems No resolved problems to display. Present on Admission: 33 weeks gestation of Cervical cerclage suture present in third trimester Gestational diabetes mellitus (GDM) in third trimester Morbid obesity with body mass index of 40.0-49.9 High-risk in third trimester Placenta Accreta Screening Prior ? : No Prior Uterine Surgery?: No Placenta low lying/previa in current ? : No Screening outcome: A positive screening outcome indicates a history of prior delivery or prior uterine surgery, AND the presence of either a placenta low lying/previa or ultrasound suspicion of PASD in the current . Negative screening. ASSESSMENT AND PLAN Carly Lyons is a 28 year old at 33w4d by LMP d/u (7) who presntents for eval of PPROM, transferred from [facility]. PPROM - Onset Saturday 08/05 - Describe as a steady flow of clear fluid that progressed until presentation to [facility] on 08/08 @1415 - As per documentation pt was examined and found to be Neg ROMx4 and kept for overnight obs. - Today at ~115AM pt c/o increasing LOF and re-examined and found to have +ROMx4 - Pt was transferred to [facility] for higher level of care. - On exam, pt c/o increasing pain w contractions rated 10/10 in severity - Spec exam showed external cervical os visually 1cm dilated, gross ROM, + pooling, + Valsalva, + Nitrazine, - ferning - MICHELLE 8.28cm, prev 12.1cm on 08/09/23 - Cerclage removed in triage due to increased contraction pain rated 10/10 w confirmed PPROM - BMZ #1 given at 0115 - Ampicillin 2g given at 0148 - Azithromycin 1g given at 0144 - Tylenol 1g given on admission, reports improved pain - Plan: Will admit for expectant mgmt in setting of PPROM w painful contractions, BMZ#2 due at 0115 on 08/10, Amp due at 0730. SVE to be done if pain is persistent or worsening. S/p Cerclage removal - Cercalge placed on 04/24 at 18w2d - Pt has hx of 2 prior 17w miscarriages - Found to have 0.3cm cervix on MFM US on 04/23 - Cerclage removed on admission 08/09 due to increased contractions pain rated 10/10 w confirmed PPROM - Plan: Expectant mgmt, SVE to be done if pain is persistent or worsening Bacterial vaginosis - Pos on 08/09/23 - Started on Flagyl 500mg BID for 5 days, last dose 1600 on 08/08 - Plan: cont Flagyl A1DM - 1 h 141, 3 h 93, 186, 165, 125 - A1C 5.8 on 06/29/23 - Diet controlled - FSBG on admission 102 - Plan: Cont diabetic diet Hx of recurrent UTI - On Macrobid 100mg daily suppression, last dose 08/08 - Plan: Cont Macrobid Antepartum course reviewed - 1 h 141, 3 h 93, 186, 165, 125, , sero negative, Rnot immune, VZVnot immune, B positive/IAT negative, GBS unkn, Pap unknown - H/H, plt: 8.2 / 26.3, 238 on 08/09/23 - PP BCM: undecided on admission [facility] - Presentation on admission: cephalic - Fundal placenta - EFW: 2708g by BSUS 92%tile - MICHELLE 8.28cm - FHT reactive and reassuring - Normal anatomy scan D/w Dr. Niurka Fried MD Obstetrics and Gynecology PGY-1 Associated attestation - Manuel Mcconnell MD - 08/11/2023 2:49 PM CDT I personally examined the patient on 08/10/[address] Fried's resident note as written. I actively participated in the decision-making process. Please see the resident's note for additional details. OG-OBSTETRICS & GYNECOLOGY [facility] 2023-08-09 14:15:30 TRIAGE HISTORY & PHYSICAL IDENTIFYING DATA Carly Lyons is 28 year old, /White, 33w3d, female with FLEX 09/24/2023, by Last Menstrual Period. : 1995 Primary Care Physician: PATIENT DOES NOT HAVE A PCP CHIEF COMPLAINT Leakage of fluid HISTORY OF PRESENT ILLNESS Carly Lyons is a 28 year old female @ 33w3d presented for leakage of fluid that started on Monday with varying amount, clear. Had intercourse on Monday. Changing her underwear at least twice a day. +FM. No VB or CTX. No pre-eclampsia sx or other complaints. PAST OBSTETRIC HISTORY OB History Para Term AB Living 5 1 1 3 1 SAB IAB Ectopic Multiple Live Births 2 1 # Outcome Date GA Lbr Saturnino/2nd Weight Sex Delivery Anes PTL Lv 5 Current 4 AB 09/14/22 17w4d F FD Complications: Intraamniotic Infection, Retained placenta 3 SAB 11/2021 6w0d 2 SAB 06/2021 17w0d FD 1 Term 11/28/12 37w0d 2977 g F Vag-Spont WILDER PAST MEDICAL HISTORY Problem list: Patient Active Problem List Diagnosis Date Noted UTI in , antepartum, third trimester 07/21/2023 Morbid obesity with body mass index of 40.0-49.9 07/20/2023 Gestational diabetes mellitus (GDM) in third trimester 07/20/2023 Back pain affecting in third trimester 07/20/2023 Recurrent UTI (urinary tract infection) complicating , third trimester 07/20/2023 Anemia of mother in , antepartum, third trimester 07/20/2023 Supervision of high-risk with history of in second trimester 06/07/2023 Prior poor obstetrical history, antepartum, second trimester 06/07/2023 Obesity complicating in third trimester 06/07/2023 Cervical cerclage suture present in third trimester 06/07/2023 Chlamydia infection affecting in first trimester 06/07/2023 Short cervical length during , second trimester 04/24/2023 33 weeks gestation of 09/14/2022 Obesity (BMI 30-39.9) 07/05/2022 Operations: Past Surgical History: Procedure Laterality Date CERCLAGE PLACEMENT N/A 04/25/2023 Surgeon: Kristal Alvarado MD; Location: LABOR AND DELIVERY OR LOCATION-[facility] DILATION AND EVACUATION OF UTERINE CONTENTS N/A 09/15/2022 Surgeon: Rashmi Gonzalez MD; Location: [facility] DELIVERY OR LOCATION Past Medical History: Diagnosis Date Chlamydia STD (sexually transmitted disease) CURRENT HEALTH STATUS Medications: Current Facility-Administered Medications Medication Dose Route Frequency Last Rate Last Admin lactated ringers IV infusion 1,000 mL 1,000 mL IV Infusion CONTINUOUS 125 mL/hr at 08/09/23 1940 1,000 mL at 08/09/23 1940 lactated ringers IV infusion 500 mL 500 mL IV Infusion PRN - SEE INSTRUCTIONS lidocaine 1% (PF) (XYLOCAINE) injection 0.3 mL 0.3 mL Infiltration PRN - SEE INSTRUCTIONS metroNIDAZOLE (FLAGYL) tablet 500 mg 500 mg Oral Q12H ABX 500 mg at 08/09/23 1656 oxytocin (PITOCIN) 30 units in NS 500 mL IV infusion 600 mL/hr IV Infusion PRN sodium citrate-citric acid (BICITRA) 500-334 mg/5 mL solution 30 mL 30 mL Oral PRE-PROCEDURE ONCE tranexamic acid (CYKLOKAPRON) 1,000 mg in NaCl 0.9% (NS) 250 mL piggyback 1,000 mg IV Piggyback PRN Allergies and drug reactions: Patient has no known allergies. HOME MEDICATIONS Medications Prior to Admission Medication Sig Dispense Refill Last Dose Nitrofurantoin&Nit. Macrocryst 100 mg capsule Take 1 capsule by mouth in the morning. 30 capsule 1 ONETOUCH DELICA PLUS LANCET 33 gauge Misc Taking amoxicillin-pot clavulanate 500 mg (AUGMENTIN) 500-125 mg tablet Take 1 tablet by mouth in the morning and 1 tablet at noon and 1 tablet in the evening. 21 tablet 0 Not Taking Alcohol Swabs PadM Apply to area 4 times a day to check blood sugar as directed. 1 Kit 5 Taking blood sugar diagnostic strip Use as directed. BRAND PER INSURANCE. 100 Strip 5 Taking Blood-Glucose Meter (BLOOD GLUCOSE MONITORING) Kit Check blood sugar 4 times daily as directed. Brand per Insurance. 1 Kit 0 Taking Lancets Misc Check blood sugars 4 times a day as directed. 100 Each 5 Taking ferrous sulfate 325 mg (65 mg iron) tablet Take 1 tablet by mouth in the morning and 1 tablet in the evening. 60 tablet 3 Taking proMETHazine 25 mg tablet Take 1 tablet by mouth every 4 (four) hours as needed for Nausea and Vomiting (N/V). 30 tablet 0 Not Taking vitamin w/FA tablet Take 1 tablet by mouth in the morning. 90 tablet 3 Taking SOCIAL HISTORY Tobacco History: Social History Tobacco Use Smoking Status Never Passive exposure: Never Smokeless Tobacco Never Drug History: Social History Substance and Sexual Activity Drug Use Never Alcohol History: Social History Substance and Sexual Activity Alcohol Use Not Currently FAMILY HISTORY No family history on file. REVIEW OF SYSTEMS General: negative Constitutional: negative Eyes: negative ENT/Mouth: negative Cardiovascular: negative Respiratory: negative Gastrointestinal:negative Genitourinary: see HPI Musculoskeletal: negative Skin/breast: negative Neurological: negative Psychiatric: negative Endocrine: negative Hemat/Lymph: negative Allergic/Immuno:none VITAL SIGNS BP: (106-142)/(56-79) Temp: [36.6 ?C (97.9 ?F)-36.9 ?C (98.4 ?F)] Temp source: Oral (08/08 1330) Pulse: [108-118] Resp: [18] SpO2: [100 %] Height: [157.5 cm (5' 2")] Weight: [99.6 kg (219 lb 8 oz)] BMI (calculated): [40.15] PHYSICAL EXAMINATIONS Gen: alert and oriented, well appearing, no distress CV: RRR, normal S1/S2, no m/r/g Resp: normal work of breathing, lungs CTAB Abd: gravid, soft, NTTP Ext: no calf tenderness or edema : small amount of pooling noted (clear fluid mixed with whitish discharge). + valsalva (very small amount of clear fluid noted). + nitrazine. Cerclage in placed. Cervix visually closed REVIEW OF LABORATORY, PATHOLOGY, AND RADIOLOGY DATA Lab results: Type & Screen HIV Hep B Syphilis Chlamydia ABO & RH Date Value Ref Range Status 08/09/2023 B POSITIVE Final No results found for: "HIVMULTIPLEX" No components found for: "HBSHBSAG" No results found for: "SYPIGG" C. trachomatis Nucleic Acid Date Value Ref Range Status 07/20/2023 Negative Negative Final IAT Date Value Ref Range Status 08/09/2023 Negative Final Varicella Rubella Glucose Group B Strep CBC VZV IgG antibody Date Value Ref Range Status 02/07/2023 Negative Negative Final Rubella screen IgG Date Value Ref Range Status 02/07/2023 Negative Negative Final GLUC 1 HR Date Value Ref Range Status 07/13/2023 186 (H) 120 - 170 mg/dL Final No results found for: "CGBS" HGB Date Value Ref Range Status 08/09/2023 8.2 (L) 11.6 - 15.0 g/dL Final HCT Date Value Ref Range Status 08/09/2023 26.3 (L) 35.7 - 45.2 % Final PLT Date Value Ref Range Status 08/09/2023 238 166 - 358 10*3/?L Final Active Hospital Problems Diagnosis Date Noted Gestational diabetes mellitus (GDM) in third trimester 07/20/2023 Morbid obesity with body mass index of 40.0-49.9 07/20/2023 Cervical cerclage suture present in third trimester 06/07/2023 33 weeks gestation of 09/14/2022 Resolved Hospital Problems No resolved problems to display. Present on Admission: 33 weeks gestation of Cervical cerclage suture present in third trimester Gestational diabetes mellitus (GDM) in third trimester Morbid obesity with body mass index of 40.0-49.9 Placenta Accreta Screening Screening outcome: A positive screening outcome indicates a history of prior delivery or prior uterine surgery, AND the presence of either a placenta low lying/previa or ultrasound suspicion of PASD in the current . Negative screening. History: MICHELLE and growth and presentation . Exam: US PELVIS > 14 WEEKS Date: 08/09/2023 3:45 PM Ordering provider: MESFIN ELIZALDE Technique: OB ultrasound is performed via the transabdominal approach. Images are permanently saved in the patient's medical records. Technical quality: Evaluation is limited by body habitus. Comparison: Pelvic ultrasound from 09/14/2022. Findings: There is a single viable IUP in cephalic position. Heart rate is shown at 140 and 144 bpm. The placenta is fundal. The MICHELLE measures 12.1 cm. The area of the cervix is not well visualized. The following measurements are made: BPD: 8.6 cm, 34 weeks 6 days HC: 29.0 cm, 32 weeks 0 days AC: 30.5 cm, 34 weeks 3 days FL: 6.2 cm, 32 weeks 1 day EGA: 33 weeks 3 days EFW: 2217 g (4 lbs. 14 oz.) FLEX: 09/24/2023 IMPRESSION Impression: Single viable IUP with an estimated age of 33 weeks 3 days. The MICHELLE measures 12.1 cm. The presentation is cephalic. RL: 781 HS: Y SSMENT AND PLAN Carly Lyons is a 28 year old at 33w3d who presents with LOF. LOF - pelvic exam as above. Specimen collected and sent. Lab states that specimen was poor quality and a recollection was requested. Patient was given a 500 cc fluid bolus and placed in T-lana. Repeat speculum showed small amount of mucousy clear discharge, negative pooling, negative Valsalva. Repeat fern was negative. Ultrasound obtained to assess MICHELLE. MICHELLE wnl + BV: Flagyl prescribed - PPROM ruled out at this time. Will keep patient for IV hydration/PO hydration and observation overnight as patient continues to report small fluid leakage Cerclage in placed with irregular contractions - cervix visually closed - will continue to monitor A1DM - FSBG 108 - may have a diabetic diet and will check FSBG 2 hrs postprandial and fasting Hx of recurrent UTI - on Macrobid suppression, last dose today PVT of Dr. Gonzalez, please see OB Summary for more details Mesfin Elizalde MD [facility] 2023-07-20 16:16:55 TRIAGE HISTORY & PHYSICAL IDENTIFYING DATA Carly Lyons is 28 year old, /White, 30w4d, female with FLEX 09/24/2023, by Last Menstrual Period. : 1995 Primary Care Physician: PATIENT DOES NOT HAVE A PCP CHIEF COMPLAINT Backpain HISTORY OF PRESENT ILLNESS Carly Lyons is a 28 year old female at 30w4d presents with worsening backpain, right sided on going for 6 days. Denies increased urinary frequency, dysuria but has a hx of recurrent UTI with Ecoli and is not very compliant with her Abx. We don't have any negative LEONID in the file yet. Last Ucx positive on 06/28,she was treated and started prophylactic Keflex- she reports taking it daily +FM. No VB, LOF, or CTX. No pre-eclampsia sx or other complaints. CARE: OB: Dr Gonzalez Cerclage in placed for shortened cervix Recently diagnosed with gestational diabetes( prediabetes with A1C of 5.8) See OB summary for details PAST OBSTETRIC HISTORY OB History Para Term AB Living 5 1 1 3 1 SAB IAB Ectopic Multiple Live Births 2 1 # Outcome Date GA Lbr Saturnino/2nd Weight Sex Delivery Anes PTL Lv 5 Current 4 AB 09/14/22 17w4d F FD Complications: Intraamniotic Infection, Retained placenta 3 SAB 11/2021 6w0d 2 SAB 06/2021 17w0d FD 1 Term 11/28/12 37w0d 2977 g F Vag-Spont WILDER PAST MEDICAL HISTORY Problem list: Patient Active Problem List Diagnosis Date Noted Morbid obesity with body mass index of 40.0-49.9 07/20/2023 Gestational diabetes mellitus (GDM) in third trimester 07/20/2023 Back pain affecting in third trimester 07/20/2023 Recurrent UTI (urinary tract infection) complicating , third trimester 07/20/2023 Anemia of mother in , antepartum, third trimester 07/20/2023 Supervision of high-risk with history of in second trimester 06/07/2023 Prior poor obstetrical history, antepartum, second trimester 06/07/2023 Other obesity affecting in second trimester 06/07/2023 Cervical cerclage suture present in third trimester 06/07/2023 Chlamydia infection affecting in first trimester 06/07/2023 Short cervical length during , second trimester 04/24/2023 30 weeks gestation of 09/14/2022 Obesity (BMI 30-39.9) 07/05/2022 Operations: Past Surgical History: Procedure Laterality Date CERCLAGE PLACEMENT N/A 04/25/2023 Surgeon: Kristal Alvarado MD; Location: LABOR AND DELIVERY OR LOCATION-[facility] DILATION AND EVACUATION OF UTERINE CONTENTS N/A 09/15/2022 Surgeon: Rashmi Gonzalez MD; Location: [facility] LABOR AND DELIVERY OR LOCATION Past Medical History: Diagnosis Date Chlamydia STD (sexually transmitted disease) CURRENT HEALTH STATUS Medications: Current Facility-Administered Medications Medication Dose Route Frequency Last Rate Last Admin [START ON 07/21/2023] cefTRIAXone (ROCEPHIN) 1,000 mg in NaCl 0.9% (NS) 100 mL MINI-BAG 1,000 mg IV Piggyback Q24H ABX ferrous sulfate tablet 325 mg 325 mg Oral TID MEALS lactated ringers IV infusion 125 mL 125 mL IV Infusion CONTINUOUS 125 mL/hr at 07/20/23 1631 125 mL at 07/20/23 1631 proMETHazine (PHENERGAN) 25 mg in NS 50 mL IV piggyback (CNR) 25 mg IV Piggyback Q6HPRN Allergies and drug reactions: Patient has no known allergies. HOME MEDICATIONS Medications Prior to Admission Medication Sig Dispense Refill Last Dose Alcohol Swabs PadM Apply to area 4 times a day to check blood sugar as directed. 1 Kit 5 not using blood sugar diagnostic strip Use as directed. BRAND PER INSURANCE. 100 Strip 5 not using Blood-Glucose Meter (BLOOD GLUCOSE MONITORING) Kit Check blood sugar 4 times daily as directed. Brand per Insurance. 1 Kit 0 not using Lancets Mis Check blood sugars 4 times a day as directed. 100 Each 5 not using cephALEXin 250 mg capsule Take 1 capsule by mouth in the morning. Start medication once you complete the treatment of 4 times daily for 7 days 30 capsule 1 07/20/2023 cephALEXin 500 mg capsule Take 1 capsule by mouth 4 (four) times daily. 28 capsule 0 Past Week ferrous sulfate 325 mg (65 mg iron) tablet Take 1 tablet by mouth in the morning and 1 tablet in the evening. 60 tablet 3 07/20/2023 proMETHazine 25 mg tablet Take 1 tablet by mouth every 4 (four) hours as needed for Nausea and Vomiting (N/V). 30 tablet 0 07/20/2023 vitamin w/FA tablet Take 1 tablet by mouth in the morning. 90 tablet 3 07/20/2023 SOCIAL HISTORY Tobacco History: Social History Tobacco Use Smoking Status Never Passive exposure: Never Smokeless Tobacco Never Drug History: Social History Substance and Sexual Activity Drug Use Never Alcohol History: Social History Substance and Sexual Activity Alcohol Use Not Currently FAMILY HISTORY No family history on file. REVIEW OF SYSTEMS General: negative Constitutional: negative Eyes: negative ENT/Mouth: negative Cardiovascular: negative Respiratory: negative Gastrointestinal:negative Genitourinary: As above/HPI Musculoskeletal: negative Skin/breast: negative Neurological: negative Psychiatric: negative Endocrine: negative Hemat/Lymph: negative Allergic/Immuno:none VITAL SIGNS BP: (115-150)/(54-81) Temp: [36.8 ?C (98.2 ?F)-36.8 ?C (98.3 ?F)] Temp source: Oral (07/19 1352) Pulse: [86-104] Resp: [18-20] SpO2: [99 %-100 %] Height: [157.5 cm (5' 2")] Weight: [103.4 kg (228 lb)] BMI (calculated): [41.7] PHYSICAL EXAMINATIONS Gen: alert and oriented, well appearing, no distress CV: RRR Resp: normal work of breathing Abd: gravid, soft, NTTP CVA: Right tenderness+ Ext: no calf tenderness or edema : Deferred - Closed, stitch in place by RN examination FHR: 140's reactive [place]: None REVIEW OF LABORATORY, PATHOLOGY, AND RADIOLOGY DATA Lab results: Type & Screen HIV Hep B Syphilis Chlamydia ABO & RH Date Value Ref Range Status 06/29/2023 B POSITIVE Final No results found for: "HIVMULTIPLEX" No components found for: "HBSHBSAG" No results found for: "SYPIGG" C. trachomatis Nucleic Acid Date Value Ref Range Status 06/07/2023 Negative Negative Final IAT Date Value Ref Range Status 06/29/2023 Negative Final Varicella Rubella Glucose Group B Strep CBC VZV IgG antibody Date Value Ref Range Status 02/07/2023 Negative Negative Final Rubella screen IgG Date Value Ref Range Status 02/07/2023 Negative Negative Final GLUC 1 HR Date Value Ref Range Status 07/13/2023 186 (H) 120 - 170 mg/dL Final No results found for: "CGBS" HGB Date Value Ref Range Status 07/20/2023 9.9 (L) 11.6 - 15.0 g/dL Final HCT Date Value Ref Range Status 07/20/2023 32.4 (L) 35.7 - 45.2 % Final PLT Date Value Ref Range Status 07/20/2023 358 166 - 358 10*3/?L Final Placenta Accreta Screening Prior ? : No Prior Uterine Surgery?: Yes Placenta low lying/previa in current ? : No Screening outcome: A positive screening outcome indicates a history of prior delivery or prior uterine surgery, AND the presence of either a placenta low lying/previa or ultrasound suspicion of PASD in the current . Negative screening. Active Hospital Problems Diagnosis Date Noted Morbid obesity with body mass index of 40.0-49.9 07/20/2023 Gestational diabetes mellitus (GDM) in third trimester 07/20/2023 Back pain affecting in third trimester 07/20/2023 Recurrent UTI (urinary tract infection) complicating , third trimester 07/20/2023 Anemia of mother in , antepartum, third trimester 07/20/2023 Cervical cerclage suture present in third trimester 06/07/2023 30 weeks gestation of 09/14/2022 Resolved Hospital Problems No resolved problems to display. Present on Admission: Morbid obesity with body mass index of 40.0-49.9 30 weeks gestation of Gestational diabetes mellitus (GDM) in third trimester Back pain affecting in third trimester Recurrent UTI (urinary tract infection) complicating , third trimester Anemia of mother in , antepartum, third trimester Cervical cerclage suture present in third trimester ASSESSMENT AND PLAN Carly Lyons is a 28 year old at 30w4d who presents with back pain. Complicated/ascending UTI - Given hx and clinical finding will start IV Abx - Get renal scan tomorrow - given recurrent UTI/ASB to r/o other renal pathology Patient is afebrile - but has been taking Tylenol for pain at home. Given a dose on the floor and with improvement of her pain - No Leukocytosis GDM ( Pre-diabetes) - Start diabetic diet( 2000kcals) - BS - fasting and 2 hours post meals BS on admission was 88 Anemia - Continue Iron supplements Cerclage in place - No concerns - No ctxs on the monitor Fetus - Reactive NST - NST TID whilst on the floor Rashmi Gonzalez MD [facility] 2022-09-14 18:09:47 Formatting of this n ote is different from the original. rexcZ\\-TRIAGE HISTORY & PHYSICAL IDENTIFYING DATA Carly Lyons is 27 year old, /White, 17w4d, female with FLEX 02/18/2023, by Last Menstrual Period. : 1995 Primary Care Physician: PATIENT DOES NOT HAVE A PCP CHIEF COMPLAINT Vaginal bleeding HISTORY OF PRESENT ILLNESS Carly Lyons is a 27 year old female, at 17w4d presents with unprovoked vaginal bleeding which started today. Reports it mainly as spotting with no associated abdominal pain or cramps. She is also c/o lower back pain with increased frequency of urination which started last week. She reports that she has been unable to hold her urine since last week Denies dysuria Denies abnormal vaginal discharge CARE: OB: Dr Gonzalez See OB summary for details of PNC PAST OBSTETRIC HISTORY OB History Para Term AB Living 4 1 1 2 1 SAB IAB Ectopic Multiple Live Births 2 # Outcome Date GA Lbr Saturnino/2nd Weight Sex Delivery Anes PTL Lv 4 Current 3 SAB 11/2021 6w0d 2 SAB 06/2021 17w0d 1 Term 11/28/12 37w0d 2977 g F Vag-Spont PAST MEDICAL HISTORY Problem list: Patient Active Problem List Diagnosis Date Noted Vaginal bleeding before 22 weeks gestation 09/14/2022 17 weeks gestation of 09/14/2022 Chorioamnionitis in first trimester 09/14/2022 Chlamydia trachomatis infection in mother during first trimester of 07/07/2022 Obesity (BMI 30-39.9) 07/05/2022 Operations: No past surgical history on file. No past medical history on file. CURRENT HEALTH STATUS Medications: Current Facility-Administered Medications Medication Dose Route Frequency [...] and drug reactions: Patient has no known allergies. HOME MEDICATIONS Medications Prior to Admission Medication Sig Dispense Refill Last Dose [DISCONTINUED] azithromycin 500 mg tablet Take 2 tablets by mouth in the morning. 2 tablet 0 proMETHazine 25 mg tablet Take 1 tablet by mouth every 4 (four) hours as needed for Nausea and Vomiting (N/V). 30 tablet 1 vitamin w/FA tablet Take 1 tablet by mouth daily. 100 tablet 3 Taking SOCIAL HISTORY Tobacco History: Social History Tobacco Use Smoking Status Never Smokeless Tobacco Never Drug History: Social History Substance and Sexual Activity Drug Use Never Alcohol History: Social History Substance and Sexual Activity Alcohol Use Not Currently FAMILY HISTORY No family history on file. REVIEW OF SYSTEMS General: negative Constitutional: negative Eyes: negative ENT/Mouth: negative Cardiovascular: negative Respiratory: negative Gastrointestinal:negative Genitourinary: As above Musculoskeletal: negative Skin/breast: negative Neurological: negative Psychiatric: negative Endocrine: negative Hemat/Lymph: negative Allergic/Immuno:none VITAL SIGNS BP: (105-148)/(53-80) Temp: [36.3 ?C (97.3 ?F)-39 ?C (102.2 ?F)] Temp source: Oral (09/14 2009) Pulse: [96-124] Resp: [17-20] SpO2: [97 %-99 %] Height: [157.5 cm (5' 2")] Weight: [91.6 kg (202 lb)-93 kg (205 lb)] BMI (calculated): [0-36.95] PHYSICAL EXAMINATIONS Gen: alert and oriented, well appearing, no distress CV: RRR Resp: normal work of breathing, Abd: gravid, soft, NTTP Ext: no calf tenderness or edema Speculum: foot protruding in the vagina through the cervix Dark brown/creamy foul smelly discharge. Small clot removed VE: 4cm dilated/thick. parts palpable. FHR: 160's REVIEW OF LABORATORY, PATHOLOGY, AND RADIOLOGY DATA Lab results: Type & Screen HIV Hep B Syphilis Chlamydia [...] 166 - 358 10*3/?L Final Placenta Accreta Screening Prior ? : No Prior Uterine Surgery?: No Placenta low lying/previa in current ? : N/A Screening outcome: A positive screening outcome indicates a history of [...] before 22 weeks gestation Chorioamnionitis in first trimester ASSESSMENT AND PLAN Carly Lyons is a 27 year old at 17w4d who presents with inevitable in a setting of suspected chorioamnionitis - with WBC elevated at 17 and foul smelling discharge: will start antibiotics empirically for chorioamnionitis - reviewed findings with patient and family, explained unfortunately, nothing can be done at this stage as miscarriage is inevitable and fetus previable - Verbal Ultrasound repot : viable SIUP but no amniotic fluid seen. Given the patient's story, I suspect that her membrane most likely ruptured last week - Will proceed with expectant management for now given + cardiac activity Rashmi Gonzalez MD [facility] Procedure Notes Date/Time Note Provider Source 2024-03-15 16:29:13 Procedure(s): REVISION CERVIX W PREG,VAG APPRCH Date of procedure: 03/15/2024 Pre-operative diagnosis: History of 2 second trimester losses and 1 rescue cerclage placement at 18 wks Post-operative diagnosis: Same Procedure: Prophylactic Soni cervical cerclage Primary Surgeon: Clotilde Villegas MD [employer] Grade Social Studies Teacher surgeon: Dr. Nik Ge (M Fellow) Faculty: Dr. Manuel Mcconnell MD Anesthesia: Spinal Estimated blood loss: 5 cc IV fluids: 1,000 cc Drains: None Specimens: None Implants: None Complications: None Findings: FHR prior to procedure 154 BPM. Cervix appears short and is ~ 1 cm dilated. After cerclage placement, SVE revealed closed cervix. FHR at the conclusion of the procedure 162 BPM. Indication: History indicated Details of procedure: The patient was taken to the operating room where spinal anesthesia was administered. heart rate was measured with the ultrasound and found to be 130 bpm. She was prepped and draped in the normal fashion in the dorsal lithotomy position using candy-cane stirrups. A time-out was performed confirming correct patient and procedure. Anesthesia was found to be adequate. A straight catheter was used to drain the patient's bladder. A weighted speculum was placed in the vagina. Two right angle retractors and Trendelenburg position were utilized for good visualization of the cervix. The anterior and posterior lips of the cervix were grasped with ring forcepts. Merseline tape was placed in usual fashion, superior to previous scars running under 12, 9, 6, and 3 o'clock in purse-string fashion. Merseline was secured with 6 knots at the 12 o'clock position. SVE revealed a closed cervix. The cervix was noted to be hemostatic. Digital rectal exam revealed no defects or sutures palpated. Sponge, lap, and needle count were correct x2 at the conclusion of the procedure. The patient was transported to the PACU in stable condition. Disposition: Transported to recovery in stable condition Clotilde Villegsa MD [employer] INSTALLER PGY-3 03/15/24 CISE SCIENCE INSTRUCTOR Associated attestation - Manuel Mcconnell MD - 03/15/2024 4:54 PM EXERCISE SCIENCE INSTRUCTOR I was present for and supervised the entire procedure. [facility] 2024-03-15 15:33:39 Associated Order(s): Central Neuraxial Block Central Neuraxial Block Date/Time: 03/15/2024 3:33 PM Performed by: Domingo Garcia MD Authorized by: Meche Craft MD Patient Location: OR End Time: 03/15/2024 3:33 PM Reason for Block: OB request, Patient request and Surgical anesthesia Staff: Anesthesiologist: Meche Craft MD Resident/BAG GRADER: Domingo Garcia MD Performed by: resident/BAG GRADER Preanesthetic Checklist: patient identified, risks and benefits explained, monitors and equipment checked, timeout performed, pre-op evaluation, anesthesia consent, IV checked, surgical consent and site marked Procedure: Type of Neuraxial: Single Shot and Spinal Sterility Prep cap, gloves, gown, hand hygiene and mask Patient Position: sitting Prep: Betadine and patient draped Monitoring: heart rate, cardiac exercise physiologist / EKG, continuous pulse ox, heart rate / toco and NIBP Location: lumbar (1-5) Lumbar: L4-L5 Approach: midline Technique: single shot Guidance with: landmark technique} Epidural/Spinal [place] and/or Catheter: Epidural/Spinal Kit: BBraun Needle Type: Karen Needle Gauge: 25 G Number of Attempts: 1 Assessment: Sensory Level: above T10 Thoracic: T4 Block Outcome: patient comfortable, patient satisfied, patient tolerated procedure well and successful block Events: cerebrospinal fluid Procedure Assessment: patient tolerated procedure well with no complications [facility] ANESTHESIOLOGY [facility] 2023-08-13 16:28:55 Associated Order(s): Central Neuraxial Block Central Neuraxial Block Date/Time: 08/13/2023 4:28 PM Performed by: Domingo Munoz MD Authorized by: Meche Craft MD Patient Location: OB Reason for Block: OB request, Patient request, Labor analgesia, Surgical anesthesia and Post-op pain management Staff: Anesthesiologist: Meche Craft MD Resident/BAG GRADER: Domingo Munoz MD Performed by: resident/BAG GRADER Preanesthetic Checklist: patient identified, IV checked, risks and benefits explained, monitors and equipment checked, timeout performed, pre-op evaluation, site marked and anesthesia consent Procedure: Type of Neuraxial: Epidural Epidural Description: 1st attempt Sterility Prep cap, drape, gloves, hand hygiene and mask Sedation Level no sedation Patient Position: sitting Prep: Betadine and patient draped Monitoring: heart rate, continuous pulse ox, heart rate / toco and NIBP Location: lumbar (1-5) Lumbar: L3-L4 Approach: midline Technique: catheter and SHI saline Guidance with: landmark technique} Epidural/Spinal Gos[place] and/or Catheter: Needle Type: Tuohy Needle Gauge: 17 G Needle Length: 3.5 in (8.89 cm) Needle Insertion Depth: 6 Catheter Type: multiport Catheter Size: 19 G Catheter at Skin Depth: 12 Number of Attempts: 1 Test Dose: lidocaine 1.5% with epinephrine 1-to-200,000 Dose: 3 cc Catheter Securement Method: surgical tape, Tegaderm and liquid medical adhesive Assessment: Block Outcome: a full evaluation is pending and patient tolerated procedure well Procedure Assessment: patient tolerated procedure well with no complications Notes: Smooth and atraumatic, (+) Local, (+) STF AN-ANESTHESIOLOGY [facility] 2023-08-10 05:25:25 Cerclage removal procedure: Informed consent discussed with patient and partner, all questions were answered. Patient in lithotomy position, speculum exam performed with fluid pooling in posterior fornix. Cerclage knot visualized at 12 O'clock, held with ring forceps and cut above the knot at the right side of the loop. Mersilene tape was pulled from the cervical tissue. No bleeding noted. Cervix visually 1 cm dilated. No SVE performed. Plan: - Admit for expectant management of PPROM, BMZ#2 ordered, latency antibiotics ordered. - Tylenol 1 g ordered for pain. Will reassess pain, if persistent, will need to check cervix for dilation. - NICU informed of admission. Laura Bah MD 5:45 AM OG-OBSTETRICS & GYNECOLOGY [facility] 2022-09-15 04:50:29 Procedure(s): D&C AF TER DELIVERY Pre-Procedure Diagnose(s): Retained complete placenta Post-Procedure Diagnose(s): Retained complete placenta Pre-operative Diagnosis: Retained placenta Post- operative Diagnosis: Same Procedure: Dilation and Curettage Surgeon: Rashmi Gonzalez MD Anesthesia: General, ET Estimated Blood Loss: 300 mls Specimens: Placenta Complications: None Condition: Stable Indication: Carly Lyons is a 27 year old female, admitted at 17w4d with Previable PPROM, inevitable with chorioamnionitis Delivery complicated by retained placenta Operation in Detail The patient was taken to the OR where [...] dilated manually and placenta was manually removed. Gackle speculum placed, anterior lip of the cervix grasped and the uterus was then sharply curetted to ensure complete evacuation. IM methergine was given and 1000mcg of cytotec placed rectally Uterus was well contracted Point of care US performed- no POC visualized Sponge, lap and needle counts correct. The patient tolerated the procedure well and went to recovery room in stable condition. Rashmi Gonzalez M.D. [facility] Progress Notes Date/Time Note Provider Source 2022-09-16 08:25:59 Formatting of this n ote might be different from the original. Antimicrobial Stewardship Program Note Based on review of Carly Lyons chart, the antimicrobial stewardship program recommends the following: - Recommend discontinuing current antibiotic regimen and start piperacillin/tazobactam 3.375 g IV q8h as it provides significantly better empiric coverage for E. coli Please call with questions or concerns. RBrad Ash PharmD, BCIDP Clinical Geology Teacher - Infectious Diseases Antimicrobial [place] Pager: [phone] Extension: [phone] 09/16/2022 08:26 Edu Ash [facility] Notes Date/Time Note Provider Source 2024-03-27 10:51:59 Received Panorama results via fax. Stamped and will be scanned/uploaded into pt's chart. [employer] message sent. Brissa Hunt RN 03/27/2024 10:52 AM CISE SCIENCE INSTRUCTOR Brissa Hunt RN [facility] 2024-03-25 10:59:04 Shonda results received via fax. Results accessed by patient on [employer] on 03/22/2024. Spoke with patient, name and verified. sex not reported with Panorama results. Patient states she did want to know the gender. Informed patient I will fill out a change authorization form and should have the results in 24 hours. Patient states her friend has access to the results and will find out through her. Results signed, will scan and upload a copy to [employer]. CISE SCIENCE INSTRUCTOR Landy Hinds MA [facility] 2024-03-15 18:54:14 Patient: Carly Lyons Procedure Summary Date: 03/15/24 Room / Location: [place] [id number] / [facility] Anest[facility] Start: 1519 Anesthesia Stop: 1612 Procedure: CERCLAGE PLACEMENT (Vagina) Diagnosis: (s/p cerclage placement) Surgeons: Manuel Mcconnell MD Responsible Provider: Meche Craft MD Anesthesia Type: Spinal ASA Status: 3 Anesthesia Type: Spinal Last vitals BP 117/59 (03/15/24 1800) Temp Pulse 76 (03/15/24 1800) Resp 22 (03/15/24 1800) SpO2 95 % (03/15/24 1800) There were no known notable events for this encounter. Anesthesia Post Evaluation Patient location during evaluation: PACU Patient participation: complete - patient participated Level of consciousness: awake and alert Pain score: 1 Pain management: satisfactory to patient Airway patency: patent Cardiovascular status: acceptable and blood pressure returned to baseline Respiratory status: acceptable Hydration status: acceptable CISE SCIENCE INSTRUCTOR AN-ANESTHESIOLOGY ANESTHESIOLOGIST [facility] 2024-03-15 11:12:24 Name/ MRN / Age / Gender: Carly Lyons, [id number] 28 year old female BMI: Estimated body mass index is 40.48 kg/m? as calculated from the following: Height as of this encounter: 1.575 m (5' 2"). Weight as of this encounter: 100.4 kg (221 lb 4.8 oz). Allergies: Patient has no known allergies. Last Vitals: BP Readings from Last 1 Encounters: 03/15/24 117/74 Pulse Readings from Last 1 Encounters: 03/15/24 78 SpO2 Readings from Last 1 Encounters: 03/15/24 98% Date of Surgery: 03/15/2024 Surgeon: Faculty, Ob Procedure: CERCLAGE PLACEMENT (Vagina) OR Location: LABOR AND DELIVERY OR [facility] Anesthesia Preop Eval (physical exam) Anesthesia Preop: Chart Review and [id number] [facility] Communication: 28 year old female at 13w6d requesting central neuraxial anesthesia PONV Risk Factors: female Anesthesia History Anesthesia History Negative (-) Hx of anesthetic complications Previous Anesthetics/Airways Cardiovascular Negative Cardiac ROS Comments: BP Readings from Last 3 Encounters: 03/15/24 : 117/74 03/05/24 : 126/81 01/31/24 : 134/79 Pulmonary Negative Pulmonary ROS Neuro/Musculoskeletal Negative Neuro/Musculosketal ROS (-) Spinal Cord injury (-) Positioning limitations GI/Hepatic Negative GI/Hepatic ROS Hematology Negative Hematology ROS Comments: HGB (g/dL) Date Value 03/15/2024 12.5 PLT (10*3/?L) Date Value 03/15/2024 308 Type and Screen Ordered: Yes Patient Accepts Blood Transfusion: Yes Renal Negative Renal ROS Skin Negative Skin ROS Endo/Other Negative Endo/Other ROS Comments: No results found for: "[id number]" HGB A1C Date Value Ref Range Status 02/26/2024 5.2 4.0 - 5.7 % Final Other [employer] INST[employer]ER Comments: Carly Lyons is a 28 year old at 13w6d by d/u(7) who presents for cerclage placement. History indicated cerclage - History of 2x 17 wk losses in 2021 and 2022 due to PPROM vs painless cervical dilation - delivery in 2023 at 34 wks due to PPROM, rescue Soni cerclage placed at 18 wks Plan: Proceed to OR for cerclage placement. Will given 50 mg Indomethacin loading dose followed by 25 mg q8h x 3 doses. Complex Left Adnexal Mass - 8.2 x 4.9 x 7.5 cm left mass Abnormal Pap Smear - ASCUS/HRHPV (-) on 01/31/2024 Antepartum course reviewed - Early 1 hr 127, sero negative, Rnot immune, VZVnot immune, HPV not immune, B positive/IAT negative, GBS unknown, Pap ASCUS/HRHPV (-) on 01/31/2024 - H/H, plt: 13.5 / 41.4, 312 on 02/26/2024 Fetus - Presentation on admission: variable - Placenta anterior fundal right - EFW: 98 g, 75%tile by [facility] 03/15/24 Pediatric Pediatric N/A N/A Preoperative Medication Instructions Continue taking all prescribed medications except: ASHANTI inhibitors, ARBs, diuretics, all oral diabetes medications Anticoagulant Therapy: Defer to surgeons Insulin: Take 1/2 dose the night prior to surgery. Hold on DOS. Phentermine: Alert [facility] anesthesiologist SGLT2 Inhibitors: "gliflozins" to be held for 3 days prior to elective surgeries GLP1 Agonosit: stop 7 days prior to surgery MAC Cases: Continue taking ASHANTI inhibitors and ARBs ASA Classification ASA: 3 Labs: Chemistry 08/21/2023 CBC 03/15/2024 135 102 18 134 (H) 11.36 (H) 12.5 308 3.4 (L) 20 (L) 0.80 37.8 eGFR: 103.1 Date: 08/21/2023 ANC: 8.42 (H) Date: 03/15/2024 LFTs 08/21/2023 Coags AST: 26 AP: 113 Prot: 7.7 Ca: 9.0 PT: - Date: - ALT: 48 (H) T [place]: 0.7 Alb: 4.0 PTT: - Date: - PO4: - Date: - INR: - Date: - Cardiac Endocrine & other pBNP: - Date: - A1C: 5.2 Date: 02/26/2024 Trop I: - Date: - POCT A1C: - Date: - CK: - Date: - TSH: - Date: - CKMB: - Date: - FT4: - Date: - LDL: - Date: - Lact: 03.18 Date: 08/21/2023 Procal: - Date: - Respiratory -|-|-|-|- D-dimer: - ABG Date: - Date: - Miscellaneous Type and Screen: B POSITIVE Antibody: Negative Date: 03/15/2024 POCT : Positive Date: 01/31/2024 Current Medications: Outpatient Medications Marked as Taking for the 03/15/24 encounter (Hospital Encounter) Medication Sig Dispense Refill indomethacin 25 mg capsule Take 1 capsule by mouth every 8 (eight) hours for 3 doses. 3 capsule 0 Previous Surgeries: Past Surgical History: Procedure Laterality Date CERCLAGE PLACEMENT N/A 04/25/2023 Surgeon: Kristal Alvarado MD; [facility] DILATION AND EVACUATION OF UTERINE CONTENTS N/A 09/15/2022 Surgeon: Rashmi Gonzalez MD; Location: [facility] LABOR AND DELIVERY OR LOCATION Anesthesia Physical Exam General no apparent distress and alert and oriented x 3 Neuro/Psych neurological Nonfocal Dental no notable dental hx Abdominal GI exam normal (+) abdomen soft, benign and gravid Airway Mallampati score:III TM distance:> 5 cm Neck ROM: full Mouth opening:normal (+) Normal facies Extremity Normal extremity Pulmonary pulmonary exam normal Other Cardiovascular cardiovascular exam normalRhythm:Regular Rate: Normal Anesthesia Plan ASA Status: 3 Plan discussed during pre-op evaluation: General, Epidural, Spinal and CSE Anesthetic plan on DOS: Spinal Anesthesia plan discussed with: patient or motor vehicle field representative Post-Operative Analgesia: routine analgesia & antiemetics Recovery Plan: PACU and LDR Additional comments: [facility] 2024-03-15 09:15:00 Venipuncture collection performed by clean technique on the left anticubitus. Total of 1 attempts were made. Slight pressure and a bandage/dressing were applied to the site(s). The patient experienced no complications. The following specimens were processed according to instructions and sent to [facility] [employer] (NIPT or ALLOSURE or [employer]) Tracking Number [id number] Test NIPT CISE SCIENCE INSTRUCTOR [facility] 2024-03-14 15:47:04 See mycMethodt message. Adriano Barba RN 03/14/2024 3:47 PM CISE SCIENCE INSTRUCTOR Adriano Barba RN [facility] 2024-03-14 14:33:20 The patient expressed a desire to speak with a nurse but declined to provide any details regarding the reason for the request and subsequently ended the call. CISE SCIENCE INSTRUCTOR Shama Bedolla [facility] 2024-03-05 11:15:00 Age: [age] year old GA: 12w3d 1. Supervision of high-risk with history of , first trimester 2. 12 weeks gestation of - No concerns today NIPT kit given - POCT Urinalysis w/o Specific [place] 3. History of delivery, currently in first trimester 4. Prior poor obstetrical history, antepartum, first trimester - Scheduled for history indicated cerclage on 03/15 at [place] 5. History of gestational diabetes in prior , currently - Early 1hr normal, A1C normal - Start LDA 6. Short interval between pregnancies affecting in first trimester, antepartum 7. Other obesity affecting in first trimester Weight gain stable 8. Nausea and vomiting during - proMETHazine 25 mg tablet; Take 1 tablet by mouth every 4 (four) hours as needed for Nausea and Vomiting (N/V). Dispense: 30 tablet; Refill: 1 KATHY in 4 weeks or PRN Future Appointments In 1 week 3, [facility] Room [facility] Obstetric Ultrasound, [facility], [facility] In 4 weeks Rashmi Gonzalez MD [facility] Rashmi Gonzalez MD [facility] 2024-02-26 08:45:00 Images from the original note were not included. Loaded pt w 50gm lemon [place] glucola, no issues. Draw time: 928 Patient has been identified by and was provided with cup, antiseptic towelette, and clean catch instructions. 2 urine specimen(s) sent. Unpreserved 1 Urine Culture 1 Aptima tube Other urine [facility] 2024-02-26 08:45:00 Images from the original note were not included. Venipuncture collection performed by clean technique on the left anticubitus. Total of 1 attempts were made. Slight pressure and a bandage/dressing were applied to the site(s). The patient experienced no complications. The following specimens were processed according to instructions and sent to [facility] laboratories per lab order on 02/26/2024 : LT BLUE SST 4 RED 1 LAV 3 PPT DK GREEN (LiHep) DK GREEN (SodH) BROWN DK BLUE (K2) DK BLUE (S) ACD Blood Culture NIPT/NTD [facility] 2024-02-22 09:30:00 Addended by: NIK PIMENTEL MD on: 02/22/2024 10:20 AM Modules accepted: Orders [facility] 2024-01-31 14:30:00 Age: [age] year old GA: 7w4d Initial PNC Carly Lyons is a 28 year old at 7w4d by LMP presents for Initial OB visit today. Reports regular cycles Denies vaginal bleeding, pelvic pain or cramps. Denies nausea or vomiting She is in as stable relationship and denies domestic violence/immediate partner violence. Sonogram confirmed an SIUP at 7w4d Assessment/Plan Supervision of high-risk with history of , first trimester (primary encounter diagnosis) Less than 8 weeks gestation of Missed menses Discussed do's and don'ts of , safe foods, safe medications. We discussed course, labs, aneuploidy and genetic carrier screening and ultrasounds. Expectations for weight gain this include 20 pounds. Exercise in discussed and encouraged. aneuploidy options were reviewed including NIPT: cFDNA test and 2nd trimester QUAD screen. The benefits and short falls of these screening tests were reviewed. Also discussed diagnostic tests: CVS vs amniocentesis. Opted for NIPT testing Vaccinations in reviewed: Flu, COVID, RSV and Tdap I discussed the call schedule and that I deliver here at [facility]. I discussed that I have two partners, Dr. Elizalde and Dr. Osborn and that they may deliver her or take care of her during her . I discussed that at [facility] we do not have a NICU, and that high risk pregnancies or deliveries less than 36 weeks will be transferred to [place]. All questions were answered. NOB labs today precautions reviewed Plan: POCT Test, POCT Urinalysis w/o Specific [place], VZV Antibody Screen, Urine Drug (Immunoassay) - Comprehensive Drug Screen, Urine Culture, Rubella Screen IgG, Workup, Blood Bank, [facility] or [place] Only - Rpr, Cbc with Diff, Glucose 1 Hour Post Prandial, Hcv Antibody, Hepatitis B Surface Antigen, HIV 1/2 Ag-Ab with Reflex, PAP Smear-Liquid Based, GC & CHLAMYDIA AMPLIFIED ASSAY, TRICHOMONAS AMPLIFIED ASSAY, Glycosylated Hemoglobin (A1C), PAP Smear-Liquid Based, GC & CHLAMYDIA AMPLIFIED ASSAY, TRICHOMONAS AMPLIFIED ASSAY, CONSULT/REFERRAL MATERNAL MEDICINE FACULTY/FELLOW Prior poor obstetrical history, antepartum, first trimester - Hx of miscarriage at 17 wks in June 2021- fetus was delivered encaul here at [facility] She reports that she bleed through out that ( she was seeing Dr Moreland) Pathology showed 40% retroplacental bleeding and grossly normal female - She had prolonged PPROM (fetus still had a FH with parts in the vagina) with chorioamnionitis/sepsis at 17 wks in September 2022 following an emergency was performed. Pathology showed a female fetus with no abnormalities of developments - She also had a miscarriage at 6 wks in Nov 2021- reports that she also started bleeding early until she miscarriage Plan: CONSULT/REFERRAL MATERNAL MEDICINE FACULTY/FELLOW History of delivery, currently in first trimester -cerclage placed last for shortened cervix on scan - Augmentation for PPROM and PTL at 33w3d - Consult to [facility] for possible history indicated prophylactic cerclage Plan: CONSULT/REFERRAL MATERNAL MEDICINE FACULTY/FELLOW Short interval between pregnancies affecting in first trimester, antepartum - Last child , vaginal 5 months ago Morbid obesity with body mass index of 40.0-49.9 Other obesity affecting in first trimester Reviewed the risks associated obesity in - GDM, GTHN, Macrosomia, IUGR, labor dsytocia which could lead to with increased risk of wound breakdown. Discussed appropriate weight gain for her BMI (11-15lbs), healthy eating with regular moderate intensity exercise History of gestational diabetes in prior , currently - Start LDA at 12 weeks Plan: Glucose 1 Hour Post Prandial, Glycosylated Hemoglobin (A1C) Encounter to determine viability of , single or unspecified fetus Plan: OB Ultrasound Transvaginal Return to clinic in 4 weeks. Reviewed patient instructions and provided printed copy. Greater than 30 minutes was spent face to face with the patient during this visit. At least greater than 50% spent face to face with patient on education of diagnoses, counseling, and discussion of test results with the patient. Details of the performed examinations were reviewed in detail with the patient. In addition, the reasons for possible further testing and evaluation and possible diagnoses were explained to the patient Future Appointments In 4 weeks Rashmi Gonzalez MD [facility] [place], [facility] Specialt [facility] 2023-08-21 23:48:33 Pt given printed and verbal discharge instructions regarding acute UTI Prescriptions provided Discussed ibuprofen and to take with food to avoid GI distress. Discussed antibiotic therapy and to take until all completed unless adverse reaction occurs - if occurs, discontinue medication and follow up with pcp/seek medical attention Pt verbalized understanding of instructions, pt awake alert oriented, resp reg unlabored, skin w/d, color appropriate for race, moves all ext well,pt encouraged to follow up with PCP No adverse reaction to meds given in ER noted upon discharge PIV d'cd, dressing to site, catheter in tact. Awake, alert oriented, resp reg unlabored, skin w/d, pt leaving amb with steady gait, in no apparent distress Paulina Chau RN [facility] 2023-08-21 21:28:27 Pt arrived ambulatory with spouse with complaints of chills, nausea and vomiting that started yesterday. Pt had a vaginal delivery on 08/12 without complications. Not breast feeding. No sick contacts. On Keflex for UTI, last took Phenergan and Ibuprofen this morning. Rina Cool RN [facility] 2023-08-14 17:59:49 Problem: Pain Goal: Control of pain at or below patient's documented comfort goal Outcome: Adequate for discharge Goal: Reduction in pain sensation Outcome: Adequate for discharge Problem: Infection Risk Goal: Absence of infection Outcome: Adequate for discharge Problem: Discharge Planning - Goal: Adequate for discharge Outcome: Adequate for discharge Goal: Mood stable Outcome: Adequate for discharge Problem: Complications of hemorrhage (risk or actual) Goal: Absence of active bleeding Outcome: Adequate for discharge Goal: Absence of complications Outcome: Adequate for discharge [facility] 2023-08-14 08:00:00 Images from the original note were not included. This note was copied from a baby's chart. Assessment (most recent) Assessment - 08/14/23 0800 General Information Visit Consult Mom's age (years) 28 years Gestational age 34 weeks 5 Parity 2 Living Children 2 Feeding plan Breast and Formula Breastfeed previously No states she 10 y.o did not latch so she just formula fed Planned maternity leave Stay at home mom Breast Pump Needs mom applied for pump with [employer] WIC;Medicaid Delivery method Breast changes during Darkening of areola;Enlarged Periods Regular Risk factors GDM DM controlled by Diet Infant Oral Assessment Oral assessment Deferred CPAP Date of 08/13/23 Time of 191 Infant location NICU Breast Assessment Breast Assessment Initial Symmetry Symmetrical Size L (D-DD) Shape Rounded Other Soft Nipple & Areola Assessment Left Areola Pliable Right Areola Pliable Left Nipple Colostrum visible;Everted Right Nipple Colostrum visible;Everted Literature Resources Resources Understanding Mother and Baby Care expressing milk for your NICU baby Education Benefits of breastmilk;Hand expression;Benefits of skin to skin contact;Maternal nutrition/hydration;Use/se ttings of pump;Pump frequency;Storage of expressed breastmilk;Labeling of expressed breastmilk;Cleaning of pump parts;Transportation of expressed breastmilk;Lactogenesis;Ho w to obtain pump for after discharge Unit Assistant Observation Pumping Yes no drops with pump, mom admits she has not pump since yesterday night around 9pm. drops obtained with hand expression with LC now Interventions Taught hand expression Follow up Mom will call staff Recommended Feeding Plan Recommended feeding plan Pump/hand express minimum 8 times in 24 hours including nights. Pump for 15-25 min.;Frequent [id number] time with parents OTHER $ SERVICES Consult Giovanni KANG-MN, IBCLC Pager - [phone] Quyen Henderson RN [facility] 2023-08-13 22:17:41 Problem: Pain Goal: Control of pain at or below patient's documented comfort goal Outcome: Progressing as expected Goal: Reduction in pain sensation Outcome: Progressing as expected Problem: Infection Risk Goal: Absence of infection Outcome: Progressing as expected Problem: Discharge Planning - Goal: Adequate for discharge Outcome: Progressing as expected Goal: Mood stable Outcome: Progressing as expected Davian Kunz RN [facility] 2023-08-13 21:05:16 Problem: Pain Goal: Control of pain at or below patient's documented comfort goal Outcome: Progressing as expected Goal: Reduction in pain sensation Outcome: Progressing as expected Problem: Infection Risk Goal: Absence of infection Outcome: Progressing as expected Problem: Intrapartum process (including labor pain) Goal: Absence of or reduction of complications of labor Outcome: Resolved Goal: Able to cope with pain Outcome: Resolved Goal: Adequate to move to next level of care Outcome: Resolved Goal: Reduction in pain sensation Outcome: Resolved Problem: Glucose control Goal: Glucose level within specified parameters Outcome: Progressing as expected July Caban RN [facility] 2023-08-13 20:53:25 Patient: Carly Lyons Procedure Summary Date: 08/13/23 Room / Location: Anesthesia Start: 1599 Anesthesia Stop: 1914 Procedure: CENTRAL NEURAXIAL BLOCK Diagnosis: Scheduled Providers: Responsible Provider: Meche Craft MD Anesthesia Type: Epidural ASA Status: 2 Anesthesia Type: Epidural Last vitals BP 125/68 (08/13/232012) Temp 36.9 ?C (98.4 ?F) (08/13/232012) Pulse 75 (08/13/232012) Resp 18 (08/13/232012) SpO2 100 % (08/13/232012) There were no known notable events for this encounter. Anesthesia Post Evaluation Patient participation: complete - patient participated Level of consciousness: awake and alert Pain score: 1 Pain management: satisfactory to patient Airway patency: patent Cardiovascular status: acceptable and blood pressure returned to baseline Respiratory status: acceptable Hydration status: acceptable AN-ANESTHESIOLOGY ANESTHESIOLOGIST [facility] 2023-08-13 17:10:28 Problem: Pain Goal: Control of pain at or below patient's documented comfort goal Outcome: Progressing as expected Goal: Reduction in pain sensation Outcome: Progressing as expected Problem: Infection Risk Goal: Absence of infection Outcome: Progressing as expected Problem: Intrapartum process (including labor pain) Goal: Absence of or reduction of complications of labor Outcome: Progressing as expected Goal: Able to cope with pain Outcome: Progressing as expected Goal: Adequate to move to next level of care Outcome: Progressing as expected Goal: Reduction in pain sensation Outcome: Progressing as expected Problem: Glucose control Goal: Glucose level within specified parameters Outcome: Progressing as expected Audrey Moore RN [facility] 2023-08-13 15:41:32 Name/ MRN / Age / Gender: Carly Lyons, [id number] 28 year old female BMI: Estimated body mass index is 40.05 kg/m? as calculated from the following: Height as of this encounter: 1.575 m (5' 2.01"). Weight as of this encounter: 99.3 kg (219 lb). Allergies: Patient has no known allergies. Last Vitals: BP Readings from Last 1 Encounters: 08/13/23 127/74 Pulse Readings from Last 1 Encounters: 08/13/23 91 SpO2 Readings from Last 1 Encounters: 08/13/23 99% Date of Surgery: 08/13/2023 Surgeon: * No surgeons listed * Procedure: CENTRAL NEURAXIAL BLOCK OR Location: [facility] OUT OF OR - OR LOCATION Anesthesia Preop Eval (physical exam) Anesthesia Preop: Chart Review and [id number] Anesthesia History (-) Hx of anesthetic complications Previous Anesthetics/Airways Cardiovascular Negative Cardiac ROS Pulmonary Negative Pulmonary ROS Neuro/Musculoskeletal (+) Obesity and morbid obesity GI/Hepatic Negative GI/Hepatic ROS Hematology Negative Hematology ROS Renal Negative Renal ROS Skin (+) Current IV access Endo/Other (+) Diabetes Mellitus 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 PPROM - Onset Saturday 08/05 - Describe as a steady flow of clear fluid that progressed until presentation to [facility] on 08/08 @1415 - As per documentation pt was examined and found to be Neg ROMx4 and kept for overnight obs. - Today at ~115AM pt c/o increasing LOF and re-examined and found to have +ROMx4 - Pt was transferred to [facility] for higher level of care. - On exam, pt c/o increasing pain w contractions rated 10/10 in severity - Spec exam showed external cervical os visually 1cm dilated, gross ROM, + pooling, + Valsalva, + Nitrazine, - ferning - MICHELLE 8.28cm, prev 12.1cm on 08/09/23 - Cerclage removed in triage due to increased contraction pain rated 10/10 w confirmed PPROM - BMZ #1 given at 0115 - Ampicillin 2g given at 0148 - Azithromycin 1g given at 0144 - Tylenol 1g given on admission, reports improved pain - Plan: Will admit for expectant mgmt in setting of PPROM w painful contractions, BMZ#2 due at 0115 on 08/10, Amp due at 0730. SVE to be done if pain is persistent or worsening. S/p Cerclage removal - Cercalge placed on 04/24 at 18w2d - Pt has hx of 2 prior 17w miscarriages - Found to have 0.3cm cervix on MFM US on 04/23 - Cerclage removed on admission 08/09 due to increased contractions pain rated 10/10 w confirmed PPROM - Plan: Expectant mgmt, SVE to be done if pain is persistent or worsening Bacterial vaginosis - Pos on 08/09/23 - Started on Flagyl 500mg BID for 5 days, last dose 1600 on 08/08 - Plan: cont Flagyl A1DM - 1 h 141, 3 h 93, 186, 165, 125 - A1C 5.8 on 06/29/23 - Diet controlled - FSBG on admission 102 - Plan: Cont diabetic diet Hx of recurrent UTI - On Macrobid 100mg daily suppression, last dose 08/08 - Plan: Cont Macrobid Antepartum course reviewed - 1 h 141, 3 h 93, 186, 165, 125, , sero negative, Rnot immune, VZVnot immune, B positive/IAT negative, GBS unkn, Pap unknown - H/H, plt: 8.2 / 26.3, 238 on 08/09/23 - PP BCM: undecided on admission - [facility] Fetus - Presentation on admission: cephalic - Fundal placenta - EFW: 2708g by BSUS 92%tile - MICHELLE 8.28cm - FHT reactive and reassuring - Normal anatomy scan P: 1 Pediatric Preoperative Medication Instructions Continue taking all prescribed medications except: ASHANTI inhibitors, ARBs, diuretics, all oral diabetes medications Anticoagulant Therapy: Defer to surgeons Insulin: Take 1/2 dose the night prior to surgery. Hold on DOS. Phentermine: Alert [facility] anesthesiologist SGLT2 Inhibitors: "gliflozins" to be held for 3 days prior to elective surgeries GLP1 Agonosit: stop 7 days prior to surgery MAC Cases: Continue taking ASHANTI inhibitors and ARBs ASA Classification ASA: 2 Labs: Chemistry 07/20/2023 CBC 08/09/2023 136 108 7 77 9.15 8.2 (L) 238 3.8 24 0.43 (L) 26.3 (L) eGFR: 136.1 Date: 07/20/2023 ANC: 6.88 Date: 08/09/2023 LFTs - Coags AST: - AP: - Prot: - Ca: 9.5 PT: - Date: - ALT: - T [place]: - Alb: - PTT: - Date: - PO4: - Date: - INR: - Date: - Cardiac Endocrine & other pBNP: - Date: - A1C: 5.8 (H) Date: 06/29/2023 Trop I: - Date: - POCT A1C: - Date: - CK: - Date: - TSH: - Date: - CKMB: - Date: - FT4: - Date: - LDL: - Date: - Lact: - Date: - Procal: - Date: - Respiratory -|-|-|-|- D-dimer: - ABG Date: - Date: - Miscellaneous Type and Screen: B POSITIVE Antibody: Negative Date: 08/10/2023 POCT : Positive Date: 02/07/2023 Current Medications: No outpatient medications have been marked as taking for the 08/09/23 encounter (Hospital Encounter). Previous Surgeries: Past Surgical History: Procedure Laterality Date CERCLAGE PLACEMENT N/A 04/25/2023 Surgeon: Kristal Alvarado MD; Location: LABOR AND DELIVERY OR LOCATION-[facility] DILATION AND EVACUATION OF UTERINE CONTENTS N/A 09/15/2022 Surgeon: Rashmi Gonzalez MD; Location: [facility] LABOR AND DELIVERY OR LOCATION Anesthesia Physical Exam General no apparent distress and alert and oriented x 3 Neuro/Psych neurological Dental no notable dental hx Abdominal GI exam normal (+) obesity and gravid Airway Mallampati score:II TM distance:> 5 cm Neck ROM: full Mouth opening:normal (+) Normal facies Extremity Normal extremity Pulmonary pulmonary exam normal Other Cardiovascular cardiovascular exam normalRhythm:regular Rate: normal Anesthesia Plan ASA Status: 2 Plan discussed during pre-op evaluation: General, Epidural, Spinal and CSE Anesthetic plan on DOS: Epidural Anesthesia plan discussed with: patient or motor vehicle field representative Post-Operative Analgesia: routine analgesia & antiemetics Recovery Plan: LDR Additional comments: [facility] 2023-08-12 23:00:04 Problem: Pain Goal: Control of pain at or below patient's documented comfort goal Outcome: Progressing as expected Goal: Reduction in pain sensation Outcome: Progressing as expected Problem: Infection Risk Goal: Absence of infection Outcome: Progressing as expected Problem: Intrapartum process (including labor pain) Goal: Absence of or reduction of complications of labor Outcome: Progressing as expected Goal: Able to cope with pain Outcome: Progressing as expected Goal: Adequate to move to next level of care Outcome: Progressing as expected Goal: Reduction in pain sensation Outcome: Progressing as expected Problem: Glucose control Goal: Glucose level within specified parameters Outcome: Progressing as expected Maday Centeno RN [facility] 2023-08-12 16:48:14 Problem: Pain Goal: Control of pain at or below patient's documented comfort goal Outcome: Progressing as expected Problem: Infection Risk Goal: Absence of infection Outcome: Progressing as expected Problem: Intrapartum process (including labor pain) Goal: Adequate to move to next level of care Outcome: Progressing as expected Problem: Glucose control Goal: Glucose level within specified parameters Outcome: Progressing as expected Shauna Taylor RN [facility] 2023-08-11 20:23:44 Problem: Pain Goal: Control of pain at or below patient's documented comfort goal Outcome: Progressing as expected Goal: Reduction in pain sensation Outcome: Progressing as expected Problem: Infection Risk Goal: Absence of infection Outcome: Progressing as expected Problem: Intrapartum process (including labor pain) Goal: Absence of or reduction of complications of labor Outcome: Progressing as expected Goal: Able to cope with pain Outcome: Progressing as expected Goal: Adequate to move to next level of care Outcome: Progressing as expected Goal: Reduction in pain sensation Outcome: Progressing as expected T Karlene Lacy RN [facility] 2023-08-11 16:51:02 Problem: Pain Goal: Control of pain at or below patient's documented comfort goal Outcome: Progressing as expected Goal: Reduction in pain sensation Outcome: Progressing as expected Problem: Infection Risk Goal: Absence of infection Outcome: Progressing as expected Problem: Intrapartum process (including labor pain) Goal: Absence of or reduction of complications of labor Outcome: Progressing as expected Goal: Able to cope with pain Outcome: Progressing as expected Goal: Adequate to move to next level of care Outcome: Progressing as expected Goal: Reduction in pain sensation Outcome: Progressing as expected [facility] Mattie Escobar RN [facility] 2023-08-10 23:19:56 Problem: Pain Goal: Control of pain at or below patient's documented comfort goal Outcome: Progressing as expected Goal: Reduction in pain sensation Outcome: Progressing as expected Problem: Infection Risk Goal: Absence of infection Outcome: Progressing as expected Problem: Intrapartum process (including labor pain) Goal: Absence of or reduction of complications of labor Outcome: Progressing as expected Goal: Able to cope with pain Outcome: Progressing as expected Goal: Adequate to move to next level of care Outcome: Progressing as expected Goal: Reduction in pain sensation Outcome: Progressing as expected [facility] 2023-08-10 18:22:59 Problem: Pain Goal: Control of pain at or below patient's documented comfort goal Outcome: Progressing as expected Goal: Reduction in pain sensation Outcome: Progressing as expected Problem: Infection Risk Goal: Absence of infection Outcome: Progressing as expected Problem: Intrapartum process (including labor pain) Goal: Absence of or reduction of complications of labor Outcome: Progressing as expected Goal: Able to cope with pain Outcome: Progressing as expected Goal: Adequate to move to next level of care Outcome: Progressing as expected Goal: Reduction in pain sensation Outcome: Progressing as expected Magaly Durham RN [facility] 2023-08-10 07:45:55 Problem: Pain Goal: Control of pain at or below patient's documented comfort goal Outcome: Progressing as expected Goal: Reduction in pain sensation Outcome: Progressing as expected Problem: Infection Risk Goal: Absence of infection Outcome: Progressing as expected Problem: Intrapartum process (including labor pain) Goal: Absence of or reduction of complications of labor Outcome: Progressing as expected Goal: Able to cope with pain Outcome: Progressing as expected Goal: Adequate to move to next level of care Outcome: Progressing as expected Goal: Reduction in pain sensation Outcome: Progressing as expected Ann Santamaria RN [facility] 2023-08-10 05:59:07 Problem: Pain Goal: Control of pain at or below patient's documented comfort goal Outcome: Progressing as expected Goal: Reduction in pain sensation Outcome: Progressing as expected Problem: Infection Risk Goal: Absence of infection Outcome: Progressing as expected Problem: Intrapartum process (including labor pain) Goal: Absence of or reduction of complications of labor Outcome: Progressing as expected Goal: Able to cope with pain Outcome: Progressing as expected Goal: Adequate to move to next level of care Outcome: Progressing as expected Goal: Reduction in pain sensation Outcome: Progressing as expected Ericka Mackenzie RN [facility] 2023-08-09 20:10:07 Problem: Pain Goal: Control of pain at or below patient's documented comfort goal Outcome: Progressing as expected Goal: Reduction in pain sensation Outcome: Progressing as expected Problem: Infection Risk Goal: Absence of infection Outcome: Progressing as expected Pratik Bradford RN [facility] 2023-08-09 13:04:00 Patient arrived ambulatory with c/o of leaking clear fluid for the past 3-4 days. Lower back pain. 33 weeks 3 days . G5A3P1. Cheryl Gonzalez Gave report to BREANN Blanco L&D nurse Klaudia Padilla RN [facility] 2023-08-09 09:21:58 Please see Individual Digitalt message. KAREN VELA RN 08/09/2023 9:22 AM Karen Vela RN [facility] 2023-08-08 12:03:47 Pt is experiencing nausea with her iron medication and would like to see if she can be given something else. Please assist Saniya Stein [facility] 2023-08-02 13:00:00 Age: [age] year old GA: 32w3d 1. High-risk in third trimester 2. 32 weeks gestation of - No concerns today - POCT Urinalysis w/o Specific [place] 3. Diet controlled gestational diabetes mellitus (GDM) in third trimester Reviewed diabetes in . The need for adequate glycemic control to prevent macrosomia, polyhydramnios, hypoglycemia, trauma and other possible complications including GHTN, preeclampsia were discussed. A referral has been generated for diabetic teaching/ dietitian. Briefly discussed the recommended diet should be about 40% carbohydrates (more complex than simple carbohydrates), 40% fat, and 20% protein. You should eat 3 meals with 2-3 snacks per day. A moderate exercise is recommended. She understands that she might require medication- oral hypoglycemics or insulin to achieve adequate glycemic control if indicated as BS log reviewed: FS 04/30 2hrBF: 0 2hrLunnch:03/01 2hrdinner: 0 4. Cervical cerclage suture present in third trimester - No cocnerns - will remove at 37wks 5. Urinary tract infection in mother during third trimester of - she has completed her abx. Took last dose today Denies symptoms - Daily Macrobid for prophylaxis sent in based on sensitivities from recent Ucx. - Will send for LEONID 6. Recurrent UTI (urinary tract infection) complicating , third trimester - As above - Nitrofurantoin&Nit. Macrocryst 100 mg capsule; Take 1 capsule by mouth in the morning. Dispense: 30 capsule; Refill: 1 7. Prior poor obstetrical history, antepartum, third trimester PTL precautions and FKC's reviewed with patient Monitor for vaginal bleeding, loss of fluid, and/or contractions - Monitor for symptoms of preeclampsia (headache, visual disturbances, epigastric (under right ribs) pain, and increased blood pressure - If there is a perceived decrease in movement, monitor kick counts. Drink glass of water or juice and rest on left side for approximately two hours. If you feel 10 kicks (movements) over a period of two hours, this is normal. If you do not feel the fetus moving, present to OB clinic or antepartum unit at the [facility] KATHY in 2 weeks or PRN Future Appointments In 2 weeks Rashmi Gonzalez MD [facility] Specialt Rashmi Gonzalez MD [facility] 2023-07-24 15:00:00 Age: [age] year old GA: 31w1d ASSESSMENT: Carly Lyons is a 28 year old at 31w1d who presents for routine visit. Patient Active Problem List Diagnosis 30 weeks gestation of Obesity (BMI 30-39.9) Short cervical length during , second trimester Supervision of high-risk with history of in second trimester Prior poor obstetrical history, antepartum, second trimester Other obesity affecting in second trimester Cervical cerclage suture present in third trimester Chlamydia infection affecting in first trimester Morbid obesity with body mass index of 40.0-49.9 Gestational diabetes mellitus (GDM) in third trimester Back pain affecting in third trimester Recurrent UTI (urinary tract infection) complicating , third trimester Anemia of mother in , antepartum, third trimester UTI in , antepartum, third trimester PLAN 1. High-risk in third trimester 2. Diet controlled gestational diabetes mellitus (GDM) in third trimester 1 hr and 3 hrs GTT- abnormal Had diabetes teaching with RN today. Pt states she understood all information provided, She reports checking her sugars and forgot to bring to log for visit today. Will send log via [employer] later today. Stressed importance of managing blood sugars with diet, if not we will start oral treatment. Possible risks and complications with reviewed. 3. 31 weeks gestation of - POCT Urinalysis w/o Specific [place]- Positive for protein and glucose 4. Cervical cerclage suture present in third trimester Denies vaginal bleeding or pressure She verbalized understanding --All questions answered RTC in [address] Lisa Ashford DNP, TRANSPORTATION SECURITY OFFICER- 43:51 PM [facility] 2023-07-20 13:39:33 Patient to ED for low back pain that started at 9 am today. Pain is constant and won't go away. . Dr. Gonzalez is her OBGYN. 30 weeks and 4 days. No bleeding or discharge. T Colby Balderas RN [facility] 2023-07-20 13:31:04 Spoke with patient, state ria she has been having back pain since Monday, cramping also. Denies vaginal bleeding or LOF. Reports good movement. Pain 8-9 currently. Patient states that she is peeing normal, light yellow colored urine. Drinking approx 4-6 bottles of water daily. Denies urinary symptoms. Patient states that she is already at ER, advised patient to go ahead and get evaluated and they will send her upstairs to L&D if necessary and that her provider will be notified. Mago Kerr RN 07/20/2023 1:35 PM T [facility] 2023-07-20 12:53:32 Call was transferred to back line to take assessment call. Pt began talking and I informed pt that call was breaking up and I couldn't make out what she was saying. Pt began speaking again, but call kept breaking up. Informed pt again that call was breaking up and I couldn't make out what she was saying. Pt become upset and started cursing. Pt then hung up the call. Attempted to call pt x 2 and left voicemail for pt to return call to clinic. Nicolasa Degroot MA [facility] 2023-07-20 12:48:49 Pt calling want to speak to nurse about severe back pain she been having. Racquel Dougherty [facility] 2023-07-14 16:48:16 Spoke with [facility]'s pharmacy and gave verbal directions for patient to check blood sugar four times a day. [facility] 2023-07-14 10:23:38 Please disregard prior note. Routed in error. Mago Kerr RN 07/14/2023 10:23 AM [facility] 2023-07-14 09:54:13 Swapna Mcrae is calling need directions on test strips. T Racquel Dougherty [facility] 2023-07-14 09:41:53 Sent in GDM testing supplies to pharmacy on file. See telephone encounter regarding 3hr GTT results. Mago Kerr RN 07/14/2023 9:43 AM [facility] 2023-07-13 15:50:38 Patient reiterated with recommendations of monitoring bleeding, staying hydrated, doing FKCs and nothing vaginally till cleared by provider. Given strong ER and L&D precautions. Patient verbalized understanding. Mago Kerr RN 07/13/2023 3:51 PM [facility] 2023-07-13 15:44:59 Agree with assessment and recommendations Give strong ER/L&D precautions Rashmi Gonzalez MD [facility] 2023-07-13 14:35:37 Patient states that she noticed some brownish dry blood in underwear and with wiping today. Denies cramping or pain. Had intercourse 2 days ago. Good movement. Denies loss of fluids. Advised patient to monitor bleeding and FKC, stay hydrated drinking plenty of fluids, nothing vaginally until cleared by provider. Informed patient I would notify provider of concerns. Given ER/L&D precautions. Mago Kerr RN 07/13/2023 2:41 PM [facility] 2023-07-13 13:39:20 Pt calling says she noticed some dry blood on underwear want to discuss. No pain or discomfort. Racquel Farhat [facility] 2023-07-13 08:30:00 Images from the original note were not included. Loaded pt w 100gm orange glucola, no issues. Draw time: 0941, 1041, 1141 Venipuncture collection performed by clean technique on the left anticubitus. Total of 1 attempts were made. Slight pressure and a bandage/dressing were applied to the site(s). The patient experienced no complications. The following specimens were processed according to instructions and sent to [facility] laboratories per lab order on 07/13/2023 : LT BLUE SST 1 RED LAV PPT DK GREEN (LiHep) DK GREEN (SodH) BROWN DK BLUE (K2) DK BLUE (S) ACD Blood Culture NIPT/NTD [facility] 2023-07-13 08:30:00 Images from the original note were not included. Venipuncture collection performed by clean technique on the left anticubitus. Total of 1 attempts were made. Slight pressure and a bandage/dressing were applied to the site(s). The patient experienced no complications. The following specimens were processed according to instructions and sent to [facility] laboratories per lab order on 07/13/2023 : LT BLUE SST 1 RED LAV PPT DK GREEN (LiHep) DK GREEN (SodH) BROWN DK BLUE (K2) DK BLUE (S) ACD Blood Culture NIPT/NTD T [facility] 2023-07-13 08:30:00 Images from the original note were not included. Venipuncture collection performed by clean technique on the left anticubitus. Total of 1 attempts were made. Slight pressure and a bandage/dressing were applied to the site(s). The patient experienced no complications. The following specimens were processed according to instructions and sent to [facility] laboratories per lab order on 07/13/2023 : LT BLUE SST 1 RED LAV PPT DK GREEN (LiHep) DK GREEN (SodH) BROWN DK BLUE (K2) DK BLUE (S) ACD Blood Culture NIPT/NTD T [facility] 2023-07-13 08:30:00 Images from the original note were not included. Venipuncture collection performed by clean technique on the left anticubitus. Total of 1 attempts were made. Slight pressure and a bandage/dressing were applied to the site(s). The patient experienced no complications. The following specimens were processed according to instructions and sent to [facility] laboratories per lab order on 07/13/2023 : LT BLUE SST 1 RED LAV PPT DK GREEN (LiHep) DK GREEN (SodH) BROWN DK BLUE (K2) DK BLUE (S) ACD Blood Culture NIPT/NTD T [facility] 2023-07-13 08:30:00 Addended by: MAGO KERR on: 07/14/2023 08:45 AM Modules accepted: Orders T [facility] 2023-07-13 08:30:00 Addended by: MAGO KERR on: 07/14/2023 09:08 AM Modules accepted: Orders T [facility] 2023-07-13 08:30:00 Addended by: MAGO KERR on: 07/14/2023 09:41 AM Modules accepted: Orders T [facility] 2023-07-05 14:00:00 Age: [age] year old GA: 28w3d 1. Supervision of high-risk with history of in third trimester 2. Prior poor obstetrical history, antepartum, third trimester 3. Cervical cerclage suture present in third trimester - Doing well and has no concerns - 3rd trimester teaching done- reviewed S/S of PTL (contractions, leakage of fluid and Vaginal bleeding) and also FKC. Also dicussed B-H, pelvic and lower back pains- expectations and differences with S/S of PTL She plans to breast feed BC options reviewed- she is currently unsure of her choice. Written information provided Ped: [facility] 4. Urinary tract infection in mother during third trimester of Continue with treatment dose course of Abx (Keflex) and start prophylactic dose thereafter 5. Recurrent UTI (urinary tract infection) complicating , third trimester - See above 6. Anemia of mother in , antepartum - Continue Iron supplements as prescribed 7. Abnormal maternal glucose tolerance, antepartum - Has 3hr GTT scheduled on 07/06 8. Other obesity affecting in second trimester Weight gain stable KATHY in 2 weeks with Naseem Ashford and [address] Gonzalez Future Appointments Provider Department Dept Phone 07/07/2023 8:15 AM 2, [phone] 07/24/2023 3:00 PM Jane Ashford DNP [place] [phone] 08/02/2023 1:00 PM Rashmi Gonzalez MD [place] [phone] Rashmi Gonzalez MD [facility] 2023-06-29 08:30:00 Name and verified. Patient is here for 1hr GTT and other labs. 50g of FP Glucola given at 0847, finished 0849. [facility] 2023-06-29 08:30:00 Images from the original note were not included. Patient has been identified by and name and was provided with cup, antiseptic towelette, and clean catch instructions. 2 urine specimen(s) sent. Unpreserved 1 Urine Culture 1 Aptima tube Other urine T [facility] 2023-06-29 08:30:00 Images from the original note were not included. Venipuncture collection performed by clean technique on the right anticubitus. Total of 1 attempts were made. Slight pressure and a bandage/dressing were applied to the site(s). The patient experienced no complications. The following specimens were processed according to instructions and sent to [facility] laboratories per lab order on 06/29/2023: LT BLUE SST 2 RED 1 LAV 2 PPT DK GREEN (LiHep) DK GREEN (SodH) BROWN DK BLUE (K2) DK BLUE (S) ACD Blood Culture NIPT/NTD Pt verified she was 27 weeks. Pt was to far along to have Alpha Fetoprotein completed. Savannah Duval 06/29/2023 9:41 AM T [facility] 2023-06-16 10:13:18 Addended by: MAGO KERR on: 06/16/2023 10:13 AM Modules accepted: Orders T [facility] 2023-06-16 10:12:25 Promethazine 25 mg refilled #30 no refills to pharmacy on file. Patient notified. Advised patient to avoid eating large meals. Patient verbalize understanding. No questions or concerns expressed. Mago Kerr RN 06/16/2023 10:13 AM [facility] 2023-06-16 09:53:52 May refill And advise no large meals - ,may eat small regular portions Rashmi Gonzalez MD T [facility] 2023-06-16 09:02:48 Patient states that she is starting to feel nauseous again more so after eating. Ongoing past 1-2 weeks. Patient states that she is limiting herself from eating large meals to see if that will help. She started taking a antinausea medication that she had left over from last , promethazine 25mg, is helping, but needing refill. Please advise. Mago Kerr RN 06/16/2023 9:04 AM [facility] 2023-06-15 15:00:44 Pt returned nurse call. Racquel Dougherty [facility] 2023-06-15 14:53:35 Attempted to contact patient by phone, no answer, message left on voicemail to call back. Mago Kerr RN 06/15/2023 2:53 PM [facility] 2023-06-15 13:48:25 Patient is wanting a refill on Nausea medication she stated it was prescribed previously with another . Chriss Dougherty [facility] 2023-06-07 15:00:00 Age: [age] year old GA: 24w3d 1. Supervision of high-risk with history of in second trimester 2. Prior poor obstetrical history, antepartum, second trimester 3. 24 weeks gestation of - No concerns -LEONID for chlamydia was not resulted, will resend sample today - LEONID fo UTI ordered - 28 weeks labs next visit - Glucose 1 Hour Post Prandial; Future - HIV 1/2 Ag-Ab with Reflex; Future - ADC or [place] Only - Rpr; Future - Workup, Blood Bank; Future - Cbc with Diff; Future - POCT Urinalysis w/o Specific [place] - Gc & Chlamydia Amplified Assay - Trichomonas Amplified Assay 4. Other obesity affecting in second trimester Weigh gain stable 5. Cervical cerclage suture present in second trimester - Doing well and she has no concerns - Will review at 37wks KATHY in 4 weeks or PRN Rashmi Gonzalez MD [facility] 2023-05-10 15:45:00 Age: [age] year old GA: 20w3d 1. Supervision of high-risk with history of in second trimester 2. Prior poor obstetrical history, antepartum, second trimester 3. 20 weeks gestation of - POCT Urinalysis w/o Specific [place] - Gc & Chlamydia Amplified Assay; Future - Trichomonas Amplified Assay; Future - Gc & Chlamydia Amplified Assay - Trichomonas Amplified Assay 4. Other obesity affecting in second trimester - Advised on appropriate weight gain 5. Cervical cerclage suture present in second trimester - cerclage placed on 04/24 - Doing well and has no concerns today - Reviewed removal of stitch after 37wks. No indication for further CL with cerclage in place - Notify me if any concerns 6. Chlamydia trachomatis infection in in second trimester - Recurrent chlamydia -LEONID swab collected today - Gc & Chlamydia Amplified Assay; Future - Trichomonas Amplified Assay; Future - Gc & Chlamydia Amplified Assay - Trichomonas Amplified Assay KATHY in 4 weeks or PRN Rashmi Gonzalez MD [facility] 2023-05-01 11:23:59 Spoke with patient, name and verified. Patient states she was informed in [place] that since she had the cerclage placed, she will no longer need the cervical length ultrasounds anymore. Patient wanted to know if she should cancel today's ultrasound appointment. Informed patient the US scheduled for today is her anatomy scan along with the cervical length. Patient should keep US appointment and I will clarify with the inventory control supervisor physician about the cervical length portion. Confirmed with Dr. Osborn, the cervical length does not need to be performed anymore. Called [facility] Ultrasound and a note was made. Reiterated to patient to keep ultrasound appointment for today. Patient verbalized understanding. Landy Hinds MA [facility] 2023-05-01 09:46:21 Patient has question about usg. Racquel Dougherty [facility] 2023-04-25 12:59:00 CERCLAGE PLACEMENT 04/25/2023 1:26 PM Surgeon: Danny Payan MD [employer] Teacher Surgeon: Helen Mensah MD Faculty: Kristal Alvarado MD Indication: Cervical dilation/short cervix on ultrasound/history of 2nd trimester losses Procedure: Rescue Soni Cerclage placement After informed consent was obtained, patient was taken [...] FHT were confirmed at end of procedure; 167. EBL: 5cc UOP: 20cc at start of case Complications: None Danny Payan MD #[id number] [facility] Fellow 04/25/2023 1:26 PM CISE SCIENCE INSTRUCTOR Associated attestation - Kristal Alvarado MD - 04/25/2023 1:44 PM EXERCISE SCIENCE INSTRUCTOR I was present for and supervised the entire procedure(s). Uncomplicated Soni cerclage. Carly Lyons was informed that a single tape was placed, with the knot at 12:00. Counseled to avoid anything per vagina while cerclage in place Plan to discharge home this afternoon if meets day surgery criteria, with Indocin 25mg q6h x 24h. Kristal Alvarado MD 04/25/2023 1:43 PM [facility] Faculty OG-OBSTETRICS & GYNECOLOGY STAFF [facility] 2023-04-25 04:20:21 Problem: Discharge Planning - Antepartum Goal: Absence of seizure activity Outcome: Progressing as expected Goal: Adequate for discharge Outcome: Progressing as expected Goal: Blood pressure within specified parameters Outcome: Progressing as expected CISE SCIENCE INSTRUCTOR Maday Centeno RN [facility] 2023-04-24 16:21:16 Name and verified. Pt advised to go to [facility] L&D humble as cervix is opened to have Cerclage done. Pelvic rest. Per US report: A transvaginal (80237) ultrasound was performed. The cervical length reduced from 0.3cm to 0. The internal os opened to 0.6cm. Sludge noted at internal os. Pt verbalized understanding. KAREN VELA RN 04/24/2023 4:22 PM CISE SCIENCE INSTRUCTOR Kraen Vela RN [facility] 2023-04-24 16:11:[address] Elizalde- lisette pt. Cervix was opened at US appt today. Needs to go to [facility] L&D to be assessed for a Cerclage. Pelvic rest and ER precaution. ATC pt. LM on for pt to return call. KAREN VELA RN 04/24/2023 4:12 PM CISE SCIENCE INSTRUCTOR Karen Vela RN [facility] 2023-04-05 16:00:00 Age: [age] year old GA: 15w3d 1. Supervision of high-risk with history of in second trimester 2. 15 weeks gestation of 3. Prior poor obstetrical history, antepartum, second trimester - Has serial CL already scheduled - Urine Culture; Future - POCT Urinalysis w/o Specific [place] - Urine Culture - Alpha Fetoprotein-Maternal Ser; Future 4. Chlamydia infection affecting in first trimester - LEONID today. Reports that her partner took his medications too - Gc & Chlamydia Amplified Assay - Trichomonas Amplified Assay 5. Obesity affecting in first trimester, unspecified obesity type - Weight gain stable 6. Urinary tract infection in mother during second trimester of - Treated for UTI in Feb but patient didn't complete the therapy( she misread the instructions) - She continues to have symptoms of urgency and pain/pelvic pain with a full bladder - UA positive for nitrites - Abx sent in. Instructions reviewed with her - Urine culture also sent - Nitrofurantoin&Nit. Macrocryst 100 mg capsule; Take 1 capsule by mouth in the morning and 1 capsule in the evening. Dispense: 14 capsule; Refill: 0 KATHY in 4 weeks or PRN Rashmi Gonzalez MD [facility] 2023-03-17 13:31:43 Pt's name and both verified, pt informed of results per provider's message/orders below. Pt verbalized understanding. Degroot MA [facility] 2023-03-17 11:40:17 Pt calling nurse back about results Dougherty [facility] 2023-03-16 16:52:26 Carly Lyons is a 27 year old female that is returning [employer] call. Please advise. Orozco [facility] 2023-03-16 16:37:22 Images from the original note were not included. Shonda results received via fax. Voicemail left for patient to return call or she can view the results online. Will discuss results at next visit. Results signed, will scan and upload a copy to [facility]. CISE SCIENCE INSTRUCTOR Landy Hinds MA [facility] 2023-03-10 08:45:00 Images from the original note were not included. Venipuncture collection performed by clean technique on the left anticubitus. Total of 1 attempts were made. Slight pressure and a bandage/dressing were applied to the site(s). The patient experienced no complications. The following specimens were processed according to instructions and sent to [facility] laboratories per lab order on 03/10/2023 : LT BLUE SST 1 RED LAV PPT DK GREEN (LiHep) DK GREEN (SodH) BROWN DK BLUE (K2) DK BLUE (S) ACD Blood Culture NIPT/NTD SHONDA COLLECTED CISE SCIENCE INSTRUCTOR [facility] 2023-03-10 08:45:00 Normal diabetes screen. CISE SCIENCE INSTRUCTOR OG-OBSTETRICS & GYNECOLOGY STAFF [facility] 2023-03-08 16:00:00 Age: [age] year old GA: 11w3d 1. Supervision of high-risk with history of in first trimester - No concerns - CONSULT MATERNAL MEDICINE ULTRASOUND 2. Chlamydia infection affecting in first trimester - Gc & Chlamydia Amplified Assay - Trichomonas Amplified Assay 3. 11 weeks gestation of - POCT Urinalysis w/o Specific [place] - Urine Culture; Future - Urine Culture 4. Prior poor obstetrical history, antepartum, first trimester - s/p MFM consult: no history indicated cerclage at this recommended. See consult note from 02/14 but agree with serial CL from 16 -24weeks - CONSULT MATERNAL MEDICINE ULTRASOUND 5. Obesity affecting in first trimester, unspecified obesity type Weight gain stable KATHY in 4 weeks or PRN Rashmi Gonzalez MD [facility] 2023-02-07 14:30:00 Age: [age] year old GA: 7w2d New OB Visit Carly Lyons is a 27 year old at 7w2d by LMP presents for Initial OB visit today.Reports regular cycles Denies vaginal bleeding, pelvic pain or cramps. Denies nausea or vomiting She is in as stable relationship and denies domestic violence/immediate partner violence. Sonogram confirmed an IUP at 7w4d Assessment/Plan Supervision of high-risk with history of in first trimester (primary encounter diagnosis) Less than 8 weeks gestation of Missed menses Discussed do's and don'ts of , safe foods, safe medications. NOB folder given We discussed course, labs, aneuploidy and genetic carrier screening and ultrasounds. Expectations for weight gain this include 20 pounds. Exercise in discussed and encouraged. aneuploidy options were reviewed including NIPT: cFDNA test and 2nd trimester QUAD screen. The benefits and short falls of these screening tests were reviewed. Also discussed diagnostic tests: CVS vs amniocentesis. Opted for NIPT testing Reviewed Zika virus precautions .Discussed about COVID-19/flu precautions. Social distancing, frequent hand washings, signs/symptoms for testing and to follow CDC recommendations discussed. If you have not already received the COVID vaccine, it is recommended in to protect against severe disease/illness that is seen in women, including adverse outcome such as . Large scale studies in women, have not shown an increase in miscarriage rate or defects with the COVID vaccine. The vaccine also provides passive immunity for the unborn child. I discussed the call schedule and that I deliver here at [facility]. I discussed that I have two partners, Dr. Elizalde and Dr. Osborn and that they may deliver her or take care of her during her . I discussed that at [facility] we do not have a NICU, and that high risk pregnancies or deliveries less than 36 weeks will be transferred to [place]. All questions were answered. NOB labs today precautions reviewed Encouraged to call if have any additional questions or concerns. Plan: POCT Urinalysis w/o Specific [place], POCT Test, Gc & Chlamydia Amplified Assay, Trichomonas Amplified Assay, [facility] or [place] Only - Rpr, Cbc with Diff, Hcv Antibody, Hepatitis B Surface Antigen, HIV 1/2 Ag-Ab with Reflex, Workup, Blood Bank, Rubella Screen IgG, VZV Antibody Screen, Urine Culture, Glucose 1 Hour Post Prandial, Urine Drug (Immunoassay) - Comprehensive Drug Screen, Urine Drug (Immunoassay) - Comprehensive Drug Screen, PNV 67-iron ps-folate no.1-dha (VITAFOL ULTRA) 29 mg iron- 1 mg-200 mg Cap Prior poor obstetrical history, antepartum, first trimester - Hx of miscarriage at 17 wks in June 2021- fetus was delivered encaul here at [facility] She reports that she bleed through out that ( she was seeing Dr Moreland) Pathology showed 40% retroplacental bleeding and grossly normal female - She had prolonged PPROM (fetus still had a FH with parts in the vagina) with chorioamnionitis/sepsis at 17 wks in September 2022 following an emergency was performed. Pathology showed a female fetus with no abnormalities of developments - She also had a miscarriage at 6 wks in Nov 2021- reports that she also started bleeding early until she miscarriage -Explained that etiology of these losses may be due to cervical insufficiency so will recommend serial CL from 16 week and also get MFM consult for possible history indicated prophylactic cerclage Plan: CONSULT/REFERRAL MATERNAL MEDICINE FACULTY/FELLOW Preferred location: [place] Obesity (BMI 30-39.9) Obesity affecting in first trimester, unspecified obesity type Reviewed the risks associated obesity in - GDM, GTHN, Macrosomia, IUGR, labor dsytocia which could lead to with increased risk of wound breakdown. Discussed appropriate weight gain for her BMI (15-20lbs), healthy eating with regular moderate intensity exercise Encounter to determine viability of , single or unspecified fetus Plan: OB Ultrasound Transvaginal Return to clinic in 4 weeks or PRN Reviewed patient instructions and provided printed copy. Rashmi Gonzalez MD 02/09/2023 9:51 PM CISE SCIENCE INSTRUCTOR [facility] 2022-09-15 17:25:02 Formatting of this n ote might be different from the original. Problem: Falls, Risk of Goal: Absence of falls Outcome: Progressing as expected Problem: Complications of hemorrhage (risk or actual) Goal: Absence of active bleeding Outcome: Progressing as expected Goal: Absence of complications Outcome: Progressing as expected Problem: Pain Goal: Control of pain at or below patient's documented comfort goal Outcome: Progressing as expected Goal: Reduction in pain sensation Outcome: Progressing as expected Problem: Discharge Planning - Goal: Adequate for discharge Outcome: Progressing as expected Goal: Mood stable Outcome: Progressing as expected Problem: Grieving Goal: Able to express feelings of grief Outcome: Progressing as expected Pratik Bradford RN [facility] 2022-09-15 06:01:02 Formatting of this n ote might be different from the original. Problem: Falls, Risk of Goal: Absence of falls Outcome: Progressing as expected Problem: Complications of hemorrhage (risk or actual) Goal: Absence of active bleeding Outcome: Progressing as expected Goal: Absence of complications Outcome: Progressing as expected Problem: Pain Goal: Control of pain at or below patient's documented comfort goal Outcome: Progressing as expected Problem: Discharge Planning - Goal: Adequate for discharge Outcome: Progressing as expected Problem: Grieving Goal: Able to express feelings of grief Outcome: Progressing as expected Paulina Chau RN [facility] 2022-09-15 00:30:00 Formatting of this n ote might be different from the original. DELIVERY BY SPONTANEOUS VAGINAL DELIVERY Delivery Summary The patient was admitted to the Labor & Delivery unit with previable PPROM, inevitable and chorioamnionitis at 17w4d. Delivery Physician: Rashmi Gonzalez MD OB Faculty: Rashmi Gonzalez MD Intrapartum Anesthesia/Analgesia: IV Fentanyl anlagesia Vaginal delivery of a female infant with no signs of life at 12.12am in a hat in the toilet Patient brought back into bed Cord clamped and cut by me and baby passed off the field Placenta still attached. Cervix 2cm dilated .No bleeding Will continue pitocin whilst waiting for spontaneous separation of placenta. Rashmi Gonzalez MD [facility] 2022-09-14 18:50:02 Formatting of this n ote might be different from the original. Problem: Falls, Risk of Goal: Absence of falls 09/14/20221848 by Karen Esteban RN Outcome: Progressing as expected 09/14/2022 184 by Karen Esteban RN Outcome: Progressing as expected 09/14/20221846 by Karen Esteban RN Outcome: Progressing as expected Problem: Grieving Goal: Able to express feelings of grief 09/14/20221848 by Karen Esteban RN Outcome: Progressing as expected 09/14/20221847 by Karen Esteban RN Outcome: Progressing as expected Problem: Pain Goal: Control of pain at or below patient's documented comfort goal 09/14/20221848 by Karen Esteban RN Outcome: Progressing as expected 09/14/20221847 by Karen Esteban RN Outcome: Progressing as expected 09/14/20221846 by Karen Esteban RN Outcome: Progressing as expected Goal: Reduction in pain sensation 09/14/20221848 by Karen Esteban RN Outcome: Progressing as expected 09/14/20221847 by Karen Esteban RN Outcome: Progressing as expected 09/14/20221846 by Karen Esteban RN Outcome: Progressing as expected Karen Esteban RN [facility] 2022-09-14 10:45:42 Formatting of this n ote might be different from the original. Patient to ED for lower abdominal cramping with pink spotting. Dr. Gonzalez is her doctor OB. Patient reports she is 17 weeks . . Arrived with [place] [employer]. No apparent distress. Charge nurse called reports. saw patient on stretcher. Taken up to L&D. Colby Balderas RN [facility]
[2024-04-11] MEDS ORDERED: ACETAMINOPHEN 500 MG TAB ONE (20:23)
[2024-04-11] MEDS ORDERED: LIDOCAINE 2% MPF 5 ML VIAL ONE (20:23)
[2024-04-11] MEDS ORDERED: LIDOCAINE 2% W/EPI 1:200,000 MPF 20 ML VIAL IM ONE (21:27)
--- NOTE | 2024-04-11 21:44 | EDPHYS ---
Physician Documentation [facility] Name: Siri Lyons Age: 28 yrs Sex: Female : 1995 Arrival Date: 04/11/2024 Time: 18:11 Bed 13 Private MD: ED Physician Edu Hansen HPI: 04/11 20:30 This 28 yrs old Female presents to ER via Ambulatory with complaints of cp Abscess. 20:30 The patient presents with an abscess of the right buttock. cp 20:30 Description: draining, fluctuant, swollen. Onset: The symptoms/episode began/occurred cp for past few days. Associated signs and symptoms: Pertinent positives: drainage, erythema, swelling, Pertinent negatives: fever. Modifying factors: the symptoms are aggravated by sitting. CARDIOPULMONARY TECHNOLOGIST CHIEF: 18:35 LMP 12/09/2023, unknown ap3 Historical: - Allergies: 18:34 No Known Allergies; ap3 - Home Meds: 18:34 aspirin 81 mg Oral capsule [Active]; ap3 - Immunization history:: Client reports receiving the 2nd dose of the Covid vaccine, Flu vaccine is not up to date. - Infectious Disease History:: Denies. - Social history:: Smoking status: Patient denies any tobacco usage or history of. ROS: 20:35 Constitutional: Negative for body aches, chills, fever, cp 20:35 Abdomen/GI: Negative for abdominal pain, vomiting, diarrhea, constipation, cp 20:35 Skin: Positive for abscess, of the right buttock, 20:35 All other systems are negative, Exam: 20:40 Constitutional: The patient appears in no acute distress, alert, awake, non-toxic, well cp developed, well nourished, 20:40 Head/Face: Normocephalic, atraumatic. cp 20:40 Chest/axilla: Inspection: normal, 20:40 Cardiovascular: Rate: tachycardic, 20:40 Respiratory: the patient does not display signs of respiratory distress, Respirations: normal, no use of accessory muscles, no retractions, labored breathing, is not present, 20:40 Abdomen/GI: Inspection: gravid appearance, is noted, 20:40 Skin: abscess, that is small, of the right buttock, with fluctuance, that is mild, with surrounding cellulitis, that is mild, cellulitis, that is mild, irregular, on the right buttock, Vital Signs: 18:31 BP 131 / 81; Pulse 113; Resp 18; Temp 98.4; Pulse Ox 100% ; Weight 99.34 kg; Height 5 ap3 ft. 2 in. ; Pain 10/10; 19:15 BP 144 / 75; Pulse 64; Resp 18; Temp 98(O); Pulse Ox 99% on R/A; Pain 4/10; rg5 20:30 BP 128 / 81; Pulse 97; Resp 17; Pulse Ox 99% on R/A; Pain 5/10; rg5 21:30 BP 121 / 74; Pulse 65; Resp 17; Pulse Ox 99% on R/A; Pain 2/10; rg5 18:31 Body Mass Index 40.06 (99.34 kg, 157.48 cm) ap3 18:31 Pain Scale: Adult ap3 19:15 Pain Scale: Adult rg5 20:30 Pain Scale: Adult rg5 21:30 Pain Scale: Adult rg5 Procedures: 21:45 I \T\ D: Incision and drainage was performed for an abscess of the right buttock Prepped with Betadine, Anesthetized with ml's 2% Lidocaine with epinephrine. 5 ml's 2% Lidocaine with epinephrine. Incised with #11 blade. Drained small amount purulent fluid. bloody fluid. Packed with iodoform gauze, Dressing: sterile 4x4 gauze, the patient tolerated the procedure well. MDM: 18:36 Medical Screening Exam initiated 20:30 Differential diagnosis: abscess, cellulitis, insect bite. 21:43 Data reviewed: vital signs, nurses notes, and as a result, I will discharge patient. 21:43 I considered the following discharge prescriptions or medication management in the emergency department Medications were administered in the Emergency Department. See MAR. Counseling: I had a detailed discussion with the patient and/or guardian regarding the historical points, exam findings, and any diagnostic results supporting the discharge/admit diagnosis, to return to the emergency department if symptoms worsen or persist or if there are any questions or concerns that arise at home. Response to treatment: the patient's symptoms have mildly improved after treatment, and as a result, I will discharge patient. 04/11 20:06 Order name: I\T\D Setup; Complete Time: 20:15 04/11 21:42 Order name: Wound dressing; Complete Time: 22:01 cp Administered Medications: 20:33 Drug: Clindamycin PO 600 mg PO once Route: PO; rg5 20:48 Follow up: Response: No adverse reaction rg5 20:33 Drug: Acetaminophen PO 1000 mg PO once Route: PO; rg5 20:48 Follow up: Response: No adverse reaction rg5 21:41 Drug: Lidocaine Infiltration (2 %) 20 ml 5 ml Infiltration once; with epinephrine me1 {Note: Administered by DIONTE Adams.} Volume: 5 ml; Route: Infiltration; 21:46 Follow up: Response: No adverse reaction rg5 Disposition: 04/12 19:12 Chart complete. cp 20:29 Co-signature as Attending Physician, Edu Hansen MD I reviewed the patient's care rt provided by the Advanced Practice Provider and agree with the diagnosis and treatment plan. Disposition Summary: 04/11/24 21:43 Discharge Ordered Notes: Location: Home cp Problem: new cp Symptoms: have improved cp Condition: Stable cp Diagnosis - Cutaneous abscess of buttock - right cp Followup: cp - With: Claude Velasco MD - When: 1 - 2 days - Reason: Wound Recheck Discharge Instructions: - Discharge Summary Sheet cp - Skin Abscess cp - Incision and Drainage cp - Incision and Drainage, Care After cp Forms: - Medication Reconciliation Form cp - Antibiotic Education cp - Prescription Opioid Use cp - Patient Portal Instructions cp - Leadership Thank You Letter cp Prescriptions: - Clindamycin HCl 300 mg Oral Capsule - take 1 capsule ORAL route every 6 hours for 10 days; 40 capsule; Refills: 0, cp Product Selection Permitted Signatures: Eladio Stack PA PA cp Prokisch, Amanda, RN RN ap3 Edu Hansen MD MD rt Helen Yoder RN RN me1 Zhang Singh RN RN rg5 Corrections: (The following items were deleted from the chart) 19:08 04/11 20:35 Constitutional: Negative for fever, cp cp
--- NOTE | 2024-04-11 21:44 | ER ---
Nurse's Notes [facility] Name: Siri Lyons Age: 28 yrs Sex: Female : 1995 Arrival Date: 04/11/2024 Time: 18:11 Bed 13 Private MD: Diagnosis: Cutaneous abscess of buttock-right Presentation: 04/11 18:31 Chief complaint: Patient states: she has what she believes to be an abscess on her ap3 buttocks. patient states she has had it for a few days, but that it got worse yesterday and it has gotten hard to sit down. patient states she is also 17 weeks and her LMP was 12/09/23. patient currently rates her pain as a 10/10 on the pain scale. Coronavirus screen: At this time, the client does not indicate any symptoms associated with coronavirus-19. Ebola Screen: No symptoms or risks identified at this time. Initial Sepsis Screen: Does the patient meet any 2 criteria? HR > 90 bpm. Does the patient have a suspected source of infection? No. Patient's initial sepsis screen is negative. Risk Assessment: Do you want to hurt yourself or someone else? Patient reports no desire to harm self or others. Onset of symptoms is unknown. 18:31 Method Of Arrival: Ambulatory ap3 18:31 Acuity: CYNTHIA 3 ap3 Triage Assessment: 18:34 General: Appears in no apparent distress. Behavior is calm, cooperative, appropriate ap3 for age. Pain: Complains of pain in buttocks Pain currently is 10 out of 10 on a pain scale. Neuro: Level of Consciousness is awake, alert, obeys commands, Oriented to person, place, time, situation, Appropriate for age. Cardiovascular: Patient's skin is warm and dry. Respiratory: Airway is patent Respiratory effort is even, unlabored, Respiratory pattern is regular, symmetrical. Derm: Reports abscess on rectal area. 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 - Infectious Disease History:: Denies. - Social history:: Smoking status: Patient denies any tobacco usage or history of. Screenin:35 [facility] ED Fall Risk Assessment (Adult) History of falling in the last 3 months, ap3 including since admission No falls in past 3 months (0 pts) Confusion or Disorientation No (0 pts) Intoxicated or Sedated No (0 pts) Impaired Gait No (0 pts) Mobility Assist Device Used No (0 pt) Altered Elimination No (0 pt) Score/Fall Risk Level 0 - 2 = Low Risk Oriented to surroundings, Maintained a safe environment, Educated pt \T\ family on fall prevention, incl call for assistance when getting out of bed, Assessed \T\ reinforced patient's understanding of fall precautions, Hourly rounding (assess needs \T\ fall precautionary measures) done, Used ambulatory aids as needed (educated on \T\ assisted with). Abuse screen: Denies threats or abuse. Nutritional screening: No deficits noted. Tuberculosis screening: No symptoms or risk factors identified. Assessment: 19:15 General: Appears in no apparent distress. comfortable, Behavior is calm, cooperative, rg5 appropriate for age. 19:15 Neuro: Level of Consciousness is awake, alert, obeys commands, Oriented to person, rg5 place, time. Cardiovascular: Denies chest pain. Respiratory: Airway is patent Trachea midline. GI: Abdomen is round non-distended, Abd is soft and non tender. : No signs and/or symptoms were reported regarding the genitourinary system. EENT: No deficits noted. Derm: Skin is intact, Skin is dry, Skin is normal. Musculoskeletal: Circulation, motion, and sensation intact. Capillary refill < 3 seconds, Range of motion: intact in all extremities. 19:15 Pain: Complains of pain in buttocks. rg5 20:00 Reassessment: No changes from previously documented assessment. Patient and/or family rg5 updated on plan of care and expected duration. Pain level reassessed. Patient is alert, oriented x 3, equal unlabored respirations, skin warm/dry/pink. 21:00 Reassessment: No changes from previously documented assessment. Patient and/or family rg5 updated on plan of care and expected duration. Pain level reassessed. Patient is alert, oriented x 3, equal unlabored respirations, skin warm/dry/pink. Vital Signs: 18:31 BP 131 / 81; Pulse 113; Resp 18; Temp 98.4; Pulse Ox 100% ; Weight 99.34 kg; Height 5 ap3 ft. 2 in. ; Pain 10/10; 19:15 BP 144 / 75; Pulse 64; Resp 18; Temp 98(O); Pulse Ox 99% on R/A; Pain 4/10; rg5 20:30 BP 128 / 81; Pulse 97; Resp 17; Pulse Ox 99% on R/A; Pain 5/10; rg5 21:30 BP 121 / 74; Pulse 65; Resp 17; Pulse Ox 99% on R/A; Pain 2/10; rg5 18:31 Body Mass Index 40.06 (99.34 kg, 157.48 cm) ap3 18:31 Pain Scale: Adult ap3 19:15 Pain Scale: Adult rg5 20:30 Pain Scale: Adult rg5 21:30 Pain Scale: Adult rg5 ED Course: 18:13 Patient arrived in ED. mr 18:13 Eladio Stack PA is PHCP. cp 18:14 Antoinette Middleton MD is Attending Physician. cp 18:33 Triage completed. ap3 18:35 Arm band placed on right wrist. ap3 19:15 Patient has correct armband on for positive identification. Door closed. Noise rg5 minimized. 19:15 No provider procedures requiring assistance completed. Patient did not have IV access rg5 during this emergency room visit. 19:29 Zhang Singh, BREANN is Primary Nurse. rg5 19:31 Edu Hansen MD is Attending Physician. cp 21:43 Claude Velasco MD is Referral Physician. cp 22:01 Provided Education on: post er care. rg5 Administered Medications: 20:33 Drug: Clindamycin PO 600 mg PO once Route: PO; rg5 20:48 Follow up: Response: No adverse reaction rg5 20:33 Drug: Acetaminophen PO 1000 mg PO once Route: PO; rg5 20:48 Follow up: Response: No adverse reaction rg5 21:41 Drug: Lidocaine Infiltration (2 %) 20 ml 5 ml Infiltration once; with epinephrine me1 {Note: Administered by DIONTE Adams.} Volume: 5 ml; Route: Infiltration; 21:46 Follow up: Response: No adverse reaction rg5 Medication: 19:15 VIS not applicable for this client. rg5 Outcome: 21:43 Discharge ordered by . cp 22:01 Discharged to home ambulatory, rg5 22:01 Condition: stable 22:01 Discharge instructions given to patient, Instructed on discharge instructions, Demonstrated understanding of instructions, follow-up care, medications, Prescriptions given X 1, 22:03 Patient left the ED. rg5 Signatures: Ainsley Mayorga, Reg Reg mr SedaEladio PA PA cp Prokisch, Amanda RN RN ap3 Helen Yoder RN RN me1 Zhang Singh RN RN rg5 Corrections: (The following items were deleted from the chart) 20:54 19:15 Pain: Complains of pain in right leg and left leg Pain currently is 4 out of 10 rg5 on a pain scale. Quality of pain is described as aching, rg5
[2024-04-12 20:02] VITALS: TEMP 98; O2SAT 99
[2024-04-12 20:06] VITALS: BP 121/74
== END 2024-04-11 22:03 | disposition home or self-care (01) ==
LOC: ER 18:11
PROC: 0H98XZZ Drainage of Buttock Skin, External Approach (ICD-10-PCS; principal; 2024-04-11)
DX: L02.31 Cutaneous abscess of buttock (principal); Z79.82 Long term (current) use of aspirin
CPT/HCPCS: 99283; J2003